=== PATIENT | female | born 1955 | race Caucasian/White ===

== ENCOUNTER 2017-05-19 13:11 | Emergency (ER) | payer MEDICARE, MEDICAID ==
[2017-05-19 13:18] VITALS: BP 112/59
--- NOTE | 2017-05-19 13:23 | ER Document Report ---
HPI - HPI Patient complains to provider of: chronic left hip pain Onset: Other - worse for 1.5 weeks Quality of pain: Achy, Throbbing Pain Level: 5 Context: 62-year-old female with chronic left hip pain due to osteoporosis and arthritis is complaining of exacerbation of her hip pain for 1-1/2 weeks. She has chronic daily pain but does not take any medication for it. Level is similar to when she has seen her primary care doctor in [place] and was given steroid into the hip joint. No fever or chills. No Recent change or increase in activity. Associated Symptoms: None Exacerbated by: Movement Relieved by: Denies Similar symptoms previously: Yes Recently seen / treated by doctor: No - ROS ROS below otherwise negative: Yes Systems Reviewed and Negative: Yes All other systems reviewed and negative - DERM Skin Color: Normal Past Medical History - General Information source: Patient - Social History Smoking Status: Unknown if Ever Smoked Frequency of alcohol use: None Drug Abuse: None Lives with: Parents - mom Family History: Reviewed & Not Pertinent Patient has suicidal ideation: No Patient has homicidal ideation: No - Past Medical History Cardiac Medical History: Reports: Hx Coronary Artery Disease Renal/ Medical History: Denies: Hx Peritoneal Dialysis Past Surgical History: Reports: Hx Cardiac Surgery - aortic valve replacement Vertical Provider Document - CONSTITUTIONAL Agree With Documented VS: Yes Exam Limitations: No Limitations - INFECTION CONTROL TRAVEL OUTSIDE OF THE [place] IN LAST 30 DAYS: No - HEENT HEENT: Normocephalic - NECK Neck: Supple - RESPIRATORY Respiratory: Breath Sounds Normal, No Respiratory Distress O2 Sat by Pulse Oximetry: 98 - CARDIOVASCULAR Cardiovascular: Regular Rate, Regular Rhythm - BACK Back: Normal Inspection Notes: [id number] over the SI joint - MUSCULOSKELETAL/EXTREMETIES Musculoskeletal/Extremeties: MAEW, Tender - anterior left hip and over the left SI joint area, scar at left inquinal from heart surgery. No erythema or swelling. Non tender great trochantur. Decreased external rotation of the left hip due to pain - NEURO Level of Consciousness: Awake, Alert, Appropriate Motor/Sensory: No Motor Deficit, No Sensory Deficit - DERM Integumentary: Warm, Dry, No Rash Course - Re-evaluation Re-evalutation: 05/19/17 14:34 Pain is decreased with the Toradol and she states that the Naprosyn usually helps. - Vital Signs Vital signs: Temp Pulse Resp BP Pulse Ox 97.9 F 69 16 112/59 L 98 05/19/17 13:16 05/19/17 13:16 05/19/17 13:16 05/19/17 13:16 05/19/17 13:16 Discharge - Discharge Clinical Impression: Arthritis of left hip, Left hip pain Condition: Good Disposition: HOME, SELF-CARE Instructions: Arthritis ([facility]), Anti-Inflammatory Medication ([facility]), Toradol Injection ([facility]), Family Physicians / Practices Additional Instructions: warm compress may help range of motion to loosen the joint and tendons see [facility] see family practice doctorl for routine care orthopedics if pain management clinic does not help with the hip pain Please complete the patient satisfaction survey if you get one, and return it.. If you do not receive a survey, then you can go to the [facility] website, [email or web address] and place your comments about your very good care. Thank you very much. It was a pleasure being your medical provider today. Prescriptions: Naproxen 500 mg PO BIDP PRN #30 tablet PRN Reason: Referrals: PATSY QUICK MD [ACTIVE STAFF] - Follow up as needed FERNANDO RAGLAND MD [ACTIVE STAFF] - Follow up as needed
[2017-05-19] MEDS ORDERED: KETOROLAC TROMETHAMINE 60 MG/2 ML SDV IM ONE (13:33)
--- NOTE | 2017-05-19 14:29 | RADIOLOGY REPORT (SQ) ---
EXAM DESCRIPTION: HIP LEFT AP/LATERAL/ left hip COMPLETED DATE/TIME: 05/19/2017 2:09 pm REASON FOR STUDY: left hip pain COMPARISON: None. NUMBER OF VIEWS: Two views./ including AP pelvis for the left hip. TECHNIQUE: AP and frog-leg view of the left hip. LIMITATIONS: None. FINDINGS: MINERALIZATION: Normal. PRIMARY HIP: No fracture dislocation. Some arthritic changes noted. OPPOSITE HIP: No fracture dislocation. Some arthritic change noted with slight joint narrowing. SOFT TISSUES: No findings. OTHER: If an occult fracture suspected clinically, consider additional imaging. IMPRESSION: No acute fractures. Mild arthritic change noted. TECHNICAL DOCUMENTATION: JOB ID: [id number] [employer]- All Rights Reserved
== END 2017-05-19 14:53 | disposition home or self-care (01) ==
LOC: ER 13:11
DX: M16.12 Unilateral primary osteoarthritis, left hip (principal); M25.552 Pain in left hip; G89.29 Other chronic pain; M81.0 Age-related osteoporosis without current pathological fracture; Z95.2 Presence of prosthetic heart valve
CPT/HCPCS: 99283; 96372; 73502; J1885

== ENCOUNTER → 2017-06-14 | Outpatient (CLI) | payer MEDICARE ==
--- NOTE | 2017-06-14 14:19 | WOMENS IMAGING REPORT ---
EXAM DESCRIPTION: U/S BREAST UNILAT LIMITED COMPLETE DATE/TIME: 06/14/2017 2:08 pm REASON FOR STUDY: RT BREAST R92.8 R92.8 OTH ABN AND INCONCLUSIVE FINDINGS ON DX IMAGING OF DANIELLE FINDINGS: Please see combined report for performance of procedure and radiologic supervision and int erpretation. IMPRESSION: Please see combined report for performance of procedure and radiologic supervision and i nterpretation.
--- NOTE | 2017-06-14 14:19 | WOMENS IMAGING REPORT ---
EXAM DESCRIPTION: RIGHT DIAGNOSTIC MAMMO W/CAD COMPLETED DATE/TIME: 06/14/2017 1:22 pm REASON FOR STUDY: INCONCLUSIVE FINDINGS; R92.8 R92.8 OTH ABN AND INCONCLUSIVE FINDINGS ON DX IMAGIN G OF DANIELLE COMPARISON: 05/01/2017 TECHNIQUE: Standard craniocaudal and mediolateral oblique images of the breast recorded with digital acquisition. Cone compression views of the right breast were obtained in 3 projections. Exaggerated CC and true l ateral view of the right breast were obtained. LIMITATIONS: None. FINDINGS: BREAST: Right MASSES: The previously described small well demarcated breast nodule is again identified. Ultrasound will be obtained for further evaluation. CALCIFICATIONS: No new or suspicious calcifications. ARCHITECTURAL DISTORTION: None. DEVELOPING DENSITY: None. ASYMMETRY: None noted. OTHER: No other significant findings. Read with the assistance of CAD. [facility] - R2 Cenova Version 1.3 .[facility] - R2 Cenova Version 1.3 .[facility] - R2 Cenova Version 2.4 .[facility] [place] - R2 Cenova Version 2.4 .[facility] - R2 [employer] Version 9.2 BREAST ULTRASOUND: TECHNIQUE: Static and dynamic grayscale images acquired of the right breast in the specific areas of clinical/mammographic concern. Selected color Doppler images recorded. ELASTOGRAPHY PERFORMED: No. LIMITATIONS: None. FINDINGS: MASS: At the approximate 9 at 10 o'clock position in the right breast a well demarcated intramammary lymph node is identified measuring 4 x 3 x 4 mm in diameters. No other discrete solid or cystic mass es are identified. ELASTOGRAPHY CHARACTERISTICS: Not applicable. OTHER: No other significant finding. IMPRESSION: Benign finding BREAST DENSITY: b. There are scattered areas of fibroglandular density. BIRAD: 2 Benign findings. RECOMMENDATION: RECOMMENDED FOLLOW UP: Recommend routine mammography SPECIFIC INTERVENTION/IMAGING/CONSULTATION RECOMMENDED:No additional intervention/ imaging/consultati on needed at this time. COMMUNICATION:The imaging findings were not discussed with the patient. Her referring provider has be en notified of the findings. COMMENT: The patient has been notified of the results by letter per SA requirements. Additional no tification policies are in place for contacting patient with suspicious or incomplete findings. Quality ID #[id number]: The [employer] recommends an annual screening mammogram for women aged 40 years or over. This facility utilizes a reminder system to ensure that all patients receive reminder letters, and/or direct phone calls for appointments. This includes reminders for routine scr eening mammograms, diagnostic mammograms, or other Breast Imaging Interventions when appropriate. Th is patient will be placed in the appropriate reminder system. The [employer] (ACR) has developed recommendations for screening MRI of the breast s in certain patient populations, to be used in conjunction with mammography. Breast MRI surveillanc e may be appropriate for women with more than 20% lifetime risk of developing breast cancer as deter mined by genetic testing, significant family history of the disease, or history of mantle radiation f or Hodgkins Disease. ACR Practice Guidelines 2008. TECHNICAL DOCUMENTATION: FINDING NUMBER: (1) ASSESSMENT: (1) JOB ID: [id number] [employer]- All Rights Reserved
== END ==
LOC: WI 12:56
PROVIDERS: ATTEND Internal Medicine
DX: R92.8 Other abnormal and inconclusive findings on diagnostic imaging of breast (principal)
CPT/HCPCS: 76642; G0206

== ENCOUNTER 2017-08-15 18:00 | Emergency (ER) | payer MEDICARE, MEDICAID ==
[2017-08-15 18:11] VITALS: BP 123/49
--- NOTE | 2017-08-15 18:46 | RADIOLOGY REPORT (SQ) ---
EXAM DESCRIPTION: SHOULDER LEFT 2 OR MORE VIEWS COMPLETED DATE/TIME: 08/15/2017 6:36 pm REASON FOR STUDY: fall injury COMPARISON: None. NUMBER OF VIEWS: Three views. TECHNIQUE: Internal rotation, external rotation, and Y view images acquired of the left shoulder. LIMITATIONS: None. FINDINGS: MINERALIZATION: Normal. BONES: No acute fracture or dislocation. There is an old fracture of the clavicle. JOINTS: No dislocation. VISUALIZED LUNGS AND RIBS: No pneumothorax. No rib fracture. SOFT TISSUES: No radiopaque foreign body. OTHER: No other significant finding. IMPRESSION: NEGATIVE STUDY OF THE LEFT SHOULDER. NO RADIOGRAPHIC EVIDENCE OF ACUTE INJURY. TECHNICAL DOCUMENTATION: JOB ID: [id number] [employer]- All Rights Reserved
--- NOTE | 2017-08-15 18:47 | RADIOLOGY REPORT (SQ) ---
EXAM DESCRIPTION: ELBOW LEFT OVER 2 VIEWS COMPLETED DATE/TIME: 08/15/2017 6:36 pm REASON FOR STUDY: fall injury COMPARISON: None. NUMBER OF VIEWS: Four views. TECHNIQUE: AP, lateral, and both oblique radiographic images acquired of the left elbow. LIMITATIONS: None. FINDINGS: MINERALIZATION: Normal. BONES: No acute fracture or dislocation. No worrisome bone lesions. JOINT: No effusion. SOFT TISSUES: No soft tissue swelling. No foreign body. OTHER: No other significant finding. IMPRESSION: NEGATIVE STUDY OF THE LEFT ELBOW. NO RADIOGRAPHIC EVIDENCE OF ACUTE INJURY. TECHNICAL DOCUMENTATION: JOB ID: [id number] [employer]- All Rights Reserved
--- NOTE | 2017-08-15 18:54 | ER Document Report ---
HPI - HPI Patient complains to provider of: Left shoulder and elbow pain Onset/Duration: Sudden Quality of pain: Throbbing Severity: Moderate Pain Level: 4 Context: Patient states she lost her balance while carrying groceries, hitting her left shoulder and elbow. Patient denies hitting head. Patient states she can move left arm/shoulder but is painful with certain movements. Associated Symptoms: None Exacerbated by: Movement Relieved by: Denies Similar symptoms previously: Yes Recently seen / treated by doctor: No - ROS ROS below otherwise negative: Yes Systems Reviewed and Negative: Yes All other systems reviewed and negative - CONSTITUTIONAL Constitutional: DENIES: Fever - EENT EENT: DENIES: Congestion - NEURO Neurology: DENIES: Headache, Dizzinesss / Vertigo - CARDIOVASCULAR Cardiovascular: DENIES: Chest pain - RESPIRATORY Respiratory: DENIES: Trouble Breathing - GASTROINTESTINAL Gastrointestinal: DENIES: Abdominal Pain - URINARY Urinary: DENIES: Dysuria - MUSCULOSKELETAL Musculoskeletal: REPORTS: Extremity pain - Left shoulder and elbow - DERM Skin Color: Normal Skin Problems: Abrasion - Left elbow Past Medical History - General Information source: Patient - Social History Smoking Status: Current Every Day Smoker Cigarette use (# per day): Yes Frequency of alcohol use: None Drug Abuse: None Lives with: Family Family History: Reviewed & Not Pertinent Patient has suicidal ideation: No Patient has homicidal ideation: No - Past Medical History Cardiac Medical History: Reports: Hx Congestive Heart Failure, Hx Coronary Artery Disease, Hx Hypercholesterolemia Pulmonary Medical History: Reports: Hx COPD Musculoskeltal Medical History: Reports Hx Arthritis - osteo Psychiatric Medical History: Reports: Hx Depression - anxiety Past Surgical History: Reports: Hx Cardiac Surgery - aortic valve replacement, Hx Hysterectomy, Hx Open Heart Surgery - valve replacement Vertical Provider Document - CONSTITUTIONAL Agree With Documented VS: Yes Exam Limitations: No Limitations General Appearance: WD/WN, No Apparent Distress - INFECTION CONTROL TRAVEL OUTSIDE OF THE [place] IN LAST 30 DAYS: No - HEENT HEENT: Atraumatic, Normocephalic, PERRLA - NECK Neck: Normal Inspection, Supple - RESPIRATORY Respiratory: Breath Sounds Normal, No Respiratory Distress, Chest Non-Tender O2 Sat by Pulse Oximetry: 98 - CARDIOVASCULAR Cardiovascular: Regular Rate, Regular Rhythm - GI/ABDOMEN Gastrointestinal: Abdomen Soft - MUSCULOSKELETAL/EXTREMETIES Musculoskeletal/Extremeties: Tender - Left shoulder and elbow, No Edema. negative: Eccymosis Notes: Patient is able to move arms behind her back and over her head. Patient complains of pain to left shoulder with side motion. Tender anterior AC joint, - NEURO Level of Consciousness: Awake, Alert, Appropriate - DERM Integumentary: Warm, Dry, Rash - Patient has superficial abrasion to left elbow , bleeding controlled. Course - Re-evaluation Re-evalutation: 08/15/17 18:58 X-rays negative for acute fracture and discussed with patient. Old clavicle fracture was noted on x-ray. - Vital Signs Vital signs: Temp Pulse Resp BP Pulse Ox 98.3 F 50 L 18 123/49 L 98 08/15/17 18:09 08/15/17 18:09 08/15/17 18:09 08/15/17 18:09 08/15/17 18:09 Discharge - Discharge Clinical Impression: Contusion of left shoulder Qualifiers: Encounter type: initial encounter Qualified Code(s): S40.012A - Contusion of left shoulder, initial encounter Abrasion of left elbow Qualifiers: Encounter type: initial encounter Qualified Code(s): S50.312A - Abrasion of left elbow, initial encounter Condition: Good Disposition: HOME, SELF-CARE Additional Instructions: Wear shoulder immobilizer as instructed. Ice packs to shoulder and left elbow keep abrasion to left elbow clean and dry Follow-up with your doctor Monday for recheck, earlier if worsens Return as needed
== END 2017-08-15 19:18 | disposition home or self-care (01) ==
LOC: ER 18:00
DX: S40.012A Contusion of left shoulder, initial encounter (principal); S50.312A Abrasion of left elbow, initial encounter; W18.30XA Fall on same level, unspecified, initial encounter; F17.210 Nicotine dependence, cigarettes, uncomplicated; I50.9 Heart failure, unspecified; I25.10 Atherosclerotic heart disease of native coronary artery without angina pectoris; E78.00 Pure hypercholesterolemia, unspecified; J44.9 Chronic obstructive pulmonary disease, unspecified; Z95.2 Presence of prosthetic heart valve; Z90.710 Acquired absence of both cervix and uterus
CPT/HCPCS: 99283; 73080; 73030; L3650

== ENCOUNTER → 2017-08-30 | Day surgery (SDC) | payer MEDICARE, MEDICAID ==
[~2017-08-30] MED LIST: BUPIVACAINE HCL 0.5 % INJ/PF 30 ML SDV ONE; LIDOCAINE 1% INJ-PF (10 MG/ML) 30 ML SDV ONE; METHYLPREDNISOLONE ACETATE INJ 40 MG/1 ML ML ONE
--- NOTE | 2017-08-30 14:35 | RADIOLOGY REPORT (SQ) ---
EXAM DESCRIPTION: HIP UNILATERAL-1 VIEW; INJECT/ASPIR HIP/SHLDR/KNEE; FLUORO/NEEDLE PLACEMENT COMPLETED DATE/TIME: 08/30/2017 2:06 pm; 08/30/2017 2:05 pm REASON FOR STUDY: PAIN IN LEFT HIP (M25.552) M25.552 PAIN IN LEFT HIP COMPARISON: None. FLUOROSCOPY TIME: 17 seconds 1 digital radiographic images saved to PACS. LIMITATIONS: None. PROCEDURE: SITE OF INJECTION: Left hip LOCALIZING CONTRAST TYPE AND DOSE: 1 mL of Isovue-300 MEDICATION TYPE AND DOSE: 80 mg of Depo-Medrol, 5 mL of 0.5% bupivacaine Using local anesthesia and sterile technique with fluoroscopic guidance, the needle was advanced into the joint. Iodinated contrast was injected to verify intraarticular placement. This was followed by therapeutic injection of the indicated medications. The needle was removed. There were no immediat e complications. Preprocedure pain level: 8/10. Postprocedure pain level: 0/10. IMPRESSION: THERAPEUTIC INJECTION OF THE left hip JOINT ABOVE. COMMENT: Patient medication list reviewed: Yes- Quality ID# [id number]:Eligible professional attests to doc umenting in the medical record they obtained, updated, or reviewed the patient's current medications. . Quality ID 145: Final reports for procedures using fluoroscopy that document radiation exposure nata stephanie, or exposure time and number of fluorographic images (if radiation exposure indices are not avail able) TECHNICAL DOCUMENTATION: JOB ID: [id number] [employer]- All Rights Reserved
== END ==
LOC: RAD 13:07
PROVIDERS: ATTEND Physician Assistant
PROC: 3E0U33Z Introduction of Anti-inflammatory into Joints, Percutaneous Approach (ICD-10-PCS; principal; 2017-08-30)
DX: M25.552 Pain in left hip (principal)
CPT/HCPCS: 73501; 20610; 77002; J3490; J1020

== ENCOUNTER 2017-12-19 15:56 | Emergency (ER) | payer MEDICARE, MEDICAID ==
--- NOTE | 2017-12-19 16:22 | ER Document Report ---
ED Medical Screen (RME) - General Chief Complaint: Hip Pain Stated Complaint: HIP PAIN Time Seen by Provider: 12/19/17 16:20 Mode of Arrival: Wheelchair Information source: Patient TRAVEL OUTSIDE OF THE [place]. IN LAST 30 DAYS: No - HPI Patient complains to provider of: R hip Onset: Other - pt fell on R hip 1 week ago -- hsa been having pain ever since - Related Data Allergies/Adverse Reactions: clopidogrel [From Plavix] Allergy (Verified 12/19/17 15:57) rivaroxaban [From Xarelto] Allergy (Verified 12/19/17 15:57) Past Medical History - Social History Chew tobacco use (# tins/day): No Frequency of alcohol use: Rare Drug Abuse: None - Past Medical History Cardiac Medical History: Reports: Hx Congestive Heart Failure, Hx Coronary Artery Disease, Hx Hypercholesterolemia Pulmonary Medical History: Reports: Hx COPD Renal/ Medical History: Denies: Hx Peritoneal Dialysis Musculoskeltal Medical History: Reports Hx Arthritis - osteo Psychiatric Medical History: Reports: Hx Depression - anxiety Past Surgical History: Reports: Hx Cardiac Surgery - aortic valve replacement, Hx Hysterectomy, Hx Open Heart Surgery - valve replacement Physical Exam - Vital signs Vitals: Temp Pulse BP Pulse Ox 98.5 F 46 L 115/46 L 94 12/19/17 16:07 12/19/17 16:07 12/19/17 16:07 12/19/17 16:07 Course - Vital Signs Vital signs: Temp Pulse Resp BP Pulse Ox 98.5 F 46 L 115/46 L 94 12/19/17 16:07 12/19/17 16:07 12/19/17 16:07 12/19/17 16:07
--- NOTE | 2017-12-19 16:51 | RADIOLOGY REPORT (SQ) ---
EXAM DESCRIPTION: HIP RIGHT AP/LATERAL COMPLETED DATE/TIME: 12/19/2017 4:39 pm REASON FOR STUDY: fall COMPARISON: Left hip films 05/19/2017 NUMBER OF VIEWS: Two views. TECHNIQUE: AP pelvis and additional frog-leg view of the right hip. LIMITATIONS: None. FINDINGS: MINERALIZATION: Osteopenic RIGHT HIP: No fracture or dislocation. No worrisome bone lesions. No significant right hip joint sp eliane narrowing or bony spurring LEFT HIP: No fracture or dislocation. No worrisome bone lesions. No significant left hip joint spac e narrowing or bony spurring PUBIS AND ISCHIUM: Question acute or subacute fracture right symphysis pubis with bony irregularity. Left symphysis pubis intact PELVIS: No gross acute fracture SACRUM: No gross acute fracture LOWER LUMBAR SPINE: Bilateral L5-S1 facet arthropathy SOFT TISSUES: No findings. OTHER: No other significant finding. IMPRESSION: Acute or subacute right symphysis pubis fracture TECHNICAL DOCUMENTATION: JOB ID: [id number] [employer]- All Rights Reserved
[2017-12-19] MEDS ORDERED: MORPHINE SULFATE 10 MG/ML INJ IV ONE (17:32)
--- NOTE | 2017-12-19 18:41 | RADIOLOGY REPORT (SQ) ---
EXAM DESCRIPTION: CT PELVIS WITHOUT COMPLETED DATE/TIME: 12/19/2017 6:07 pm REASON FOR STUDY: R symphysis pubis fx on xray COMPARISON: None. TECHNIQUE: CT scan of the pelvis performed without intravenous or oral contrast. Images reviewed wi th soft tissue and bone windows. Reconstructed coronal and sagittal MPR images reviewed. All images stored on PACS. All CT scanners at this facility use dose modulation, iterative reconstruction, and/or weight based d osing when appropriate to reduce radiation dose to as low as reasonably achievable (ALARA). [facility]: Dose Right [facility]: CareDose [facility]: Dose Right [facility]: Teradose 4D [facility]: [email or web address] RADIATION DOSE: CT Rad equipment meets quality standard of care and radiation dose reduction techniq ues were employed. CTDIvol: 19.0 mGy. DLP: 688 mGy-cm. mGy. LIMITATIONS: None. FINDINGS: PELVIC BONES: Vague partially sclerotic/ radiolucent line through the right symphysis pubi s that most likely represents an old or possibly subacute fracture. No displacement. No adjacent so ft tissue swelling or hematoma. VISUALIZED SPINE: No acute findings. HIP(S): No acute fracture or dislocation. No worrisome bone lesions. PELVIC SOFT TISSUES: No significant findings. EXTRAPELVIC SOFT TISSUES: No significant findings. OTHER: No other significant finding. IMPRESSION: Vague fracture line not through the right symphysis pubis representing either an old or subacute fracture with no displacement and no adjacent soft tissue swelling. TECHNICAL DOCUMENTATION: JOB ID: [id number] Quality ID # [id number]: Final reports with documentation of one or more dose reduction techniques (e.g., Au tomated exposure control, adjustment of the mA and/or kV according to patient size, use of iterative reconstruction technique) 2010 [employer]- All Rights Reserved
--- NOTE | 2017-12-19 19:37 | ER Document Report ---
ED General - General Chief Complaint: Hip Pain Stated Complaint: HIP PAIN Time Seen by Provider: 12/19/17 16:20 Mode of Arrival: Wheelchair Information source: Patient TRAVEL OUTSIDE OF THE [place] IN LAST 30 DAYS: No - HPI Notes: 62-year-old female presents today with complaints of left hip and groin pain after falling in her kitchen approximately 1 week ago. Denies any head pain or change in level of consciousness. Reports pain is 4 out of 10, throbbing achy. States she only has pain when she is walking long distances. Denies any numbness or tingling bilateral lower extremities equally. Denies any history of bowel or bladder dysfunction, saddle anesthesia since onset of symptoms. Has tried [id number] ibuprofen with some relief. Denies prior history of hip or groin pain. Has not been seen for this issue. She is on a blood thinner for having a mitral valve prolapse surgery approximately 1 year ago. Denies any chest pain, shortness of breath, nausea, vomiting, diarrhea, lightheadedness, blurred vision, double vision, loss of vision, dizziness, abdominal pain, dysuria hematuria. Denies any lower back pain. - Related Data Allergies/Adverse Reactions: clopidogrel [From Plavix] Allergy (Verified 12/19/17 15:57) rivaroxaban [From Xarelto] Allergy (Verified 12/19/17 15:57) Past Medical History - General Information source: Patient - Social History Smoking Status: Current Every Day Smoker Chew tobacco use (# tins/day): No Frequency of alcohol use: Rare Drug Abuse: None Family History: Reviewed & Not Pertinent Patient has suicidal ideation: No Patient has homicidal ideation: No - Past Medical History Cardiac Medical History: Reports: Hx Congestive Heart Failure, Hx Coronary Artery Disease, Hx Hypercholesterolemia Pulmonary Medical History: Reports: Hx COPD Renal/ Medical History: Denies: Hx Peritoneal Dialysis Musculoskeltal Medical History: Reports Hx Arthritis - osteo Psychiatric Medical History: Reports: Hx Depression - anxiety Past Surgical History: Reports: Hx Cardiac Surgery - aortic valve replacement, Hx Hysterectomy, Hx Open Heart Surgery - valve replacement Review of Systems - Review of Systems Constitutional: No symptoms reported EENT: No symptoms reported Cardiovascular: No symptoms reported Respiratory: No symptoms reported Gastrointestinal: No symptoms reported Genitourinary: No symptoms reported Female Genitourinary: No symptoms reported Musculoskeletal: See HPI Skin: No symptoms reported Hematologic/Lymphatic: No symptoms reported Neurological/Psychological: No symptoms reported Physical Exam - Vital signs Vitals: Temp Pulse BP Pulse Ox 98.5 F 46 L 115/46 L 94 12/19/17 16:07 12/19/17 16:07 12/19/17 16:07 12/19/17 16:07 - Notes Notes: PHYSICAL EXAMINATION: GENERAL: Well-appearing, well-nourished and in no acute distress. HEAD: Atraumatic, normocephalic. EYES: Pupils equal round and reactive to light, extraocular movements intact, conjunctiva are normal. ENT: Nares patent, oropharynx clear without exudates. Moist mucous membranes. NECK: Normal range of motion, supple without lymphadenopathy LUNGS: Breath sounds clear to auscultation bilaterally and equal. No wheezes rales or rhonchi. HEART: Regular rate and rhythm without murmurs ABDOMEN: Soft, nontender, nondistended abdomen. No guarding, no rebound. No masses appreciated. Female : deferred Musculoskeletal: Normal range of motion, no pitting or edema. No cyanosis. noted right hip pain with abduction and extension of lumbar back at 40 degrees. dtr + 2 bilaterally and equally in BLE. full motor and sensory function. normal gait. cap refill < 3 seconds. distal pulses + 2 in BLE. lower back examination wnl. No erythema, warmth to touch, deformity, crepitus or obvious asymmetry of the affected leg compared to other of hips equally. NEUROLOGICAL: Cranial nerves grossly intact. Normal speech, normal gait. Normal sensory, motor exams PSYCH: Normal mood, normal affect. SKIN: Warm, Dry, normal turgor, no rashes or lesions noted. Course - Re-evaluation Re-evalutation: consulted with Dr. Eyal Israel, contracting support specialist police officer crime prevention, regarding CT of pelvis without contrast that showed a vague fracture line not to the right symphysis pubis representing either an old or subacute fracture with no displacement no adjacent soft tissue swelling 2030. He consulted and stated that she can be nonweight bearing, use a walker and give adequate pain control, advised pt that she needs to be seen outpatient in the office within 1 week. Check patient with [place] controlled substance reporting website, patient does not have any active controlled substances that was prescribed to her. Because findings with patient, she agreed to plan of care and did not want to stay tonight. States she will follow-up in the office. Discussed pain control measures, do not drive, operate heavy machinery or drink while taking medication. Advised to use walker, said she has been at home but will take another one, is nonweightbearing. Patient agreed with plan of care and agrees to plan of care. Patient was discharged home. - Vital Signs Vital signs: Temp Pulse Resp BP Pulse Ox 98.0 F 49 L 18 130/65 H 98 12/19/17 20:08 12/19/17 20:08 12/19/17 20:08 12/19/17 20:08 12/19/17 20:08 Discharge - Discharge Clinical Impression: Fracture of right pubis Qualifiers: Encounter type: initial encounter Sublocation of pubis: unspecified portion of pubis Fracture type: closed Qualified Code(s): S32.501A - Unspecified fracture of right pubis, initial encounter for closed fracture Condition: Good Disposition: HOME, SELF-CARE Instructions: Pelvic Fracture ([facility]) Additional Instructions: Follow-up with contracting support specialist, Dr. Sam Israel within 3 days. Use pain medication as directed, do not drive, drink alcohol or operate heavy machinery while taking medications. Use walker to remain nonweight weightbearing. Do not mix pain medication with any other pain supplements. Return to the emergency room if symptoms become worse as soon as possible. Follow-up with PCP within 24 hours. Please follow up with the [facility] [address] [place] [id number] Return immediately for any new or worsening symptoms. Follow up with primary care provider, call tomorrow to make followup appointment. Prescriptions: Hydrocodone/Acetaminophen [[place] 5-325 mg Tablet] 1 tab PO Q4HP PRN #10 tablet MDD 4 PRN Reason: Walker [Folding Walker] 1 each MC ASDIR PRN #1 each PRN Reason: Referrals: EYAL GARAY MD [ACTIVE STAFF] - Follow up in 3-5 days DONOVAN RAPP MD [Primary Care Provider] - Follow up in 3-5 days
[2017-12-19] MEDS ORDERED: HYDROCODONE/ACETAMINOPHEN 5-325 MG (6 TAB/ER DISP) PO PRN (19:39)
[2017-12-19 20:12] VITALS: BP 130/65
== END 2017-12-19 20:15 | disposition home or self-care (01) ==
LOC: ER 15:56
DX: S32.501A Unspecified fracture of right pubis, initial encounter for closed fracture (principal); W19.XXXA Unspecified fall, initial encounter; J44.9 Chronic obstructive pulmonary disease, unspecified; I25.10 Atherosclerotic heart disease of native coronary artery without angina pectoris; F17.200 Nicotine dependence, unspecified, uncomplicated; Z95.2 Presence of prosthetic heart valve; Z79.01 Long term (current) use of anticoagulants; Z88.8 Allergy status to other drugs, medicaments and biological substances
CPT/HCPCS: 99284; 73502; 72192; A9270

== ENCOUNTER 2018-01-06 08:30 | Emergency (ER) | payer MEDICARE, MEDICAID ==
[2018-01-06] MEDS ORDERED: HYDROCODONE/ACETAMINOPHEN 5-325 MG TABLET PO ONE (09:12)
[2018-01-06] MEDS ORDERED: CYCLOBENZAPRINE HCL 10 MG TABLET PO ONE (09:12)
--- NOTE | 2018-01-06 10:09 | RADIOLOGY REPORT (SQ) ---
EXAM DESCRIPTION: L SPINE WHOLE COMPLETED DATE/TIME: 01/06/2018 9:51 am REASON FOR STUDY: pain COMPARISON: None. NUMBER OF VIEWS: Five views including obliques. TECHNIQUE: AP, lateral, oblique, and sacral radiographic images acquired of the lumbar spine. LIMITATIONS: None. FINDINGS: MINERALIZATION: Normal. SEGMENTATION: Normal. No transitional anatomy. ALIGNMENT: There is a mild levoconvex curvature to the lumbar spine VERTEBRAE: Maintained height. No fracture or worrisome bone lesion. Endplate osteophyte formation i s present throughout. DISCS: Decreased intervertebral disc space height at the L2-3, L3-4, L4-5, L5-S1 levels POSTERIOR ELEMENTS: Pedicles and facets are intact. No pars defect or posterior arch defects. Facet arthropathy present in the lower lumbar spine. HARDWARE: None in the spine. PARASPINAL SOFT TISSUES: Normal. PELVIS: Mild degenerative changes of the sacroiliac joints. OTHER: No other significant finding. IMPRESSION: Multilevel spondylosis as described. No evidence of acute abnormality. TECHNICAL DOCUMENTATION: JOB ID: [id number] [employer]- All Rights Reserved Reading location - IP/workstation name: [email or web address]
--- NOTE | 2018-01-06 11:25 | ER Document Report ---
ED General Pain - General Chief Complaint: Back Pain Stated Complaint: BACK PAIN Time Seen by Provider: 01/06/18 08:43 Mode of Arrival: Medic Information source: Patient Notes: Patient is a 62-year-old female who presents to the ER today via EMS for lower back pain radiating down both posterior thighs 3 days. Patient states that she was diagnosed with a pelvic fracture at the beginning of the month, has been walking with a walker as per orthopedic surgeon's instructions and is not used to that. She denies any new injury or fall. She denies any numbness or tingling anywhere. TRAVEL OUTSIDE OF THE [place] IN LAST 30 DAYS: No - Related Data Allergies/Adverse Reactions: clopidogrel [From Plavix] Allergy (Verified 12/19/17 15:57) rivaroxaban [From Xarelto] Allergy (Verified 12/19/17 15:57) Past Medical History - General Information source: Patient - Social History Smoking Status: Unknown if Ever Smoked Family History: Reviewed & Not Pertinent - Past Medical History Cardiac Medical History: Reports: Hx Congestive Heart Failure, Hx Coronary Artery Disease, Hx Hypercholesterolemia Pulmonary Medical History: Reports: Hx COPD Renal/ Medical History: Denies: Hx Peritoneal Dialysis Musculoskeltal Medical History: Reports Hx Arthritis - osteo Psychiatric Medical History: Reports: Hx Depression - anxiety Past Surgical History: Reports: Hx Cardiac Surgery - aortic valve replacement, Hx Hysterectomy, Hx Open Heart Surgery - valve replacement Review of Systems - Review of Systems Constitutional: No symptoms reported EENT: No symptoms reported Cardiovascular: No symptoms reported Respiratory: No symptoms reported Gastrointestinal: No symptoms reported Genitourinary: No symptoms reported Female Genitourinary: No symptoms reported Musculoskeletal: See HPI Skin: No symptoms reported Hematologic/Lymphatic: No symptoms reported Neurological/Psychological: No symptoms reported Physical Exam - Notes Notes: PHYSICAL EXAMINATION: GENERAL: Uncomfortable, but in no acute distress. HEAD: Atraumatic, normocephalic. EYES: Pupils equal round and reactive to light, extraocular movements intact, sclera anicteric, conjunctiva are normal. NECK: Normal range of motion, supple without lymphadenopathy LUNGS: CTAB and equal. No wheezes rales or rhonchi. HEART: Regular rate and rhythm without murmurs ABDOMEN: Soft, no tenderness. No guarding, no rebound BACK: no vertebral tenderness, decreased range of motion secondary to pain GI/: no CVA tenderness EXTREMITIES: Normal range of motion, no pitting edema. No cyanosis. NEUROLOGICAL: Cranial nerves grossly intact. Normal sensory/motor exams. PSYCH: Normal mood, normal affect. SKIN: Warm, Dry, normal turgor, no rashes or lesions noted Course - Re-evaluation Re-evalutation: 01/06/18 11:24 Lumbar x-ray negative for any acute pathology. Patient states that she received pain medication from orthopedic surgeon but is out. She states that that was working for her pain. Discharge - Discharge Clinical Impression: Low back pain Qualifiers: Chronicity: acute Back pain laterality: bilateral Sciatica presence: with sciatica Sciatica laterality: bilateral sciatica Qualified Code(s): M54.42 - Lumbago with sciatica, left side; M54.41 - Lumbago with sciatica, right side; M54.41 - Lumbago with sciatica, right side Condition: Stable Disposition: HOME, SELF-CARE Additional Instructions: Return immediately for any new or worsening symptoms. Follow up with primary care provider, call tomorrow to make followup appointment. Prescriptions: Cyclobenzaprine HCl [Flexeril 10 mg Tablet] 10 mg PO TIDP PRN #15 tab PRN Reason: Hydrocodone/Acetaminophen [[place] 5-325 mg Tablet] 1 tab PO Q4 PRN #15 tablet PRN Reason:
[2018-01-06 11:54] VITALS: BP 103/75
== END 2018-01-06 11:40 | disposition home or self-care (01) ==
LOC: ER 08:30
DX: M54.41 Lumbago with sciatica, right side (principal); M54.42 Lumbago with sciatica, left side; I25.10 Atherosclerotic heart disease of native coronary artery without angina pectoris; J44.9 Chronic obstructive pulmonary disease, unspecified; Z95.2 Presence of prosthetic heart valve; Z88.8 Allergy status to other drugs, medicaments and biological substances
CPT/HCPCS: 99283; 72110; A9270 ×2

== ENCOUNTER 2018-01-08 10:26 | Inpatient (IN) | payer MEDICARE, MEDICAID ==
--- NOTE | 2018-01-08 10:37 | ER Document Report ---
ED Hip Pain/Injury - General Stated Complaint: RIGHT HIP PAIN Time Seen by Provider: 01/08/18 10:36 Mode of Arrival: Medic Information source: Patient Notes: 62 yo female in [facility] states that the low back pain is the worst it has ever been. The hydrocodone and flexeril has decreased it until last night, now both heels are numb and when she bears weight with the walke it send shooting pain up both legs to her low back. No saddle anesthesia or fever. Screams with spasm of pain when tries to move. TRAVEL OUTSIDE OF THE [place] IN LAST 30 DAYS: No - Related Data Allergies/Adverse Reactions: clopidogrel [From Plavix] Allergy (Verified 12/19/17 15:57) rivaroxaban [From Xarelto] Allergy (Verified 12/19/17 15:57) Past Medical History - General Information source: Patient - Social History Smoking Status: Unknown if Ever Smoked Frequency of alcohol use: None Drug Abuse: None Lives with: Family Family History: Reviewed & Not Pertinent - Past Medical History Cardiac Medical History: Reports: Hx Congestive Heart Failure, Hx Coronary Artery Disease, Hx Hypercholesterolemia, Other - mitral valve replacement Pulmonary Medical History: Reports: Hx COPD Renal/ Medical History: Denies: Hx Peritoneal Dialysis Musculoskeltal Medical History: Reports Hx Arthritis - osteo Psychiatric Medical History: Reports: Hx Depression - anxiety, Other - brain injury Past Surgical History: Reports: Hx Hysterectomy, Hx Open Heart Surgery - mitral valve replacement Review of Systems - Review of Systems Constitutional: No symptoms reported EENT: No symptoms reported Cardiovascular: No symptoms reported Respiratory: No symptoms reported Gastrointestinal: No symptoms reported Genitourinary: No symptoms reported Female Genitourinary: No symptoms reported Musculoskeletal: See HPI Skin: No symptoms reported Hematologic/Lymphatic: No symptoms reported Neurological/Psychological: No symptoms reported Physical Exam - Vital signs Vitals: Temp Pulse Resp BP Pulse Ox 98.0 F 119 H 18 101/66 93 01/08/18 10:32 01/08/18 10:32 01/08/18 10:32 01/08/18 10:32 01/08/18 10:32 Interpretation: Normal - General General appearance: Appears well, Alert In distress: None - HEENT Head: Normocephalic, Atraumatic Eyes: Normal Conjunctiva: Normal Pupils: PERRL Pharynx: Normal Neck: Supple. No: Lymphadenopathy - Respiratory Respiratory status: No respiratory distress Chest status: Nontender Breath sounds: Normal Chest palpation: Normal - Cardiovascular Rhythm: Regular Heart sounds: Normal auscultation Murmur: No - Abdominal Inspection: Normal Distension: No distension Bowel sounds: Normal Tenderness: Nontender. No: Tender Organomegaly: No organomegaly - Back Back: Normal, Tender - sacrum bilateral. No: CVA tenderness, Vertebra tenderness - Extremities General upper extremity: Normal inspection, Nontender, Normal color, Normal ROM , Normal temperature General lower extremity: Normal inspection, Nontender, Normal color, Normal ROM , Normal temperature, Normal weight bearing. No: Bonnie's sign Notes: 2+ bilateral PT - Neurological Neuro grossly intact: Yes Cognition: Normal Orientation: AAOx4 Raul Coma Scale Eye Opening: Spontaneous Farwell Coma Scale Verbal: Oriented Farwell Coma Scale Motor: Obeys Commands Raul Coma Scale Total: 15 Speech: Normal Motor strength normal: LUE, RUE, LLE, RLE Sensory: Normal - Psychological Associated symptoms: Normal affect, Normal mood - Skin Skin Temperature: Warm Skin Moisture: Dry Skin Color: Normal Skin irregularity: negative: Rash Course - Re-evaluation Re-evalutation: 01/08/18 11:13 pt yelling when moves. I did have her sit on side of bed, she was able to do that but sweating due to pain. States that heels are numb since middle of night but no saddle anesthesia. When she puts weight on her legs it shouts pain all the way up both legs to low back (she points to sacrum for area of pain) 01/08/18 13:42 Mother was here and wants her admitted to rehab of some sort for this pain because she screams out in pain at home. This pain started in November. 01/08/18 15:32 Patient did ambulate to the bathroom with nurse and my assistance and using a chair as a walker. She did get to the bathroom and sat on the toilet and was able to transfer okay into the wheelchair to get back to the house so we will be sending her home with a wheelchair prescription and she seemed happy with that and she understands that the Percocet is double strength and should only take 1 every 4 hours. 01/08/18 16:49 dr jenkins will do the sacroplasty at 8am, pt medicaid so if the hospitalist agrees to admit he will take care of the patient. Dr. To will admit the patient to observation and I let dr. jenkins know about it, will put in the consult for him as requested. - Vital Signs Vital signs: Temp Pulse Resp BP Pulse Ox 98.0 F 54 L 16 98/65 L 96 01/08/18 15:54 01/08/18 15:54 01/08/18 15:54 01/08/18 15:54 01/08/18 15:54 Discharge - Discharge Clinical Impression: Bilateral sacral insufficiency fracture Qualifiers: Encounter type: initial encounter Qualified Code(s): M84.48XA - Pathological fracture, other site, initial encounter for fracture Condition: Good Disposition: ADMITTED INPATIENT Admitting Provider: Hospitalist Unit Admitted: Telemetry Instructions: Fracture ([facility]), Low Back Pain ([facility]) Additional Instructions: heat use the walker schedule appointment with [facility] for Sacroplasty to resolve this pain stronger pain medication prescribed as well has lidocaine 4% patches for your back the new prescription is double strength only take 1 every 4 hours as needed. Referrals: DONOVAN RAPP MD [Primary Care Provider] - Follow up as needed
[2018-01-08] MEDS ORDERED: KETOROLAC TROMETHAMINE 60 MG/2 ML SDV IM ONE (10:54)
[2018-01-08] MEDS ORDERED: ACETAMINOPHEN 325 MG TABLET PO ONE (10:55)
[2018-01-08] MEDS ORDERED: HYDROMORPHONE HCL INJ/PF 2 MG/ML AMPULE IM ONE ×2 (11:05→15:21)
--- NOTE | 2018-01-08 14:50 | RADIOLOGY REPORT (SQ) ---
EXAM DESCRIPTION: MRI LUMBAR SPINE WITHOUT COMPLETED DATE/TIME: 01/08/2018 2:15 pm REASON FOR STUDY: low back pain with radiculopathy COMPARISON: Lumbar spine plain films 01/06/2018, CT bony pelvis 12/19/2017 TECHNIQUE: Sagittal and Axial imaging includes T1, T2, STIR and gradient echo sequences. Coronal T2/ HASTE imaging. LIMITATIONS: None. FINDINGS: VISUALIZED UPPER ABDOMEN: Limited evaluation. No acute or suspicious findings suggested. SEGMENTATION: No transitional anatomy. The lowest well-developed disc space is labeled L5-S1. ALIGNMENT: Anatomic. VERTEBRAE: Intact. BONE MARROW: There is a sacral insufficiency fracture, with edema in the right and left sacral ala, a nd a transverse fracture line with edema in the sacrum at the upper aspect of the S2 level. These ch anges are best shown on sagittal T2 images 1-13, and axial images 25-29. DISC SIGNAL: Diffuse decreased T2 weighted intervertebral disc signal. POSTERIOR ELEMENTS: Generally intact. No pars defect evident. HARDWARE: None in the spine. CORD AND CONUS: Normal in size and signal intensity. Conus at the L1 level. SOFT TISSUES: No aortic aneurysm seen. No bulky retroperitoneal adenopathy or mass. No paraspinal mas s or fluid. T11-12: Unremarkable T12-L1: Unremarkable L1-L2: No significant spinal stenosis or exit foraminal stenosis. Mild bilateral facet arthropathy L2-L3: No significant spinal stenosis or exit foraminal stenosis. Mild bilateral facet arthropathy L3-L4: No significant spinal stenosis or exit foraminal stenosis. Mild bilateral facet arthropathy L4-L5: No significant spinal stenosis or exit foraminal stenosis. Mild posterior disc bulging. Mild facet and ligament hypertrophy. No significant central or right foraminal narrowing. Mild left for aminal narrowing. L5-S1: No significant spinal stenosis or exit foraminal stenosis. SACRUM: There is a sacral insufficiency fracture, with edema in the right and left sacral ala, and a transverse fracture line with edema in the sacrum at the upper aspect of the S2 level. These changes are best shown on sagittal T2 images 1-13, and axial images 25-29 OTHER: No other significant findings. IMPRESSION: Sacral insufficiency fracture TECHNICAL DOCUMENTATION: JOB ID: [id number] [employer]- All Rights Reserved Reading location - IP/workstation name: [email or web address] [email or web address]]
[2018-01-08] MEDS ORDERED: ONDANSETRON 4 MG TAB.RAPDIS PO ONE (15:27)
[2018-01-08] MEDS ORDERED: OXYCODONE-ACETAMINOPHEN 5-325 MG TABLET PO ONE (16:37)
[2018-01-08] MEDS ORDERED: ONDANSETRON HCL INJ/PF 4 MG/2 ML SDV IV PRN (17:54)
[2018-01-08] MEDS ORDERED: HEPARIN SODIUM,PORCINE/D5W 25,000 UNIT/250 ML RTUINJ IV PRN (18:00)
[2018-01-08] MEDS ORDERED: DOCUSATE SODIUM 100 MG/10 ML UDC PO SCH (18:00)
--- NOTE | 2018-01-08 18:26 | PDOC H&P ---
History of Present Illness Admission Date/PCP: DONOVAN RAPP MD Patient complains of: severe back pain History of Present Illness: JM PUGA is a 62 year old female with a known history of CHF, chronic afib , S/P valve replacement on pradaxa , presented to the ED with reccurent back / inguinal pain MRI pelvis was performed showing a sacral insufficiency fracture . Patient was admitted for pain management . Patient states she has not taken pradaxa for the past 2 days" run out " and filled prescription today . , Past Medical History Past Medical History: History is vague difficult to obtain will call Dr Murphy in am for more information office records will be obtained Cardiac Medical History: Reports: Atrial Fibrillation, Congestive Heart Failure , Coronary Artery Disease, Hyperlipidema, Other - mitral valve replacement Pulmonary Medical History: Reports: Chronic Obstructive Pulmonary Disease (COPD) Musculoskeltal Medical History: Reports: Arthritis - osteo Psychiatric Medical History: Reports: Depression - anxiety, Other - brain injury Past Surgical History Past Surgical History: Reports: Hysterectomy, Other - ? valve replacement Social History Information Source: Patient Lives with: Family Smoking Status: Unknown if Ever Smoked - Advance Directive Resuscitation Status: Full Code Surrogate healthcare decision maker:: mother Alexandra Family History Family History: Reviewed & Not Pertinent Parental Family History Reviewed: Yes Children Family History Reviewed: Yes Sibling(s) Family History Reviewed.: Yes Medication/Allergy Allergies/Adverse Reactions: clopidogrel [From Plavix] Allergy (Verified 12/19/17 15:57) rivaroxaban [From Xarelto] Allergy (Verified 12/19/17 15:57) Review of Systems Constitutional: ABSENT: as per HPI, anorexia, chills, fatigue, fever(s), headache(s), night sweats, weakness, weight gain, weight loss, other Nose, Mouth, and Throat: ABSENT: as per HPI, headache(s), mouth pain, sore throat, vertigo, other Respiratory: ABSENT: cough, hemoptysis Gastrointestinal: ABSENT: abdominal pain, constipation, diarrhea, nausea, vomiting Musculoskeletal: PRESENT: back pain, other - severe pain right inguinal area Neurological: PRESENT: as per HPI. ABSENT: abnormal gait, abnormal movements, abnormal speech, confusion, convulsions, dizziness, focal weakness, frequent falls, lack of coordination, memory loss, numbness, paresthesias, restless legs , syncope, tingling, tremor(s), vertigo, weakness, other Psychiatric: ABSENT: anxiety, depression Physical Exam Vital Signs: Temp Pulse Resp BP Pulse Ox 98.0 F 54 L 16 98/65 L 96 01/08/18 15:54 01/08/18 15:54 01/08/18 15:54 01/08/18 15:54 01/08/18 15:54 Intake & Output 01/07/18 01/08/18 01/09/18 00:59 00:59 00:59 Weight 160 kg General appearance: PRESENT: mild distress, other - because of pain Head exam: PRESENT: atraumatic, normocephalic Eye exam: PRESENT: conjunctiva pink, EOMI, PERRLA. ABSENT: scleral icterus Mouth exam: PRESENT: moist, tongue midline Respiratory exam: PRESENT: clear to auscultation [place]im[place]. ABSENT: rales, rhonchi, wheezes Cardiovascular exam: PRESENT: irregular rhythm. ABSENT: diastolic murmur, rubs , systolic murmur Pulses: PRESENT: normal dorsalis pedis pul. ABSENT: normal carotid pulses, normal radial pulses, normal femoral pulses, +1 pedal pulses bilateral, +2 pedal pulses bilateral, other GI/Abdominal exam: PRESENT: normal bowel sounds, soft. ABSENT: distended, guarding, mass, organolmegaly, rebound, tenderness Rectal exam: PRESENT: deferred Extremities exam: PRESENT: full ROM. ABSENT: calf tenderness, clubbing, pedal edema Musculoskeletal exam: PRESENT: tenderness - tenderness low back, right inguinal area Neurological exam: PRESENT: alert, awake, oriented to person, oriented to place , oriented to time, oriented to situation, CN II-XII grossly intact. ABSENT: motor sensory deficit Psychiatric exam: PRESENT: appropriate affect, normal mood. ABSENT: homicidal ideation, suicidal ideation Skin exam: PRESENT: dry, intact, warm. ABSENT: cyanosis, rash Results Impressions: Lumbar Spine MRI 01/08/18 14:15 IMPRESSION: Sacral insufficiency fracture Assessment & Plan - Diagnosis (1) Bilateral sacral insufficiency fracture Qualifiers: Encounter type: subsequent encounter Qualified Code(s): M84.48XA - Pathological fracture, other site, initial encounter for fracture Is this a current diagnosis for this admission?: Yes Plan: Dr Leiva notified Patient will be kept NPO after midnight will initiate heparin drip maintenance which can be d/c 6 hours prior to intervention (2) Atrial fibrillation Qualifiers: Atrial fibrillation type: chronic Qualified Code(s): I48.2 - Chronic atrial fibrillation Is this a current diagnosis for this admission?: Yes Plan: rate 115 resumed amiodarone and metoprolol (3) Chronic anticoagulation Is this a current diagnosis for this admission?: Yes Plan: hold pradaxa heparin drip Patient gives a history of valve replacement ? records to be obtained in am (4) CHF (congestive heart failure) Qualifiers: Heart failure chronicity: unspecified Is this a current diagnosis for this admission?: Yes - Time Time Spent with patient: admit to telemetry reevaluate patient in am Time Spent: 50 to 70 Minutes - Inpatient Certification Based on my medical assessment, after consideration of the patient's comorbidities, presenting symptoms, or acuity I expect that the services needed warrant INPATIENT care.: Yes I certify that my determination is in accordance with my understanding of Medicare's requirements for reasonable and necessary INPATIENT services [42 CFR 412.3e].: Yes Medical Necessity: Need For Continuous Telemetry Monitoring, Need for Pain Control, Other - Heparin drip
--- NOTE | 2018-01-08 18:32 | RADIOLOGY REPORT (SQ) ---
EXAM DESCRIPTION: CHEST SINGLE VIEW COMPLETED DATE/TIME: 01/08/2018 6:08 pm REASON FOR STUDY: tachycardia hx cHF COMPARISON: None. EXAM PARAMETERS: NUMBER OF VIEWS: One view. TECHNIQUE: Single frontal radiographic view of the chest acquired. RADIATION DOSE: NA LIMITATIONS: None. FINDINGS: LUNGS AND PLEURA: Mild diffuse increased interstitial densities suggesting pulmonary edema and congestive failure. No effusions. MEDIASTINUM AND HILAR STRUCTURES: No masses. Contour normal. HEART AND VASCULAR STRUCTURES: Mild cardiomegaly and mild vascular congestion. BONES: No acute findings. HARDWARE: Status post placement. OTHER: No other significant finding. IMPRESSION: Findings consistent with mild congestive failure. TECHNICAL DOCUMENTATION: JOB ID: [id number] [employer]- All Rights Reserved Reading location - IP/workstation name: [email or web address]
[2018-01-08 18:56] LABS: ABSOLUTE BASOPHILS # (AUTO) 0.1 10^3/uL (0.0-0.2); ABSOLUTE LYMPHOCYTES (AUTO) 0.7 10^3/uL (0.5-4.7); ABSOLUTE MONOCYTES (AUTO) 0.9 10^3/uL (0.1-1.4); ABSOLUTE NEUT (AUTO) 8.7 10^3/uL (1.7-8.2); BASOPHILS % (AUTO) 0.6 % (0-2); EOSINOPHILS % (AUTO) 0.1 % (0-6); HEMATOCRIT 35.5 % (36.0-47.0); HEMOGLOBIN 11.7 g/dL (12.0-15.5); LYMPHOCYTES % (AUTO) 6.6 % (13-45); MEAN CORPUSCULAR HGB CONC 32.8 g/dL (32.0-36.0); MEAN CORPUSCULAR VOLUME 85 fl (80-97); PLATELET COUNT 217 10^3/uL (150-450); RED BLOOD COUNT 4.16 10^6/uL (3.72-5.28); RED CELL DISTRIBUTION WIDTH 15.7 % (11.5-14.0); SEGMENTED NEUTROPHILS % (AUTO) 83.7 % (42-78); TOTAL CELLS COUNTED % (AUTO) 100 %; WHITE BLOOD COUNT 10.4 10^3/uL (4.0-10.5)
[2018-01-08] MEDS ORDERED: AMIODARONE HCL 200 MG TABLET PO ONE (19:00)
[2018-01-08] MEDS ORDERED: DOCUSATE SODIUM 100 MG CAPSULE PO ONE (19:00)
[2018-01-08] MEDS ORDERED: METOPROLOL TARTRATE 25 MG TABLET PO ONE (19:00)
[2018-01-08 19:02] LABS: INTERNATIONAL RATION (INR) 1.44; PROTHROMBIN TIME 18.5 SEC (11.4-15.4)
[2018-01-08 19:03] LABS: PARTIAL THROMBOPLASTIN TIME 39.6 SEC (23.5-35.8)
--- NOTE | 2018-01-08 19:11 | EKG REPORT ---
SEVERITY:- ABNORMAL ECG - ATRIAL FIBRILLATION RIGHT BUNDLE BRANCH BLOCK LAFB : Confirmed by: Marito Kolb MD 08-Jan-2018 19:11:06
[2018-01-08 19:17] LABS: ANION GAP 10 (5-19); BLOOD UREA NITROGEN 24 mg/dL (7-20); CALCIUM 9.2 mg/dL (8.4-10.2); CARBON DIOXIDE 25 mmol/L (22-30); CHLORIDE 100 mmol/L (98-107); GLUCOSE 110 mg/dL (75-110); POTASSIUM 4.8 mmol/L (3.6-5.0); SODIUM 134.6 mmol/L (137-145)
[2018-01-08] MEDS: OXYCODONE-ACETAMINOPHEN 5-325 MG TABLET PO PRN (21:48)
[2018-01-08 22:19] LABS: APPEARANCE,URINE CLEAR; BILIRUBIN,URINE NEGATIVE (NEGATIVE); COLOR,URINE YELLOW; GLUCOSE, URINE NEGATIVE (NEGATIVE); KETONES,URINE NEGATIVE (NEGATIVE); LEUKOCYTE ESTERASE,URINE NEGATIVE (NEGATIVE); NITRITE,URINE NEGATIVE (NEGATIVE); PROTEIN,URINE NEGATIVE (NEGATIVE); URINE SPECIFIC GRAVITY 1.029
[2018-01-09] MEDS ORDERED: NORMAL SALINE 1000 ML 500 ML IV ONE (01:22)
[2018-01-09] MEDS: NORMAL SALINE 1000 ML 1,000 ML IV PRN ×2 (01:27→14:49)
[2018-01-09] MEDS: OXYCODONE-ACETAMINOPHEN 5-325 MG TABLET PO PRN ×4 (02:40→21:16)
[2018-01-09] MEDS: DOCUSATE SODIUM 100 MG CAPSULE PO SCH ×2 (11:01→17:04)
[2018-01-09] MEDS ORDERED: LORAZEPAM 0.5 MG TABLET PO PRN (12:55)
[2018-01-09] MEDS ORDERED: GABAPENTIN 300 MG CAPSULE PO SCH (14:00)
[2018-01-09] MEDS ORDERED: METOPROLOL TARTRATE 25 MG TABLET PO ONE (14:30)
[2018-01-09] MEDS ORDERED: ESCITALOPRAM OXALATE 10 MG TABLET PO ONE (14:30)
[2018-01-09] MEDS ORDERED: AMIODARONE HCL 200 MG TABLET PO ONE (14:30)
[2018-01-09] MEDS ORDERED: LEVOTHYROXINE SODIUM 0.025 MG TABLET PO ONE (14:30)
[2018-01-09] MEDS: GABAPENTIN 300 MG CAPSULE PO SCH ×2 (14:45→21:08)
--- NOTE | 2018-01-09 17:35 | PDOC PROGRESS REPORT ---
Subjective Progress Note for:: 01/09/18 Subjective:: In severe pain especially when she moves a little bit We have increased the Dilaudid She remains in atrial fibrillation with controlled ventricular rate at the heart rate 110 Blood pressure has been running on the low side We are giving her IV fluids And we do believe that she had poor intake because of the continued pain She has been on the heparin drip which will be discontinued at 8 PM tonight Reason For Visit: SACRAL FRACTURE,CHRONIC ANTICOAGULATION Physical Exam Vital Signs: Temp Pulse Resp BP Pulse Ox 98.7 F 106 H 18 98/65 L 93 01/09/18 15:35 01/09/18 15:35 01/09/18 15:35 01/09/18 15:35 01/09/18 15:35 Intake & Output 01/08/18 01/09/18 01/10/18 00:59 00:59 00:59 Intake Total 1730 Output Total 300 Balance 1430 Weight 72.575 kg 72.5 kg General appearance: PRESENT: mild distress, other - because of pain Head exam: PRESENT: atraumatic, normocephalic Eye exam: PRESENT: conjunctiva pink, EOMI, PERRLA. ABSENT: scleral icterus Mouth exam: PRESENT: moist, tongue midline Respiratory exam: PRESENT: clear to auscultation kim[place]. ABSENT: rales, rhonchi, wheezes Cardiovascular exam: PRESENT: irregular rhythm. ABSENT: diastolic murmur, rubs , systolic murmur Pulses: PRESENT: normal dorsalis pedis pul. ABSENT: normal carotid pulses, normal radial pulses, normal femoral pulses, +1 pedal pulses bilateral, +2 pedal pulses bilateral, other GI/Abdominal exam: PRESENT: normal bowel sounds, soft. ABSENT: distended, guarding, mass, organolmegaly, rebound, tenderness Rectal exam: PRESENT: deferred Extremities exam: PRESENT: full ROM. ABSENT: calf tenderness, clubbing, pedal edema Musculoskeletal exam: PRESENT: tenderness - tenderness low back, right inguinal area Neurological exam: PRESENT: alert, awake, oriented to person, oriented to place , oriented to time, oriented to situation, CN II-XII grossly intact. ABSENT: motor sensory deficit Results Laboratory Results: 01/08/18 18:45 01/08/18 18:45 01/08/18 01/08/18 01/08/18 18:45 18:45 21:40 WBC 10.4 RBC 4.16 Hgb 11.7 L Hct 35.5 L MCV 85 MCH 28.0 MCHC 32.8 RDW 15.7 H Plt Count 217 Seg Neutrophils % 83.7 H Lymphocytes % 6.6 L Monocytes % 9.0 Eosinophils % 0.1 Basophils % 0.6 Absolute Neutrophils 8.7 H Absolute Lymphocytes 0.7 Absolute Monocytes 0.9 Absolute Eosinophils 0.0 Absolute Basophils 0.1 Sodium 134.6 L Potassium 4.8 Chloride 100 Carbon Dioxide 25 Anion Gap 10 BUN 24 H Creatinine 1.10 Est GFR ( Amer) > 60 Est GFR (Non-Af Amer) 50 L Glucose 110 Calcium 9.2 Urine Color YELLOW Urine Appearance CLEAR Urine pH 5.0 Ur Specific [place] 1.029 Urine Protein NEGATIVE Urine Glucose (UA) NEGATIVE Urine Ketones NEGATIVE Urine Blood NEGATIVE Urine Nitrite NEGATIVE Ur Leukocyte Esterase NEGATIVE Urine WBC (Auto) 0 Urine RBC (Auto) 2 Impressions: Lumbar Spine MRI 01/08/18 14:15 IMPRESSION: Sacral insufficiency fracture Chest X-Ray 01/08/18 17:43 IMPRESSION: Findings consistent with mild congestive failure. Assessment & Plan - Diagnosis (1) Bilateral sacral insufficiency fracture Qualifiers: Encounter type: subsequent encounter Is this a current diagnosis for this admission?: Yes Plan: Dr Hernandez notified Patient will be kept NPO after midnight will initiate heparin drip maintenance which can be d/c 10-12 hours prior to intervention last pradaxa taken 3 days ago (2) Atrial fibrillation Qualifiers: Atrial fibrillation type: chronic Qualified Code(s): I48.2 - Chronic atrial fibrillation Is this a current diagnosis for this admission?: Yes Plan: rate 115 resumed amiodarone and metoprolol (3) Chronic anticoagulation Is this a current diagnosis for this admission?: Yes Plan: hold pradaxa heparin drip Patient gives a history of valve replacement ? We did not get any records yet Continue heparin drip until 8 PM then discontinue Repeat PT PTT in a.m. (4) CHF (congestive heart failure) Qualifiers: Heart failure chronicity: unspecified Is this a current diagnosis for this admission?: Yes - Time Time Spent with patient: patient stable for intervention in am Time Spent with patient: 25-34 minutes
[2018-01-09] MEDS: ZOLPIDEM TARTRATE 5 MG TABLET PO SCH (21:07)
[2018-01-09] MEDS: DONEPEZIL HCL 5 MG TABLET PO SCH (21:08)
[2018-01-09] MEDS: SIMVASTATIN 10 MG TABLET PO SCH (21:09)
[2018-01-09] MEDS: METOPROLOL TARTRATE 25 MG TABLET PO SCH (21:09)
[2018-01-09] MEDS: SACUBITRIL/VALSARTAN 24 MG/26 MG TABLET PO SCH (21:17)
[2018-01-09] MEDS ORDERED: (PENDING PHARMACY ID) (Donepezil Hcl [Aricept] 10 MG) PO SCH (22:00)
[2018-01-09] MEDS ORDERED: (PENDING PHARMACY ID) (Zolpidem Tartrate [Ambien] 10 MG) PO SCH (22:00)
[2018-01-10] MEDS: NORMAL SALINE 1000 ML 1,000 ML IV PRN (01:22)
[2018-01-10 05:30] LABS: HEMATOCRIT 31.9 % (36.0-47.0); HEMOGLOBIN 10.6 g/dL (12.0-15.5); MEAN CORPUSCULAR HEMOGLOBIN 28.2 pg (27.0-33.4); MEAN CORPUSCULAR HGB CONC 33.1 g/dL (32.0-36.0); MEAN CORPUSCULAR VOLUME 85 fl (80-97); PLATELET COUNT 176 10^3/uL (150-450); RED BLOOD COUNT 3.74 10^6/uL (3.72-5.28); RED CELL DISTRIBUTION WIDTH 15.3 % (11.5-14.0); WHITE BLOOD COUNT 6.1 10^3/uL (4.0-10.5)
[2018-01-10 05:34] LABS: INTERNATIONAL RATION (INR) 1.17; PROTHROMBIN TIME 15.7 SEC (11.4-15.4)
[2018-01-10] MEDS: LEVOTHYROXINE SODIUM 0.025 MG TABLET PO SCH (05:59)
[2018-01-10] MEDS: GABAPENTIN 300 MG CAPSULE PO SCH ×3 (05:59→22:32)
[2018-01-10] MEDS: HYDROMORPHONE HCL INJ/PF 2 MG/ML AMPULE IV PRN (05:59)
[2018-01-10] MEDS ORDERED: LIDOCAINE 1% INJ-PF (10 MG/ML) 30 ML SDV ONE ×2 (08:14→09:58)
[2018-01-10] MEDS ORDERED: METOPROLOL TARTRATE 25 MG TABLET PO SCH (10:00)
[2018-01-10] MEDS: SACUBITRIL/VALSARTAN 24 MG/26 MG TABLET PO SCH ×2 (10:47→22:32)
[2018-01-10] MEDS: DOCUSATE SODIUM 100 MG CAPSULE PO SCH ×2 (10:47→18:14)
[2018-01-10] MEDS: METOPROLOL TARTRATE 25 MG TABLET PO SCH ×2 (10:47→22:26)
[2018-01-10] MEDS ORDERED: FENTANYL CITRATE INJ/PF 100 MCG/2 ML AMPUL ONE (11:16)
[2018-01-10] MEDS ORDERED: MIDAZOLAM 2 MG/2 ML INJ ONE (11:16)
[2018-01-10] MEDS ORDERED: ACETAMINOPHEN 100 ML IV ONE (11:17)
[2018-01-10] MEDS ORDERED: KETAMINE HCL INJ 500 MG/10 ML VIAL ONE (11:17)
[2018-01-10] MEDS ORDERED: DEXMEDETOMIDINE INJ 80 MCG/20 ML VIAL IV ONE (11:17)
[2018-01-10] MEDS ORDERED: PROPOFOL INJ 200 MG/20 ML VIAL IV ONE (11:17)
[2018-01-10] MEDS ORDERED: CEFAZOLIN INJ 1 GM VIAL ONE ×2 (12:06→14:08)
[2018-01-10] MEDS ORDERED: PROMETHAZINE HCL INJ 25 MG/1 ML VIAL IV PRN (13:03)
[2018-01-10] MEDS ORDERED: FENTANYL CITRATE INJ/PF 100 MCG/2 ML AMPUL IV PRN ×2 (13:03)
[2018-01-10] MEDS ORDERED: ONDANSETRON HCL INJ/PF 4 MG/2 ML SDV IV PRN (13:03)
[2018-01-10] MEDS ORDERED: DIPHENHYDRAMINE HCL 50 MG/ML VIAL IV PRN (13:03)
--- NOTE | 2018-01-10 14:18 | OPERATIVE REPORT E ---
Operative Report NAME: JM PUGA : 1955 AGE: 62Y DATE OF SURGERY: 01/10/2018 ROOM: 404 PREOPERATIVE DIAGNOSES: 1. Bilateral sacral insufficiency fractures at S1 and S2. 2. Chronic intractable pain secondary to insufficiency fractures. OPERATIVE PROCEDURE: Bilateral kyphosacroplasty at S1 and S2 under fluoroscopic guidance. INDICATION: Intractable pain. ANESTHESIA: MAC. PRIMARY SURGEON: TATY VILLALOBOS M.D. ENGINE REPAIRER: PATSY QUICK M.D. COMPLICATIONS: None. PROCEDURE NOTE: After obtaining informed consent and advising the patient of the risks and benefits, including serious neurological injury, aggravation of pain problems, bowel and bladder dysfunction, paralysis, severe aggravation of pain, she was taken to the operating room. She was placed comfortably in the prone position. MAC anesthesia was administered. She was evaluated under fluoroscopy. Suitable entrance sites for bilateral sacroplasty using a long axis approach were identified. She was then prepped with chlorhexidine and allowed appropriate drying time. She was then draped in the usual fashion with a clear plastic drape. Beginning on the right side, a suitable skin entrance site was confirmed, again with fluoroscopy. The skin was anesthetized with 1% lidocaine with bicarb as was the soft tissue on its skin and the periosteum right at the junction of the inferior posterior margin of the sacroiliac joint and the S3-S4 junction. After local anesthesia was applied, a small incision was made in the skin and the expressed trocar was advanced parallel to the SI joint and lateral to the foramina of S1, S2, and S3. Multiple views in AP and lateral were taken to assure satisfactory location. In the lateral view, the trocar was advanced just caudad to the sacral ala. Trocar was then removed and the balloon was placed and expanded. This was repeated as described previously for the left side. Once both balloons were satisfactorily inflated and cavities were created, the balloons were deflated and the filling tubes were placed. At the S1 level on the right side, 3 mL of cement were instilled and 2.6 were instilled on the left for a total of 5.6 mL at the S1 level. The trocars were then withdrawn slightly. Balloons were then reinflated into the S1 ala, creating satisfactory cavities. These were then deflated and the filling tubes placed, again on the right and then the left, with a total of 1.6 mL in each cavity for a total of 3.2 mL in the S2 region. Both trocars were then occluded with *------* stylettes and allowed the cement to dry. The stylettes and all material were then removed. The region was cleansed and sterile dressings were applied. It should be noted that on appearance in the AP and lateral views the cement appeared to be satisfactorily placed. She was then taken to the PACU for further postoperative care and monitoring. DICTATING PHYSICIAN: PATSY QUICK M.D. [id number] PHY#: [id number] ID: [id number] JOB#: [id number] ACCT: [id number] cc:PATSY QUICK M.D. >
--- NOTE | 2018-01-10 14:51 | RADIOLOGY REPORT (SQ) ---
EXAM DESCRIPTION: SACRUM AND COCCYX; NO CHG FLUORO COMPLETED DATE/TIME: 01/10/2018 2:38 pm REASON FOR STUDY: SACROPLASTY ASST WITH FLUORO IN OR COMPARISON: None. FLUOROSCOPY TIME: 5.1 minutes 41 images saved to PACS. TECHNIQUE: Intra-operative images acquired during surgical procedure to evaluate progress. NUMBER OF IMAGES: 41 digital images LIMITATIONS: None. FINDINGS: Intra procedural imaging and fluoro during pain management sacral procedure. IMPRESSION: Intra procedural imaging and fluoro COMMENT: Quality ID 145: Final reports for procedures using fluoroscopy that document radiation exp osure indices, or exposure time and number of fluorographic images (if radiation exposure indices are not available) Please consult full operative report of the attending physician for description of the procedure. TECHNICAL DOCUMENTATION: JOB ID: [id number] [employer]- All Rights Reserved Reading location - IP/workstation name: [email or web address]
--- NOTE | 2018-01-10 14:51 | RADIOLOGY REPORT (SQ) ---
EXAM DESCRIPTION: SACRUM AND COCCYX; NO CHG FLUORO COMPLETED DATE/TIME: 01/10/2018 2:38 pm REASON FOR STUDY: SACROPLASTY ASST WITH FLUORO IN OR COMPARISON: None. FLUOROSCOPY TIME: 5.1 minutes 41 images saved to PACS. TECHNIQUE: Intra-operative images acquired during surgical procedure to evaluate progress. NUMBER OF IMAGES: 41 digital images LIMITATIONS: None. FINDINGS: Intra procedural imaging and fluoro during pain management sacral procedure. IMPRESSION: Intra procedural imaging and fluoro COMMENT: Quality ID 145: Final reports for procedures using fluoroscopy that document radiation exp osure indices, or exposure time and number of fluorographic images (if radiation exposure indices are not available) Please consult full operative report of the attending physician for description of the procedure. TECHNICAL DOCUMENTATION: JOB ID: [id number] [employer]- All Rights Reserved Reading location - IP/workstation name: [email or web address]
[2018-01-10] MEDS ORDERED: NORMAL SALINE 300 ML IV ONE (15:45)
[2018-01-10] MEDS: AMIODARONE HCL 200 MG TABLET PO SCH (18:14)
[2018-01-10] MEDS: ESCITALOPRAM OXALATE 10 MG TABLET PO SCH (18:14)
[2018-01-10] MEDS ORDERED: NORMAL SALINE 1000 ML 1,000 ML IV PRN (20:04)
--- NOTE | 2018-01-10 20:05 | PDOC PROGRESS REPORT ---
Subjective Progress Note for:: 01/10/18 Subjective:: Patient is resting comfortably after procedure No shortness of breath no chest pain Reason For Visit: SACRAL FRACTURE,CHRONIC ANTICOAGULATION Physical Exam Vital Signs: Temp Pulse Resp BP Pulse Ox 98.1 F 71 18 95/66 L 96 01/10/18 16:40 01/10/18 16:40 01/10/18 16:40 01/10/18 16:40 01/10/18 16:40 Intake & Output 01/09/18 01/10/18 01/11/18 00:59 00:59 00:59 Intake Total 2670 3922 Output Total 2750 655 Balance -80 3267 Weight 72.575 kg 72.5 kg 71.5 kg General appearance: PRESENT: mild distress, other - because of pain Head exam: PRESENT: atraumatic, normocephalic Eye exam: PRESENT: conjunctiva pink, EOMI, PERRLA. ABSENT: scleral icterus Mouth exam: PRESENT: moist, tongue midline Respiratory exam: PRESENT: clear to auscultation [place]. ABSENT: rales, rhonchi, wheezes Cardiovascular exam: PRESENT: irregular rhythm. ABSENT: diastolic murmur, rubs , systolic murmur Pulses: PRESENT: normal dorsalis pedis pul. ABSENT: normal carotid pulses, normal radial pulses, normal femoral pulses, +1 pedal pulses bilateral, +2 pedal pulses bilateral, other GI/Abdominal exam: PRESENT: normal bowel sounds, soft. ABSENT: distended, guarding, mass, organolmegaly, rebound, tenderness Rectal exam: PRESENT: deferred Extremities exam: PRESENT: full ROM. ABSENT: calf tenderness, clubbing, pedal edema Musculoskeletal exam: PRESENT: tenderness - tenderness low back, right inguinal area Neurological exam: PRESENT: alert, awake, oriented to person, oriented to place , oriented to time, oriented to situation, CN II-XII grossly intact. ABSENT: motor sensory deficit Results Laboratory Results: 01/10/18 04:18 01/08/18 18:45 01/10/18 04:18 WBC 6.1 RBC 3.74 Hgb 10.6 L Hct 31.9 L MCV 85 MCH 28.2 MCHC 33.1 RDW 15.3 H Plt Count 176 Impressions: Lumbar Spine MRI 01/08/18 14:15 IMPRESSION: Sacral insufficiency fracture Chest X-Ray 01/08/18 17:43 IMPRESSION: Findings consistent with mild congestive failure. Fluoroscopy 01/10/18 00:00 IMPRESSION: Intra procedural imaging and fluoro Sacrum and Coccyx X-Ray 01/10/18 00:00 IMPRESSION: Intra procedural imaging and fluoro Assessment & Plan - Diagnosis (1) Bilateral sacral insufficiency fracture Qualifiers: Encounter type: subsequent encounter Is this a current diagnosis for this admission?: Yes Plan: Status post kyphoplasty We will resume anticoagulation with heparin drip tonight PT evaluation to be initiated as per Dr. Barrientos (2) Atrial fibrillation Qualifiers: Atrial fibrillation type: chronic Qualified Code(s): I48.2 - Chronic atrial fibrillation Is this a current diagnosis for this admission?: Yes (3) Chronic anticoagulation Is this a current diagnosis for this admission?: Yes (4) CHF (congestive heart failure) Qualifiers: Heart failure chronicity: unspecified Is this a current diagnosis for this admission?: Yes - Time Time Spent with patient: Patient's blood pressure is running low we will hydrate her with normal saline overnight Time Spent with patient: 25-34 minutes
[2018-01-10] MEDS ORDERED: HEPARIN SOD (PORCINE) 1,000 UNIT/ML 10 ML VIAL IV PRN (20:06)
[2018-01-10 20:31] LABS: HEMATOCRIT 33.2 % (36.0-47.0); HEMOGLOBIN 10.8 g/dL (12.0-15.5); MEAN CORPUSCULAR HEMOGLOBIN 28.1 pg (27.0-33.4); MEAN CORPUSCULAR HGB CONC 32.5 g/dL (32.0-36.0); MEAN CORPUSCULAR VOLUME 87 fl (80-97); PLATELET COUNT 177 10^3/uL (150-450); RED BLOOD COUNT 3.84 10^6/uL (3.72-5.28); RED CELL DISTRIBUTION WIDTH 15.8 % (11.5-14.0); WHITE BLOOD COUNT 5.6 10^3/uL (4.0-10.5)
[2018-01-10 20:32] LABS: INTERNATIONAL RATION (INR) 1.08; PARTIAL THROMBOPLASTIN TIME 23.1 SEC (23.5-35.8); PROTHROMBIN TIME 14.8 SEC (11.4-15.4)
[2018-01-10] MEDS: HEPARIN SODIUM,PORCINE/D5W 25,000 UNIT/250 ML RTUINJ IV PRN (20:39)
[2018-01-10 20:54] LABS: ABSOLUTE LYMPHOCYTES# (MANUAL) 0.2 10^3/uL (0.5-4.7); ABSOLUTE MONOCYTES # (MANUAL) 0.1 10^3/uL (0.1-1.4); ABSOLUTE NEUTROPHILS# (MANUAL) 5.3 10^3/uL (1.7-8.2); BAND NEUTROPHILS % (MANUAL) 4 % (3-5); BASOPHILS % (MANUAL) 0 % (0-2); EOSINOPHILS % (MANUAL) 0 % (0-6); LYMPHOCYTES % (MANUAL) 4 % (13-45); MONOCYTES % (MANUAL) 1 % (3-13); SEGMENTED NEUTROPHILS % (MAN) 91 % (42-78); TOTAL CELLS COUNTED 100
[2018-01-10 20:55] LABS: ANISOCYTOSIS SLIGHT; PLATELET COMMENT ADEQUATE
[2018-01-10 20:58] LABS: OVALOCYTES 1+; POIKILOCYTOSIS 1+
[2018-01-10 20:59] LABS: PLATELET LARGE PRESENT; TEAR DROP CELLS SLIGHT
[2018-01-10] MEDS: DONEPEZIL HCL 5 MG TABLET PO SCH (22:32)
[2018-01-10] MEDS: ZOLPIDEM TARTRATE 5 MG TABLET PO SCH (22:32)
[2018-01-10] MEDS: SIMVASTATIN 10 MG TABLET PO SCH (22:32)
[2018-01-10] MEDS: OXYCODONE-ACETAMINOPHEN 5-325 MG TABLET PO PRN (23:47)
[2018-01-11 02:10] LABS: ABSOLUTE LYMPHOCYTES (AUTO) 0.3 10^3/uL (0.5-4.7); ABSOLUTE MONOCYTES (AUTO) 0.3 10^3/uL (0.1-1.4); ABSOLUTE NEUT (AUTO) 4.7 10^3/uL (1.7-8.2); BASOPHILS % (AUTO) 0.1 % (0-2); HEMATOCRIT 32.7 % (36.0-47.0); HEMOGLOBIN 10.6 g/dL (12.0-15.5); LYMPHOCYTES % (AUTO) 6.2 % (13-45); MEAN CORPUSCULAR HEMOGLOBIN 27.9 pg (27.0-33.4); MEAN CORPUSCULAR HGB CONC 32.4 g/dL (32.0-36.0); MEAN CORPUSCULAR VOLUME 86 fl (80-97); MONOCYTES % (AUTO) 5.3 % (3-13); PLATELET COUNT 179 10^3/uL (150-450); RED BLOOD COUNT 3.79 10^6/uL (3.72-5.28); RED CELL DISTRIBUTION WIDTH 15.4 % (11.5-14.0); SEGMENTED NEUTROPHILS % (AUTO) 88.4 % (42-78); TOTAL CELLS COUNTED % (AUTO) 100 %; WHITE BLOOD COUNT 5.3 10^3/uL (4.0-10.5)
[2018-01-11 02:28] LABS: ANION GAP 7 (5-19); BLOOD UREA NITROGEN 17 mg/dL (7-20); CALCIUM 7.9 mg/dL (8.4-10.2); CARBON DIOXIDE 21 mmol/L (22-30); CHLORIDE 112 mmol/L (98-107); GLUCOSE 132 mg/dL (75-110); POTASSIUM 4.6 mmol/L (3.6-5.0); SODIUM 139.5 mmol/L (137-145)
[2018-01-11] MEDS: HYDROMORPHONE HCL INJ/PF 2 MG/ML AMPULE IV PRN ×2 (03:56→21:12)
[2018-01-11] MEDS: LEVOTHYROXINE SODIUM 0.025 MG TABLET PO SCH (05:50)
[2018-01-11] MEDS: GABAPENTIN 300 MG CAPSULE PO SCH ×3 (05:50→23:46)
[2018-01-11 06:15] LABS: APPEARANCE,URINE CLEAR; BILIRUBIN,URINE NEGATIVE (NEGATIVE); COLOR,URINE YELLOW; GLUCOSE, URINE NEGATIVE (NEGATIVE); KETONES,URINE NEGATIVE (NEGATIVE); LEUKOCYTE ESTERASE,URINE NEGATIVE (NEGATIVE); NITRITE,URINE NEGATIVE (NEGATIVE); PROTEIN,URINE NEGATIVE (NEGATIVE); URINE SPECIFIC GRAVITY 1.025
[2018-01-11] MEDS: OXYCODONE-ACETAMINOPHEN 5-325 MG TABLET PO PRN ×2 (08:07→14:24)
[2018-01-11] MEDS: ESCITALOPRAM OXALATE 10 MG TABLET PO SCH (09:20)
[2018-01-11] MEDS: SACUBITRIL/VALSARTAN 24 MG/26 MG TABLET PO SCH ×2 (09:20→22:00)
[2018-01-11] MEDS: DOCUSATE SODIUM 100 MG CAPSULE PO SCH ×2 (09:21→18:00)
[2018-01-11] MEDS: METOPROLOL TARTRATE 25 MG TABLET PO SCH ×2 (09:37→21:24)
[2018-01-11] MEDS: AMIODARONE HCL 200 MG TABLET PO SCH (09:37)
--- NOTE | 2018-01-11 11:23 | PDOC PROGRESS REPORT ---
Subjective Progress Note for:: 01/11/18 Subjective:: Still with pain in lower back, but tolerable. No fever or chills, no chest pain or shortness of breath or palpitations. No bowel or urine incontinence. Reason For Visit: SACRAL FRACTURE,CHRONIC ANTICOAGULATION Physical Exam Vital Signs: Temp Pulse Resp BP Pulse Ox 98.2 F 102 H 17 96/77 L 97 01/11/18 07:23 01/11/18 07:23 01/11/18 07:23 01/11/18 07:23 01/11/18 08:50 Intake & Output 01/10/18 01/11/18 01/12/18 06:59 06:59 06:59 Intake Total 3290 3712 Output Total 2850 455 Balance 440 3257 Weight 71.5 kg 71.5 kg GEN: NAD, well-developed, well-nourished CV: Irregularly irregular, NL S1S2 LUNGS: CTA bilaterally ABDOMEN Soft, NT, +BS EXTERMITIES: No e/c/c NEURO: Alert, oriented, no focal weakness Results Laboratory Results: 01/11/18 01:59 01/11/18 01:59 01/10/18 01/11/18 01/11/18 20:17 01:59 01:59 WBC 5.6 5.3 RBC 3.84 3.79 Hgb 10.8 L 10.6 L Hct 33.2 L 32.7 L MCV 87 86 MCH 28.1 27.9 MCHC 32.5 32.4 RDW 15.8 H 15.4 H Plt Count 177 179 Seg Neutrophils % Not Reportable 88.4 H Lymphocytes % Not Reportable 6.2 L Monocytes % Not Reportable 5.3 Eosinophils % Not Reportable 0.0 Basophils % Not Reportable 0.1 Absolute Neutrophils Not Reportable 4.7 Absolute Lymphocytes Not Reportable 0.3 L Absolute Monocytes Not Reportable 0.3 Absolute Eosinophils Not Reportable 0.0 Absolute Basophils Not Reportable 0.0 Sodium 139.5 Potassium 4.6 Chloride 112 H Carbon Dioxide 21 L Anion Gap 7 BUN 17 Creatinine 0.75 Est GFR ( Amer) > 60 Est GFR (Non-Af Amer) > 60 Glucose 132 H Calcium 7.9 L Urine Color Urine Appearance Urine pH Ur Specific [place] Urine Protein Urine Glucose (UA) Urine Ketones Urine Blood Urine Nitrite Ur Leukocyte Esterase Urine WBC (Auto) Urine RBC (Auto) 01/11/18 04:00 WBC RBC Hgb Hct MCV MCH MCHC RDW Plt Count Seg Neutrophils % Lymphocytes % Monocytes % Eosinophils % Basophils % Absolute Neutrophils Absolute Lymphocytes Absolute Monocytes Absolute Eosinophils Absolute Basophils Sodium Potassium Chloride Carbon Dioxide Anion Gap BUN Creatinine Est GFR ( Amer) Est GFR (Non-Af Amer) Glucose Calcium Urine Color YELLOW Urine Appearance CLEAR Urine pH 6.0 Ur Specific [place] 1.025 Urine Protein NEGATIVE Urine Glucose (UA) NEGATIVE Urine Ketones NEGATIVE Urine Blood MODERATE H Urine Nitrite NEGATIVE Ur Leukocyte Esterase NEGATIVE Urine WBC (Auto) 2 Urine RBC (Auto) 59 Impressions: Lumbar Spine MRI 01/08/18 14:15 IMPRESSION: Sacral insufficiency fracture Chest X-Ray 01/08/18 17:43 IMPRESSION: Findings consistent with mild congestive failure. Fluoroscopy 01/10/18 00:00 IMPRESSION: Intra procedural imaging and fluoro Sacrum and Coccyx X-Ray 01/10/18 00:00 IMPRESSION: Intra procedural imaging and fluoro Assessment & Plan - Diagnosis (1) Bilateral sacral insufficiency fracture Qualifiers: Encounter type: subsequent encounter Is this a current diagnosis for this admission?: Yes Plan: Status post bilateral kyphoplasty S1-S2 on 01/10/18 Continue pain management PT/OT Patient will likely need rehab (2) Atrial fibrillation Qualifiers: Atrial fibrillation type: chronic Qualified Code(s): I48.2 - Chronic atrial fibrillation Is this a current diagnosis for this admission?: Yes Plan: On heparin anticoagulation for now. We will start Pradaxa upon discharge, patient normally on 150 mg twice daily (3) CHF (congestive heart failure) Qualifiers: Heart failure chronicity: unspecified Is this a current diagnosis for this admission?: Yes (4) Chronic anticoagulation Is this a current diagnosis for this admission?: Yes Plan: As in A. fib. (5) Low back pain Qualifiers: Chronicity: acute Back pain laterality: bilateral Sciatica presence: with sciatica Sciatica laterality: bilateral sciatica Qualified Code(s): M54.42 - Lumbago with sciatica, left side; M54.41 - Lumbago with sciatica, right side; M54.41 - Lumbago with sciatica, right side Is this a current diagnosis for this admission?: Yes Plan: See #1
[2018-01-11] MEDS ORDERED: LIDOCAINE 2% INJ-PF (20 MG/ML) 2 ML AMPUL ONE ×2 (15:52→15:53)
[2018-01-11] MEDS ORDERED: ONDANSETRON HCL INJ/PF 4 MG/2 ML SDV ONE ×2 (15:52→15:53)
[2018-01-11] MEDS ORDERED: DEXAMETHASONE SOD PHOSPHATE INJ 4 MG/1 ML VIAL ONE ×2 (15:52→15:53)
[2018-01-11] MEDS ORDERED: METOCLOPRAMIDE HCL INJ/PF 10 MG/2 ML SDV ONE ×2 (15:52→15:54)
[2018-01-11] MEDS ORDERED: PHENYLEPHRINE HCL INJ/PF 10 MG/1 ML SDV ONE (15:52)
[2018-01-11] MEDS ORDERED: NEOSTIGMINE METHYLSULFATE 10 MG/10 ML VIAL ONE ×2 (15:53→15:54)
[2018-01-11] MEDS ORDERED: SUCCINYLCHOLINE CHLORIDE INJ 200 MG/10 ML VIAL ONE ×2 (15:53→15:54)
[2018-01-11] MEDS ORDERED: ROCURONIUM BROMIDE INJ 50 MG/5 ML VIAL IV ONE (15:53)
[2018-01-11] MEDS ORDERED: GLYCOPYRROLATE INJ 0.4 MG/2 ML VIAL ONE (15:53)
[2018-01-11 18:42] LABS: INTERNATIONAL RATION (INR) 1.13; PROTHROMBIN TIME 15.3 SEC (11.4-15.4)
[2018-01-11] MEDS: ZOLPIDEM TARTRATE 5 MG TABLET PO SCH (21:12)
[2018-01-11] MEDS: DONEPEZIL HCL 5 MG TABLET PO SCH (21:12)
[2018-01-11] MEDS: SIMVASTATIN 10 MG TABLET PO SCH (21:24)
[2018-01-11] MEDS: HEPARIN SODIUM,PORCINE/D5W 25,000 UNIT/250 ML RTUINJ IV PRN (22:47)
[2018-01-11] MEDS: LIDOCAINE 5% (700 MG) TRANSDERMAL ADH..PATCH TP SCH (22:47)
[2018-01-12] MEDS: HYDROMORPHONE HCL INJ/PF 2 MG/ML AMPULE IV PRN ×3 (04:34→16:17)
[2018-01-12] MEDS: LEVOTHYROXINE SODIUM 0.025 MG TABLET PO SCH (05:14)
[2018-01-12] MEDS: GABAPENTIN 300 MG CAPSULE PO SCH ×3 (05:14→18:10)
[2018-01-12 06:28] LABS: APPEARANCE,URINE CLEAR; BILIRUBIN,URINE NEGATIVE (NEGATIVE); COLOR,URINE YELLOW; GLUCOSE, URINE NEGATIVE (NEGATIVE); KETONES,URINE NEGATIVE (NEGATIVE); LEUKOCYTE ESTERASE,URINE NEGATIVE (NEGATIVE); NITRITE,URINE NEGATIVE (NEGATIVE); PROTEIN,URINE 30 mg/dL (NEGATIVE); URINE SPECIFIC GRAVITY 1.008
[2018-01-12 06:39] LABS: ANION GAP 7 (5-19); BLOOD UREA NITROGEN 15 mg/dL (7-20); CALCIUM 7.9 mg/dL (8.4-10.2); CARBON DIOXIDE 21 mmol/L (22-30); CHLORIDE 109 mmol/L (98-107); GLUCOSE 103 mg/dL (75-110); POTASSIUM 4.2 mmol/L (3.6-5.0); SODIUM 137.3 mmol/L (137-145)
[2018-01-12 06:42] LABS: HEMATOCRIT 33.1 % (36.0-47.0); HEMOGLOBIN 10.7 g/dL (12.0-15.5); MEAN CORPUSCULAR HEMOGLOBIN 27.7 pg (27.0-33.4); MEAN CORPUSCULAR HGB CONC 32.2 g/dL (32.0-36.0); MEAN CORPUSCULAR VOLUME 86 fl (80-97); PLATELET COUNT 235 10^3/uL (150-450); RED BLOOD COUNT 3.85 10^6/uL (3.72-5.28); RED CELL DISTRIBUTION WIDTH 15.8 % (11.5-14.0); WHITE BLOOD COUNT 8.4 10^3/uL (4.0-10.5)
[2018-01-12] MEDS: NORMAL SALINE 1000 ML 1,000 ML IV PRN (08:54)
[2018-01-12] MEDS: ESCITALOPRAM OXALATE 10 MG TABLET PO SCH (09:27)
[2018-01-12] MEDS: AMIODARONE HCL 200 MG TABLET PO SCH (09:27)
[2018-01-12] MEDS: DOCUSATE SODIUM 100 MG CAPSULE PO SCH ×2 (09:33→18:12)
[2018-01-12] MEDS: METOPROLOL TARTRATE 25 MG TABLET PO SCH ×2 (09:33→21:24)
[2018-01-12] MEDS: SACUBITRIL/VALSARTAN 24 MG/26 MG TABLET PO SCH ×2 (11:16→21:24)
[2018-01-12] MEDS: HEPARIN SODIUM,PORCINE/D5W 25,000 UNIT/250 ML RTUINJ IV PRN (16:53)
--- NOTE | 2018-01-12 17:31 | PDOC PROGRESS REPORT ---
Subjective Progress Note for:: 01/12/18 Subjective:: Still with pain in lower back, but slowly improving. Physical therapy today. Mother at bedside. No fever or chills, no chest pain or shortness of breath or palpitations. No bowel or urine incontinence. Reason For Visit: SACRAL FRACTURE,CHRONIC ANTICOAGULATION Physical Exam Vital Signs: Temp Pulse Resp BP Pulse Ox 97.5 F 118 H 18 121/72 96 01/12/18 15:20 01/12/18 15:20 01/12/18 15:20 01/12/18 15:20 01/12/18 15:20 Intake & Output 01/11/18 01/12/18 01/13/18 06:59 06:59 06:59 Intake Total 3712 2754 Output Total 455 1800 Balance 3257 954 Weight 71.5 kg 75.3 kg GEN: NAD, well-developed, well-nourished CV: Irregularly irregular, NL S1S2 LUNGS: CTA bilaterally ABDOMEN Soft, NT, +BS EXTERMITIES: No e/c/c NEURO: Alert, oriented, no focal weakness Results Laboratory Results: 01/12/18 05:42 01/12/18 05:42 01/12/18 01/12/18 01/12/18 05:00 05:42 05:42 WBC 8.4 RBC 3.85 Hgb 10.7 L Hct 33.1 L MCV 86 MCH 27.7 MCHC 32.2 RDW 15.8 H Plt Count 235 Sodium 137.3 Potassium 4.2 Chloride 109 H Carbon Dioxide 21 L Anion Gap 7 BUN 15 Creatinine 0.77 Est GFR ( Amer) > 60 Est GFR (Non-Af Amer) > 60 Glucose 103 Calcium 7.9 L Urine Color YELLOW Urine Appearance CLEAR Urine pH 6.0 Ur Specific [place] 1.008 Urine Protein 30 H Urine Glucose (UA) NEGATIVE Urine Ketones NEGATIVE Urine Blood LARGE H Urine Nitrite NEGATIVE Ur Leukocyte Esterase NEGATIVE Urine WBC (Auto) 9 Urine RBC (Auto) 34 Impressions: Lumbar Spine MRI 01/08/18 14:15 IMPRESSION: Sacral insufficiency fracture Chest X-Ray 01/08/18 17:43 IMPRESSION: Findings consistent with mild congestive failure. Fluoroscopy 01/10/18 00:00 IMPRESSION: Intra procedural imaging and fluoro Sacrum and Coccyx X-Ray 01/10/18 00:00 IMPRESSION: Intra procedural imaging and fluoro Assessment & Plan - Diagnosis (1) Bilateral sacral insufficiency fracture Qualifiers: Encounter type: subsequent encounter Is this a current diagnosis for this admission?: Yes Plan: Status post bilateral kyphoplasty S1-S2 on 01/10/18 Continue pain management PT/OT Patient will likely need rehab (2) Atrial fibrillation Qualifiers: Atrial fibrillation type: chronic Qualified Code(s): I48.2 - Chronic atrial fibrillation Is this a current diagnosis for this admission?: Yes Plan: On heparin anticoagulation for now. We will start Pradaxa upon discharge, patient normally on 150 mg twice daily (3) CHF (congestive heart failure) Qualifiers: Heart failure chronicity: unspecified Is this a current diagnosis for this admission?: Yes (4) Chronic anticoagulation Is this a current diagnosis for this admission?: Yes Plan: As in Antoni wan (5) Low back pain Qualifiers: Chronicity: acute Back pain laterality: bilateral Sciatica presence: with sciatica Sciatica laterality: bilateral sciatica Qualified Code(s): M54.42 - Lumbago with sciatica, left side; M54.41 - Lumbago with sciatica, right side; M54.41 - Lumbago with sciatica, right side Is this a current diagnosis for this admission?: Yes Plan: See #1. Continue PT Plan for rehab SNF
--- NOTE | 2018-01-12 19:34 | PROGRESS NOTE E ---
Progress Note NAME: JM PUGA : 1955 AGE: 62Y DATE: 01/12/2018 ROOM: 404 SUBJECTIVE: The patient is now postop day 2 status post sacroplasty of S1 and S2 bilaterally. Notably the patient was determined to be a candidate for procedure given substantial pain in the sacrum and coccyx status post fall. The patient is still having quite a great deal of pain. She has not had any fevers, chills. She did have difficulty getting out of bed with physical therapy today and notes that she is having severe muscle spasms in her back and legs with movement. OBJECTIVE: VITAL SIGNS: Temperature 97.5, pulse 118, blood pressure 121/72, respiratory rate 18, saturation 96% on room air. Pain is 5/5 on numeric rating scale. GENERAL: The patient is lying in bed in no acute distress. She does have quite a bit of pain with rolling from [id number]. The incision sites are covered with Band-Aids after dressing has been taken down. There is very minor bruising near incision site and mild tenderness to palpation. No worrisome signs of infection or hematoma. MUSCULOSKELETAL: The patient is able to move lower extremities. No overt diminished strength appreciated. No overt loss of sensory function appreciated. ASSESSMENT AND PLAN: The patient is a 62-year-old female with multiple medical comorbidities now postop day 2 status post bilateral sacroplasty at S1 and S2. The patient has had a bit of a slow recovery from all this but does not appear to have any complications from her recovery of note. She continues on both IV and oral pain medications which help somewhat. The patient notably has been recommended for halfway facility by physical therapy evaluation and certainly I agree with this plan. Recommend continuation of lidocaine patches, gabapentin, and Percocet at this time. Given muscle spasms we will also add Flexeril to the patient's current regimen as this has been helpful for her in the past, to be taken as needed. DICTATING PHYSICIAN: TATY VILLALOBOS M.D. [id number] PHY#: [id number] ID: [id number] JOB#: [id number] ACCT: [id number] cc: >
[2018-01-12] MEDS: OXYCODONE-ACETAMINOPHEN 5-325 MG TABLET PO PRN (21:24)
[2018-01-12] MEDS: ZOLPIDEM TARTRATE 5 MG TABLET PO SCH (21:24)
[2018-01-12] MEDS: DONEPEZIL HCL 5 MG TABLET PO SCH (21:24)
[2018-01-12] MEDS: LIDOCAINE 5% (700 MG) TRANSDERMAL ADH..PATCH TP SCH (21:24)
[2018-01-12] MEDS: SIMVASTATIN 10 MG TABLET PO SCH (21:42)
[2018-01-13] MEDS: GABAPENTIN 300 MG CAPSULE PO SCH ×5 (01:29→23:29)
[2018-01-13] MEDS: OXYCODONE-ACETAMINOPHEN 5-325 MG TABLET PO PRN ×4 (04:26→22:07)
[2018-01-13] MEDS: CYCLOBENZAPRINE HCL 10 MG TABLET PO PRN ×2 (04:26→23:29)
[2018-01-13] MEDS: LEVOTHYROXINE SODIUM 0.025 MG TABLET PO SCH (05:34)
[2018-01-13] MEDS: METOPROLOL TARTRATE 25 MG TABLET PO SCH ×2 (10:05→22:07)
[2018-01-13] MEDS: AMIODARONE HCL 200 MG TABLET PO SCH (10:06)
[2018-01-13] MEDS: ESCITALOPRAM OXALATE 10 MG TABLET PO SCH (10:06)
[2018-01-13] MEDS: SACUBITRIL/VALSARTAN 24 MG/26 MG TABLET PO SCH ×2 (10:07→22:07)
[2018-01-13] MEDS: DOCUSATE SODIUM 100 MG CAPSULE PO SCH ×2 (10:07→17:35)
--- NOTE | 2018-01-13 10:24 | PDOC PROGRESS REPORT ---
Subjective Progress Note for:: 01/13/18 Subjective:: Still with pain in lower back, status post kyphoplasty 01/10/20. Receiving physical therapy. No fever or chills, no chest pain or shortness of breath or palpitations. No bowel or urine incontinence. Reason For Visit: SACRAL FRACTURE,CHRONIC ANTICOAGULATION Physical Exam Vital Signs: Temp Pulse Resp BP Pulse Ox 98.6 F 38 L 16 91/74 L 91 L 01/13/18 08:01 01/13/18 08:01 01/13/18 08:01 01/13/18 08:01 01/13/18 08:01 Intake & Output 01/12/18 01/13/18 01/14/18 06:59 06:59 06:59 Intake Total 2754 2541 Output Total 1800 1600 Balance 954 941 Weight 75.3 kg 79.3 kg GEN: NAD, well-developed, well-nourished CV: Irregularly irregular, NL S1S2 LUNGS: CTA bilaterally ABDOMEN Soft, NT, +BS EXTERMITIES: No e/c/c NEURO: Alert, oriented, no focal weakness Results Laboratory Results: 01/12/18 05:42 01/12/18 05:42 Impressions: Lumbar Spine MRI 01/08/18 14:15 IMPRESSION: Sacral insufficiency fracture Chest X-Ray 01/08/18 17:43 IMPRESSION: Findings consistent with mild congestive failure. Fluoroscopy 01/10/18 00:00 IMPRESSION: Intra procedural imaging and fluoro Sacrum and Coccyx X-Ray 01/10/18 00:00 IMPRESSION: Intra procedural imaging and fluoro Assessment & Plan - Diagnosis (1) Bilateral sacral insufficiency fracture Qualifiers: Encounter type: subsequent encounter Is this a current diagnosis for this admission?: Yes Plan: Status post bilateral kyphoplasty S1-S2 on 01/10/18 Continue pain management Continue PT/OT Patient will need rehab intermediate facility Care management consult (2) Atrial fibrillation Qualifiers: Atrial fibrillation type: chronic Qualified Code(s): I48.2 - Chronic atrial fibrillation Is this a current diagnosis for this admission?: Yes Plan: On heparin anticoagulation for now. We will start Pradaxa upon discharge, patient normally on 150 mg twice daily Follow-up CBC and Chem-7 in a.m. (3) CHF (congestive heart failure) Qualifiers: Heart failure chronicity: unspecified Is this a current diagnosis for this admission?: Yes Plan: Stable. Continue management. (4) Chronic anticoagulation Is this a current diagnosis for this admission?: Yes Plan: As in Rosa Maria. nayana. (5) Low back pain Qualifiers: Chronicity: acute Back pain laterality: bilateral Sciatica presence: with sciatica Sciatica laterality: bilateral sciatica Qualified Code(s): M54.42 - Lumbago with sciatica, left side; M54.41 - Lumbago with sciatica, right side; M54.41 - Lumbago with sciatica, right side Is this a current diagnosis for this admission?: Yes Plan: See #1. Continue PT Plan for rehab SNF
[2018-01-13] MEDS: HEPARIN SODIUM,PORCINE/D5W 25,000 UNIT/250 ML RTUINJ IV PRN (17:35)
[2018-01-13] MEDS: ZOLPIDEM TARTRATE 5 MG TABLET PO SCH (22:07)
[2018-01-13] MEDS: SIMVASTATIN 10 MG TABLET PO SCH (22:07)
[2018-01-13] MEDS: LIDOCAINE 5% (700 MG) TRANSDERMAL ADH..PATCH TP SCH (22:07)
[2018-01-13] MEDS: DONEPEZIL HCL 5 MG TABLET PO SCH (22:07)
[2018-01-14] MEDS: LEVOTHYROXINE SODIUM 0.025 MG TABLET PO SCH (05:57)
[2018-01-14] MEDS: GABAPENTIN 300 MG CAPSULE PO SCH ×3 (05:57→17:41)
[2018-01-14 07:49] LABS: ABSOLUTE EOSINOPHILS # (AUTO) 0.2 10^3/uL (0.0-0.6); ABSOLUTE LYMPHOCYTES (AUTO) 1.5 10^3/uL (0.5-4.7); ABSOLUTE MONOCYTES (AUTO) 0.8 10^3/uL (0.1-1.4); ABSOLUTE NEUT (AUTO) 5.4 10^3/uL (1.7-8.2); BASOPHILS % (AUTO) 0.3 % (0-2); HEMOGLOBIN 10.3 g/dL (12.0-15.5); LYMPHOCYTES % (AUTO) 18.8 % (13-45); MEAN CORPUSCULAR HEMOGLOBIN 27.6 pg (27.0-33.4); MEAN CORPUSCULAR HGB CONC 32.3 g/dL (32.0-36.0); MEAN CORPUSCULAR VOLUME 86 fl (80-97); MONOCYTES % (AUTO) 9.8 % (3-13); PLATELET COUNT 215 10^3/uL (150-450); RED BLOOD COUNT 3.74 10^6/uL (3.72-5.28); RED CELL DISTRIBUTION WIDTH 15.8 % (11.5-14.0); SEGMENTED NEUTROPHILS % (AUTO) 68.1 % (42-78); TOTAL CELLS COUNTED % (AUTO) 100 %; WHITE BLOOD COUNT 7.9 10^3/uL (4.0-10.5)
[2018-01-14 08:17] LABS: ANION GAP 9 (5-19); BLOOD UREA NITROGEN 10 mg/dL (7-20); CALCIUM 8.8 mg/dL (8.4-10.2); CARBON DIOXIDE 24 mmol/L (22-30); CHLORIDE 105 mmol/L (98-107); GLUCOSE 79 mg/dL (75-110); POTASSIUM 3.8 mmol/L (3.6-5.0); SODIUM 138.1 mmol/L (137-145)
[2018-01-14] MEDS: DOCUSATE SODIUM 100 MG CAPSULE PO SCH ×2 (09:27→17:41)
[2018-01-14] MEDS: ESCITALOPRAM OXALATE 10 MG TABLET PO SCH (09:27)
[2018-01-14] MEDS: AMIODARONE HCL 200 MG TABLET PO SCH (09:27)
[2018-01-14] MEDS: OXYCODONE-ACETAMINOPHEN 5-325 MG TABLET PO PRN ×3 (09:27→20:28)
[2018-01-14] MEDS: METOPROLOL TARTRATE 25 MG TABLET PO SCH ×2 (09:28→21:39)
[2018-01-14] MEDS: SACUBITRIL/VALSARTAN 24 MG/26 MG TABLET PO SCH ×2 (09:29→21:39)
--- NOTE | 2018-01-14 10:26 | PDOC PROGRESS REPORT ---
Subjective Progress Note for:: 01/14/18 Subjective:: Still with pain in lower back, status post kyphoplasty 01/10/20. Percocet to helps with the pain. Receiving physical therapy. No fever or chills, no chest pain or shortness of breath or palpitations. No bowel or urine incontinence. Reason For Visit: SACRAL FRACTURE,CHRONIC ANTICOAGULATION Physical Exam Vital Signs: Temp Pulse Resp BP Pulse Ox 98.4 F 98 20 97/74 L 95 01/14/18 04:26 01/14/18 07:00 01/14/18 04:26 01/14/18 04:26 01/14/18 04:26 Intake & Output 01/13/18 01/14/18 01/15/18 06:59 06:59 06:59 Intake Total 2541 2459 Output Total 1600 1600 Balance 941 859 Weight 79.3 kg 79 kg GEN: NAD, well-developed, well-nourished CV: Irregularly irregular, NL S1S2 LUNGS: CTA bilaterally ABDOMEN Soft, NT, +BS EXTERMITIES: No e/c/c NEURO: Alert, oriented, no focal weakness Results Laboratory Results: 01/14/18 06:45 01/14/18 06:45 01/13/18 01/14/18 01/14/18 13:50 06:45 06:45 WBC 7.9 RBC 3.74 Hgb 10.3 L Hct 32.0 L MCV 86 MCH 27.6 MCHC 32.3 RDW 15.8 H Plt Count 215 Seg Neutrophils % 68.1 Lymphocytes % 18.8 Monocytes % 9.8 Eosinophils % 3.0 Basophils % 0.3 Absolute Neutrophils 5.4 Absolute Lymphocytes 1.5 Absolute Monocytes 0.8 Absolute Eosinophils 0.2 Absolute Basophils 0.0 Sodium 138.1 Potassium 3.8 Chloride 105 Carbon Dioxide 24 Anion Gap 9 BUN 10 Creatinine 0.76 Est GFR ( Amer) > 60 Est GFR (Non-Af Amer) > 60 Glucose 79 Calcium 8.8 Stool Occult Blood NEGATIVE Impressions: Lumbar Spine MRI 01/08/18 14:15 IMPRESSION: Sacral insufficiency fracture Chest X-Ray 01/08/18 17:43 IMPRESSION: Findings consistent with mild congestive failure. 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 We will start Pradaxa upon discharge, patient normally on 150 mg twice daily (3) CHF (congestive heart failure) Qualifiers: Heart failure chronicity: unspecified Is this a current diagnosis for this admission?: Yes Plan: Stable. Continue management. (4) Chronic anticoagulation Is this a current diagnosis for this admission?: Yes Plan: As in Antoni wan (5) Low back pain Qualifiers: Chronicity: acute Back pain laterality: bilateral Sciatica presence: with sciatica Sciatica laterality: bilateral sciatica Qualified Code(s): M54.42 - Lumbago with sciatica, left side; M54.41 - Lumbago with sciatica, right side; M54.41 - Lumbago with sciatica, right side Is this a current diagnosis for this admission?: Yes Plan: See #1. Continue PT Plan for rehab SNF
[2018-01-14] MEDS: HEPARIN SODIUM,PORCINE/D5W 25,000 UNIT/250 ML RTUINJ IV PRN (15:49)
[2018-01-14] MEDS: DONEPEZIL HCL 5 MG TABLET PO SCH (21:39)
[2018-01-14] MEDS: LIDOCAINE 5% (700 MG) TRANSDERMAL ADH..PATCH TP SCH (21:39)
[2018-01-14] MEDS: SIMVASTATIN 10 MG TABLET PO SCH (21:39)
[2018-01-14] MEDS: ZOLPIDEM TARTRATE 5 MG TABLET PO SCH (21:39)
[2018-01-15] MEDS: GABAPENTIN 300 MG CAPSULE PO SCH ×5 (00:11→23:21)
[2018-01-15] MEDS: OXYCODONE-ACETAMINOPHEN 5-325 MG TABLET PO PRN ×5 (00:11→21:29)
[2018-01-15 05:39] LABS: HEMATOCRIT 31.3 % (36.0-47.0); HEMOGLOBIN 9.9 g/dL (12.0-15.5); MEAN CORPUSCULAR HEMOGLOBIN 27.5 pg (27.0-33.4); MEAN CORPUSCULAR HGB CONC 31.8 g/dL (32.0-36.0); MEAN CORPUSCULAR VOLUME 87 fl (80-97); PLATELET COUNT 194 10^3/uL (150-450); RED BLOOD COUNT 3.61 10^6/uL (3.72-5.28); RED CELL DISTRIBUTION WIDTH 16.1 % (11.5-14.0); WHITE BLOOD COUNT 7.1 10^3/uL (4.0-10.5)
[2018-01-15] MEDS: LEVOTHYROXINE SODIUM 0.025 MG TABLET PO SCH (05:55)
[2018-01-15] MEDS: ESCITALOPRAM OXALATE 10 MG TABLET PO SCH (08:57)
[2018-01-15] MEDS: METOPROLOL TARTRATE 25 MG TABLET PO SCH ×2 (08:57→21:12)
[2018-01-15] MEDS: AMIODARONE HCL 200 MG TABLET PO SCH (08:57)
[2018-01-15] MEDS: DOCUSATE SODIUM 100 MG CAPSULE PO SCH ×2 (08:57→17:49)
[2018-01-15] MEDS: SACUBITRIL/VALSARTAN 24 MG/26 MG TABLET PO SCH ×2 (08:58→21:12)
[2018-01-15] MEDS: IPRATROPIUM/ALBUTEROL 0.5-2.5 MG/3 ML AMPUL NEB PRN ×2 (10:13→17:33)
[2018-01-15 10:39] LABS: APPEARANCE,URINE CLEAR; BILIRUBIN,URINE NEGATIVE (NEGATIVE); COLOR,URINE YELLOW; GLUCOSE, URINE NEGATIVE (NEGATIVE); KETONES,URINE NEGATIVE (NEGATIVE); LEUKOCYTE ESTERASE,URINE NEGATIVE (NEGATIVE); NITRITE,URINE NEGATIVE (NEGATIVE); PROTEIN,URINE 30 mg/dL (NEGATIVE); URINE SPECIFIC GRAVITY 1.008
[2018-01-15] MEDS: NORMAL SALINE 1000 ML 1,000 ML IV PRN (11:20)
[2018-01-15] MEDS: HEPARIN SODIUM,PORCINE/D5W 25,000 UNIT/250 ML RTUINJ IV PRN (13:34)
[2018-01-15] MEDS ORDERED: OXYCODONE-ACETAMINOPHEN 5-325 MG TABLET PO PRN (20:20)
--- NOTE | 2018-01-15 20:54 | PDOC PROGRESS REPORT ---
Subjective Progress Note for:: 01/15/18 Subjective:: Still with pain in lower back, status post kyphoplasty 01/10/20. Percocet continues to helps with the pain. Receiving physical therapy. No fever or chills, no chest pain or shortness of breath or palpitations. No bowel or urine incontinence. Reason For Visit: SACRAL FRACTURE,CHRONIC ANTICOAGULATION Physical Exam Vital Signs: Temp Pulse Resp BP Pulse Ox 98.1 F 118 H 20 121/58 L 93 01/15/18 11:37 01/15/18 17:33 01/15/18 17:33 01/15/18 11:37 01/15/18 17:33 Intake & Output 01/14/18 01/15/18 01/16/18 06:59 06:59 06:59 Intake Total 2459 2902 1784 Output Total 1600 1900 950 Balance 859 1002 834 Weight 79 kg 79.2 kg GEN: NAD, well-developed, well-nourished CV: Irregularly irregular, NL S1S2 LUNGS: CTA bilaterally ABDOMEN Soft, NT, +BS EXTERMITIES: No e/c/c NEURO: Alert, oriented, no focal weakness Results Laboratory Results: 01/15/18 04:12 01/14/18 06:45 01/15/18 01/15/18 04:12 10:20 WBC 7.1 RBC 3.61 L Hgb 9.9 L Hct 31.3 L MCV 87 MCH 27.5 MCHC 31.8 L RDW 16.1 H Plt Count 194 Urine Color YELLOW Urine Appearance CLEAR Urine pH 6.0 Ur Specific [place] 1.008 Urine Protein 30 H Urine Glucose (UA) NEGATIVE Urine Ketones NEGATIVE Urine Blood MODERATE H Urine Nitrite NEGATIVE Ur Leukocyte Esterase NEGATIVE Urine WBC (Auto) 4 Urine RBC (Auto) 24 Impressions: Lumbar Spine MRI 01/08/18 14:15 IMPRESSION: Sacral insufficiency fracture Chest X-Ray 01/08/18 17:43 IMPRESSION: Findings consistent with mild congestive failure. Fluoroscopy 01/10/18 00:00 IMPRESSION: Intra procedural imaging and fluoro Sacrum and Coccyx X-Ray 01/10/18 00:00 IMPRESSION: Intra procedural imaging and fluoro Assessment & Plan - Diagnosis (1) Bilateral sacral insufficiency fracture Qualifiers: Encounter type: subsequent encounter Is this a current diagnosis for this admission?: Yes Plan: Status post bilateral kyphoplasty S1-S2 on 01/10/18 Continue pain management Continue PT/OT Patient awaiting placement [facility] Care management following (2) Atrial fibrillation Qualifiers: Atrial fibrillation type: chronic Qualified Code(s): I48.2 - Chronic atrial fibrillation Is this a current diagnosis for this admission?: Yes Plan: On heparin anticoagulation for now. We will start Pradaxa upon discharge, patient normally on 150 mg twice daily (3) CHF (congestive heart failure) Qualifiers: Heart failure chronicity: unspecified Is this a current diagnosis for this admission?: Yes Plan: Stable. Continue management. (4) Chronic anticoagulation Is this a current diagnosis for this admission?: Yes Plan: As in A. fib. (5) Low back pain Qualifiers: Chronicity: acute Back pain laterality: bilateral Sciatica presence: with sciatica Sciatica laterality: bilateral sciatica Qualified Code(s): M54.42 - Lumbago with sciatica, left side; M54.41 - Lumbago with sciatica, right side; M54.41 - Lumbago with sciatica, right side Is this a current diagnosis for this admission?: Yes Plan: See #1. Continue PT Plan for rehab SNF when bed available
[2018-01-15] MEDS ORDERED: IPRATROPIUM/ALBUTEROL 0.5-2.5 MG/3 ML AMPUL NEB PRN (20:59)
[2018-01-15] MEDS: SIMVASTATIN 10 MG TABLET PO SCH (21:12)
[2018-01-15] MEDS: DONEPEZIL HCL 5 MG TABLET PO SCH (21:12)
[2018-01-15] MEDS: ZOLPIDEM TARTRATE 5 MG TABLET PO SCH (21:13)
[2018-01-15] MEDS: LIDOCAINE 5% (700 MG) TRANSDERMAL ADH..PATCH TP SCH (21:13)
[2018-01-15] MEDS: CYCLOBENZAPRINE HCL 10 MG TABLET PO PRN (23:21)
[2018-01-16] MEDS: NORMAL SALINE 1000 ML 1,000 ML IV PRN ×2 (01:22→18:46)
[2018-01-16] MEDS: OXYCODONE-ACETAMINOPHEN 5-325 MG TABLET PO PRN ×4 (01:22→22:43)
[2018-01-16] MEDS: IPRATROPIUM/ALBUTEROL 0.5-2.5 MG/3 ML AMPUL NEB PRN ×3 (03:53→20:13)
[2018-01-16] MEDS: GABAPENTIN 300 MG CAPSULE PO SCH ×3 (05:16→18:46)
[2018-01-16] MEDS: LEVOTHYROXINE SODIUM 0.025 MG TABLET PO SCH (05:16)
[2018-01-16] MEDS: SACUBITRIL/VALSARTAN 24 MG/26 MG TABLET PO SCH ×2 (09:18→22:43)
[2018-01-16] MEDS: AMIODARONE HCL 200 MG TABLET PO SCH (09:18)
[2018-01-16] MEDS: DOCUSATE SODIUM 100 MG CAPSULE PO SCH ×2 (09:18→18:46)
[2018-01-16] MEDS: METOPROLOL TARTRATE 25 MG TABLET PO SCH ×2 (09:18→22:43)
[2018-01-16] MEDS: ESCITALOPRAM OXALATE 10 MG TABLET PO SCH (09:18)
[2018-01-16] MEDS: HEPARIN SODIUM,PORCINE/D5W 25,000 UNIT/250 ML RTUINJ IV PRN (10:22)
[2018-01-16] MEDS: CYCLOBENZAPRINE HCL 10 MG TABLET PO PRN ×2 (12:51→22:43)
[2018-01-16] MEDS: SIMVASTATIN 10 MG TABLET PO SCH (22:43)
[2018-01-16] MEDS: DONEPEZIL HCL 5 MG TABLET PO SCH (22:43)
[2018-01-16] MEDS: LIDOCAINE 5% (700 MG) TRANSDERMAL ADH..PATCH TP SCH (22:43)
[2018-01-17] MEDS: GABAPENTIN 300 MG CAPSULE PO SCH ×5 (00:02→23:24)
[2018-01-17] MEDS: ZOLPIDEM TARTRATE 5 MG TABLET PO PRN ×2 (00:02→21:03)
[2018-01-17] MEDS: OXYCODONE-ACETAMINOPHEN 5-325 MG TABLET PO PRN ×4 (04:18→21:04)
[2018-01-17] MEDS: NORMAL SALINE 1000 ML 1,000 ML IV PRN (05:08)
[2018-01-17] MEDS: LEVOTHYROXINE SODIUM 0.025 MG TABLET PO SCH (05:08)
[2018-01-17 06:19] LABS: HEMATOCRIT 29.7 % (36.0-47.0); HEMOGLOBIN 9.8 g/dL (12.0-15.5); MEAN CORPUSCULAR HEMOGLOBIN 27.9 pg (27.0-33.4); MEAN CORPUSCULAR VOLUME 85 fl (80-97); PLATELET COUNT 219 10^3/uL (150-450); RED CELL DISTRIBUTION WIDTH 15.6 % (11.5-14.0); WHITE BLOOD COUNT 8.1 10^3/uL (4.0-10.5)
[2018-01-17 06:50] LABS: APPEARANCE,URINE CLEAR; BILIRUBIN,URINE NEGATIVE (NEGATIVE); COLOR,URINE YELLOW; GLUCOSE, URINE NEGATIVE (NEGATIVE); KETONES,URINE NEGATIVE (NEGATIVE); LEUKOCYTE ESTERASE,URINE NEGATIVE (NEGATIVE); NITRITE,URINE NEGATIVE (NEGATIVE); PROTEIN,URINE 30 mg/dL (NEGATIVE); URINE SPECIFIC GRAVITY 1.006
[2018-01-17] MEDS: ESCITALOPRAM OXALATE 10 MG TABLET PO SCH (09:16)
[2018-01-17] MEDS: SACUBITRIL/VALSARTAN 24 MG/26 MG TABLET PO SCH ×2 (09:16→21:02)
[2018-01-17] MEDS: METOPROLOL TARTRATE 25 MG TABLET PO SCH ×2 (09:17→21:05)
[2018-01-17] MEDS: AMIODARONE HCL 200 MG TABLET PO SCH (09:17)
[2018-01-17] MEDS: DOCUSATE SODIUM 100 MG CAPSULE PO SCH ×2 (09:18→17:03)
[2018-01-17] MEDS: CYCLOBENZAPRINE HCL 10 MG TABLET PO PRN ×2 (10:10→21:04)
[2018-01-17] MEDS: IPRATROPIUM/ALBUTEROL 0.5-2.5 MG/3 ML AMPUL NEB PRN (19:18)
[2018-01-17] MEDS: LIDOCAINE 5% (700 MG) TRANSDERMAL ADH..PATCH TP SCH (21:02)
[2018-01-17] MEDS: DONEPEZIL HCL 5 MG TABLET PO SCH (21:05)
[2018-01-17] MEDS: SIMVASTATIN 10 MG TABLET PO SCH (21:05)
[2018-01-18] MEDS: GABAPENTIN 300 MG CAPSULE PO SCH ×3 (05:09→18:52)
[2018-01-18] MEDS: LEVOTHYROXINE SODIUM 0.025 MG TABLET PO SCH (05:09)
[2018-01-18] MEDS: IPRATROPIUM/ALBUTEROL 0.5-2.5 MG/3 ML AMPUL NEB PRN (08:57)
[2018-01-18] MEDS: METOPROLOL TARTRATE 25 MG TABLET PO SCH ×2 (09:01→22:17)
[2018-01-18] MEDS: AMIODARONE HCL 200 MG TABLET PO SCH (09:01)
[2018-01-18] MEDS: OXYCODONE-ACETAMINOPHEN 5-325 MG TABLET PO PRN ×3 (09:01→18:51)
[2018-01-18] MEDS: SACUBITRIL/VALSARTAN 24 MG/26 MG TABLET PO SCH ×2 (09:02→22:17)
[2018-01-18] MEDS: DABIGATRAN ETEXILATE 150 MG CAPSULE PO SCH ×2 (09:03→22:14)
[2018-01-18] MEDS: DOCUSATE SODIUM 100 MG CAPSULE PO SCH ×2 (09:03→18:52)
[2018-01-18] MEDS: ESCITALOPRAM OXALATE 10 MG TABLET PO SCH (09:03)
[2018-01-18] MEDS ORDERED: METOPROLOL TARTRATE 25 MG TABLET PO ONE (10:30)
[2018-01-18] MEDS ORDERED: ONDANSETRON HCL INJ/PF 4 MG/2 ML SDV IV PRN (10:30)
[2018-01-18] MEDS ORDERED: NORMAL SALINE 1000 ML 1,000 ML IV ONE (15:37)
[2018-01-18] MEDS ORDERED: DILTIAZEM HCL INJ 25 MG/5 ML VIAL IV ONE (16:00)
--- NOTE | 2018-01-18 18:14 | PDOC PROGRESS REPORT ---
Subjective Progress Note for:: 01/16/18 Subjective:: Patient is status post kyphoplasty on 2017. Patient on participating in PT. Patient is currently doing well. Patient is having some pain which is expected. Reason For Visit: SACRAL FRACTURE,CHRONIC ANTICOAGULATION Physical Exam Vital Signs: Temp Pulse Resp BP Pulse Ox 98.7 F 116 H 18 130/91 H 98 01/16/18 15:43 01/16/18 19:00 01/16/18 15:43 01/16/18 15:43 01/16/18 15:43 Intake & Output 01/15/18 01/16/18 01/17/18 06:59 06:59 06:59 Intake Total 2902 3231 1428 Output Total 1900 1550 525 Balance 1002 1681 903 Weight 79.2 kg 78.5 kg General appearance: PRESENT: mild distress, obese Head exam: PRESENT: normocephalic Eye exam: PRESENT: EOMI. ABSENT: scleral icterus Ear exam: PRESENT: normal external ear exam Mouth exam: PRESENT: moist Neck exam: ABSENT: carotid bruit, JVD, lymphadenopathy, thyromegaly Respiratory exam: PRESENT: clear to auscultation kimber[place]. ABSENT: rales, rhonchi, wheezes Cardiovascular exam: PRESENT: irregular rhythm. ABSENT: diastolic murmur, rubs , systolic murmur GI/Abdominal exam: PRESENT: normal bowel sounds, soft. ABSENT: distended, guarding, mass, organolmegaly, rebound, tenderness Rectal exam: PRESENT: deferred Gentrourinary exam: PRESENT: indwelling catheter Extremities exam: PRESENT: full ROM. ABSENT: calf tenderness, clubbing, pedal edema Neurological exam: PRESENT: alert, awake, oriented to person, oriented to place , oriented to time, oriented to situation, CN II-XII grossly intact. ABSENT: motor sensory deficit Psychiatric exam: PRESENT: appropriate affect, normal mood. ABSENT: homicidal ideation, suicidal ideation Skin exam: PRESENT: dry, intact, warm. ABSENT: cyanosis, rash Results Laboratory Results: 01/15/18 04:12 01/14/18 06:45 01/15/18 21:08 Stool Occult Blood NEGATIVE Impressions: Lumbar Spine MRI 01/08/18 14:15 IMPRESSION: Sacral insufficiency fracture Chest X-Ray 01/08/18 17:43 IMPRESSION: Findings consistent with mild congestive failure. Fluoroscopy 01/10/18 00:00 IMPRESSION: Intra procedural imaging and fluoro Sacrum and Coccyx X-Ray 01/10/18 00:00 IMPRESSION: Intra procedural imaging and fluoro Assessment & Plan - Diagnosis (1) Atrial fibrillation Qualifiers: Atrial fibrillation type: chronic Qualified Code(s): I48.2 - Chronic atrial fibrillation Is this a current diagnosis for this admission?: Yes Plan: Patient with atrial fibrillation. Patient currently on on metoprolol and amiodarone. Patient on heparin gtt. (2) Bilateral sacral insufficiency fracture Qualifiers: Encounter type: subsequent encounter Is this a current diagnosis for this admission?: Yes Plan: Patient is status post bilateral kyphoplasty S1 through S2 on 01/10/2018. Patient still having pain.. Patient working with PT OT. Patient plan is to go to rehab. (3) CHF (congestive heart failure) Qualifiers: Heart failure chronicity: unspecified Is this a current diagnosis for this admission?: Yes Plan: Patient appears euvolemic. Continue beta-nehemiah and entresto. (4) Chronic anticoagulation Is this a current diagnosis for this admission?: Yes Plan: Patient on chronic anticoagulation for atrial fibrillation. (5) Lower back pain Is this a current diagnosis for this admission?: Yes Plan: Secondary to sacral fracture. Patient status post kyphoplasty. Continue pain management. - Time Time Spent with patient: Less than 15 minutes Anticipated discharge: SNF Within: when bed available - Inpatient Certification Medical Necessity: Need for Pain Control
--- NOTE | 2018-01-18 18:22 | PDOC PROGRESS REPORT ---
Subjective Progress Note for:: 01/17/18 Subjective:: Patient is status post kyphoplasty on 2017. She currently resting comfortably. Patient does not appear in distress. Patient is wheezing while she is resting. Reason For Visit: SACRAL FRACTURE,CHRONIC ANTICOAGULATION Physical Exam Vital Signs: Selected Entries 01/17/18 08:00 Temperature 97.6 F Temperature Oral Source Pulse Rate 95 Respiratory 18 Rate Blood Pressure 113/69 Blood Pressure 83 Mean O2 Sat by Pulse 96 Oximetry Oxygen Delivery Nasal Cannula Method General appearance: PRESENT: no acute distress, obese Head exam: PRESENT: normocephalic Eye exam: PRESENT: EOMI. ABSENT: scleral icterus Mouth exam: PRESENT: moist Neck exam: ABSENT: carotid bruit, JVD, lymphadenopathy, thyromegaly Respiratory exam: PRESENT: clear to auscultation kimber[place]. ABSENT: rales, rhonchi, wheezes Cardiovascular exam: PRESENT: irregular rhythm. ABSENT: diastolic murmur, rubs , systolic murmur Pulses: PRESENT: normal [place] pedis pul GI/Abdominal exam: PRESENT: normal bowel sounds, soft. ABSENT: distended, guarding, mass, organolmegaly, rebound, tenderness Rectal exam: PRESENT: deferred Extremities exam: PRESENT: full ROM. ABSENT: calf tenderness, clubbing, pedal edema Neurological exam: PRESENT: alert, awake, oriented to person, oriented to place , oriented to time, oriented to situation, CN II-XII grossly intact. ABSENT: motor sensory deficit Psychiatric exam: PRESENT: appropriate affect, normal mood. ABSENT: homicidal ideation, suicidal ideation Skin exam: PRESENT: dry, intact, warm. ABSENT: cyanosis, rash Results Laboratory Results: 01/17/18 05:50 01/14/18 06:45 Impressions: Lumbar Spine MRI 01/08/18 14:15 IMPRESSION: Sacral insufficiency fracture Chest X-Ray 01/08/18 17:43 IMPRESSION: Findings consistent with mild congestive failure. Fluoroscopy 01/10/18 00:00 IMPRESSION: Intra procedural imaging and fluoro Sacrum and Coccyx X-Ray 01/10/18 00:00 IMPRESSION: Intra procedural imaging and fluoro Assessment & Plan - Diagnosis (1) Bilateral sacral insufficiency fracture Qualifiers: Encounter type: subsequent encounter Is this a current diagnosis for this admission?: Yes Plan: Patient is status post bilateral kyphoplasty S1 through S2 on 01/10/2018. Patient still having pain.. Patient working with PT OT. Patient plan is to go to rehab. (2) Atrial fibrillation Qualifiers: Atrial fibrillation type: chronic Qualified Code(s): I48.2 - Chronic atrial fibrillation Is this a current diagnosis for this admission?: Yes Plan: Chronic atrial fibrillation. Patient currently on on metoprolol and amiodarone. Will discontinue heparin drip. Will resume Pradaxa in the morning. (3) CHF (congestive heart failure) Qualifiers: Heart failure chronicity: unspecified Is this a current diagnosis for this admission?: Yes Plan: Patient appears euvolemic. Continue beta-nehemiah and entresto. (4) Chronic anticoagulation Is this a current diagnosis for this admission?: Yes Plan: Patient on chronic anticoagulation for atrial fibrillation. (5) Lower back pain Is this a current diagnosis for this admission?: Yes Plan: Secondary to sacral fracture. Patient status post kyphoplasty. Continue pain management. - Time Time Spent with patient: Less than 15 minutes Anticipated discharge: SNF Within: when bed available
[2018-01-18] MEDS: ACETYLCYSTEINE 20% SOLN 800 MG/4 ML VIAL.NEB NEB SCH (20:03)
[2018-01-18] MEDS: LEVALBUTEROL HCL NEB 1.25 MG/3 ML AMPUL NEB SCH (20:04)
[2018-01-18] MEDS: DONEPEZIL HCL 5 MG TABLET PO SCH (22:17)
[2018-01-18] MEDS: LIDOCAINE 5% (700 MG) TRANSDERMAL ADH..PATCH TP SCH (22:17)
[2018-01-18] MEDS: CYCLOBENZAPRINE HCL 10 MG TABLET PO PRN (22:17)
[2018-01-18] MEDS: SIMVASTATIN 10 MG TABLET PO SCH (22:17)
[2018-01-18] MEDS: ZOLPIDEM TARTRATE 5 MG TABLET PO PRN (22:17)
[2018-01-19] MEDS: GABAPENTIN 300 MG CAPSULE PO SCH ×2 (00:30→06:25)
[2018-01-19] MEDS: OXYCODONE-ACETAMINOPHEN 5-325 MG TABLET PO PRN ×2 (00:30→09:50)
[2018-01-19] MEDS: LEVALBUTEROL HCL NEB 1.25 MG/3 ML AMPUL NEB SCH ×2 (01:21→08:01)
[2018-01-19 05:38] LABS: HEMATOCRIT 31.5 % (36.0-47.0); HEMOGLOBIN 10.3 g/dL (12.0-15.5); MEAN CORPUSCULAR HEMOGLOBIN 27.7 pg (27.0-33.4); MEAN CORPUSCULAR HGB CONC 32.7 g/dL (32.0-36.0); MEAN CORPUSCULAR VOLUME 85 fl (80-97); PLATELET COUNT 227 10^3/uL (150-450); RED BLOOD COUNT 3.71 10^6/uL (3.72-5.28); RED CELL DISTRIBUTION WIDTH 15.9 % (11.5-14.0); WHITE BLOOD COUNT 8.9 10^3/uL (4.0-10.5)
[2018-01-19 06:09] LABS: ANION GAP 9 (5-19); BLOOD UREA NITROGEN 5 mg/dL (7-20); CALCIUM 8.7 mg/dL (8.4-10.2); CARBON DIOXIDE 24 mmol/L (22-30); CHLORIDE 100 mmol/L (98-107); GLUCOSE 94 mg/dL (75-110); POTASSIUM 3.8 mmol/L (3.6-5.0); SODIUM 133.1 mmol/L (137-145)
[2018-01-19] MEDS: LEVOTHYROXINE SODIUM 0.025 MG TABLET PO SCH (06:25)
[2018-01-19] MEDS: ACETYLCYSTEINE 20% SOLN 800 MG/4 ML VIAL.NEB NEB SCH (08:01)
--- NOTE | 2018-01-19 08:23 | PDOC PROGRESS REPORT ---
Subjective Progress Note for:: 01/18/18 Subjective:: Patient is status post kyphoplasty on 2017. She is ready to go to rehab. Patient is complaining of some spasms. Reason For Visit: SACRAL FRACTURE,CHRONIC ANTICOAGULATION Physical Exam Vital Signs: Temp Pulse Resp BP Pulse Ox 99.0 F 111 H 16 102/63 98 01/18/18 15:10 01/18/18 15:10 01/18/18 15:10 01/18/18 15:10 01/18/18 15:10 Intake & Output 01/17/18 01/18/18 01/19/18 06:59 06:59 06:59 Intake Total 2960 1804 250 Output Total 1525 3025 Balance 1435 -1221 250 Weight 86.6 kg 83.3 kg General appearance: PRESENT: no acute distress, well-developed, well-nourished Head exam: PRESENT: atraumatic, normocephalic Eye exam: PRESENT: conjunctiva pink, EOMI, PERRLA. ABSENT: scleral icterus Ear exam: PRESENT: normal external ear exam Mouth exam: PRESENT: moist, tongue midline Neck exam: ABSENT: carotid bruit, JVD, lymphadenopathy, thyromegaly Respiratory exam: PRESENT: clear to auscultation [place]. ABSENT: rales, rhonchi, wheezes - Right upper chest wall port Cardiovascular exam: PRESENT: RRR. ABSENT: diastolic murmur, rubs, systolic murmur Pulses: PRESENT: normal dorsalis pedis pul Vascular exam: PRESENT: normal capillary refill GI/Abdominal exam: PRESENT: normal bowel sounds, soft. ABSENT: distended, guarding, mass, organolmegaly, rebound, tenderness Rectal exam: PRESENT: deferred Gentrourinary exam: PRESENT: indwelling catheter Extremities exam: PRESENT: full ROM. ABSENT: calf tenderness, clubbing, pedal edema Neurological exam: PRESENT: alert, awake, oriented to person, oriented to place , oriented to time, oriented to situation, CN II-XII grossly intact. ABSENT: motor sensory deficit Psychiatric exam: PRESENT: appropriate affect, normal mood. ABSENT: homicidal ideation, suicidal ideation Skin exam: PRESENT: dry, intact, warm. ABSENT: cyanosis, rash Results Laboratory Results: 01/17/18 05:50 01/14/18 06:45 Impressions: Lumbar Spine MRI 01/08/18 14:15 IMPRESSION: Sacral insufficiency fracture Chest X-Ray 01/08/18 17:43 IMPRESSION: Findings consistent with mild congestive failure. Fluoroscopy 01/10/18 00:00 IMPRESSION: Intra procedural imaging and fluoro Sacrum and Coccyx X-Ray 01/10/18 00:00 IMPRESSION: Intra procedural imaging and fluoro Assessment & Plan - Diagnosis (1) Atrial fibrillation Qualifiers: Atrial fibrillation type: chronic Qualified Code(s): I48.2 - Chronic atrial fibrillation Is this a current diagnosis for this admission?: Yes Plan: Chronic atrial fibrillation. Patient currently on on metoprolol and amiodarone. Patient back on Pradaxa. (2) Bilateral sacral insufficiency fracture Qualifiers: Encounter type: subsequent encounter Is this a current diagnosis for this admission?: Yes Plan: Patient is status post bilateral kyphoplasty S1 through S2 on 01/10/2018. Patient still having pain.. Patient working with PT OT. Patient plan is to go to rehab tomorrow. (3) CHF (congestive heart failure) Qualifiers: Heart failure chronicity: unspecified Is this a current diagnosis for this admission?: Yes Plan: Patient appears euvolemic. Continue beta-nehemiah and entresto. (4) Chronic anticoagulation Is this a current diagnosis for this admission?: Yes Plan: Patient on chronic anticoagulation for atrial fibrillation. (5) Lower back pain Is this a current diagnosis for this admission?: Yes Plan: Secondary to sacral fracture. Patient status post kyphoplasty. Continue pain management. - Time Time Spent with patient: Less than 15 minutes Anticipated discharge: SNF Within: within 24 hours
--- NOTE | 2018-01-19 08:32 | PDOC TRANSFER SUMMARY ---
General - Admit/Disc Date/PCP Admission Date/Primary Care Provider: 01/08/18 18:16 DONOVAN RAPP MD Discharge Date: 01/19/18 - Discharge Diagnosis (1) Atrial fibrillation Is this a current diagnosis for this admission?: Yes (2) Bilateral sacral insufficiency fracture Is this a current diagnosis for this admission?: Yes (3) CHF (congestive heart failure) Is this a current diagnosis for this admission?: Yes (4) Chronic anticoagulation Is this a current diagnosis for this admission?: Yes (5) Lower back pain Is this a current diagnosis for this admission?: Yes - Additional Information Resuscitation Status: Full Code Discharge Activity: Activity As Tolerated Prescriptions: Lidocaine [Lidoderm 5% (700 mg) Transdermal Patch] 1 patch TP QHS 2 Days #2 adh..patch Oxycodone HCl/Acetaminophen [Percocet 5-325 mg Tablet] 1 tab PO Q4HP PRN 2 Days #8 tablet PRN Reason: Home Medications: Amiodarone HCl [Cordarone 200 mg Tablet] 20 mg PO DAILY 01/08/18 Dabigatran Etexilate Mesylate [Pradaxa] 150 mg PO Q12 01/08/18 Donepezil HCl [Aricept] 10 mg PO QHS 01/08/18 Escitalopram Oxalate [Lexapro] 20 mg PO DAILY 01/08/18 Gabapentin [Neurontin 300 mg Capsule] 300 mg PO Q8 01/08/18 Levothyroxine Sodium [Synthroid 0.025 mg Tablet] 0.025 mg PO Q6AM 01/08/18 Lorazepam [Ativan 0.5 mg Tablet] 0.5 mg PO DAILYP PRN 01/08/18 Metoprolol Tartrate [Lopressor 25 mg Tablet] 12.5 mg PO DAILY 01/08/18 Sacubitril/Valsartan [Entresto 24 mg/26 mg Tablet] 1 tab PO Q12 01/08/18 Simvastatin [Zocor 20 mg Tablet] 20 mg PO QHS 01/08/18 Zolpidem Tartrate [Ambien] 10 mg PO QHS 01/08/18 Cyclobenzaprine HCl [Flexeril 10 mg Tablet] 10 mg PO Q12HP PRN tablet 01/18/18 Levalbuterol HCl [Xopenex Neb 1.25 mg/3 ml Ampul] 1.25 mg NEB RTQ6 vial.neb 06/30 Lidocaine [Lidoderm 5% (700 mg) Transdermal Patch] 1 patch TP QHS 2 Days #2 adh..patch 01/18/18 Oxycodone HCl/Acetaminophen [Percocet 5-325 mg Tablet] 1 tab PO Q4HP PRN 2 Days #8 tablet 01/18/18 History of Present Illness Admission Date/PCP: 01/08/18 18:16 DONOVAN RAPP MD History of Present Illness: JM PUGA is a 63 year old female with history of CHF, chronic A. fib, status post valve replacement on Pradaxa who presented with recurrent back pain and inguinal pain. MRI of the pelvis was performed showing sacral insufficiency fracture. Patient was admitted for pain management and and kyphoplasty. Hospital Course Hospital Course: Patient presented with chronic back pain. Patient had an MRI which showed bilateral sacral insufficiency fracture. Patient is status post bilateral kyphoplasty for S1 through S2 on 01/10/[address] Barrientos. Patient is still having pain although improved. Patient pain is being managed on current pain regimen which consists of oxycodone, lidocaine patch and muscle relaxants. Patient has been working with PT and OT. Plan is for transfer to [place] to complete rehabilitation. Patient has history of congestive heart failure but is currently euvolemic. Continue beta-yimi and entresto. Patient with chronic atrial fibrillation. Patient heart rate does fluctuate from the low 60s to the 100s. Patient is on metoprolol and amiodarone. Patient is being anticoagulated with Pradaxa. Patient is doing well today. Patient of course is complaining of pain but overall ready to get to rehab so that she can get closer to being sent home. Physical Exam Vital Signs: Temp Pulse Resp BP Pulse Ox 98.0 F 135 H 18 116/72 94 01/19/18 07:56 01/19/18 07:56 01/19/18 07:56 01/19/18 07:56 01/19/18 07:56 Intake & Output 01/18/18 01/19/18 01/20/18 06:59 06:59 06:59 Intake Total 1804 490 Output Total 3025 3 Balance -1221 487 Weight 83.3 kg 84 kg Results Laboratory Results: 01/19/18 04:20 01/19/18 04:20 01/19/18 01/19/18 04:20 04:20 WBC 8.9 RBC 3.71 L Hgb 10.3 L Hct 31.5 L MCV 85 MCH 27.7 MCHC 32.7 RDW 15.9 H Plt Count 227 Sodium 133.1 L Potassium 3.8 Chloride 100 Carbon Dioxide 24 Anion Gap 9 BUN 5 L Creatinine 0.70 Est GFR ( Amer) > 60 Est GFR (Non-Af Amer) > 60 Glucose 94 Calcium 8.7 Magnesium 1.9 Impressions: Lumbar Spine MRI 01/08/18 14:15 IMPRESSION: Sacral insufficiency fracture Chest X-Ray 01/08/18 17:43 IMPRESSION: Findings consistent with mild congestive failure. Fluoroscopy 01/10/18 00:00 IMPRESSION: Intra procedural imaging and fluoro Sacrum and Coccyx X-Ray 01/10/18 00:00 IMPRESSION: Intra procedural imaging and fluoro Transfer Plan - Time Spent with Patient Time spent with patient: Less than 30 Minutes Qualifiers - * PATEINT BEING DISCHARGED WITH ANY OF THE FOLLOWING DIAGNOSIS?: No HF Pt being discharged on ACEI for LVEF less than 40%?: Yes HF Pt being discharged on ARBS for LVEF less than 40%?: Yes HF Pt with Afib discharged with Warfarin?: Yes HF Pt discharged on evidence-based Beta Yimi:: Yes
[2018-01-19] MEDS: DOCUSATE SODIUM 100 MG CAPSULE PO SCH (09:49)
[2018-01-19] MEDS: METOPROLOL TARTRATE 25 MG TABLET PO SCH (09:49)
[2018-01-19] MEDS: SACUBITRIL/VALSARTAN 24 MG/26 MG TABLET PO SCH (09:49)
[2018-01-19] MEDS: ESCITALOPRAM OXALATE 10 MG TABLET PO SCH (09:49)
[2018-01-19] MEDS: DABIGATRAN ETEXILATE 150 MG CAPSULE PO SCH (09:50)
[2018-01-19] MEDS: AMIODARONE HCL 200 MG TABLET PO SCH (09:50)
[2018-01-19] MEDS ORDERED: PHARMACY COMMUNICATION ORDER MC SCH (10:00)
[2018-01-19 12:09] VITALS: BP 117/87
== END 2018-01-19 14:43 | DRG 517 ==
LOC: ER 10:26 → EH 18:16 → 4N 01-09 03:30
PROVIDERS: ADMIT Emergency Medicine; ATTEND Emergency Medicine
PROC: 0QU13JZ Supplement Sacrum with Synthetic Substitute, Percutaneous Approach (ICD-10-PCS; 2018-01-10)
PROC: 0QS13ZZ Reposition Sacrum, Percutaneous Approach (ICD-10-PCS; principal; 2018-01-10 12:00)
DX: S32.19XA Other fracture of sacrum, initial encounter for closed fracture (principal); I48.2 Chronic atrial fibrillation; I50.9 Heart failure, unspecified; G89.11 Acute pain due to trauma; I25.10 Atherosclerotic heart disease of native coronary artery without angina pectoris; E78.5 Hyperlipidemia, unspecified; M19.90 Unspecified osteoarthritis, unspecified site; F32.9 Major depressive disorder, single episode, unspecified; F41.9 Anxiety disorder, unspecified; M54.42 Lumbago with sciatica, left side; M54.41 Lumbago with sciatica, right side; W19.XXXA Unspecified fall, initial encounter; Z95.2 Presence of prosthetic heart valve; Z90.710 Acquired absence of both cervix and uterus; Z88.8 Allergy status to other drugs, medicaments and biological substances; Z79.01 Long term (current) use of anticoagulants
CPT/HCPCS: 00630; 36415; 71045; 72110; 72148; 72220; 80048; 81001; 82272; 83735; 85025; 85027; 85610; 85730; 93005; 93010; 94640; 96372; 99285; G8978-GP; G8979-GP; J0131; J0330; J0690; J1100; J1170; J1644; J1885; J2250; J2370; J2405; J2704; J2765; J3010; J3490; J7030; J7620; Q9966; S0119

== ENCOUNTER 2018-02-01 05:43 | Inpatient (IN) | payer MEDICARE, MEDICAID ==
--- NOTE | 2018-02-01 06:00 | ER Document Report ---
Doctor's Note Notes: 02/01/18 05:58 I performed a quick triage evaluation of the patient. Patient is a 63-year-old female who presents with difficulty breathing is been ongoing for 3 days. She also had some intermittent chest pain. She is also notes large amount of increased edema in her lower extremities. She says she has had difficulty breathing like this in the past but is unsure what is causing. She does have a sternal scar which she says is from previous valve replacement surgeries. No recent fevers or infections. On exam patient does have some increased work of breathing. She speaking approximately forward sentences. She is able sit up for me to listen to her back. Anterior lung auscultation is clear with some occasional rales. 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 Avoid cardiac enzymes and BNP. I did not order nitro as her blood pressure currently is 101/57. EKG shows a wide complex tachycardia with rate 122 bpm. Appears consistent with A. fib with a intraventricular conduction delay.
[2018-02-01 06:33] LABS: ABSOLUTE EOSINOPHILS # (AUTO) 0.1 10^3/uL (0.0-0.6); ABSOLUTE LYMPHOCYTES (AUTO) 0.7 10^3/uL (0.5-4.7); ABSOLUTE MONOCYTES (AUTO) 0.7 10^3/uL (0.1-1.4); ABSOLUTE NEUT (AUTO) 7.2 10^3/uL (1.7-8.2); BASOPHILS % (AUTO) 0.3 % (0-2); EOSINOPHILS % (AUTO) 0.7 % (0-6); HEMATOCRIT 34.6 % (36.0-47.0); HEMOGLOBIN 10.9 g/dL (12.0-15.5); LYMPHOCYTES % (AUTO) 7.9 % (13-45); MEAN CORPUSCULAR HEMOGLOBIN 25.7 pg (27.0-33.4); MEAN CORPUSCULAR HGB CONC 31.4 g/dL (32.0-36.0); MEAN CORPUSCULAR VOLUME 82 fl (80-97); MONOCYTES % (AUTO) 8.5 % (3-13); PLATELET COUNT 341 10^3/uL (150-450); RED BLOOD COUNT 4.23 10^6/uL (3.72-5.28); RED CELL DISTRIBUTION WIDTH 16.8 % (11.5-14.0); SEGMENTED NEUTROPHILS % (AUTO) 82.6 % (42-78); TOTAL CELLS COUNTED % (AUTO) 100 %; WHITE BLOOD COUNT 8.7 10^3/uL (4.0-10.5)
[2018-02-01] MEDS ORDERED: NORMAL SALINE 500 ML IV ONE (06:33)
--- NOTE | 2018-02-01 06:35 | ER Document Report ---
ED Respiratory Problem - General Chief Complaint: Breathing Difficulty Stated Complaint: TROUBLE BREATHING Time Seen by Provider: 02/01/18 05:56 Notes: The patient is a 63-year-old female, past medical history A. fib, mechanical mitral valve replacement, CHF, presents with 3 days of worsening shortness of breath, peripheral edema, productive cough and dull diffuse chest achiness. Patient was admitted 3 weeks ago and discharged on 01/19/18 to [place] halfway after she had a sacral fracture and was found to be in A. fib with RVR. Patient has labored breathing and history is difficult to obtain due to her distress. She said she noticed diffuse peripheral edema that has worsened over the past few days. She denies fevers, headache, abdominal pain, back pain or syncope. TRAVEL OUTSIDE OF THE [place] IN LAST 30 DAYS: No - Related Data Allergies/Adverse Reactions: clopidogrel [From Plavix] Allergy (Verified 12/19/17 15:57) rivaroxaban [From Xarelto] Allergy (Verified 12/19/17 15:57) Past Medical History - General Information source: Patient, Emergency Med Personnel - Social History Smoking Status: Unknown if Ever Smoked Family History: Reviewed & Not Pertinent Patient has suicidal ideation: No Patient has homicidal ideation: No - Past Medical History Cardiac Medical History: Reports: Hx Atrial Fibrillation, Hx Congestive Heart Failure, Hx Coronary Artery Disease, Hx Hypercholesterolemia Pulmonary Medical History: Reports: Hx COPD Renal/ Medical History: Denies: Hx Peritoneal Dialysis Musculoskeltal Medical History: Reports Hx Arthritis - osteo Psychiatric Medical History: Denies: Hx Depression Past Surgical History: Reports: Hx Cardiac Surgery - aortic valve replacement, Hx Hysterectomy, Hx Open Heart Surgery - mitral valve replacement, Other - ? valve replacement Review of Systems - Review of Systems Notes: REVIEW OF SYSTEMS: CONSTITUTIONAL: -fevers, -chills EENT: -eye pain, -difficulty swallowing, -nasal congestion CARDIOVASCULAR: +chest pain, -syncope. RESPIRATORY: +cough, +SOB GASTROINTESTINAL: -abdominal pain, -nausea, -vomiting, -diarrhea GENITOURINARY: -dysuria, -hematuria MUSCULOSKELETAL: -back pain, -neck pain SKIN: -rash or skin lesions. HEMATOLOGIC: -easy bruising or bleeding. LYMPHATIC: -swollen, enlarged glands. NEUROLOGICAL: -altered mental status or loss of consciousness, -headache, - neurologic symptoms PSYCHIATRIC: -anxiety, -depression. ALL OTHER SYSTEMS REVIEWED AND NEGATIVE. Physical Exam - Vital signs Vitals: Resp 19 02/01/18 05:47 - Notes Notes: PHYSICAL EXAMINATION: GENERAL: Ill-appearing. Moderate respiratory distress. HEAD: Atraumatic, normocephalic. EYES: Pupils equal round and reactive to light, extraocular movements intact, sclera anicteric, conjunctiva are normal. ENT: nares patent, oropharynx clear without exudates. Moist mucous membranes. NECK: Normal range of motion, supple without lymphadenopathy LUNGS: Diffuse rhonchi and crackles. Tachypnea. HEART: Tachycardia, irregularly irregular rhythm. ABDOMEN: Soft, nontender, normoactive bowel sounds. No guarding, no rebound. No masses appreciated. EXTREMITIES: 3+ pitting edema in all 4 extremities. NEUROLOGICAL: Moving all 4 extremities. Sensation intact. SKIN: Dry, pale skin. Course - Re-evaluation Re-evalutation: Patient arrives in moderate respiratory distress and was immediately placed on BiPAP. She appears very fluid overloaded with peripheral edema. Patient is also found to be in A. fib with RVR, which she has a known history and used to be on amiodarone, but her meds were changed to metoprolol during her last hospitalization. Chest x-ray shows evidence of a left upper pneumonia, but she does not have a fever or leukocytosis. Her blood pressure continued to drop and suspect that her rapid A. fib is most likely from sepsis. HCAP Abx started quickly, but CTA will further delineate her left upper lobe infiltrate. Peripheral IV placed under ultrasound guidance by myself due to the large amount of peripheral edema, but this was lost after about an hour. Due to her hypotension and poor venous access, patient was verbally consented for a central line. Patient also was having increased work of breathing and tachypnea despite BiPAP. The decision was made to intubate her for protection of her tenuous respiratory status. With the hypotension and peripheral edema, patient was third spacing and appears intravascularly depleted on bedside ultrasound of her IVC. Repeat CXR after intubation and central line placement has worsened and is most likely related to diffuse pulmonary edema. Patient provided 30 cc/kg of IV fluids once she was intubated due to her septic shock and broad-spectrum antibiotics and Levophed were started. Patient's tachycardia resolved after her IV fluids. Blood work is remarkable for a new hyponatremia and Levaquin was added to HCAP antibiotics in case she has Legionella. PMD is Dr. Rincon. 02/01/18 10:[address] Rivas and will place patient in for a ICU bed. CTA Chest pending. 02/01/18 11:40 No evidence of PE on CTA. Moderate bilateral pleural effusions and multifocal airspace disease which may be related to edema versus pneumonia. Patient's blood pressure is normal on 10 mg levo fed her tachycardia has resolved after fluids. 02/01/18 12:07 Dr. Flor has accepted patient to ICU. - Vital Signs Vital signs: Temp Pulse Resp BP Pulse Ox 97.0 F 101 H 14 97/52 L 100 02/01/18 11:35 02/01/18 11:44 02/01/18 11:35 02/01/18 11:44 02/01/18 11:44 - Laboratory Result Diagrams: 02/01/18 06:20 02/01/18 06:20 Laboratory results interpreted by me: 02/01/18 02/01/18 02/01/18 06:20 06:20 06:20 Hgb 10.9 L Hct 34.6 L MCH 25.7 L MCHC 31.4 L RDW 16.8 H Seg Neutrophils % 82.6 H Lymphocytes % 7.9 L PT APTT Sodium 124.7 L Chloride 89 L Direct Bilirubin 0.7 H AST 37 H Alkaline Phosphatase 217 H NT-Pro-B Natriuret Pep 7010 H Total Protein 5.9 L Albumin 3.3 L 02/01/18 06:20 Hgb Hct MCH MCHC RDW Seg Neutrophils % Lymphocytes % PT 21.1 H APTT 45.8 H Sodium Chloride Direct Bilirubin AST Alkaline Phosphatase NT-Pro-B Natriuret Pep Total Protein Albumin - Diagnostic Test Radiology reviewed: Image reviewed, Reports reviewed Radiology results interpreted by me: CXR #1: Interval development of left upper lung airspace opacity. This could represent developing pneumonia. Continued radiographic follow-up to resolution recommended. CXR #2: Edema versus pneumonia versus ARDS with increasing diffuse bilateral airspace disease. Small right pleural effusion. Tubes and lines in good positioning. CTA Chest: No CT angio evidence of acute pulmonary emboli. Moderate bilateral pleural effusions are present. Multifocal airspace disease edema versus pneumonia. Old sternotomy for CABG and mitral valve replacement. - EKG Interpretation by Me EKG shows normal: ST-T Waves Rate: Tachycardia Rhythm: A.Fib When compared to previous EKG there are: No significant change Procedures - Central Line Left Internal jugular Time completed: 09:00 Consent obtained: Yes - Verbal Central line pre-insertion: Sterile PPE donned, Betadine prep applied, Chloraprep applied, Sterile drapes applied Central line lumen type: Triple Anesthetic type: 1% Lidocaine mL's of anesthesia: 5 Ultrasound guided: Yes CM at insertion site: 16 Line secured with sutures: Yes Central line post-insertion: Blood return from lumens, Biopatch applied, Sutured , Sterile dressing applied, Position confirmed w/ CXR Number of attempts: 2 - Unsuccessful RIJ attempt Complications: No - Intubation Orotracheal Time of Intubation: 09:15 Airway evaluation: Large tongue Mallampati Classification: Class 3 Medications: Etomidate, Succinylcholine Intubation method: Orotracheal Blade type: Dena Blade size: 4 Equipment used: Glidescope ETT size: 7.5 ETT secured at: Teeth ETT secured at (cm): 24 Breath Sounds after Intubation: Equal End tidal CO2 confirmed: Yes Ventilator settings: AC Post Intubation Xray: Yes Intubation Complications: No complications - Additional Procedures IV insertion Time performed: 06:00 Additional Procedures: IV insertion - 20 guage angiocath in right brachial vein using ultrasound guidance. Critical Care Note - Critical Care Note Total time excluding time spent on procedures (mins): 55 Discharge - Discharge Clinical Impression: Septic shock, Pleural effusion Pneumonia Qualifiers: Pneumonia type: due to unspecified organism Laterality: left Lung location: upper lobe of lung Qualified Code(s): J18.1 - Lobar pneumonia, unspecified organism Pulmonary edema Qualifiers: Chronicity: acute Qualified Code(s): J81.0 - Acute pulmonary edema CHF exacerbation Qualifiers: Heart failure type: unspecified Qualified Code(s): I50.9 - Heart failure, unspecified Condition: Critical Disposition: ADMITTED INPATIENT Admitting Provider: Hospitalist - [facility] Admitted: ICU
[2018-02-01 06:47] LABS: ALANINE AMINOTRANSFERASE 52 U/L (9-52); ALBUMIN 3.3 g/dL (3.5-5.0); ALKALINE PHOSPHATASE 217 U/L (38-126); ANION GAP 8 (5-19); ASPARTATE AMINO TRANSFERASE 37 U/L (14-36); BILIRUBIN,DIRECT 0.7 mg/dL (0.0-0.4); BILIRUBIN,TOTAL 1.1 mg/dL (0.2-1.3); BLOOD UREA NITROGEN 13 mg/dL (7-20); CALCIUM 8.6 mg/dL (8.4-10.2); CARBON DIOXIDE 28 mmol/L (22-30); CHLORIDE 89 mmol/L (98-107); CREATINE KINASE 66 U/L (30-135); GLUCOSE 100 mg/dL (75-110); POTASSIUM 4.7 mmol/L (3.6-5.0); SODIUM 124.7 mmol/L (137-145); TOTAL PROTEIN 5.9 g/dL (6.3-8.2)
--- NOTE | 2018-02-01 06:53 | RADIOLOGY REPORT (SQ) ---
EXAM DESCRIPTION: CHEST SINGLE VIEW CLINICAL HISTORY: dyspnea COMPARISON: 01/08/2018 FINDINGS: Single frontal view of the chest. Prior median sternotomy. Valve repair. Heart is not enlarged. No pneumothorax or definite pleural effusion. Interval development of left upper lung airspace opacity. Remote left rib fracture. No acute osseous abnormality. Upper abdominal soft tissues are unremarkable. IMPRESSION: 1. Interval development of left upper lung airspace opacity. This could represent developing pneumonia. Continued radiographic follow-up to resolution recommended.
[2018-02-01 06:59] LABS: TROPONIN I 0.015 ng/mL
[2018-02-01 07:10] LABS: INTERNATIONAL RATION (INR) 1.71; PROTHROMBIN TIME 21.1 SEC (11.4-15.4)
[2018-02-01 07:11] LABS: PARTIAL THROMBOPLASTIN TIME 45.8 SEC (23.5-35.8)
[2018-02-01 07:12] LABS: VENOUS BLOOD BASE EXCESS 0.6 mmol/L; VENOUS BLOOD HCO3 25.5 mmol/L (20-32); VENOUS BLOOD PH 7.4 (7.30-7.42)
[2018-02-01] MEDS ORDERED: VANCOMYCIN HCL INJ 1000 MG VIAL IV ONE (07:23)
[2018-02-01] MEDS ORDERED: PIPERACILLIN/TAZOBACTAM 3.375 GM VIAL IV ONE (07:23)
[2018-02-01] MEDS ORDERED: LEVOFLOXACIN 750 MG/D5W RTU 750 MG/150 ML RTUPB IV ONE (07:28)
[2018-02-01] MEDS ORDERED: ETOMIDATE INJ/PF 20 MG/10 ML SDV IV ONE ×2 (08:25→09:09)
[2018-02-01] MEDS ORDERED: PROPOFOL 100 ML IV ONE (08:30)
[2018-02-01] MEDS ORDERED: NOREPINEPHRINE BITARTRATE INJ/PF 4 MG/4 ML SDV IV ONE ×2 (08:30→15:04)
[2018-02-01] MEDS ORDERED: SUCCINYLCHOLINE CHLORIDE INJ 200 MG/10 ML VIAL IV ONE (09:10)
--- NOTE | 2018-02-01 09:10 | EKG REPORT ---
SEVERITY:- ABNORMAL ECG - A FIB RVR RIGHT BUNDLE BRANCH BLOCK : Confirmed by: Dane Arriola 01-Feb-2018 09:09:47
[2018-02-01] MEDS ORDERED: FENTANYL CITRATE INJ/PF 100 MCG/2 ML AMPUL IV ONE (09:22)
[2018-02-01] MEDS ORDERED: FENTANYL CITRATE INJ/PF 100 MCG/2 ML AMPUL ONE (09:24)
[2018-02-01] MEDS: DEXTROSE 5%-WATER 250 ML with NOREPINEPHRINE BITARTRATE 4 MG IV PRN ×6 (09:33→22:09)
--- NOTE | 2018-02-01 09:34 | RADIOLOGY REPORT (SQ) ---
EXAM DESCRIPTION: CHEST SINGLE VIEW COMPLETED DATE/TIME: 02/01/2018 9:22 am REASON FOR STUDY: central line and intubation COMPARISON: 02/01/2018, 01/08/2018 EXAM PARAMETERS: NUMBER OF VIEWS: One view. TECHNIQUE: Single frontal radiographic view of the chest acquired. RADIATION DOSE: NA LIMITATIONS: None. FINDINGS: LUNGS AND PLEURA: Diffuse bilateral airspace disease edema versus pneumonia versus ARDS. There are Aura lines with small right pleural effusion, indicating fluid overload or congestive mar lure. No pneumothorax MEDIASTINUM AND HILAR STRUCTURES: No masses. Contour normal. HEART AND VASCULAR STRUCTURES: Heart normal in size. Normal vasculature. BONES: No acute findings. Old left lateral rib fracture, old left clavicle fracture HARDWARE: Endotracheal tube tip midtrachea. Left jugular triple lumen catheter tip superior vena cav a. Nasogastric tube tip and side port in the stomach. Old sternotomy with valve prosthesis OTHER: No other significant finding. IMPRESSION: Edema versus pneumonia versus ARDS with increasing diffuse bilateral airspace disease. Small right pleural effusion. Tubes and lines in good positioning TECHNICAL DOCUMENTATION: JOB ID: [id number] [employer]- All Rights Reserved Reading location - IP/workstation name: [email or web address]
[2018-02-01] MEDS: PROPOFOL 100 ML IV PRN ×4 (09:38→22:08)
[2018-02-01] MEDS: NORMAL SALINE 1000 ML 1,000 ML IV PRN ×2 (09:39→09:57)
--- NOTE | 2018-02-01 11:28 | RADIOLOGY REPORT (SQ) ---
EXAM DESCRIPTION: CTA CHEST COMPLETED DATE/TIME: 02/01/2018 10:59 am REASON FOR STUDY: hypotension, hypoxia, tachycardia COMPARISON: Chest films 02/01/2018, 01/08/2018 TECHNIQUE: CT scan of the chest performed using helical scanning technique with dynamic intravenous contrast injection. Images reviewed with lung, soft tissue and bone windows. Reconstructed coronal and sagittal MPR images reviewed. Additional 3 dimensional post-processing performed to develop Maximal Intensity Projection images (MO P). All images stored on PACS. All CT scanners at this facility use dose modulation, iterative reconstruction, and/or weight based d osing when appropriate to reduce radiation dose to as low as reasonably achievable (ALARA). [facility]: Dose Right [facility]: CareDose [facility]: Dose Right [facility]: Teradose 4D [facility]: [employer] CONTRAST TYPE AND DOSE: contrast/concentration: Isovue 370.00 mg/ml; Total Contrast Delivered: 77.0 ml; Total Saline Delivered: 80.1 ml Contrast bolus optimized for the pulmonary arteries. Not diagnostic for the aorta. RENAL FUNCTION: Creatinine 0.64 RADIATION DOSE: CT Rad equipment meets quality standard of care and radiation dose reduction techniq ues were employed. CTDIvol: 17.5 - 24.8 mGy. DLP: 655 mGy-cm. . LIMITATIONS: None. FINDINGS: LUNGS AND PLEURA: Moderate bilateral pleural effusions layer dependently in the chest. There is partial collapse the right and left lower lobes adjacent to pleural fluid. Patchy airspace disease is seen in the right upper lobe, diffuse airspace disease left upper lobe wor risome for edema versus pneumonia. No pneumothorax. Airways are patent. AORTA AND GREAT VESSELS: No aneurysm. Contrast bolus not optimized for the aorta. HEART: No pericardial effusion. Post sternotomy for CABG. Mitral valve repair with radiopaque prosth esis. PULMONARY ARTERIES: No emboli visualized in the main pulmonary arteries or the segmental branches. HILAR AND MEDIASTINAL STRUCTURES: No identified masses or abnormal nodes. HARDWARE: None in the chest. UPPER ABDOMEN: No significant findings. Limited exam. THYROID AND OTHER SOFT TISSUES: No masses. No adenopathy. BONES: No acute or significant finding. 3D MIPS: Confirm above findings. OTHER: No other significant finding. IMPRESSION: No CT angio evidence of acute pulmonary emboli. Moderate bilateral pleural effusions are present. Multifocal airspace disease edema versus pneumonia. Old sternotomy for CABG and mitral valve replacement. COMMENT: Quality ID # [id number]: Final reports with documentation of one or more dose reduction techniques (e.g., Automated exposure control, adjustment of the mA and/or kV according to patient size, use of iterative reconstruction technique) TECHNICAL DOCUMENTATION: JOB ID: [id number] [employer]- All Rights Reserved Reading location - IP/workstation name: [email or web address]
[2018-02-01] MEDS ORDERED: GLUCAGON,HUMAN RECOMB 1 MG INJ SUBCUT PRN (12:57)
[2018-02-01] MEDS ORDERED: DEXTROSE 40% GEL 15 GM TUBE PO PRN ×2 (12:57)
[2018-02-01] MEDS ORDERED: DEXTROSE 50%-WATER 25 GM/50 ML DISP.SYRIN IV PRN ×2 (12:57)
[2018-02-01] MEDS ORDERED: SUCCINYLCHOLINE CHLORIDE INJ 200 MG/10 ML VIAL ONE (13:01)
[2018-02-01] MEDS ORDERED: FAMOTIDINE INJ/PF 20 MG/2 ML SDV IV ONE (13:30)
--- NOTE | 2018-02-01 13:45 | PDOC H&P ---
History of Present Illness Admission Date/PCP: 02/01/18 10:29 DONOVAN RAPP MD Patient complains of: Shortness of breath History of Present Illness: JM PUGA is a 63 year old female with history of Afib, CHF, and hypothyroidism who presented to [facility] ED with 3 day history of shortness of breath. I am unable to obtain history personally from patient as she is currently intubated and sedated. However per discuss with ER physician, was awake and communicative at time of presentation to the ER. Patient had worsening peripheral edema, productive cough, and chest achiness. Of note she was admitted to [facility] around 3 weeks ago for a sacral fracture. She was found at that time to have Afib with RVR. She was discharged to [facility] on . No other history at this time. In ED, was placed on BiPAP. Appeared fluid overloaded with peripheral edema. Also in A. fib with RVR. Received Vanc/Zosyn for HCAP. Due to her hypotension and poor venous access, central line was placed. Further, due to increased work of breathing and tachypnea despite BiPAP, she was intubated. Patient started on 30 cc/kg of IV fluids. She was placed on Levophed and intubated for airway protection. Norepi was started. Admitted to ICU for further management. Past Medical History Cardiac Medical History: Reports: Atrial Fibrillation, Congestive Heart Failure , Coronary Artery Disease, Hyperlipidema Pulmonary Medical History: Reports: Chronic Obstructive Pulmonary Disease (COPD) Musculoskeltal Medical History: Reports: Arthritis - osteo Psychiatric Medical History: Denies: Depression Past Surgical History Past Surgical History: Reports: Hysterectomy, Orthopedic Surgery - back, Other - ? valve replacement Social History Information Source: Emergency Med Personnel, [facility] Records Smoking Status: Unknown if Ever Smoked Frequency of Alcohol Use: None Hx Recreational Drug Use: No Drugs: None Hx Prescription Drug Abuse: No Past Social History Note: Unable to obtain further history due to patient's status. Family History Family History: Reviewed & Not Pertinent Parental Family History Reviewed: No Children Family History Reviewed: Unknown Sibling(s) Family History Reviewed.: Unknown Medication/Allergy Home Medications: Amiodarone HCl [Cordarone 200 mg Tablet] 200 mg PO DAILY 01/08/18 Dabigatran Etexilate Mesylate [Pradaxa] 150 mg PO Q12 01/08/18 Donepezil HCl [Aricept] 10 mg PO QHS 01/08/18 Escitalopram Oxalate [Lexapro] 20 mg PO DAILY 01/08/18 Gabapentin [Neurontin 300 mg Capsule] 300 mg PO Q8 01/08/18 Levothyroxine Sodium [Synthroid 0.025 mg Tablet] 0.025 mg PO Q6AM 01/08/18 Lorazepam [Ativan 0.5 mg Tablet] 0.5 mg PO DAILYP PRN 01/08/18 Metoprolol Tartrate [Lopressor 25 mg Tablet] 12.5 mg PO DAILY 01/08/18 Sacubitril/Valsartan [Entresto 24 mg/26 mg Tablet] 1 tab PO Q12 01/08/18 Simvastatin [Zocor 20 mg Tablet] 20 mg PO QHS 01/08/18 Zolpidem Tartrate [Ambien] 10 mg PO QHS 01/08/18 Levalbuterol HCl [Xopenex Neb 1.25 mg/3 ml Ampul] 1.25 mg NEB RTQ6 vial.neb 06/30 Lidocaine [Lidoderm 5% (700 mg) Transdermal Patch] 1 patch TP QHS 2 Days #2 adh..patch 01/18/18 Cyclobenzaprine HCl [Flexeril 10 mg Tablet] 10 mg PO Q12HP PRN 02/01/18 Oxycodone HCl/Acetaminophen [Percocet 5-325 mg Tablet] 1 tab PO Q4HP PRN Allergies/Adverse Reactions: clopidogrel [From Plavix] Allergy (Verified 12/19/17 15:57) rivaroxaban [From Xarelto] Allergy (Verified 12/19/17 15:57) Review of Systems ROS unobtainable: Due to endotracheal tube Physical Exam Vital Signs: Temp Pulse Resp BP Pulse Ox 96.7 F L 101 H 14 113/79 99 02/01/18 13:11 02/01/18 11:44 02/01/18 13:11 02/01/18 13:11 02/01/18 13:11 Intake & Output 01/31/18 02/01/18 02/02/18 06:59 06:59 06:59 Output Total 1180 Balance -1180 General appearance: PRESENT: other - Intubated and sedated on propofol Mouth exam: PRESENT: other - ETT in place Respiratory exam: PRESENT: crackles, wheezes, other - Intubated Cardiovascular exam: PRESENT: irregular rhythm, tachycardia GI/Abdominal exam: PRESENT: soft. ABSENT: distended Extremities exam: PRESENT: other - +3 pitting edema in all 4 extremities Neurological exam: PRESENT: other - Unable to assess Results Laboratory Results: 02/01/18 02/01/18 02/01/18 06:20 06:20 06:20 Hgb 10.9 L Hct 34.6 L MCH 25.7 L MCHC 31.4 L RDW 16.8 H Seg Neutrophils % 82.6 H Lymphocytes % 7.9 L PT APTT Sodium 124.7 L Chloride 89 L Direct Bilirubin 0.7 H AST 37 H Alkaline Phosphatase 217 H NT-Pro-B Natriuret Pep 7010 H Total Protein 5.9 L Albumin 3.3 L 02/01/18 06:20 Hgb Hct MCH MCHC RDW Seg Neutrophils % Lymphocytes % PT 21.1 H APTT 45.8 H Sodium Chloride Direct Bilirubin AST Alkaline Phosphatase NT-Pro-B Natriuret Pep Total Protein Albumin Impressions: Chest X-Ray 02/01/18 09:03 IMPRESSION: Edema versus pneumonia versus ARDS with increasing diffuse bilateral airspace disease. Small right pleural effusion. Tubes and lines in good positioning Chest/Abdomen CTA 02/01/18 10:06 IMPRESSION: No CT angio evidence of acute pulmonary emboli. Moderate bilateral pleural effusions are present. Multifocal airspace disease edema versus pneumonia. Old sternotomy for CABG and mitral valve replacement. Assessment & Plan - Diagnosis (1) CHF exacerbation Qualifiers: Heart failure type: unspecified Qualified Code(s): I50.9 - Heart failure, unspecified Is this a current diagnosis for this admission?: Yes Plan: Patient has known history of CHF however there is no TTE on record. Patient is on good outpatient regimen on Coreg and entresto. Unclear if she was on Lasix or equivalent diuretic at home. - Given hypotension and pressor requirement, holding home Coreg and Entresto - CTA shows bilateral pleural effusion and multifocal edema - Ideally patient would undergo aggressive diuresis. Will hold for now given hypotension. If respiratory status worsens, would commence diuresis and titrate up pressor - Will need to obtain TTE records since patient has known HF diagnosis - Would NOT repeat TTE while patient is in decompensated state - Will need good outpatient diruresis regimen when stabilized and prior to discharge (2) Pneumonia Qualifiers: Pneumonia type: due to unspecified organism Laterality: left Lung location: upper lobe of lung Qualified Code(s): J18.1 - Lobar pneumonia, unspecified organism Is this a current diagnosis for this admission?: Yes Plan: Noted on CTA. Presenting with hypotension. Given recent hospitalization and stay in nursing facility, will treat with HCAP - Continue Vanc and Zosyn - Blood cultures obtained and pending - Intubated and sedated on propofol - Blood pressure support with levophed, titrate to MAP 65-70 - Pulmonology consult, appreciate management recs and assistance with vent support (3) Atrial fibrillation Qualifiers: Atrial fibrillation type: chronic Qualified Code(s): I48.2 - Chronic atrial fibrillation Is this a current diagnosis for this admission?: Yes Plan: Chronic, was in Afib with RVR at admission, now with better rate control - On Coreg and Amiodorone at home, holding now due to hypotension - On Pradaxa for stroke prevention - If remains intubated for prolong period, can consider starting heparin GTT however daily stroke risk from Afib is small (4) Chronic anticoagulation Is this a current diagnosis for this admission?: Yes Plan: Holding Pradaxa, see above - Time Time Spent: Greater than 70 Minutes Critical Time spent with patient: Less than 15 minutes Anticipated discharge: SNF - Inpatient Certification Based on my medical assessment, after consideration of the patient's comorbidities, presenting symptoms, or acuity I expect that the services needed warrant INPATIENT care.: Yes I certify that my determination is in accordance with my understanding of Medicare's requirements for reasonable and necessary INPATIENT services [42 CFR 412.3e].: Yes Medical Necessity: Need Close Monitoring Due to Risk of Patient Decompensation, Need For IV Fluids, Need For Continuous Telemetry Monitoring, Need for IV Antibiotics
[2018-02-01] MEDS ORDERED: ENOXAPARIN SODIUM INJ 40 MG/0.4 ML DISP.SYRIN SUBCUT ONE (14:00)
[2018-02-01] MEDS ORDERED: PIPERACILLIN SODIUM/TAZOBACTAM 3.375 GM in NORMAL SALINE 100 ML IV ONE (14:00)
[2018-02-01] MEDS ORDERED: NORMAL SALINE INJ/PF 0.9% 10 ML SDV IV PRN (14:16)
[2018-02-01] MEDS ORDERED: PIPERACILLIN/TAZOBACTAM 3.375 GM VIAL IV SCH (18:00)
[2018-02-01 19:30] LABS: VENOUS BLOOD BASE EXCESS 1.2 mmol/L; VENOUS BLOOD HCO3 26.2 mmol/L (20-32); VENOUS BLOOD PCO2 43.1 mmHg (35-63); VENOUS BLOOD PH 7.4 (7.30-7.42)
[2018-02-01 21:53] LABS: ARTERIAL BLOOD BASE EXCESS -1.5 mmol/L; ARTERIAL BLOOD H2CO3 1.01 mmol/L (1.05-1.35); ARTERIAL BLOOD HCO3 22.1 mmol/L (20-26); ARTERIAL BLOOD O2 SATURATION 99.9 % (94-98); ARTERIAL BLOOD PCO2 33.5 mmHg (35-45); ARTERIAL BLOOD PH 7.44 (7.35-7.45); ARTERIAL BLOOD PO2 430.2 mmHg (80-100); ARTERIAL BLOOD TOTAL CO2 23.1 mmol/L (21-25)
--- NOTE | 2018-02-01 21:53 | EKG REPORT ---
SEVERITY:- ABNORMAL ECG - ATRIAL FIBRILLATION RIGHT BUNDLE BRANCH BLOCK : Confirmed by: Dane Arriola 01-Feb-2018 21:52:43
[2018-02-01] MEDS ORDERED: VANCOMYCIN HCL INJ 1000 MG VIAL IV SCH (22:00)
[2018-02-01] MEDS: PIPERACILLIN SODIUM/TAZOBACTAM 3.375 GM in NORMAL SALINE 100 ML IV SCH (22:08)
[2018-02-01] MEDS: FAMOTIDINE INJ/PF 20 MG/2 ML SDV IV SCH (22:12)
[2018-02-01 22:17] LABS: ARTERIAL BLOOD FIO2 100
[2018-02-01] MEDS: VANCOMYCIN HCL 1,250 MG in DEXTROSE 5%-WATER 250 ML IV SCH (22:59)
[2018-02-02 00:12] LABS: CREATINE KINASE MB 1.42 ng/mL (<4.55); TROPONIN I 0.02 ng/mL
[2018-02-02] MEDS: PIPERACILLIN SODIUM/TAZOBACTAM 3.375 GM in NORMAL SALINE 100 ML IV SCH ×2 (02:47→09:53)
[2018-02-02] MEDS ORDERED: NORMAL SALINE 10 ML SDV (AFTER EACH USE) IV PRN (04:52)
[2018-02-02] MEDS ORDERED: DEXTROSE 5%-WATER 250 ML with NOREPINEPHRINE BITARTRATE 4 MG IV PRN ×2 (04:54)
[2018-02-02 05:44] LABS: ARTERIAL BLOOD BASE EXCESS 0.7 mmol/L; ARTERIAL BLOOD H2CO3 0.91 mmol/L (1.05-1.35); ARTERIAL BLOOD HCO3 23.2 mmol/L (20-26); ARTERIAL BLOOD O2 SATURATION 98.1 % (94-98); ARTERIAL BLOOD PCO2 30.3 mmHg (35-45); ARTERIAL BLOOD PO2 100.4 mmHg (80-100); ARTERIAL BLOOD TOTAL CO2 24.1 mmol/L (21-25)
[2018-02-02 05:45] LABS: ARTERIAL BLOOD FIO2 30%
[2018-02-02 05:52] LABS: ABSOLUTE EOSINOPHILS # (AUTO) 0.2 10^3/uL (0.0-0.6); ABSOLUTE LYMPHOCYTES (AUTO) 0.8 10^3/uL (0.5-4.7); ABSOLUTE MONOCYTES (AUTO) 1.2 10^3/uL (0.1-1.4); ABSOLUTE NEUT (AUTO) 8.3 10^3/uL (1.7-8.2); ALANINE AMINOTRANSFERASE 43 U/L (9-52); ALBUMIN 2.4 g/dL (3.5-5.0); ALKALINE PHOSPHATASE 163 U/L (38-126); ANION GAP 5 (5-19); ASPARTATE AMINO TRANSFERASE 24 U/L (14-36); BASOPHILS % (AUTO) 0.4 % (0-2); BILIRUBIN,DIRECT 0.7 mg/dL (0.0-0.4); BILIRUBIN,TOTAL 0.9 mg/dL (0.2-1.3); BLOOD UREA NITROGEN 8 mg/dL (7-20); CALCIUM 7.8 mg/dL (8.4-10.2); CARBON DIOXIDE 25 mmol/L (22-30); CHLORIDE 102 mmol/L (98-107); CREATINE KINASE 73 U/L (30-135); EOSINOPHILS % (AUTO) 1.6 % (0-6); GLUCOSE 116 mg/dL (75-110); HEMOGLOBIN 10.7 g/dL (12.0-15.5); LYMPHOCYTES % (AUTO) 7.6 % (13-45); MEAN CORPUSCULAR HEMOGLOBIN 25.6 pg (27.0-33.4); MEAN CORPUSCULAR HGB CONC 31.4 g/dL (32.0-36.0); MEAN CORPUSCULAR VOLUME 82 fl (80-97); MONOCYTES % (AUTO) 11.5 % (3-13); PLATELET COUNT 306 10^3/uL (150-450); RED BLOOD COUNT 4.17 10^6/uL (3.72-5.28); RED CELL DISTRIBUTION WIDTH 16.9 % (11.5-14.0); SEGMENTED NEUTROPHILS % (AUTO) 78.9 % (42-78); SODIUM 132.1 mmol/L (137-145); TOTAL CELLS COUNTED % (AUTO) 100 %; TOTAL PROTEIN 4.7 g/dL (6.3-8.2); TRIGLYCERIDES 78 mg/dL (<150); WHITE BLOOD COUNT 10.6 10^3/uL (4.0-10.5)
[2018-02-02] MEDS: PROPOFOL 100 ML IV PRN ×2 (05:56→11:30)
[2018-02-02 06:04] LABS: CREATINE KINASE MB 1.11 ng/mL (<4.55); POTASSIUM 3.6 mmol/L (3.6-5.0); TROPONIN I 0.015 ng/mL
--- NOTE | 2018-02-02 07:19 | RADIOLOGY REPORT (SQ) ---
EXAM DESCRIPTION: CHEST SINGLE VIEW CLINICAL HISTORY: Pt intubated COMPARISON: 02/01/2018 FINDINGS: Single frontal view of the chest. Prior median sternotomy. Valve repair. Heart is not enlarged. No pneumothorax. Interval increase in bibasilar opacities likely related to pleural effusions. Possible underlying atelectasis or consolidation. Interval development of left upper lung airspace opacity. Remote left rib fracture. No acute osseous abnormality. Upper abdominal soft tissues are unremarkable. IMPRESSION: 1. Interval increase in bibasilar opacities likely related to pleural effusions with likely underlying atelectasis or consolidation. 2. Persistent left upper lung airspace opacity concerning for pneumonia. Electronically signed by: Amish Calderon 02/02/2018 6:18 AM
[2018-02-02] MEDS ORDERED: POTASSI CL 20 MEQ/50 ML RIDER 20 MEQ/50 ML RTUPB IV SCH (09:30)
[2018-02-02] MEDS ORDERED: DIGOXIN INJ 0.5 MG/2 ML AMPULE ONE (09:39)
[2018-02-02] MEDS: FAMOTIDINE INJ/PF 20 MG/2 ML SDV IV SCH (09:51)
[2018-02-02] MEDS ORDERED: ENOXAPARIN SODIUM INJ 40 MG/0.4 ML DISP.SYRIN SUBCUT SCH (10:00)
[2018-02-02] MEDS ORDERED: FUROSEMIDE INJ/PF 20 MG/2 ML SDV IV SCH (10:00)
[2018-02-02] MEDS ORDERED: DIGOXIN INJ 0.5 MG/2 ML AMPULE IV ONE (10:00)
--- NOTE | 2018-02-02 10:16 | PDOC PROGRESS REPORT ---
Subjective Progress Note for:: 02/02/18 Reason For Visit: PNEUMONIA 63-year-old heart failure, A. fib, hypothyroidism February 01 of shortness of breath. In the ED, she was edematous as well. Initially, she was placed on BiPAP. Ultimately, she required intubation and mechanical ventilation due to increased work of breathing. Her initial chest x-ray suggested a left upper lobe. 3 hours later, a repeat chest x-ray suggested pneumonia vs edema vs ARDS and developing bilateral airspace disease. CT chest/abdomen angiogram demonstrated moderate bilateral pleural effusions, bilateral multifocal airspace disease, and no PE. Diuretics were held due to hypotension. Furthermore, her heart rhythm was atrial fibrillation Physical Exam Vital Signs: Temp Pulse Resp BP Pulse Ox 98.8 F 105 H 18 94/54 L 100 02/02/18 06:00 02/02/18 04:00 02/02/18 06:00 02/02/18 05:35 02/02/18 05:34 Intake & Output 02/01/18 02/02/18 02/03/18 06:59 06:59 06:59 Intake Total 1481 Output Total 4310 Balance -2829 Weight 89.7 kg General appearance: PRESENT: obese Head exam: PRESENT: atraumatic, normocephalic Eye exam: PRESENT: EOMI Neck exam: PRESENT: other - RIJ central line Respiratory exam: PRESENT: decreased breath sounds, symmetrical Cardiovascular exam: PRESENT: irregular rhythm, tachycardia GI/Abdominal exam: PRESENT: normal bowel sounds, soft Extremities exam: PRESENT: other - 3+ to 4+ edema BLE and BUE Neurological exam: PRESENT: other - sedated Results Laboratory Results: 02/02/18 05:25 02/02/18 05:25 02/01/18 02/01/18 02/01/18 17:37 18:50 19:28 WBC RBC Hgb Hct MCV MCH MCHC RDW Plt Count Seg Neutrophils % Lymphocytes % Monocytes % Eosinophils % Basophils % Absolute Neutrophils Absolute Lymphocytes Absolute Monocytes Absolute Eosinophils Absolute Basophils Carbonic Acid Cancelled Cancelled HCO3/H2CO3 Ratio Cancelled Cancelled ABG pH Cancelled Cancelled ABG pCO2 Cancelled Cancelled ABG pO2 Cancelled Cancelled ABG HCO3 Cancelled Cancelled ABG O2 Saturation Cancelled Cancelled ABG Base Excess Cancelled Cancelled VBG pH 7.40 VBG pCO2 43.1 VBG HCO3 26.2 VBG Base Excess 1.2 FiO2 Cancelled Cancelled Sodium Potassium Chloride Carbon Dioxide Anion Gap BUN Creatinine Est GFR ( Amer) Est GFR (Non-Af Amer) Glucose Lactic Acid Calcium Magnesium Total Bilirubin AST ALT Alkaline Phosphatase Total Protein Albumin Triglycerides 02/01/18 02/01/18 02/02/18 21:35 23:25 05:25 WBC RBC Hgb Hct MCV MCH MCHC RDW Plt Count Seg Neutrophils % Lymphocytes % Monocytes % Eosinophils % Basophils % Absolute Neutrophils Absolute Lymphocytes Absolute Monocytes Absolute Eosinophils Absolute Basophils Carbonic Acid 1.01 L 0.91 L HCO3/H2CO3 Ratio 21:1 25:1 ABG pH 7.44 7.50 H ABG pCO2 33.5 L 30.3 L ABG pO2 430.2 H 100.4 H ABG HCO3 22.1 23.2 ABG O2 Saturation 99.9 H 98.1 H ABG Base Excess -1.5 0.7 VBG pH VBG pCO2 VBG HCO3 VBG Base Excess FiO2 100 30% Sodium Potassium Chloride Carbon Dioxide Anion Gap BUN Creatinine Est GFR ( Amer) Est GFR (Non-Af Amer) Glucose Lactic Acid 1.1 Calcium Magnesium Total Bilirubin AST ALT Alkaline Phosphatase Total Protein Albumin Triglycerides 02/02/18 02/02/18 05:25 05:25 WBC 10.6 H RBC 4.17 Hgb 10.7 L Hct 34.0 L MCV 82 MCH 25.6 L MCHC 31.4 L RDW 16.9 H Plt Count 306 Seg Neutrophils % 78.9 H Lymphocytes % 7.6 L Monocytes % 11.5 Eosinophils % 1.6 Basophils % 0.4 Absolute Neutrophils 8.3 H Absolute Lymphocytes 0.8 Absolute Monocytes 1.2 Absolute Eosinophils 0.2 Absolute Basophils 0.0 Carbonic Acid HCO3/H2CO3 Ratio ABG pH ABG pCO2 ABG pO2 ABG HCO3 ABG O2 Saturation ABG Base Excess VBG pH VBG pCO2 VBG HCO3 VBG Base Excess FiO2 Sodium 132.1 L Potassium 3.6 D Chloride 102 Carbon Dioxide 25 Anion Gap 5 BUN 8 Creatinine 0.55 Est GFR ( Amer) > 60 Est GFR (Non-Af Amer) > 60 Glucose 116 H Lactic Acid Calcium 7.8 L Magnesium 1.9 Total Bilirubin 0.9 AST 24 ALT 43 Alkaline Phosphatase 163 H Total Protein 4.7 L Albumin 2.4 L Triglycerides 78 0302/01/18 02/02/18 23:25 23:25 05:25 Creatine Kinase 77 CK-MB (CK-2) 1.42 1.11 Troponin I 0.020 0.015 02/02/18 05:25 Creatine Kinase 73 CK-MB (CK-2) Troponin I Impressions: Chest/Abdomen CTA 02/01/18 10:06 IMPRESSION: No CT angio evidence of acute pulmonary emboli. Moderate bilateral pleural effusions are present. Multifocal airspace disease edema versus pneumonia. Old sternotomy for CABG and mitral valve replacement. Chest X-Ray 02/02/18 06:00 IMPRESSION: 1. Interval increase in bibasilar opacities likely related to pleural effusions with likely underlying atelectasis or consolidation. 2. Persistent left upper lung airspace opacity concerning for pneumonia. Assessment & Plan - Diagnosis (1) Acute respiratory failure, unspecified whether with hypoxia or hypercapnia Qualifiers: Respiratory failure complication: hypoxia Qualified Code(s): J96.01 - Acute respiratory failure with hypoxia Is this a current diagnosis for this admission?: Yes Plan: Vent management per Pulm. She has pulmonary edema and pleural effusions, that would benefit from diuresis, but she has also been hypotensive despite Levophed. (2) CHF exacerbation Qualifiers: Heart failure type: unspecified Qualified Code(s): I50.9 - Heart failure, unspecified Is this a current diagnosis for this admission?: Yes Plan: Echocardiogram pending. I will consult cardiology. (3) Pleural effusion Is this a current diagnosis for this admission?: Yes Plan: see above (4) Pneumonia Qualifiers: Pneumonia type: due to unspecified organism Laterality: left Lung location: upper lobe of lung Qualified Code(s): J18.1 - Lobar pneumonia, unspecified organism Is this a current diagnosis for this admission?: Yes Plan: Day 2 broad spectrum antibiotics. (5) Pulmonary edema Qualifiers: Chronicity: acute Qualified Code(s): J81.0 - Acute pulmonary edema (6) Atrial fibrillation Qualifiers: Atrial fibrillation type: chronic Qualified Code(s): I48.2 - Chronic atrial fibrillation Is this a current diagnosis for this admission?: Yes Plan: She has RVR. Likely due to infection, and/or intravascular volume depletion. Cardiology consult pending. (7) Hypothyroid Qualifiers: Hypothyroidism type: acquired Qualified Code(s): E03.9 - Hypothyroidism, unspecified Is this a current diagnosis for this admission?: Yes Plan: Check TSH. - Inpatient Certification Based on my medical assessment, after consideration of the patient's comorbidities, presenting symptoms, or acuity I expect that the services needed warrant INPATIENT care.: Yes I certify that my determination is in accordance with my understanding of Medicare's requirements for reasonable and necessary INPATIENT services [42 CFR 412.3e].: Yes Medical Necessity: Need Close Monitoring Due to Risk of Patient Decompensation, Need For Continuous Telemetry Monitoring
--- NOTE | 2018-02-02 10:33 | PDOC DISCHARGE SUMMARY ---
General - Admit/Disc Date/PCP Admission Date/Primary Care Provider: 02/01/18 10:29 DONOVAN RAPP MD Discharge Date: 02/02/18 - Discharge Diagnosis (1) Acute respiratory failure, unspecified whether with hypoxia or hypercapnia Is this a current diagnosis for this admission?: Yes (2) CHF exacerbation Is this a current diagnosis for this admission?: Yes (3) Pleural effusion Is this a current diagnosis for this admission?: Yes (4) Pneumonia Is this a current diagnosis for this admission?: Yes (6) Atrial fibrillation Is this a current diagnosis for this admission?: Yes (7) Hypothyroid Is this a current diagnosis for this admission?: Yes - Additional Information Discharge Activity: Activity As Tolerated Home Medications: Dextrose [Glutose 40% Gel 15 gm Tube] 15 gm PO PRN PRN tube 02/02/18 Dextrose [Glutose 40% Gel 15 gm Tube] 30 gm PO PRN PRN tube 02/02/18 Enoxaparin Sodium [Lovenox Inj 40 mg/0.4 ml Disp.syrin] 40 mg SUBCUT DAILY disp.syrin 02/02/18 Glucagon,Human Recombinant [Glucagen Inj 1 mg Vial] 1 mg SUBCUT PRN PRN vial Heparin Sodium,Porcine [Heparin Flush 10 Unit/ml 5 ml Disp.syrg] 30 unit IV .AFTER EACH USE PRN disp.syrin 02/02/18 Heparin Sodium,Porcine [Heparin Flush 10 Unit/ml 5 ml Disp.syrg] 30 unit IV Q8 disp.syrin 02/02/18 Norepinephrine Bitartrate [Levophed Inj/Pf 4 mg/4 ml Sdv] 4 mg IV CONTINUOUS PRN vial 02/02/18 Normal Saline [Saline Flush 2.5 ml Monoject Prefil Syrin] 2.5 ml IV Q8 disp.syrin 02/02/18 Piperacillin Sodium/Tazobactam [Zosyn Inj 3.375 gm Vial] 3.375 gm IV Q6A vial 02/02/18 History of Present Illness History of Present Illness: JM PUGA is a 63 year old female chronic atrial fibrillation, heart failure , hypothyroidism to the ED with shortness of breath for the past prior to admission.. Hospital Course Hospital Course: 63-year-old heart failure, A. fib, hypothyroidism February 01 of shortness of breath. In the ED, she was edematous as well. Initially, she was placed on BiPAP. Ultimately, she required intubation and mechanical ventilation due to increased work of breathing. Her initial chest x-ray suggested a left upper lobe. 3 hours later, a repeat chest x-ray suggested pneumonia vs edema vs ARDS and developing bilateral airspace disease. CT chest/abdomen angiogram demonstrated moderate bilateral pleural effusions, bilateral multifocal airspace disease, and no PE. Diuretics were held due to hypotension. Furthermore, her heart rhythm was atrial fibrillation. She has poor venous access. However, a right IJ central line was ultimately placed. A femoral arterial was also placed. She was started on Levophed at 4 mcg. She remains hypotensive with systolic pressure. She remains tachycardic with HR 110s'. Pulmonary and cardiology were consulted. Both agree that she requires a higher level care. She needs CCU monitoring as well. I have contacted [facility]. Dr Chavez graciously accepted the patient in transfer. Physical Exam Vital Signs: Temp Pulse Resp BP Pulse Ox 98.8 F 106 H 18 94/54 L 100 02/02/18 06:00 02/02/18 08:00 02/02/18 06:00 02/02/18 05:35 02/02/18 05:34 Intake & Output 02/01/18 02/02/18 02/03/18 06:59 06:59 06:59 Intake Total 1481 Output Total 4310 Balance -2829 Weight 89.7 kg General appearance: PRESENT: obese Head exam: PRESENT: atraumatic, normocephalic Eye exam: PRESENT: EOMI, periorbital swelling Respiratory exam: PRESENT: decreased breath sounds, unlabored Cardiovascular exam: PRESENT: irregular rhythm, tachycardia Vascular exam: PRESENT: pallor GI/Abdominal exam: PRESENT: diminished bowel sounds, soft. ABSENT: distended, firm Neurological exam: PRESENT: other - Sedated Results Laboratory Results: 02/02/18 05:25 02/02/18 05:25 02/01/18 02/01/18 02/01/18 17:37 18:50 19:28 WBC RBC Hgb Hct MCV MCH MCHC RDW Plt Count Seg Neutrophils % Lymphocytes % Monocytes % Eosinophils % Basophils % Absolute Neutrophils Absolute Lymphocytes Absolute Monocytes Absolute Eosinophils Absolute Basophils Carbonic Acid Cancelled Cancelled HCO3/H2CO3 Ratio Cancelled Cancelled ABG pH Cancelled Cancelled ABG pCO2 Cancelled Cancelled ABG pO2 Cancelled Cancelled ABG HCO3 Cancelled Cancelled ABG O2 Saturation Cancelled Cancelled ABG Base Excess Cancelled Cancelled VBG pH 7.40 VBG pCO2 43.1 VBG HCO3 26.2 VBG Base Excess 1.2 FiO2 Cancelled Cancelled Sodium Potassium Chloride Carbon Dioxide Anion Gap BUN Creatinine Est GFR ( Amer) Est GFR (Non-Af Amer) Glucose Lactic Acid Calcium Magnesium Total Bilirubin AST ALT Alkaline Phosphatase Total Protein Albumin Triglycerides 02/01/18 02/01/18 02/02/18 21:35 23:25 05:25 WBC RBC Hgb Hct MCV MCH MCHC RDW Plt Count Seg Neutrophils % Lymphocytes % Monocytes % Eosinophils % Basophils % Absolute Neutrophils Absolute Lymphocytes Absolute Monocytes Absolute Eosinophils Absolute Basophils Carbonic Acid 1.01 L 0.91 L HCO3/H2CO3 Ratio 21:1 25:1 ABG pH 7.44 7.50 H ABG pCO2 33.5 L 30.3 L ABG pO2 430.2 H 100.4 H ABG HCO3 22.1 23.2 ABG O2 Saturation 99.9 H 98.1 H ABG Base Excess -1.5 0.7 VBG pH VBG pCO2 VBG HCO3 VBG Base Excess FiO2 100 30% Sodium Potassium Chloride Carbon Dioxide Anion Gap BUN Creatinine Est GFR ( Amer) Est GFR (Non-Af Amer) Glucose Lactic Acid 1.1 Calcium Magnesium Total Bilirubin AST ALT Alkaline Phosphatase Total Protein Albumin Triglycerides 02/02/18 02/02/18 05:25 05:25 WBC 10.6 H RBC 4.17 Hgb 10.7 L Hct 34.0 L MCV 82 MCH 25.6 L MCHC 31.4 L RDW 16.9 H Plt Count 306 Seg Neutrophils % 78.9 H Lymphocytes % 7.6 L Monocytes % 11.5 Eosinophils % 1.6 Basophils % 0.4 Absolute Neutrophils 8.3 H Absolute Lymphocytes 0.8 Absolute Monocytes 1.2 Absolute Eosinophils 0.2 Absolute Basophils 0.0 Carbonic Acid HCO3/H2CO3 Ratio ABG pH ABG pCO2 ABG pO2 ABG HCO3 ABG O2 Saturation ABG Base Excess VBG pH VBG pCO2 VBG HCO3 VBG Base Excess FiO2 Sodium 132.1 L Potassium 3.6 D Chloride 102 Carbon Dioxide 25 Anion Gap 5 BUN 8 Creatinine 0.55 Est GFR ( Amer) > 60 Est GFR (Non-Af Amer) > 60 Glucose 116 H Lactic Acid Calcium 7.8 L Magnesium 1.9 Total Bilirubin 0.9 AST 24 ALT 43 Alkaline Phosphatase 163 H Total Protein 4.7 L Albumin 2.4 L Triglycerides 78 02/01/18 02/01/18 02/02/18 23:25 23:25 05:25 Creatine Kinase 77 CK-MB (CK-2) 1.42 1.11 Troponin I 0.020 0.015 02/02/18 05:25 Creatine Kinase 73 CK-MB (CK-2) Troponin I Impressions: Chest/Abdomen CTA 02/01/18 10:06 IMPRESSION: No CT angio evidence of acute pulmonary emboli. Moderate bilateral pleural effusions are present. Multifocal airspace disease edema versus pneumonia. Old sternotomy for CABG and mitral valve replacement. Chest X-Ray 02/02/18 06:00 IMPRESSION: 1. Interval increase in bibasilar opacities likely related to pleural effusions with likely underlying atelectasis or consolidation. 2. Persistent left upper lung airspace opacity concerning for pneumonia. Qualifiers - * PATEINT BEING DISCHARGED WITH ANY OF THE FOLLOWING DIAGNOSIS?: No Plan Time Spent: Greater than 30 Minutes - 40 minutes
[2018-02-02] MEDS: VANCOMYCIN HCL 1,250 MG in DEXTROSE 5%-WATER 250 ML IV SCH (11:09)
[2018-02-02 11:43] VITALS: BP 84/63
[2018-02-02 11:50] LABS: CREATINE KINASE MB 0.98 ng/mL (<4.55)
[2018-02-02 11:54] LABS: TROPONIN I < 0.012 ng/mL
--- NOTE | 2018-02-02 14:33 | PDOC CONSULTATION ---
Consultation Consult Date: 02/01/18 Attending physician:: YEHUDA YANG Consult reason:: Pneumonia/sepsis/respiratory failure History of Present Illness Admission Date/PCP: 02/01/18 10:29 DONOVAN RAPP MD History of Present Illness: JM PUGA is a 63 year old female chronic atrial fibrillation, heart failure , hypothyroidism to the ED with shortness of breath All information is obtained from the chart as patient is currently intubated and sedated it appears she presented to the emergency room initially was felt to have pneumonia subsequently it was felt that she had pneumonia or and/or ARDS and was switched from BiPAP and intubated and ventilated invasively. Past Medical History Cardiac Medical History: Reports: Atrial Fibrillation, Congestive Heart Failure , Coronary Artery Disease, Hyperlipidema Pulmonary Medical History: Reports: Chronic Obstructive Pulmonary Disease (COPD) Musculoskeltal Medical History: Reports: Arthritis - osteo Psychiatric Medical History: Denies: Depression Past Surgical History Past Surgical History: Reports: Hysterectomy, Orthopedic Surgery - back, Other - ? valve replacement Social History Smoking Status: Unknown if Ever Smoked Frequency of Alcohol Use: None Hx Recreational Drug Use: No Drugs: None Hx Prescription Drug Abuse: No Family History Parental Family History Reviewed: No Children Family History Reviewed: No Sibling(s) Family History Reviewed.: No Medication/Allergy Home Medications: Dextrose [Glutose 40% Gel 15 gm Tube] 15 gm PO PRN PRN tube 02/02/18 Dextrose [Glutose 40% Gel 15 gm Tube] 30 gm PO PRN PRN tube 02/02/18 Enoxaparin Sodium [Lovenox Inj 40 mg/0.4 ml Disp.syrin] 40 mg SUBCUT DAILY disp.syrin 02/02/18 Glucagon,Human Recombinant [Glucagen Inj 1 mg Vial] 1 mg SUBCUT PRN PRN vial Heparin Sodium,Porcine [Heparin Flush 10 Unit/ml 5 ml Disp.syrg] 30 unit IV .AFTER EACH USE PRN disp.syrin 02/02/18 Heparin Sodium,Porcine [Heparin Flush 10 Unit/ml 5 ml Disp.syrg] 30 unit IV Q8 disp.syrin 02/02/18 Norepinephrine Bitartrate [Levophed Inj/Pf 4 mg/4 ml Sdv] 4 mg IV CONTINUOUS PRN vial 02/02/18 Normal Saline [Saline Flush 2.5 ml Monoject Prefil Syrin] 2.5 ml IV Q8 disp.syrin 02/02/18 Piperacillin Sodium/Tazobactam [Zosyn Inj 3.375 gm Vial] 3.375 gm IV Q6A vial 02/02/18 Allergies/Adverse Reactions: clopidogrel [From Plavix] Allergy (Verified 12/19/17 15:57) rivaroxaban [From Xarelto] Allergy (Verified 12/19/17 15:57) Review of Systems ROS unobtainable: Due to endotracheal tube Physical Exam Vital Signs: Temp Pulse Resp BP Pulse Ox 98.8 F 105 H 18 94/54 L 100 02/02/18 06:00 02/02/18 04:00 02/02/18 06:00 02/02/18 05:35 02/02/18 05:34 Intake & Output 02/01/18 02/02/18 02/03/18 06:59 06:59 06:59 Intake Total 1481 Output Total 4310 Balance -2829 Weight 89.7 kg General appearance: PRESENT: no acute distress, disheveled, obese, well- developed. ABSENT: cooperative Head exam: PRESENT: atraumatic, normocephalic Eye exam: PRESENT: conjunctiva pale. ABSENT: EOMI, nystagmus, periorbital swelling, scleral icterus Mouth exam: PRESENT: dry mucosa, neck supple, tongue midline, other Neck exam: ABSENT: carotid bruit, JVD, lymphadenopathy, thyromegaly, tracheal deviation, tracheostomy Respiratory exam: PRESENT: decreased breath sounds, prolonged expiratory phas, rales, rhonchi, symmetrical, unlabored, wheezes. ABSENT: retraction, stridor Cardiovascular exam: PRESENT: irregular rhythm Pulses: PRESENT: normal radial pulses GI/Abdominal exam: PRESENT: diminished bowel sounds, soft Extremities exam: ABSENT: clubbing, joint swelling Musculoskeletal exam: ABSENT: deformity, dislocation Neurological exam: ABSENT: alert, awake, oriented to person Skin exam: PRESENT: dry, pallor Results Laboratory Results: 02/02/18 05:25 02/02/18 05:25 02/01/18 02/01/18 02/01/18 17:37 18:50 19:28 WBC RBC Hgb Hct MCV MCH MCHC RDW Plt Count Seg Neutrophils % Lymphocytes % Monocytes % Eosinophils % Basophils % Absolute Neutrophils Absolute Lymphocytes Absolute Monocytes Absolute Eosinophils Absolute Basophils Carbonic Acid Cancelled Cancelled HCO3/H2CO3 Ratio Cancelled Cancelled ABG pH Cancelled Cancelled ABG pCO2 Cancelled Cancelled ABG pO2 Cancelled Cancelled ABG HCO3 Cancelled Cancelled ABG O2 Saturation Cancelled Cancelled ABG Base Excess Cancelled Cancelled VBG pH 7.40 VBG pCO2 43.1 VBG HCO3 26.2 VBG Base Excess 1.2 FiO2 Cancelled Cancelled Sodium Potassium Chloride Carbon Dioxide Anion Gap BUN Creatinine Est GFR ( Amer) Est GFR (Non-Af Amer) Glucose Lactic Acid Calcium Magnesium Total Bilirubin AST ALT Alkaline Phosphatase Total Protein Albumin Triglycerides 02/01/18 02/01/18 02/02/18 21:35 23:25 05:25 WBC RBC Hgb Hct MCV MCH MCHC RDW Plt Count Seg Neutrophils % Lymphocytes % Monocytes % Eosinophils % Basophils % Absolute Neutrophils Absolute Lymphocytes Absolute Monocytes Absolute Eosinophils Absolute Basophils Carbonic Acid 1.01 L 0.91 L HCO3/H2CO3 Ratio 21:1 25:1 ABG pH 7.44 7.50 H ABG pCO2 33.5 L 30.3 L ABG pO2 430.2 H 100.4 H ABG HCO3 22.1 23.2 ABG O2 Saturation 99.9 H 98.1 H ABG Base Excess -1.5 0.7 VBG pH VBG pCO2 VBG HCO3 VBG Base Excess FiO2 100 30% Sodium Potassium Chloride Carbon Dioxide Anion Gap BUN Creatinine Est GFR ( Amer) Est GFR (Non-Af Amer) Glucose Lactic Acid 1.1 Calcium Magnesium Total Bilirubin AST ALT Alkaline Phosphatase Total Protein Albumin Triglycerides 02/02/18 02/02/18 05:25 05:25 WBC 10.6 H RBC 4.17 Hgb 10.7 L Hct 34.0 L MCV 82 MCH 25.6 L MCHC 31.4 L RDW 16.9 H Plt Count 306 Seg Neutrophils % 78.9 H Lymphocytes % 7.6 L Monocytes % 11.5 Eosinophils % 1.6 Basophils % 0.4 Absolute Neutrophils 8.3 H Absolute Lymphocytes 0.8 Absolute Monocytes 1.2 Absolute Eosinophils 0.2 Absolute Basophils 0.0 Carbonic Acid HCO3/H2CO3 Ratio ABG pH ABG pCO2 ABG pO2 ABG HCO3 ABG O2 Saturation ABG Base Excess VBG pH VBG pCO2 VBG HCO3 VBG Base Excess FiO2 Sodium 132.1 L Potassium 3.6 D Chloride 102 Carbon Dioxide 25 Anion Gap 5 BUN 8 Creatinine 0.55 Est GFR ( Amer) > 60 Est GFR (Non-Af Amer) > 60 Glucose 116 H Lactic Acid Calcium 7.8 L Magnesium 1.9 Total Bilirubin 0.9 AST 24 ALT 43 Alkaline Phosphatase 163 H Total Protein 4.7 L Albumin 2.4 L Triglycerides 78 02/01/18 02/01/18 02/02/18 23:25 23:25 05:25 Creatine Kinase 77 CK-MB (CK-2) 1.42 1.11 Troponin I 0.020 0.015 02/02/18 05:25 Creatine Kinase 73 CK-MB (CK-2) Troponin I Impressions: Chest/Abdomen CTA 02/01/18 10:06 IMPRESSION: No CT angio evidence of acute pulmonary emboli. Moderate bilateral pleural effusions are present. Multifocal airspace disease edema versus pneumonia. Old sternotomy for CABG and mitral valve replacement. Chest X-Ray 02/02/18 06:00 IMPRESSION: 1. Interval increase in bibasilar opacities likely related to pleural effusions with likely underlying atelectasis or consolidation. 2. Persistent left upper lung airspace opacity concerning for pneumonia. Assessment & Plan - Diagnosis (1) Acute respiratory failure, unspecified whether with hypoxia or hypercapnia Qualifiers: Respiratory failure complication: hypoxia Qualified Code(s): J96.01 - Acute respiratory failure with hypoxia Is this a current diagnosis for this admission?: Yes Plan: CVP equals 20 purulent sputum in ET tube (2) Atrial fibrillation Qualifiers: Atrial fibrillation type: chronic Qualified Code(s): I48.2 - Chronic atrial fibrillation Is this a current diagnosis for this admission?: Yes Plan: Not well controlled rapid ventricular response (3) CHF (congestive heart failure) Qualifiers: Heart failure chronicity: unspecified Is this a current diagnosis for this admission?: Yes Plan: CVP of 20 (4) Pneumonia Qualifiers: Pneumonia type: due to unspecified organism Laterality: left Lung location: upper lobe of lung Qualified Code(s): J18.1 - Lobar pneumonia, unspecified organism Is this a current diagnosis for this admission?: Yes Plan: Etiology uncertain purulent sputum no leukocytosis or left shift (5) Septic shock Is this a current diagnosis for this admission?: Yes Plan: Requiring vasopressor agents - Time Total Critical Time (Minutes): 75
--- NOTE | 2018-02-02 14:36 | Operative Report ---
Operative Report DATE OF SURGERY: 02/01/18 Operative Report: L femoral loretta Left femoral area prepped and draped patient on mechanical ventilation with poor circulation unable to adequately show blood or major blood gases.Patient left groin was prepped and draped and anesthetized with 1% lidocaine and using ultrasound guidance several passes were made to cannulate her left femoral artery this was not successful. The patient did have distal pulses although her feet were somewhat cold as had been prior to the procedure. Nail blanching on her left lower extremity was unchanged PREOPERATIVE DIAGNOSIS: Septic shock pneumonia congestive heart failure POSTOPERATIVE DIAGNOSIS: Same OPERATION: Left femoral A-line insertion SURGEON: ZEE ALVARENGA ANESTHESIA: GA TISSUE REMOVED OR ALTERED: none COMPLICATIONS: none ESTIMATED BLOOD LOSS: 3cc
--- NOTE | 2018-02-02 14:39 | Operative Report ---
Operative Report DATE OF SURGERY: 02/01/18 Operative Report: R femoral a line:Patient's right inguinal area was prepped and draped in a sterile fashion and was anesthetized with subcutaneous 1% lidocaine without epinephrine done under ultrasound guidance her right femoral artery was identified and cannulated with a micropuncture cast catheter excellent waveforms and good blood return patient tolerated well:Distal pulse and nail blanching remained unchanged PREOPERATIVE DIAGNOSIS: Septic shock, congestive heart failure, pneumonia, POSTOPERATIVE DIAGNOSIS: Same OPERATION: Right femoral artery catheterization ANESTHESIA: GA TISSUE REMOVED OR ALTERED: Not applicable COMPLICATIONS: None ESTIMATED BLOOD LOSS: 0cc
--- NOTE | 2018-02-02 14:44 | PDOC PROGRESS REPORT ---
Subjective Progress Note for:: 02/02/18 Subjective:: Intubated and sedated Reason For Visit: PNEUMONIA Physical Exam Vital Signs: Temp Pulse Resp BP Pulse Ox 98.8 F 105 H 18 94/54 L 100 02/02/18 06:00 02/02/18 04:00 02/02/18 06:00 02/02/18 05:35 02/02/18 05:34 Intake & Output 02/01/18 02/02/18 02/03/18 06:59 06:59 06:59 Intake Total 1481 Output Total 4310 Balance -2829 Weight 89.7 kg General appearance: PRESENT: no acute distress, disheveled, obese, well- developed. ABSENT: cooperative Head exam: PRESENT: atraumatic, normocephalic Eye exam: PRESENT: conjunctiva pale. ABSENT: EOMI, nystagmus, periorbital swelling, scleral icterus Mouth exam: PRESENT: dry mucosa, neck supple, tongue midline, other - ET tube in place Neck exam: ABSENT: carotid bruit, JVD, lymphadenopathy, thyromegaly, tracheal deviation, tracheostomy Respiratory exam: PRESENT: decreased breath sounds, prolonged expiratory phas, rales, rhonchi, symmetrical, unlabored, wheezes. ABSENT: retraction, stridor, tachypnea Cardiovascular exam: PRESENT: irregular rhythm Pulses: PRESENT: normal radial pulses GI/Abdominal exam: PRESENT: diminished bowel sounds, soft Extremities exam: ABSENT: clubbing Musculoskeletal exam: ABSENT: deformity, dislocation Neurological exam: ABSENT: alert, awake, oriented to person Skin exam: PRESENT: dry, warm Results Laboratory Results: 02/02/18 05:25 02/02/18 05:25 02/01/18 02/01/18 02/01/18 17:37 18:50 19:28 WBC RBC Hgb Hct MCV MCH MCHC RDW Plt Count Seg Neutrophils % Lymphocytes % Monocytes % Eosinophils % Basophils % Absolute Neutrophils Absolute Lymphocytes Absolute Monocytes Absolute Eosinophils Absolute Basophils Carbonic Acid Cancelled Cancelled HCO3/H2CO3 Ratio Cancelled Cancelled ABG pH Cancelled Cancelled ABG pCO2 Cancelled Cancelled ABG pO2 Cancelled Cancelled ABG HCO3 Cancelled Cancelled ABG O2 Saturation Cancelled Cancelled ABG Base Excess Cancelled Cancelled VBG pH 7.40 VBG pCO2 43.1 VBG HCO3 26.2 VBG Base Excess 1.2 FiO2 Cancelled Cancelled Sodium Potassium Chloride Carbon Dioxide Anion Gap BUN Creatinine Est GFR ( Amer) Est GFR (Non-Af Amer) Glucose Lactic Acid Calcium Magnesium Total Bilirubin AST ALT Alkaline Phosphatase Total Protein Albumin Triglycerides 02/01/18 02/01/18 02/02/18 21:35 23:25 05:25 WBC RBC Hgb Hct MCV MCH MCHC RDW Plt Count Seg Neutrophils % Lymphocytes % Monocytes % Eosinophils % Basophils % Absolute Neutrophils Absolute Lymphocytes Absolute Monocytes Absolute Eosinophils Absolute Basophils Carbonic Acid 1.01 L 0.91 L HCO3/H2CO3 Ratio 21:1 25:1 ABG pH 7.44 7.50 H ABG pCO2 33.5 L 30.3 L ABG pO2 430.2 H 100.4 H ABG HCO3 22.1 23.2 ABG O2 Saturation 99.9 H 98.1 H ABG Base Excess -1.5 0.7 VBG pH VBG pCO2 VBG HCO3 VBG Base Excess FiO2 100 30% Sodium Potassium Chloride Carbon Dioxide Anion Gap BUN Creatinine Est GFR ( Amer) Est GFR (Non-Af Amer) Glucose Lactic Acid 1.1 Calcium Magnesium Total Bilirubin AST ALT Alkaline Phosphatase Total Protein Albumin Triglycerides 02/02/18 02/02/18 05:25 05:25 WBC 10.6 H RBC 4.17 Hgb 10.7 L Hct 34.0 L MCV 82 MCH 25.6 L MCHC 31.4 L RDW 16.9 H Plt Count 306 Seg Neutrophils % 78.9 H Lymphocytes % 7.6 L Monocytes % 11.5 Eosinophils % 1.6 Basophils % 0.4 Absolute Neutrophils 8.3 H Absolute Lymphocytes 0.8 Absolute Monocytes 1.2 Absolute Eosinophils 0.2 Absolute Basophils 0.0 Carbonic Acid HCO3/H2CO3 Ratio ABG pH ABG pCO2 ABG pO2 ABG HCO3 ABG O2 Saturation ABG Base Excess VBG pH VBG pCO2 VBG HCO3 VBG Base Excess FiO2 Sodium 132.1 L Potassium 3.6 D Chloride 102 Carbon Dioxide 25 Anion Gap 5 BUN 8 Creatinine 0.55 Est GFR ( Amer) > 60 Est GFR (Non-Af Amer) > 60 Glucose 116 H Lactic Acid Calcium 7.8 L Magnesium 1.9 Total Bilirubin 0.9 AST 24 ALT 43 Alkaline Phosphatase 163 H Total Protein 4.7 L Albumin 2.4 L Triglycerides 78 02/01/18 02/01/18 02/02/18 23:25 23:25 05:25 Creatine Kinase 77 CK-MB (CK-2) 1.42 1.11 Troponin I 0.020 0.015 02/02/18 05:25 Creatine Kinase 73 CK-MB (CK-2) Troponin I Impressions: Chest/Abdomen CTA 02/01/18 10:06 IMPRESSION: No CT angio evidence of acute pulmonary emboli. Moderate bilateral pleural effusions are present. Multifocal airspace disease edema versus pneumonia. Old sternotomy for CABG and mitral valve replacement. Chest X-Ray 02/02/18 06:00 IMPRESSION: 1. Interval increase in bibasilar opacities likely related to pleural effusions with likely underlying atelectasis or consolidation. 2. Persistent left upper lung airspace opacity concerning for pneumonia. Assessment & Plan - Diagnosis (1) Atrial fibrillation Qualifiers: Atrial fibrillation type: chronic Qualified Code(s): I48.2 - Chronic atrial fibrillation Is this a current diagnosis for this admission?: Yes Plan: Not well controlled rapid ventricular response (2) CHF (congestive heart failure) Qualifiers: Heart failure chronicity: unspecified Is this a current diagnosis for this admission?: Yes Plan: CVP of 20 (3) Pneumonia Qualifiers: Pneumonia type: due to unspecified organism Laterality: bilateral Lung location: unspecified part of lung Qualified Code(s): J18.9 - Pneumonia, unspecified organism Is this a current diagnosis for this admission?: Yes Plan: Radiographically worse PaO2/FiO2 ratio equals 333.33 (4) Septic shock Is this a current diagnosis for this admission?: Yes Plan: Requiring vasopressor agents - Time Total Critical Time (Minutes): 50
[2018-02-02] MEDS ORDERED: DIGOXIN INJ 0.5 MG/2 ML AMPULE IV SCH (18:00)
--- NOTE | 2018-02-02 19:00 | XCELERA REPORT ---
[address] [address] Transthoracic Echocardiogram Report Name: JM PUGA Age: 63 yrs Gender: Female : 1955 Patient Status: Inpatient Patient Location: ICU^2^A Study Date: 02/02/2018 10:27 AM Height: 64 in Weight: 200 lb BSA: 2.0 m2 Procedure: A complete two-dimensional transthoracic echocardiogram was performed (2D, M-mode, spectral and color flow Doppler). The study was technically difficult with many images being suboptimal in quality. Reason For Study: heart failure Ordering Physician: ZEE ALVARENGA Performed By: Ivana Ramos Interpretation Summary The study was technically difficult with many images being suboptimal in quality. Severe Prosthetic Mitral Valve Stenosis. The left ventricular ejection fraction is normal. There is borderline concentric left ventricular hypertrophy. The left ventricle is grossly normal size. LV diastolic function could not be adequately assessed due to significant valve regurgitation and/or stenosis. Regional wall motion abnormalities cannot be excluded due to limited visualization. The right ventricle is moderately dilated. The right ventricular systolic function is moderately reduced. The right atrium is mildly dilated. The left atrium is moderately dilated. Gradients are abnormal for this prosthetic mitral valve suggesting severe stenosis There is no aortic valve stenosis There is a mild amount of aortic regurgitation There is a moderate to severe amount of tricuspid regurgitation There is servere pulmonary hypertension by echo Best estimated right ventricular systolic pressure is elevated at >60mmHg. The inferior vena cava appeared normal and decreased < 50% with respiration (RAP 10-15 mmHg) There is no pericardial effusion. Moderate size right pleural effusion. Moderate size left pleural effusion. MMode/2D Measurements & Calculations RVDd: 3.9 cm LVIDd: 4.2 cm FS: 13.4 % Ao root diam: IVSd: 1.1 cm LVIDs: 3.6 cm EDV(Teich): 2.9 cm LVPWd: 1.1 cm 77.2 ml Ao root area: ESV(Teich): 54.7 ml 6.6 cm2 EF(Teich): LA dimension: 29.1 % 5.4 cm LVOT diam: 1.9 cm LA A2Cs: LA A4Cs: LA length: 6.3 cm LVOT area: 2.8 cm2 36.9 cm2 30.5 cm2 LA Vol Index (BP): LA Volume: 150.9 ml 77.1 ml/m2 Doppler Measurements & Calculations MV E max indy: MV V2 max: Ao V2 max: AI max indy: 282.6 cm/sec 385.9 cm/sec 147.3 cm/sec 267.1 cm/sec MV max PG: Ao max PG: AI max P.5 mmHg 59.6 mmHg 8.7 mmHg AI dec slope: MV V2 mean: Ao V2 mean: 160.0 cm/sec2 279.6 cm/sec 105.2 cm/sec AI P1/2t: 488.9 msec MV mean PG: Ao mean P.5 mmHg 5.0 mmHg MV V2 VTI: Ao V2 VTI: 20.3 cm 144.7 cm LUZ(I,D): 2.1 cm2 MVA(VTI): 0.30 cm2 LUZ(V,D): 2.5 cm2 LV V1 max PG: SV(LVOT): 42.7 ml PA V2 max: TR max indy: 6.8 mmHg 80.9 cm/sec 393.6 cm/sec LV V1 mean PG: PA max PG: TR max P.0 mmHg 3.0 mmHg 2.6 mmHg LV V1 max: 130.3 cm/sec LV V1 mean: 78.8 cm/sec LV V1 VTI: 15.4 cm Left Ventricle The left ventricle is grossly normal size. There is borderline concentric left ventricular hypertrophy. The left ventricular ejection fraction is normal. LV diastolic function could not be adequately assessed due to significant valve regurgitation and/or stenosis. Regional wall motion abnormalities cannot be excluded due to limited visualization. Right Ventricle The right ventricle is moderately dilated. The right ventricular systolic function is moderately reduced. Atria The right atrium is mildly dilated. The left atrium is moderately dilated. Interarterial septum not well visualized and not well dopplered. Cannot comment on ASD/PFO presence. Mitral Valve Gradients are abnormal for this prosthetic mitral valve suggesting severe stenosis. Aortic Valve The aortic valve is not well visualized secondary to technical limitations. There is no aortic valve stenosis. There is a mild amount of aortic regurgitation. Tricuspid Valve The tricuspid valve is not well visualized secondary to technical limitations. There is no tricuspid stenosis. There is a moderate to severe amount of tricuspid regurgitation. There is servere pulmonary hypertension by echo. Best estimated right ventricular systolic pressure is elevated at >60mmHg. Pulmonic Valve The pulmonic valve is not well visualized. Great Vessels The aortic root is not well visualized but is probably normal size. The inferior vena cava appeared normal and decreased < 50% with respiration (RAP 10-15 mmHg). Effusions There is no pericardial effusion. Moderate size right pleural effusion. Moderate size left pleural effusion. : ZEE ALVARENGA > Dane Arriola
--- NOTE | 2018-02-02 19:56 | PDOC CONSULTATION ---
Consultation Consult Date: 02/02/18 Attending physician:: ELDON JOSEPH Consult reason:: Hypotension History of Present Illness Admission Date/PCP: 02/01/18 10:29 DONOVAN RAPP MD Patient complains of: Patient is intubated and sedated. History of Present Illness: JM PUGA is a 63 year old female chronic atrial fibrillation, heart failure , hypothyroidism to the ED with shortness of breath All information is obtained from the chart as patient is currently intubated and sedated it appears she presented to the emergency room initially was felt to have pneumonia subsequently it was felt that she had pneumonia or and/or ARDS and was switched from BiPAP and intubated and ventilated invasively. Patient chart reviewed. Patient seen at the request of hospitalist. Patient was noted to be hypertensive. Currently on Levophed drip. Patient noted to be needing quite a bit of oxygenation and ventilation. Currently intubated. Chest x-ray and CT scan suggest patient has pulmonary edema and CHF with bilateral pleural effusion. Patient also seems to have a mechanical heart valve. A stat 2D echo was ordered. No further history available. Past Medical History Cardiac Medical History: Reports: Atrial Fibrillation, Congestive Heart Failure , Coronary Artery Disease, Hyperlipidema Pulmonary Medical History: Reports: Chronic Obstructive Pulmonary Disease (COPD) Musculoskeltal Medical History: Reports: Arthritis - osteo Psychiatric Medical History: Denies: Depression Past Surgical History Past Surgical History: Reports: Hysterectomy, Orthopedic Surgery - back, Other - Mitral mechanical/prosthetic bio valve replacement Social [facility] Information [facility] Records Smoking Status: Unknown if Ever Smoked Frequency of Alcohol Use: None Hx Recreational Drug Use: No Drugs: None Hx Prescription Drug Abuse: No - Advance Directive Resuscitation Status: Full Code Family History Family History: Reviewed & Not Pertinent Parental Family History Reviewed: No Children Family History Reviewed: No Sibling(s) Family History Reviewed.: No - No family members available. Medication/Allergy Home Medications: Dextrose [Glutose 40% Gel 15 gm Tube] 15 gm PO PRN PRN tube 02/02/18 Dextrose [Glutose 40% Gel 15 gm Tube] 30 gm PO PRN PRN tube 02/02/18 Enoxaparin Sodium [Lovenox Inj 40 mg/0.4 ml Disp.syrin] 40 mg SUBCUT DAILY disp.syrin 02/02/18 Glucagon,Human Recombinant [Glucagen Inj 1 mg Vial] 1 mg SUBCUT PRN PRN vial Heparin Sodium,Porcine [Heparin Flush 10 Unit/ml 5 ml Disp.syrg] 30 unit IV .AFTER EACH USE PRN disp.syrin 02/02/18 Heparin Sodium,Porcine [Heparin Flush 10 Unit/ml 5 ml Disp.syrg] 30 unit IV Q8 disp.syrin 02/02/18 Norepinephrine Bitartrate [Levophed Inj/Pf 4 mg/4 ml Sdv] 4 mg IV CONTINUOUS PRN vial 02/02/18 Normal Saline [Saline Flush 2.5 ml Monoject Prefil Syrin] 2.5 ml IV Q8 disp.syrin 02/02/18 Piperacillin Sodium/Tazobactam [Zosyn Inj 3.375 gm Vial] 3.375 gm IV Q6A vial 02/02/18 Allergies/Adverse Reactions: clopidogrel [From Plavix] Allergy (Verified 12/19/17 15:57) rivaroxaban [From Xarelto] Allergy (Verified 12/19/17 15:57) Review of Systems ROS unobtainable: Due to endotracheal tube Review of Systems: Could not be obtained due to patient being intubated and sedated. No family members available. Physical Exam Vital Signs: Temp Pulse Resp BP Pulse Ox 98.8 F 106 H 18 84/63 L 100 02/02/18 06:00 02/02/18 08:00 02/02/18 11:00 02/02/18 07:35 02/02/18 11:00 Intake & Output 02/01/18 02/02/18 02/03/18 06:59 06:59 06:59 Intake Total 1481 508 Output Total 4310 120 Balance -2829 388 Weight 89.7 kg Exam: GENERAL: well-nourished and in no acute distress. Patient is intubated and sedated. Orientation cannot be checked HEAD: Atraumatic, normocephalic. EYES: Pupils equal round and reactive to light, extraocular movements could not be checked, sclera anicteric, conjunctiva are normal. ENT: TMs normal, nares patent, oropharynx clear without exudates. Moist mucous membranes. No oral ulcerations or bleeding gums noted NECK: supple without lymphadenopathy or JVD. Trachea is central. No cervical or axillary lymphadenopathy noted. Carotids are 2+ LUNGS: Bilateral basal crackles. Scattered wheezing noted. Dullness noted both bases CHEST: Palpation of the chest wall shows no significant chest wall tenderness or abnormalities. 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 ABDOMEN: Soft, no significant tenderness appreciated, normoactive bowel sounds. No guarding, no rebound. No rigidity noted . No masses appreciated. EXTREMITIES: Pedal pulses are 1-2+, no calf tenderness noted, 1+ pedal edema noted. No clubbing or cyanosis. NEUROLOGICAL: The patient cannot participate in the neurological exam but no facial asymmetry noted. Extremities slightly hypotonic PSYCH: This cannot be evaluated. Patient cannot participate. SKIN: No significant ecchymosis, rash, or signs of pruritus noted. MUSCULOSKELETAL EXAM: No significant joint swelling noted. Patient cannot participate in musculoskeletal exam Results Laboratory Results: 02/02/18 05:25 02/02/18 05:25 02/01/18 02/01/18 02/01/18 17:37 18:50 19:28 WBC RBC Hgb Hct MCV MCH MCHC RDW Plt Count Seg Neutrophils % Lymphocytes % Monocytes % Eosinophils % Basophils % Absolute Neutrophils Absolute Lymphocytes Absolute Monocytes Absolute Eosinophils Absolute Basophils Carbonic Acid Cancelled Cancelled HCO3/H2CO3 Ratio Cancelled Cancelled ABG pH Cancelled Cancelled ABG pCO2 Cancelled Cancelled ABG pO2 Cancelled Cancelled ABG HCO3 Cancelled Cancelled ABG O2 Saturation Cancelled Cancelled ABG Base Excess Cancelled Cancelled VBG pH 7.40 VBG pCO2 43.1 VBG HCO3 26.2 VBG Base Excess 1.2 FiO2 Cancelled Cancelled Sodium Potassium Chloride Carbon Dioxide Anion Gap BUN Creatinine Est GFR ( Amer) Est GFR (Non-Af Amer) Glucose Lactic Acid Calcium Magnesium Total Bilirubin AST ALT Alkaline Phosphatase Total Protein Albumin Triglycerides TSH 02/01/18 02/01/18 02/02/18 21:35 23:25 05:25 WBC RBC Hgb Hct MCV MCH MCHC RDW Plt Count Seg Neutrophils % Lymphocytes % Monocytes % Eosinophils % Basophils % Absolute Neutrophils Absolute Lymphocytes Absolute Monocytes Absolute Eosinophils Absolute Basophils Carbonic Acid 1.01 L 0.91 L HCO3/H2CO3 Ratio 21:1 25:1 ABG pH 7.44 7.50 H ABG pCO2 33.5 L 30.3 L ABG pO2 430.2 H 100.4 H ABG HCO3 22.1 23.2 ABG O2 Saturation 99.9 H 98.1 H ABG Base Excess -1.5 0.7 VBG pH VBG pCO2 VBG HCO3 VBG Base Excess FiO2 100 30% Sodium Potassium Chloride Carbon Dioxide Anion Gap BUN Creatinine Est GFR ( Amer) Est GFR (Non-Af Amer) Glucose Lactic Acid 1.1 Calcium Magnesium Total Bilirubin AST ALT Alkaline Phosphatase Total Protein Albumin Triglycerides TSH 02/02/18 02/02/18 02/02/18 05:25 05:25 05:25 WBC 10.6 H RBC 4.17 Hgb 10.7 L Hct 34.0 L MCV 82 MCH 25.6 L MCHC 31.4 L RDW 16.9 H Plt Count 306 Seg Neutrophils % 78.9 H Lymphocytes % 7.6 L Monocytes % 11.5 Eosinophils % 1.6 Basophils % 0.4 Absolute Neutrophils 8.3 H Absolute Lymphocytes 0.8 Absolute Monocytes 1.2 Absolute Eosinophils 0.2 Absolute Basophils 0.0 Carbonic Acid HCO3/H2CO3 Ratio ABG pH ABG pCO2 ABG pO2 ABG HCO3 ABG O2 Saturation ABG Base Excess VBG pH VBG pCO2 VBG HCO3 VBG Base Excess FiO2 Sodium 132.1 L Potassium 3.6 D Chloride 102 Carbon Dioxide 25 Anion Gap 5 BUN 8 Creatinine 0.55 Est GFR ( Amer) > 60 Est GFR (Non-Af Amer) > 60 Glucose 116 H Lactic Acid Calcium 7.8 L Magnesium 1.9 Total Bilirubin 0.9 AST 24 ALT 43 Alkaline Phosphatase 163 H Total Protein 4.7 L Albumin 2.4 L Triglycerides 78 TSH 7.21 H 02/01/18 02/01/18 02/02/18 23:25 23:25 05:25 Creatine Kinase 77 CK-MB (CK-2) 1.42 1.11 Troponin I 0.020 0.015 02/02/18 02/02/18 02/02/18 05:25 11:00 11:00 Creatine Kinase 73 77 CK-MB (CK-2) 0.98 Troponin I < 0.012 EKG Comments: Atrial fibrillation, nonspecific IVCD RBBB type Impressions: Chest/Abdomen CTA 02/01/18 10:06 IMPRESSION: No CT angio evidence of acute pulmonary emboli. Moderate bilateral pleural effusions are present. Multifocal airspace disease edema versus pneumonia. Old sternotomy for CABG and mitral valve replacement. Chest X-Ray 02/02/18 06:00 IMPRESSION: 1. Interval increase in bibasilar opacities likely related to pleural effusions with likely underlying atelectasis or consolidation. 2. Persistent left upper lung airspace opacity concerning for pneumonia. Assessment & Plan - Diagnosis (1) Acute respiratory failure, unspecified whether with hypoxia or hypercapnia Qualifiers: Respiratory failure complication: hypoxia Qualified Code(s): J96.01 - Acute respiratory failure with hypoxia Is this a current diagnosis for this admission?: Yes (2) Atrial fibrillation Qualifiers: Atrial fibrillation type: chronic Qualified Code(s): I48.2 - Chronic atrial fibrillation Is this a current diagnosis for this admission?: Yes (3) CHF (congestive heart failure) Qualifiers: Heart failure chronicity: unspecified Is this a current diagnosis for this admission?: Yes (4) Septic shock Is this a current diagnosis for this admission?: Yes (5) Pneumonia Qualifiers: Pneumonia type: due to unspecified organism Laterality: bilateral Lung location: unspecified part of lung Qualified Code(s): J18.9 - Pneumonia, unspecified organism Is this a current diagnosis for this admission?: Yes - Notes Notes: Patient noted to be in acute respiratory failure secondary to CHF and possibly bilateral aspiration pneumonia. Patient also has atrial fibrillation with rapid ventricular response. Patient's CT scan shows that patient has a prosthetic valve in the mitral position. It is difficult to tell whether it is a mechanical prosthetic or bioprosthetic. Patient also noted to be hypotensive needing pressure support. Exact etiology of hypotension not clear but could well be septic shock/cardiogenic shock. At this point to help manage this patient better have ordered a 2D echocardiogram. 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 Patient also has ongoing severe medical problem and needs tertiary care. This was related to the hospitalist who kindly arranged transfer to [facility]. The [facility] was called and informed of abnormal echocardiogram. - Time Time Spent: 30 to 50 Minutes - More than 50% of the time spent coordinating care , discussing management plans with involved caregivers. Management plans discussed with involved personnels. Medical decision making was of high complexity, patient's has multiple comorbidities. Medications reviewed and adjusted accordingly: Yes
--- NOTE | 2018-02-02 21:51 | EKG REPORT ---
SEVERITY:- ABNORMAL ECG - A FIB RVR RIGHT BUNDLE BRANCH BLOCK INFERIOR INFARCT, AGE INDETERMINATE : Confirmed by: Dane Arriola 02-Feb-2018 21:50:44
[2018-02-04] MEDS ORDERED: DIGOXIN INJ 0.5 MG/2 ML AMPULE IV SCH (10:00)
== END 2018-02-02 12:15 | disposition short-term general hospital (02) | DRG 871 ==
LOC: ER 05:43 → EH 10:29 → ICU 16:35
PROVIDERS: ADMIT Emergency Medicine; ATTEND Emergency Medicine
PROC: 5A1935Z Respiratory Ventilation, Less than 24 Consecutive Hours (ICD-10-PCS; principal; 2018-02-01)
PROC: 0BH17EZ Insertion of Endotracheal Airway into Trachea, Via Natural or Artificial Opening (ICD-10-PCS; 2018-02-01)
PROC: 06HM33Z Insertion of Infusion Device into Right Femoral Vein, Percutaneous Approach (ICD-10-PCS; 2018-02-01)
PROC: B54BZZA Ultrasonography of Right Lower Extremity Veins, Guidance (ICD-10-PCS; 2018-02-01)
PROC: 02HV33Z Insertion of Infusion Device into Superior Vena Cava, Percutaneous Approach (ICD-10-PCS; 2018-02-01)
PROC: B548ZZA Ultrasonography of Superior Vena Cava, Guidance (ICD-10-PCS; 2018-02-01)
DX: A41.9 Sepsis, unspecified organism (principal); J96.00 Acute respiratory failure, unspecified whether with hypoxia or hypercapnia; R65.21 Severe sepsis with septic shock; J18.9 Pneumonia, unspecified organism; I50.9 Heart failure, unspecified; E87.1 Hypo-osmolality and hyponatremia; I48.2 Chronic atrial fibrillation; Z95.2 Presence of prosthetic heart valve; I25.10 Atherosclerotic heart disease of native coronary artery without angina pectoris; E78.00 Pure hypercholesterolemia, unspecified; M19.90 Unspecified osteoarthritis, unspecified site; I87.2 Venous insufficiency (chronic) (peripheral); E66.9 Obesity, unspecified; E03.9 Hypothyroidism, unspecified; E78.5 Hyperlipidemia, unspecified; Z90.710 Acquired absence of both cervix and uterus; Z88.6 Allergy status to analgesic agent; Z79.01 Long term (current) use of anticoagulants; Z68.33 Body mass index [BMI] 33.0-33.9, adult
CPT/HCPCS: 36415; 51702; 71045; 71275; 80053; 82550; 82553; 82803; 83605; 83735; 83880; 84443; 84478; 84484; 85025; 85610; 85730; 87040; 87070; 87086; 87205; 93005; 93010; 93306; 94002; 94003; 94660; 96361; 96365; 96367; 96375; 99291; C1751; J0330; J1160; J1642; J1650; J1940; J1956; J2543; J2704; J3010; J3370; J3480; J3490; J7030; J7040; J7060; S0028

== ENCOUNTER 2018-02-26 11:24 | Inpatient (IN) | payer MEDICARE, MEDICAID ==
--- NOTE | 2018-02-26 12:47 | RADIOLOGY REPORT (SQ) ---
EXAM DESCRIPTION: CHEST SINGLE VIEW COMPLETED DATE/TIME: 02/26/2018 12:34 pm REASON FOR STUDY: resp distress COMPARISON: 02/02/2018. NUMBER OF VIEWS: One view. TECHNIQUE: Single frontal radiographic view of the chest acquired. LIMITATIONS: None. FINDINGS: LUNGS AND PLEURA: No opacities, masses or pneumothorax. No pleural effusion. MEDIASTINUM AND HILAR STRUCTURES: No masses or contour abnormality. HEART AND VASCULATURE: Cardiac enlargement. Vascular congestion. BONES: No acute findings. HARDWARE: Sternotomy wires and prosthetic valve. OTHER: No other significant finding. IMPRESSION: CARDIAC ENLARGEMENT. VASCULAR CONGESTION. TECHNICAL DOCUMENTATION: JOB ID: [id number] [employer]- All Rights Reserved Reading location - IP/workstation name: [email or web address]
[2018-02-26 14:04] LABS: ABSOLUTE LYMPHOCYTES (AUTO) 0.5 10^3/uL (0.5-4.7); ABSOLUTE MONOCYTES (AUTO) 0.9 10^3/uL (0.1-1.4); ABSOLUTE NEUT (AUTO) 5.7 10^3/uL (1.7-8.2); ALANINE AMINOTRANSFERASE 92 U/L (9-52); ALBUMIN 3.3 g/dL (3.5-5.0); ALKALINE PHOSPHATASE 215 U/L (38-126); ANION GAP 13 (5-19); ASPARTATE AMINO TRANSFERASE 99 U/L (14-36); BASOPHILS % (AUTO) 0.1 % (0-2); BILIRUBIN,DIRECT 0.6 mg/dL (0.0-0.4); BILIRUBIN,TOTAL 1.3 mg/dL (0.2-1.3); BLOOD UREA NITROGEN 18 mg/dL (7-20); CALCIUM 8.9 mg/dL (8.4-10.2); CARBON DIOXIDE 30 mmol/L (22-30); CHLORIDE 93 mmol/L (98-107); CREATINE KINASE 23 U/L (30-135); GLUCOSE 110 mg/dL (75-110); LYMPHOCYTES % (AUTO) 7.1 % (13-45); MEAN CORPUSCULAR HEMOGLOBIN 23.7 pg (27.0-33.4); MONOCYTES % (AUTO) 12.4 % (3-13); PLATELET COUNT 192 10^3/uL (150-450); POTASSIUM 3.2 mmol/L (3.6-5.0); RED CELL DISTRIBUTION WIDTH 19.4 % (11.5-14.0); SEGMENTED NEUTROPHILS % (AUTO) 80.4 % (42-78); SODIUM 135.5 mmol/L (137-145); TOTAL CELLS COUNTED % (AUTO) 100 %; TOTAL PROTEIN 5.8 g/dL (6.3-8.2); WHITE BLOOD COUNT 7.1 10^3/uL (4.0-10.5)
[2018-02-26 14:05] LABS: CREATINE KINASE MB 0.78 ng/mL (<4.55); TROPONIN I 0.027 ng/mL
[2018-02-26 14:06] LABS: MEAN CORPUSCULAR VOLUME 76 fl (80-97)
[2018-02-26] MEDS ORDERED: FUROSEMIDE INJ/PF 40 MG/4 ML SDV IV ONE (14:32)
--- NOTE | 2018-02-26 14:43 | ER Document Report ---
ED General - General Chief Complaint: Shortness Of Breath Stated Complaint: DIFFICULTY BREATHING Time Seen by Provider: 02/26/18 11:39 Mode of Arrival: Medic Information source: Patient, [employer], [facility] Records Notes: 63-year-old female history CHF COPD presents with complaints of difficulty breathing. Patient notes symptoms have been ongoing now for 1 day. Patient was recently admitted at [facility] for respiratory distress, patient was intubated and transferred to [place]. Patient was then discharged on Monday to care facility was doing well for 2 days but now symptoms have worsened. Patient is not on oxygen TRAVEL OUTSIDE OF THE [place] IN LAST 30 DAYS: No - HPI Onset: This morning Onset/Duration: Worse Quality of pain: No pain Severity: Moderate Pain Level: Denies Associated symptoms: Nonproductive cough, Shortness of breath Exacerbated by: Denies Relieved by: Denies Similar symptoms previously: Yes Recently seen / treated by doctor: Yes - Related Data Allergies/Adverse Reactions: clopidogrel [From Plavix] Allergy (Verified 12/19/17 15:57) rivaroxaban [From Xarelto] Allergy (Verified 12/19/17 15:57) Past Medical History - Social History Smoking Status: Former Smoker Cigarette use (# per day): No Chew tobacco use (# tins/day): No Smoking Education Provided: No Family History: Reviewed & Not Pertinent Patient has suicidal ideation: No Patient has homicidal ideation: No - Past Medical History Cardiac Medical History: Reports: Hx Atrial Fibrillation, Hx Congestive Heart Failure, Hx Coronary Artery Disease, Hx Hypercholesterolemia Pulmonary Medical History: Reports: Hx COPD Renal/ Medical History: Denies: Hx Peritoneal Dialysis Musculoskeltal Medical History: Reports Hx Arthritis - osteo Psychiatric Medical History: Denies: Hx Depression Past Surgical History: Reports: Hx Cardiac Surgery - aortic valve replacement, Hx Hysterectomy, Hx Open Heart Surgery - mitral valve replacement, Hx Orthopedic Surgery - back, Other - Mitral mechanical/prosthetic bio valve replacement Review of Systems - Review of Systems Notes: REVIEW OF SYSTEMS: CONSTITUTIONAL : Denies fever, chills, or sweats. Denies recent illness. EENT: Denies eye, ear, throat, or mouth pain or symptoms. Denies nasal or sinus congestion or discharge. Denies throat, tongue, or mouth swelling or difficulty swallowing. CARDIOVASCULAR: Denies chest pain. Denies palpitations or racing or irregular heart beat. Denies ankle edema. RESPIRATORY: Admits to shortness of breath difficulty breathing GASTROINTESTINAL: Denies abdominal pain or distention. Denies nausea, vomiting , or diarrhea. Denies blood in vomitus, stools, or per rectum. Denies black, tarry stools. Denies constipation. GENITOURINARY: Denies difficulty urinating, painful urination, burning, frequency, blood in urine, or discharge. FEMALE GENITOURINARY: Denies vaginal bleeding, heavy or abnormal periods, irregular periods. Denies vaginal discharge or odor. MUSCULOSKELETAL: Denies back or neck pain or stiffness. Denies joint pain or swelling. SKIN: Denies rash, lesions or sores. HEMATOLOGIC : Denies easy bruising or bleeding. LYMPHATIC: Denies swollen, enlarged glands. NEUROLOGICAL: Denies confusion or altered mental status. Denies passing out or loss of consciousness. Denies dizziness or lightheadedness. Denies headache. Denies weakness or paralysis or loss of use of either side. Denies problems with gait or speech. Denies sensory loss, numbness, or tingling. Denies seizures. PSYCHIATRIC: Denies anxiety or stress. Denies depression, suicidal ideation, or homicidal ideation. ALL OTHER SYSTEMS REVIEWED AND NEGATIVE. PHYSICAL EXAMINATION: GENERAL: Ill-appearing female no acute distress satting 94% on room air HEAD: Atraumatic, normocephalic. EYES: Pupils equal round and reactive to light, extraocular movements intact, conjunctiva are normal. ENT: Nares patent, oropharynx clear without exudates. Moist mucous membranes. NECK: Normal range of motion, supple without lymphadenopathy LUNGS: Crackles at the base of bilateral HEART: Regular rate and rhythm without murmurs ABDOMEN: Soft, nontender, nondistended abdomen. No guarding, no rebound. No masses appreciated. Female : deferred Musculoskeletal: +3 pitting edema bilateral lower extremities NEUROLOGICAL: Cranial nerves grossly intact. Normal speech, normal gait. Normal sensory, motor exams PSYCH: Normal mood, normal affect. SKIN: Warm, Dry, normal turgor, no rashes or lesions noted. Dictation was performed using [employer] voice recognition software Physical Exam - Vital signs Vitals: Temp Resp BP Pulse Ox 97.7 F 23 H 120/101 H 98 02/26/18 11:29 02/26/18 11:29 02/26/18 11:29 02/26/18 11:29 Course - Re-evaluation Re-evalutation: 02/26/18 16:24 This is an overall well-appearing 63-year-old female who presents with complaints of shortness of breath. Patient is not in any respiratory distress at this time however given her recent history I do believe CHF exacerbation is the main concern. Patient will be given Lasix and admitted to the hospitalist service for further evaluation and care - Vital Signs Vital signs: Temp Pulse Resp BP Pulse Ox 97.7 F 21 H 111/94 H 94 02/26/18 11:29 02/26/18 16:01 02/26/18 16:01 02/26/18 15:01 - Laboratory Result Diagrams: 02/26/18 13:02 02/26/18 13:02 Laboratory results interpreted by me: 02/26/18 02/26/18 02/26/18 13:02 13:02 13:02 Hgb 9.0 L Hct 29.0 L MCV 76 L D MCH 23.7 L MCHC 31.0 L RDW 19.4 H Seg Neutrophils % 80.4 H Lymphocytes % 7.1 L PT Sodium 135.5 L Potassium 3.2 L Chloride 93 L Direct Bilirubin 0.6 H AST 99 H ALT 92 H Alkaline Phosphatase 215 H Creatine Kinase 23 L NT-Pro-B Natriuret Pep 79744 H Total Protein 5.8 L Albumin 3.3 L 02/26/18 14:12 Hgb Hct MCV MCH MCHC RDW Seg Neutrophils % Lymphocytes % PT 32.6 H Sodium Potassium Chloride Direct Bilirubin AST ALT Alkaline Phosphatase Creatine Kinase NT-Pro-B Natriuret Pep Total Protein Albumin - Diagnostic Test Radiology reviewed: Image reviewed - Chest x-ray 2 view notes vascular congestion, Reports reviewed Discharge - Discharge Clinical Impression: CHF (congestive heart failure) Qualifiers: Heart failure type: unspecified Heart failure chronicity: acute on chronic Qualified Code(s): I50.9 - Heart failure, unspecified Pulmonary edema Qualifiers: Chronicity: acute Qualified Code(s): J81.0 - Acute pulmonary edema Dyspnea Qualifiers: Dyspnea type: unspecified Qualified Code(s): R06.00 - Dyspnea, unspecified Condition: Fair Disposition: ADMITTED INPATIENT Admitting Provider: Hospitalist Unit Admitted: [facility]
--- NOTE | 2018-02-26 15:03 | EKG REPORT ---
SEVERITY:- ABNORMAL ECG - ATRIAL FIBRILLATION RIGHT BUNDLE BRANCH BLOCK : Confirmed by: Dane Arriola 26-Feb-2018 15:02:36
[2018-02-26] MEDS ORDERED: POTASSIUM CHLORIDE 10 MEQ TABLET.SA PO ONE (15:09)
[2018-02-26 15:29] LABS: APPEARANCE,URINE SLIGHTLY-CLOUDY; BILIRUBIN,URINE NEGATIVE (NEGATIVE); COLOR,URINE YELLOW; GLUCOSE, URINE NEGATIVE (NEGATIVE); KETONES,URINE NEGATIVE (NEGATIVE); LEUKOCYTE ESTERASE,URINE NEGATIVE (NEGATIVE); NITRITE,URINE NEGATIVE (NEGATIVE); PROTEIN,URINE 30 mg/dL (NEGATIVE); URINE SPECIFIC GRAVITY 1.016; UROBILINOGEN,URINE NEGATIVE mg/dL (<2.0)
[2018-02-26 15:49] LABS: INTERNATIONAL RATION (INR) 3.01; PROTHROMBIN TIME 32.6 SEC (11.4-15.4)
[2018-02-26] MEDS ORDERED: METOPROLOL SUCCINATE 25 MG TAB.SR.24H PO ONE (16:07)
[2018-02-26] MEDS ORDERED: LEVALBUTEROL HCL NEB 0.63 MG/3 ML AMPUL NEB PRN (16:16)
[2018-02-26] MEDS ORDERED: PROMETHAZINE HCL 25 MG TABLET PO PRN (16:25)
[2018-02-26] MEDS ORDERED: LORAZEPAM 0.5 MG TABLET PO PRN (16:33)
[2018-02-26] MEDS ORDERED: POLYETHYLENE GLYCOL 3350 POWDER 17 GM/1 PACKET PO PRN (16:33)
--- NOTE | 2018-02-26 16:41 | PDOC H&P ---
History of Present Illness Admission Date/PCP: 02/26/18 14:48 DONOVAN RAPP MD History of Present Illness: JM PUGA is a 63 year old female with Chronic atrial fibrillation Hypothyroidism Recent pneumonia and ARDS requiring intubation She was recently admitted to this hospital on February 01 with atrial fibrillation with RVR and was found to be in cardiogenic shock echocardiogram showed was found to have severe mitral stenosis and she was transferred to [facility]. 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 She was evaluated by CT surgery and was anticoagulated with heparin and Coumadin. INR was reportedly 2.6 at discharge. He recommended anticoagulation and repeat SCOTT or CTA to reevaluate the mitral valve. Should patient need a valve replacement due to possible mismatch, she would need dental clearance and a right and left heart cath. Contrast O was held at discharge due to rising creatinine. She was discharged to [facility] on February 23. On the night of February 25 she became short of breath and presented to this emergency room today with some shortness of breath. BNP is significantly elevated and chest x-ray shows pulmonary edema. She was given 1 dose of 40 mg IV Lasix in the emergency room and referred for admission. Outpatient medications according to [facility]'s documentation are as follows Lasix 20 mg daily Lexapro 20 mg daily Lopressor 12.5 mg daily Neurontin 300 mg 3 times a day Synthroid 25 mcg daily Lidocaine patch to low back Coumadin 3 mg daily at 4 PM Amiodarone 200 mg daily Aricept 10 mg daily Ambien 10 mg daily Zocor 20 mg daily MiraLAX daily as needed Flexeril 10 mg every 12 hours as needed for muscle spasms Ativan 0.5 mg daily as needed for anxiety Percocet 5/325 mg every 4 hours as needed for pain Satting 97% on 2 L. Denies chest pain or palpitations. She says that around midnight last night she noticed that she was more short of breath. Denies pedal edema orthopnea or paroxysmal nocturnal dyspnea. The patient denies any fevers cough expectoration or chills. She requests to be a full code. Her healthcare power of disability attorney is her mother Alexandra Dang. Phone # [phone]. She was supposed to be on Lopressor 75 mg BID per [facility] discharge summary but SNF records show 12.5 mg once a day. Her HR is in the 120s- this is the likely reason for her pulmonary edema. Patient refuses to go back to [facility], she is agreeable to being transferred to [facility] should she require it. I called the transfer center there and am waiting to hear from their [facility] rn neonatal to determine whether she will require urgent transfer. Her [facility] is Dr. Jason Purcell in [place]. Past Medical History Cardiac Medical History: Reports: Atrial Fibrillation, Congestive Heart Failure , Coronary Artery Disease, Hyperlipidema Pulmonary Medical History: Reports: Chronic Obstructive Pulmonary Disease (COPD) Musculoskeltal Medical History: Reports: Arthritis - osteo Psychiatric Medical History: Reports: Depression Past Surgical History Past Surgical History: Reports: Hysterectomy, Orthopedic Surgery - back, Valve Replacement, Other - Mitral mechanical/prosthetic bio valve replacement Social History Smoking Status: Never Smoker Frequency of Alcohol Use: None Hx Recreational Drug Use: No Drugs: None Hx Prescription Drug Abuse: No Family History Family History: Other Parental Family History Reviewed: Yes - Mother- aortic aneurysm, father of alcoholism Children Family History Reviewed: Yes Sibling(s) Family History Reviewed.: Yes Medication/Allergy Home Medications: Dextrose [Glutose 40% Gel 15 gm Tube] 15 gm PO PRN PRN tube 02/02/18 Dextrose [Glutose 40% Gel 15 gm Tube] 30 gm PO PRN PRN tube 02/02/18 Enoxaparin Sodium [Lovenox Inj 40 mg/0.4 ml Disp.syrin] 40 mg SUBCUT DAILY disp.syrin 02/02/18 Glucagon,Human Recombinant [Glucagen Inj 1 mg Vial] 1 mg SUBCUT PRN PRN vial Heparin Sodium,Porcine [Heparin Flush 10 Unit/ml 5 ml Disp.syrg] 30 unit IV .AFTER EACH USE PRN disp.syrin 02/02/18 Heparin Sodium,Porcine [Heparin Flush 10 Unit/ml 5 ml Disp.syrg] 30 unit IV Q8 disp.syrin 02/02/18 Norepinephrine Bitartrate [Levophed Inj/Pf 4 mg/4 ml Sdv] 4 mg IV CONTINUOUS PRN vial 02/02/18 Normal Saline [Saline Flush 2.5 ml Monoject Prefil Syrin] 2.5 ml IV Q8 disp.syrin 02/02/18 Piperacillin Sodium/Tazobactam [Zosyn Inj 3.375 gm Vial] 3.375 gm IV Q6A vial 02/02/18 Allergies/Adverse Reactions: clopidogrel [From Plavix] Allergy (Verified 12/19/17 15:57) rivaroxaban [From Xarelto] Allergy (Verified 12/19/17 15:57) Review of Systems Constitutional: ABSENT: fever(s), night sweats Ears: ABSENT: hearing changes Nose, Mouth, and Throat: ABSENT: sore throat Cardiovascular: ABSENT: chest pain, palpitations Respiratory: PRESENT: dyspnea Gastrointestinal: ABSENT: abdominal pain, diarrhea, heartburn Genitourinary: ABSENT: dysuria Integumentary: ABSENT: pruritus, rash Neurological: ABSENT: focal weakness Psychiatric: PRESENT: depression. ABSENT: hallucinations Endocrine: ABSENT: heat intolerance Hematologic/Lymphatic: ABSENT: easy bleeding Physical Exam Vital Signs: Temp Pulse Resp BP Pulse Ox 97.7 F 20 120/101 H 98 02/26/18 11:29 02/26/18 12:00 02/26/18 11:29 02/26/18 11:39 General appearance: PRESENT: no acute distress Head exam: PRESENT: normocephalic Eye exam: PRESENT: conjunctiva pink, EOMI, PERRLA. ABSENT: scleral icterus Ear exam: PRESENT: normal external ear exam Mouth exam: PRESENT: moist Neck exam: PRESENT: JVD. ABSENT: tracheal deviation Respiratory exam: PRESENT: rhonchi, symmetrical, unlabored. ABSENT: accessory muscle use, crackles Cardiovascular exam: PRESENT: irregular rhythm, tachycardia GI/Abdominal exam: PRESENT: normal bowel sounds, soft. ABSENT: tenderness Rectal exam: PRESENT: deferred Extremities exam: ABSENT: calf tenderness, pedal edema Neurological exam: PRESENT: alert, awake, oriented to person, oriented to place , oriented to time, oriented to situation Psychiatric exam: PRESENT: depressed Skin exam: ABSENT: rash Results Impressions: Chest X-Ray 02/26/18 11:39 IMPRESSION: CARDIAC ENLARGEMENT. VASCULAR CONGESTION. Assessment & Plan - Diagnosis (1) Acute diastolic (congestive) heart failure Is this a current diagnosis for this admission?: Yes Plan: Lasix IV, monitor intake and output and renal function. (2) Atrial fibrillation Qualifiers: Atrial fibrillation type: chronic Qualified Code(s): I48.2 - Chronic atrial fibrillation Is this a current diagnosis for this admission?: Yes Plan: Continue Metoprolol, Amiodarone and Warfarin (3) Hypothyroid Qualifiers: Hypothyroidism type: acquired Qualified Code(s): E03.9 - Hypothyroidism, unspecified Is this a current diagnosis for this admission?: Yes Plan: Continue Synthroid, check TSH (4) Lower back pain Is this a current diagnosis for this admission?: Yes Plan: Gabapentin, Lidocaine patch and Flexeril prn. (5) Mitral valve stenosis determined by imaging Is this a current diagnosis for this admission?: Yes Plan: Awaiting transfer to tertiary care center where imaging can be performed to follow up on this. I called [facility] and am waiting to hear back (6) Depression Is this a current diagnosis for this admission?: Yes Plan: Lexapro (7) Chronic anticoagulation Is this a current diagnosis for this admission?: Yes Plan: INR is 3.0, Continue Coumadin, monitor INR Goal 2.5-3.5 (8) Dementia Is this a current diagnosis for this admission?: Yes Plan: Continue Aricept (9) Full code status Is this a current diagnosis for this admission?: Yes - Time Time Spent: Greater than 70 Minutes - Inpatient Certification Medical Necessity: Need Close Monitoring Due to Risk of Patient Decompensation, Need For Continuous Telemetry Monitoring, Risk of Complication if Not Cared For in Hospital
[2018-02-26] MEDS ORDERED: METOPROLOL TARTRATE 50 MG TABLET PO ONE (17:00)
[2018-02-26] MEDS: FUROSEMIDE INJ/PF 40 MG/4 ML SDV IV SCH (18:35)
[2018-02-26] MEDS: LIDOCAINE 5% (700 MG) TRANSDERMAL ADH..PATCH TP SCH (18:51)
--- NOTE | 2018-02-26 22:31 | XCELERA REPORT ---
[address] [address] Transthoracic Echocardiogram Report Name: JM PUGA Age: 63 yrs Gender: Female : 1955 Patient Status: Inpatient Patient Location: [place] [address]^A Study Date: 02/26/2018 04:23 PM Height: 64 in Weight: 197 lb BSA: 1.9 m2 Procedure: A complete two-dimensional transthoracic echocardiogram was performed (2D, M-mode, spectral and color flow Doppler). The study was technically difficult with many images being suboptimal in quality. Reason For Study: Recent mitral valve thrombosis Ordering Physician: SHIV JACOB Performed By: Emily Garcia Interpretation Summary There is severe mitral stenosis in Prosthetic valve. Gradients are abnormal for this prosthetic mitral valve suggesting severe stenosis. Peak gradient 35-40 mmHg, mean gradient 20-25 mmHg There is a trace amount of mitral regurgitation There is a severe amount of tricuspid regurgitation There is servere pulmonary hypertension by echo The Ejection Fraction estimate is 45-50% Paradoxical septal motion is consistent with right ventricular volume overload The right ventricle is moderate to severely dilated. The right ventricle appears to be hypertrophied The right ventricular systolic function is mildly reduced. There is no aortic valve stenosis There is a trace to mild amount of aortic regurgitation The inferior vena cava appeared normal and decreased < 50% with respiration (RAP 10-15 mmHg) Minimal pericardial effusion. MMode/2D Measurements & Calculations RVDd: 2.8 cm LVIDd: 4.5 cm FS: 18.2 % Ao root diam: 2.3 cm IVSd: 0.90 cm LVIDs: 3.7 cm EDV(Teich): 91.6 ml LVPWd: 1.00 cmESV(Teich): 56.9 ml Ao root area: 4.0 cm2 EF(Teich): 37.9 % LA dimension: 4.4 cm LVOT diam: 2.0 cm LVOT area: 3.2 cm2 Doppler Measurements & Calculations MV E max indy: MV V2 max: Ao V2 max: AI max indy: 272.4 cm/sec 334.6 cm/sec 120.2 cm/sec 262.3 cm/sec MV max PG: Ao max PG: AI max P.6 mmHg 45.0 mmHg 5.8 mmHg AI dec slope: MV V2 mean: Ao V2 mean: 153.5 cm/sec2 224.6 cm/sec 81.8 cm/sec AI P1/2t: 500.6 msec MV mean PG: Ao mean P.8 mmHg 3.1 mmHg MV V2 VTI: 73.9 cmAo V2 VTI: MVA(VTI): 0.51 cm214.7 cm LUZ(I,D): 2.6 cm2 LUZ(V,D): 2.5 cm2 LV V1 max PG: SV(LVOT): 37.8 ml PA V2 max: TR max indy: 3.6 mmHg 66.1 cm/sec 415.4 cm/sec LV V1 mean PG: PA max PG: TR max P.0 mmHg 1.8 mmHg 1.7 mmHg LV V1 max: 94.5 cm/sec LV V1 mean: 60.9 cm/sec LV V1 VTI: 11.8 cm Left Ventricle The left ventricle is grossly normal size. There is normal left ventricular wall thickness. Left ventricular systolic function is mildly reduced. The Ejection Fraction estimate is 45-50%. LV diastolic function could not be adequately assessed due to significant valve regurgitation and/or stenosis. Paradoxical septal motion is consistent with right ventricular volume overload. Right Ventricle The right ventricle is moderate to severely dilated. The right ventricle appears to be hypertrophied. The right ventricular systolic function is mildly reduced. Atria The right atrium is mild to moderately dilated. The left atrium is severely dilated. Interarterial septum not well visualized and not well dopplered. Cannot comment on ASD/PFO presence. Mitral Valve There is severe mitral stenosis. There is a trace amount of mitral regurgitation. Gradients are abnormal for this prosthetic mitral valve suggesting severe stenosis. Aortic Valve The aortic valve is not well visualized secondary to technical limitations. The aortic valve opens well. There is no aortic valve stenosis. There is a trace to mild amount of aortic regurgitation. Tricuspid Valve The tricuspid valve is not well visualized, but is grossly normal. There is no tricuspid stenosis. There is a severe amount of tricuspid regurgitation. There is servere pulmonary hypertension by echo. Right ventricular systolic pressure is estimated to be elevated at >60mmHg. Pulmonic Valve The pulmonic valve is not well visualized. Great Vessels The aortic root is not well visualized. The inferior vena cava appeared normal and decreased < 50% with respiration (RAP 10-15 mmHg). Effusions Minimal pericardial effusion. : SHIV JACOB > Dane Arriola
[2018-02-26] MEDS: WARFARIN SODIUM 3 MG TABLET PO SCH (22:33)
[2018-02-26] MEDS: SIMVASTATIN 10 MG TABLET PO SCH (22:33)
[2018-02-26] MEDS: METOPROLOL TARTRATE 50 MG TABLET PO SCH (22:34)
[2018-02-26] MEDS: ZOLPIDEM TARTRATE 5 MG TABLET PO SCH (22:35)
[2018-02-27 05:28] LABS: HEMATOCRIT 29.4 % (36.0-47.0); MEAN CORPUSCULAR HEMOGLOBIN 23.1 pg (27.0-33.4); MEAN CORPUSCULAR HGB CONC 30.6 g/dL (32.0-36.0); MEAN CORPUSCULAR VOLUME 76 fl (80-97); PLATELET COUNT 208 10^3/uL (150-450); RED BLOOD COUNT 3.89 10^6/uL (3.72-5.28); RED CELL DISTRIBUTION WIDTH 18.4 % (11.5-14.0); WHITE BLOOD COUNT 7.5 10^3/uL (4.0-10.5)
[2018-02-27 05:41] LABS: ALANINE AMINOTRANSFERASE 89 U/L (9-52); ALBUMIN 3.2 g/dL (3.5-5.0); ALKALINE PHOSPHATASE 207 U/L (38-126); ANION GAP 12 (5-19); ASPARTATE AMINO TRANSFERASE 97 U/L (14-36); BILIRUBIN,DIRECT 0.7 mg/dL (0.0-0.4); BILIRUBIN,TOTAL 1.4 mg/dL (0.2-1.3); BLOOD UREA NITROGEN 19 mg/dL (7-20); CALCIUM 8.9 mg/dL (8.4-10.2); CARBON DIOXIDE 30 mmol/L (22-30); CHLORIDE 96 mmol/L (98-107); GLUCOSE 92 mg/dL (75-110); PHOSPHORUS 2.4 mg/dL (2.5-4.5); SODIUM 138.4 mmol/L (137-145); TOTAL PROTEIN 5.7 g/dL (6.3-8.2)
[2018-02-27 05:43] LABS: INTERNATIONAL RATION (INR) 3.01; PROTHROMBIN TIME 32.6 SEC (11.4-15.4)
[2018-02-27] MEDS: LEVOTHYROXINE SODIUM 0.025 MG TABLET PO SCH (05:57)
[2018-02-27] MEDS: FUROSEMIDE INJ/PF 40 MG/4 ML SDV IV SCH ×2 (05:57→18:09)
[2018-02-27 05:58] LABS: POTASSIUM 4.2 mmol/L (3.6-5.0)
[2018-02-27 06:15] LABS: ABSOLUTE LYMPHOCYTES# (MANUAL) 1.7 10^3/uL (0.5-4.7); ABSOLUTE MONOCYTES # (MANUAL) 0.6 10^3/uL (0.1-1.4); ABSOLUTE NEUTROPHILS# (MANUAL) 5.1 10^3/uL (1.7-8.2); BAND NEUTROPHILS % (MANUAL) 1 % (3-5); BASOPHILS % (MANUAL) 1 % (0-2); EOSINOPHILS % (MANUAL) 1 % (0-6); LYMPHOCYTES % (MANUAL) 22 % (13-45); MONOCYTES % (MANUAL) 8 % (3-13); NUCLEATED RED BLOOD CELLS 2 /100 WBC (0); PLATELET COMMENT ADEQUATE; SEGMENTED NEUTROPHILS % (MAN) 67 % (42-78); TOTAL CELLS COUNTED 100
[2018-02-27 06:17] LABS: ANISOCYTOSIS 1+; HYPOCHROMASIA 2+; OVALOCYTES SLIGHT; POIKILOCYTOSIS SLIGHT; POLYCHROMASIA SLIGHT
[2018-02-27 06:18] LABS: TARGET CELLS SLIGHT
--- NOTE | 2018-02-27 09:19 | EKG REPORT ---
SEVERITY:- ABNORMAL ECG - ATRIAL FIBRILLATION RIGHT BUNDLE BRANCH BLOCK : Confirmed by: Dane Arriola 27-Feb-2018 09:18:43
[2018-02-27] MEDS ORDERED: METOPROLOL TARTRATE 50 MG TABLET PO SCH (10:00)
[2018-02-27] MEDS ORDERED: METOPROLOL SUCCINATE 25 MG TAB.SR.24H PO SCH (10:00)
[2018-02-27] MEDS: METOPROLOL TARTRATE 50 MG TABLET PO SCH ×2 (10:58→23:53)
[2018-02-27] MEDS: AMIODARONE HCL 200 MG TABLET PO SCH (10:58)
[2018-02-27] MEDS: DOCUSATE SODIUM 100 MG CAPSULE PO SCH (10:59)
--- NOTE | 2018-02-27 11:24 | PDOC CONSULTATION ---
Consultation Consult Date: 02/27/18 Attending physician:: SHIV JACOB Consult reason:: Congestive heart failure History of Present Illness Admission Date/PCP: 02/26/18 14:48 DONOVAN RAPP MD Patient complains of: Shortness of breath History of Present Illness: JM PUGA is a 63 year old female. She was recently admitted to this hospital on February 01 with atrial fibrillation with RVR and was found to be in cardiogenic shock echocardiogram showed was found to have severe mitral stenosis and she was transferred to [facility]. 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 She was evaluated by CT surgery and was anticoagulated with heparin and Coumadin. INR was reportedly 2.6 at discharge. He recommended anticoagulation and repeat SCOTT or CTA to reevaluate the mitral valve. Should patient need a valve replacement due to possible mismatch, she would need dental clearance and a right and left heart cath. Contrast O was held at discharge due to rising creatinine. She was discharged to [facility] nursing facility on February 23. On the night of February 25 she became short of breath and presented to this emergency room today with some shortness of breath. She was supposed to be on Lopressor 75 mg BID per [facility] discharge summary but SNF records show 12.5 mg once a day. Her HR is in the 120s- this is the likely reason for her pulmonary edema. Patient refuses to go back to [facility], she is agreeable to being transferred to [facility] should she require it. I called the transfer center there and am waiting to hear from their Restaurant Shift Leader instructional developer to determine whether she will require urgent transfer. Her Restaurant Shift Leader is Dr. Jason Purcell in [place]. This history obtained by the hospitalist was reviewed. Patient claims that she had a bioprosthetic heart valve surgery to open heart surgery placed I believe in 2013. Subsequently in 2015 she had a transcatheter mitral valve replaced. Patient claims that prior procedures did include heart catheterization which showed no blockages and she never had any stents or bypass surgery except for the valve replacement surgery. Past Medical History Cardiac Medical History: Reports: Atrial Fibrillation, Congestive Heart Failure , Hyperlipidema Pulmonary Medical History: Reports: Chronic Obstructive Pulmonary Disease (COPD) Musculoskeltal Medical History: Reports: Arthritis - osteo Psychiatric Medical History: Reports: Depression Past Surgical History Past Surgical History: Reports: Hysterectomy, Orthopedic Surgery - back, Valve Replacement, Other - Transcatheter Sapian mitral valve replacement, prior to that bioprosthetic Social History Information Source: Patient Smoking Status: Former Smoker Number of Years Smokin Last Time Smoked: November 28 Frequency of Alcohol Use: None Hx Recreational Drug Use: No Drugs: None Hx Prescription Drug Abuse: No - Advance Directive Surrogate healthcare decision maker:: Patient's mother Alexandra Family History Family History: Hypertension Parental Family History Reviewed: Yes Children Family History Reviewed: Yes Sibling(s) Family History Reviewed.: Yes Medication/Allergy Home Medications: Amiodarone HCl [Cordarone 200 mg Tablet] 200 mg PO QHS 02/26/18 Cyclobenzaprine HCl [Flexeril 10 mg Tablet] 10 mg PO Q12HP PRN 02/26/18 Donepezil HCl [Aricept 5 mg Tablet] 10 mg PO QHS 02/26/18 Escitalopram Oxalate [Lexapro 10 mg Tablet] 20 mg PO DAILY 02/26/18 Furosemide [Lasix 20 mg Tablet] 20 mg PO QAM 02/26/18 Gabapentin [Neurontin 300 mg Capsule] 300 mg PO Q8 02/26/18 Levalbuterol HCl [Xopenex Neb 1.25 mg/3 ml Ampul] 1.25 mg NEB RTQ6 02/26/18 Levothyroxine Sodium [Synthroid] 25 mcg PO Q6AM 02/26/18 Lidocaine [Lidoderm 5% (700 mg) Transdermal Patch] 1 patch TP DAILY MDD LOWER BACK 02/26/18 Lorazepam [Ativan 0.5 mg Tablet] 0.5 mg PO DAILYP PRN 02/26/18 Metoprolol Tartrate [Lopressor 25 mg Tablet] 12.5 mg PO DAILY 02/26/18 Oxycodone HCl/Acetaminophen [Percocet 5-325 mg Tablet] 1 tab PO Q4HP PRN Polyethylene Glycol 3350 [Miralax Powder 17 gm/Packet] 17 gm PO DAILYP PRN 02/26 Simvastatin [Zocor 20 mg Tablet] 20 mg PO QHS 02/26/18 Warfarin Sodium [Coumadin 3 mg Tablet] 3 mg PO DAILY@1600 02/26/18 Zolpidem Tartrate [Ambien 5 mg Tablet] 10 mg PO QHS 02/26/18 Allergies/Adverse Reactions: clopidogrel [From Plavix] Allergy (Verified 12/19/17 15:57) rivaroxaban [From Xarelto] Allergy (Verified 12/19/17 15:57) Review of Systems Review of Systems: Please see history of present illness and past medical history as wall. Constitutional: No fever or chills reported. Head : No recent chronic headaches, recent head injury. Eyes: No recent eye pain, diplopia, redness, discharge, acute visual changes. Ears: No recent chronic ear pain, acute hearing loss, ear discharge. Oral cavity: No recent ulcerations, bleeding, oral cavity discomfort. Neck: No recent acute neck pain reported. Hematologic: No recent easy bruising or bleeding or hematologic malignancy reported. Lymphatic: No recent lymphatic malignancy, chronic lymphadenopathy reported yet Cardiovascular system review: See history of present illness. Respiratory system review: No recent chronic cough, hemoptysis, blood clots in the lungs reported. Significant shortness of breath on exertion Gastrointestinal system review: Negative for any recent acute or chronic abdominal pain, hematemesis, melena, recent change in bowel habits. Genitourinary system review: No recent acute or chronic hematuria, flank pain, UTI etc. reported. Skin system review: Negative for any recent abnormal bruising, no rash, no pruritus reported. Neurologic: No prior history of strokes, mini strokes, seizure disorder. Psychologic: No history of major psychosis or major depression reported. Musculoskeletal: Minor aches and pains reported. No acute joint swelling reported. Endocrine: No recent polyuria, polydipsia, recent heat or cold intolerance. Physical Exam Vital Signs: Temp Pulse Resp BP Pulse Ox 97.9 F 88 16 111/69 93 02/27/18 07:50 02/27/18 07:50 02/27/18 07:50 02/27/18 07:50 02/27/18 07:50 Intake & Output 02/26/18 02/27/18 02/28/18 06:59 06:59 06:59 Intake Total 56 Output Total 1575 Balance -1519 Weight 71.6 kg Exam: GENERAL: well-nourished and in no acute distress. Alert and oriented x3 HEAD: Atraumatic, normocephalic. EYES: Pupils equal round and reactive to light, extraocular movements intact, sclera anicteric, conjunctiva are normal. ENT: TMs normal, nares patent, oropharynx clear without exudates. Moist mucous membranes. No oral ulcerations or bleeding gums noted NECK: supple without lymphadenopathy. Trachea is central. No cervical or axillary lymphadenopathy noted. Carotids are 2+, JVD 10 cm LUNGS: Respiration seems nonlabored, no significant accessory muscle action noted. Bibasilar fine crackles are noted. No wheezes rales or rhonchi noted. No significant dullness noted on percussion. CHEST: Palpation of the chest wall shows no significant chest wall tenderness. No other significant abnormalities noted. HEART: [place] LIQUOR TESTER, No PSH, 1/6 ZULEMA aortic area, 1/6 virk systolic murmur mitral area, no rubs, no gallops. Mid diastolic rumble, S3 versus opening snap noted ABDOMEN: Soft, no significant tenderness appreciated, normoactive bowel sounds. No guarding, no rebound. No rigidity noted . No masses appreciated. EXTREMITIES: Pedal pulses are 1-2+, no calf tenderness noted. No clubbing or cyanosis. 1+ pedal edema noted NEUROLOGICAL: Focused neurological exam showed no significant neurologic deficit. Normal speech, no focal weakness appreciated. PSYCH: Normal mood, normal affect. Judgment and insight within normal limits. SKIN: No significant ecchymosis, skin is noted to be warm. MUSCULOSKELETAL EXAM: No significant acute joint swelling noted. Results Laboratory Results: 02/27/18 04:19 02/27/18 04:19 02/26/18 02/27/18 02/27/18 14:50 04:19 04:19 WBC 7.5 RBC 3.89 Hgb 9.0 L Hct 29.4 L MCV 76 L MCH 23.1 L MCHC 30.6 L RDW 18.4 H Plt Count 208 Seg Neutrophils % Not Reportable Lymphocytes % Not Reportable Monocytes % Not Reportable Eosinophils % Not Reportable Basophils % Not Reportable Absolute Neutrophils Not Reportable Absolute Lymphocytes Not Reportable Absolute Monocytes Not Reportable Absolute Eosinophils Not Reportable Absolute Basophils Not Reportable Sodium 138.4 Potassium 4.2 D Chloride 96 L Carbon Dioxide 30 Anion Gap 12 BUN 19 Creatinine 0.85 Est GFR ( Amer) > 60 Est GFR (Non-Af Amer) > 60 Glucose 92 Calcium 8.9 Phosphorus 2.4 L Magnesium 2.0 Total Bilirubin 1.4 H AST 97 H ALT 89 H Alkaline Phosphatase 207 H Total Protein 5.7 L Albumin 3.2 L TSH Urine Color YELLOW Urine Appearance SLIGHTLY-CLOUDY Urine pH 5.0 Ur Specific [place] 1.016 Urine Protein 30 H Urine Glucose (UA) NEGATIVE Urine Ketones NEGATIVE Urine Blood NEGATIVE Urine Nitrite NEGATIVE Ur Leukocyte Esterase NEGATIVE Urine WBC (Auto) 12 Urine RBC (Auto) 1 02/27/18 04:19 WBC RBC Hgb Hct MCV MCH MCHC RDW Plt Count Seg Neutrophils % Lymphocytes % Monocytes % Eosinophils % Basophils % Absolute Neutrophils Absolute Lymphocytes Absolute Monocytes Absolute Eosinophils Absolute Basophils Sodium Potassium Chloride Carbon Dioxide Anion Gap BUN Creatinine Est GFR ( Amer) Est GFR (Non-Af Amer) Glucose Calcium Phosphorus Magnesium Total Bilirubin AST ALT Alkaline Phosphatase Total Protein Albumin TSH 10.40 H Urine Color Urine Appearance Urine pH Ur Specific [place] Urine Protein Urine Glucose (UA) Urine Ketones Urine Blood Urine Nitrite Ur Leukocyte Esterase Urine WBC (Auto) Urine RBC (Auto) 02/27/18 04:19 NT-Pro-B Natriuret Pep 90091 H EKG Comments: EKG shows atrial fibrillation with rapid ventricular response and right bundle branch block pattern Impressions: Chest X-Ray 02/26/18 11:39 IMPRESSION: CARDIAC ENLARGEMENT. VASCULAR CONGESTION. Assessment & Plan - Diagnosis (1) Valvular heart disease Is this a current diagnosis for this admission?: Yes (2) Stenosis of prosthetic mitral valve Is this a current diagnosis for this admission?: Yes (3) Tricuspid regurgitation Qualifiers: Cardiac valve disease etiology: etiology unspecified Qualified Code(s): I07.1 - Rheumatic tricuspid insufficiency Is this a current diagnosis for this admission?: Yes (4) Pulmonary hypertension Is this a current diagnosis for this admission?: Yes (5) CHF (congestive heart failure) Qualifiers: Heart failure type: diastolic Heart failure chronicity: acute on chronic Qualified Code(s): I50.33 - Acute on chronic diastolic (congestive) heart failure Is this a current diagnosis for this admission?: Yes (6) Atrial fibrillation Qualifiers: Atrial fibrillation type: chronic Qualified Code(s): I48.2 - Chronic atrial fibrillation Is this a current diagnosis for this admission?: Yes (7) Chronic anticoagulation Is this a current diagnosis for this admission?: Yes - Notes Notes: 2D echo results were reviewed. These were discussed with the hospitalist and patient. 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 Patient has significant valvular heart disease. 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 Patient has history of 2 mitral valve related interventions. At this point best option would be hard to be evaluated by cardiothoracic surgeon/honing machine set up operator to find out about other therapeutic option. For this regard consider transfer to tertiary care. In the meantime continue with chronic anticoagulation, diuretic therapy, rate controlled for atrial fibrillation. Severe tricuspid regurgitation: Most likely secondary to chronic mitral stenosis. Patient could benefit from transcatheter valve placement/tightening of tricuspid valve ring but again this determination would need to be made at tertiary care center. Pulmonary hypertension: Again this is secondary to severe mitral stenosis. Atrial fibrillation: Chronic recommend rate control and chronic anticoagulation by Coumadin. 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 INR goal should be kept a little bit on the high side in my opinion between 2.5-3.5 in view of prosthetic valve thrombosis. Chronic anticoagulation: As addressed above. Congestive heart failure: Agree with IV diuretic therapy. Overall prognosis is guarded and probably on the poor side unless mechanical problems are corrected. - Time Time Spent: 50 to 70 Minutes - CODE STATUS was discussed, patient remains full code. Surrogate decision-maker patient's mother. Multiple medical problems were addressed. More than 50% of the time spent coordinating care, discussing management plans with involved caregivers. Management plans discussed with involved personnels. Medical decision making was of moderate to high complexity , patient's has multiple comorbidities. Medications reviewed and adjusted accordingly: Yes
--- NOTE | 2018-02-27 12:53 | PDOC PROGRESS REPORT ---
Subjective Progress Note for:: 02/27/18 Subjective:: She feels better today. Shortness of breath has improved. Reason For Visit: CHF EXACERBATION Physical Exam Vital Signs: Temp Pulse Resp BP Pulse Ox 97.9 F 88 16 111/69 93 02/27/18 07:50 02/27/18 07:50 02/27/18 07:50 02/27/18 07:50 02/27/18 07:50 Intake & Output 02/26/18 02/27/18 02/28/18 06:59 06:59 06:59 Intake Total 56 Output Total 1575 Balance -1519 Weight 71.6 kg General appearance: PRESENT: no acute distress Mouth exam: PRESENT: moist Teeth exam: PRESENT: poor dentation Neck exam: ABSENT: tracheal deviation Respiratory exam: PRESENT: clear to auscultation [place], symmetrical, unlabored Cardiovascular exam: PRESENT: RRR GI/Abdominal exam: PRESENT: normal bowel sounds, soft. ABSENT: tenderness Rectal exam: PRESENT: deferred Extremities exam: ABSENT: pedal edema Neurological exam: PRESENT: alert, awake, oriented to person, oriented to place Psychiatric exam: PRESENT: normal mood Results Laboratory Results: 02/27/18 04:19 02/27/18 04:19 02/26/18 02/27/18 02/27/18 14:50 04:19 04:19 WBC 7.5 RBC 3.89 Hgb 9.0 L Hct 29.4 L MCV 76 L MCH 23.1 L MCHC 30.6 L RDW 18.4 H Plt Count 208 Seg Neutrophils % Not Reportable Lymphocytes % Not Reportable Monocytes % Not Reportable Eosinophils % Not Reportable Basophils % Not Reportable Absolute Neutrophils Not Reportable Absolute Lymphocytes Not Reportable Absolute Monocytes Not Reportable Absolute Eosinophils Not Reportable Absolute Basophils Not Reportable Sodium 138.4 Potassium 4.2 D Chloride 96 L Carbon Dioxide 30 Anion Gap 12 BUN 19 Creatinine 0.85 Est GFR ( Amer) > 60 Est GFR (Non-Af Amer) > 60 Glucose 92 Calcium 8.9 Phosphorus 2.4 L Magnesium 2.0 Total Bilirubin 1.4 H AST 97 H ALT 89 H Alkaline Phosphatase 207 H Total Protein 5.7 L Albumin 3.2 L TSH Urine Color YELLOW Urine Appearance SLIGHTLY-CLOUDY Urine pH 5.0 Ur Specific [place] 1.016 Urine Protein 30 H Urine Glucose (UA) NEGATIVE Urine Ketones NEGATIVE Urine Blood NEGATIVE Urine Nitrite NEGATIVE Ur Leukocyte Esterase NEGATIVE Urine WBC (Auto) 12 Urine RBC (Auto) 1 02/27/18 04:19 WBC RBC Hgb Hct MCV MCH MCHC RDW Plt Count Seg Neutrophils % Lymphocytes % Monocytes % Eosinophils % Basophils % Absolute Neutrophils Absolute Lymphocytes Absolute Monocytes Absolute Eosinophils Absolute Basophils Sodium Potassium Chloride Carbon Dioxide Anion Gap BUN Creatinine Est GFR ( Amer) Est GFR (Non-Af Amer) Glucose Calcium Phosphorus Magnesium Total Bilirubin AST ALT Alkaline Phosphatase Total Protein Albumin TSH 10.40 H Urine Color Urine Appearance Urine pH Ur Specific [place] Urine Protein Urine Glucose (UA) Urine Ketones Urine Blood Urine Nitrite Ur Leukocyte Esterase Urine WBC (Auto) Urine RBC (Auto) 02/27/18 04:19 NT-Pro-B Natriuret Pep 51769 H Impressions: Chest X-Ray 02/26/18 11:39 IMPRESSION: CARDIAC ENLARGEMENT. VASCULAR CONGESTION. Assessment & Plan - Diagnosis (1) Acute diastolic (congestive) heart failure Is this a current diagnosis for this admission?: Yes Plan: Lasix IV, monitor intake and output and renal function. (2) Atrial fibrillation Qualifiers: Atrial fibrillation type: chronic Qualified Code(s): I48.2 - Chronic atrial fibrillation Is this a current diagnosis for this admission?: Yes Plan: Continue Metoprolol, Amiodarone and Warfarin (3) Hypothyroid Qualifiers: Hypothyroidism type: acquired Qualified Code(s): E03.9 - Hypothyroidism, unspecified Is this a current diagnosis for this admission?: Yes Plan: Continue Synthroid, check TSH (4) Lower back pain Is this a current diagnosis for this admission?: Yes Plan: Gabapentin, Lidocaine patch and Flexeril prn. (5) Mitral valve stenosis determined by imaging Is this a current diagnosis for this admission?: Yes Plan: Echocardiogram done today shows severe mitral stenosis. The plan is to treat her for her heart failure and have her follow-up with her gasateria attendant next week. Continue on Coumadin. INR is therapeutic. (6) Depression Is this a current diagnosis for this admission?: Yes Plan: Lexapro (7) Chronic anticoagulation Is this a current diagnosis for this admission?: Yes Plan: INR is 3.0, Continue Coumadin, monitor INR Goal 2.5-3.5 (8) Dementia Is this a current diagnosis for this admission?: Yes Plan: Continue Aricept (9) Full code status Is this a current diagnosis for this admission?: Yes - Time Time Spent with patient: 35 or more minutes
[2018-02-27] MEDS: SPIRONOLACTONE 25 MG TABLET PO SCH (13:51)
[2018-02-27] MEDS: LIDOCAINE 5% (700 MG) TRANSDERMAL ADH..PATCH TP SCH (18:09)
[2018-02-27] MEDS: ZOLPIDEM TARTRATE 5 MG TABLET PO SCH (23:53)
[2018-02-27] MEDS: WARFARIN SODIUM 3 MG TABLET PO SCH (23:53)
[2018-02-27] MEDS: SIMVASTATIN 10 MG TABLET PO SCH (23:54)
[2018-02-28 04:59] LABS: ABSOLUTE EOSINOPHILS # (AUTO) 0.1 10^3/uL (0.0-0.6); ABSOLUTE LYMPHOCYTES (AUTO) 1.3 10^3/uL (0.5-4.7); ABSOLUTE MONOCYTES (AUTO) 1.1 10^3/uL (0.1-1.4); ABSOLUTE NEUT (AUTO) 5.6 10^3/uL (1.7-8.2); BASOPHILS % (AUTO) 0.2 % (0-2); EOSINOPHILS % (AUTO) 1.3 % (0-6); HEMATOCRIT 29.3 % (36.0-47.0); LYMPHOCYTES % (AUTO) 15.7 % (13-45); MEAN CORPUSCULAR HGB CONC 30.6 g/dL (32.0-36.0); MEAN CORPUSCULAR VOLUME 75 fl (80-97); MONOCYTES % (AUTO) 13.2 % (3-13); PLATELET COUNT 195 10^3/uL (150-450); RED BLOOD COUNT 3.91 10^6/uL (3.72-5.28); RED CELL DISTRIBUTION WIDTH 18.7 % (11.5-14.0); SEGMENTED NEUTROPHILS % (AUTO) 69.6 % (42-78); TOTAL CELLS COUNTED % (AUTO) 100 %; WHITE BLOOD COUNT 8.1 10^3/uL (4.0-10.5)
[2018-02-28 05:03] LABS: INTERNATIONAL RATION (INR) 2.47; PROTHROMBIN TIME 27.9 SEC (11.4-15.4)
[2018-02-28 05:14] LABS: ANION GAP 10 (5-19); BLOOD UREA NITROGEN 20 mg/dL (7-20); CALCIUM 8.5 mg/dL (8.4-10.2); CARBON DIOXIDE 31 mmol/L (22-30); CHLORIDE 94 mmol/L (98-107); GLUCOSE 84 mg/dL (75-110); PHOSPHORUS 2.4 mg/dL (2.5-4.5); POTASSIUM 3.3 mmol/L (3.6-5.0); SODIUM 134.9 mmol/L (137-145)
[2018-02-28] MEDS: FUROSEMIDE INJ/PF 40 MG/4 ML SDV IV SCH ×2 (05:27→17:19)
[2018-02-28] MEDS: LEVOTHYROXINE SODIUM 0.025 MG TABLET PO SCH (05:27)
[2018-02-28] MEDS ORDERED: POTASSIUM CHLORIDE 10 MEQ TABLET.SA PO ONE (08:00)
[2018-02-28] MEDS: AMIODARONE HCL 200 MG TABLET PO SCH (10:13)
[2018-02-28] MEDS: DOCUSATE SODIUM 100 MG CAPSULE PO SCH (10:13)
[2018-02-28] MEDS: METOPROLOL TARTRATE 50 MG TABLET PO SCH ×2 (10:13→22:49)
[2018-02-28] MEDS: SPIRONOLACTONE 25 MG TABLET PO SCH (11:42)
--- NOTE | 2018-02-28 14:05 | PDOC PROGRESS REPORT ---
Subjective Progress Note for:: 02/28/18 Subjective:: 63 yr old female with diastolic CHF and severe MS. is diuresing well. OK to remove Kaufman Out of bed PT Increase Synthroid dose, TSH is 10. Reason For Visit: CHF EXACERBATION Physical Exam Vital Signs: Temp Pulse Resp BP Pulse Ox 97.6 F 77 16 98/55 L 97 02/28/18 11:55 02/28/18 13:34 02/28/18 13:34 02/28/18 11:55 02/28/18 13:34 Intake & Output 02/27/18 02/28/18 03/01/18 06:59 06:59 06:59 Intake Total 56 505 100 Output Total 1575 7115 1650 Balance -1519 -2220 -1550 Weight 71.6 kg 67.2 kg General appearance: PRESENT: no acute distress Head exam: PRESENT: normocephalic Eye exam: ABSENT: scleral icterus Mouth exam: PRESENT: moist Teeth exam: PRESENT: poor dentation Neck exam: PRESENT: JVD Respiratory exam: PRESENT: rhonchi, symmetrical, unlabored Cardiovascular exam: PRESENT: diastolic murmur, irregular rhythm GI/Abdominal exam: PRESENT: normal bowel sounds, soft. ABSENT: tenderness Rectal exam: PRESENT: deferred Extremities exam: ABSENT: calf tenderness, pedal edema Neurological exam: PRESENT: alert, awake, oriented to person, oriented to place , oriented to time, oriented to situation Psychiatric exam: PRESENT: appropriate affect Skin exam: ABSENT: petechiae Results Laboratory Results: 02/28/18 04:34 02/28/18 04:34 02/28/18 02/28/18 02/28/18 04:34 04:34 04:34 WBC 8.1 RBC 3.91 Hgb 9.0 L Hct 29.3 L MCV 75 L MCH 23.0 L MCHC 30.6 L RDW 18.7 H Plt Count 195 Seg Neutrophils % 69.6 Lymphocytes % 15.7 Monocytes % 13.2 H Eosinophils % 1.3 Basophils % 0.2 Absolute Neutrophils 5.6 Absolute Lymphocytes 1.3 Absolute Monocytes 1.1 Absolute Eosinophils 0.1 Absolute Basophils 0.0 Sodium 134.9 L Potassium 3.3 L Chloride 94 L Carbon Dioxide 31 H Anion Gap 10 BUN 20 Creatinine 0.86 Est GFR ( Amer) > 60 Est GFR (Non-Af Amer) > 60 Glucose 84 Calcium 8.5 Phosphorus 2.4 L Magnesium 2.0 TSH 10.90 H 02/27/18 02/28/18 04:19 04:34 NT-Pro-B Natriuret Pep 85933 H 09162 H Impressions: Chest X-Ray 02/26/18 11:39 IMPRESSION: CARDIAC ENLARGEMENT. VASCULAR CONGESTION. Assessment & Plan - Diagnosis (1) Acute diastolic (congestive) heart failure Is this a current diagnosis for this admission?: Yes Plan: Lasix IV, monitor intake and output and renal function. (2) Atrial fibrillation Qualifiers: Atrial fibrillation type: chronic Qualified Code(s): I48.2 - Chronic atrial fibrillation Is this a current diagnosis for this admission?: Yes Plan: Continue Metoprolol, Amiodarone and Warfarin (3) Hypothyroid Qualifiers: Hypothyroidism type: acquired Qualified Code(s): E03.9 - Hypothyroidism, unspecified Is this a current diagnosis for this admission?: Yes Plan: Increase Synthroid dose, TSH is 10 (4) Lower back pain Is this a current diagnosis for this admission?: Yes Plan: Gabapentin, Lidocaine patch and Flexeril prn. (5) Mitral valve stenosis determined by imaging Is this a current diagnosis for this admission?: Yes Plan: Echocardiogram done today shows severe mitral stenosis. The plan is to treat her for her heart failure and have her follow-up with her geotechnical operating engineer next week. Continue on Coumadin. INR is therapeutic. (6) Depression Is this a current diagnosis for this admission?: Yes Plan: Lexapro (7) Chronic anticoagulation Is this a current diagnosis for this admission?: Yes Plan: INR is 3.0, Continue Coumadin, monitor INR Goal 2.5-3.5 (8) Dementia Is this a current diagnosis for this admission?: Yes Plan: Continue Aricept (9) Full code status Is this a current diagnosis for this admission?: Yes - Time Time Spent with patient: 35 or more minutes
[2018-02-28] MEDS: LIDOCAINE 5% (700 MG) TRANSDERMAL ADH..PATCH TP SCH (17:19)
--- NOTE | 2018-02-28 20:01 | PDOC PROGRESS REPORT ---
Subjective Progress Note for:: 02/28/18 Subjective:: Patient seems to be doing better with gradual improvement. Pt is denying any chest arm or neck discomfort. Patient still has shortness of breath but is noted to be able to lay flat in bed. Patient denying any PND, orthopnea. Patient denied any sustained palpitations, dizziness, syncope, near syncope. Patient denying any fever chills. Patient denying any other significant discomfort. Patient is maintaining atrial fibrillation, heart rate better controlled. Review of systems: Rest review of systems negative. Medications: Medications have been reviewed. Reason For Visit: CHF EXACERBATION Physical Exam Vital Signs: Temp Pulse Resp BP Pulse Ox 98.4 F 74 14 83/52 L 100 02/28/18 16:05 02/28/18 16:05 02/28/18 16:05 02/28/18 16:05 02/28/18 16:05 Intake & Output 02/27/18 02/28/18 03/01/18 06:59 06:59 06:59 Intake Total 56 505 381 Output Total 1575 2725 1850 Balance -1519 -2220 -1469 Weight 71.6 kg 67.2 kg Exam: GENERAL: well-nourished and in no acute distress. Alert and oriented x3 HEAD: Atraumatic, normocephalic. EYES: Pupils equal round and reactive to light, extraocular movements intact, sclera anicteric, conjunctiva are normal. ENT: TMs normal, nares patent, oropharynx clear without exudates. Moist mucous membranes. No oral ulcerations or bleeding gums noted NECK: supple without lymphadenopathy. Trachea is central. No cervical or axillary lymphadenopathy noted. Carotids are 2+, JVD WNL LUNGS: Respiration seems nonlabored, no significant accessory muscle action noted. Bibasilar fine crackles noted at the extreme base. No wheezes rales or rhonchi noted. No significant dullness noted on percussion. CHEST: Palpation of the chest wall shows no significant chest wall tenderness. No other significant abnormalities noted. 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 Opening snap, which is quite delayed and a mid diastolic rumble noted. ABDOMEN: Soft, no significant tenderness appreciated, normoactive bowel sounds. No guarding, no rebound. No rigidity noted . No masses appreciated. EXTREMITIES: Pedal pulses are 1-2+, no calf tenderness noted. No clubbing or cyanosis. 1+ pedal edema noted NEUROLOGICAL: Focused neurological exam showed no significant neurologic deficit. Normal speech, no focal weakness appreciated. PSYCH: Normal mood, normal affect. Judgment and insight within normal limits. SKIN: No significant ecchymosis, skin is noted to be warm. MUSCULOSKELETAL EXAM: No significant acute joint swelling noted. Results Laboratory Results: 02/28/18 04:34 02/28/18 04:34 02/28/18 02/28/18 02/28/18 04:34 04:34 04:34 WBC 8.1 RBC 3.91 Hgb 9.0 L Hct 29.3 L MCV 75 L MCH 23.0 L MCHC 30.6 L RDW 18.7 H Plt Count 195 Seg Neutrophils % 69.6 Lymphocytes % 15.7 Monocytes % 13.2 H Eosinophils % 1.3 Basophils % 0.2 Absolute Neutrophils 5.6 Absolute Lymphocytes 1.3 Absolute Monocytes 1.1 Absolute Eosinophils 0.1 Absolute Basophils 0.0 Sodium 134.9 L Potassium 3.3 L Chloride 94 L Carbon Dioxide 31 H Anion Gap 10 BUN 20 Creatinine 0.86 Est GFR ( Amer) > 60 Est GFR (Non-Af Amer) > 60 Glucose 84 Calcium 8.5 Phosphorus 2.4 L Magnesium 2.0 TSH 10.90 H 02/27/18 02/28/18 04:19 04:34 NT-Pro-B Natriuret Pep 39317 H 29501 H Impressions: Chest X-Ray 02/26/18 11:39 IMPRESSION: CARDIAC ENLARGEMENT. VASCULAR CONGESTION. Assessment & Plan - Diagnosis (1) Valvular heart disease Is this a current diagnosis for this admission?: Yes (2) Stenosis of prosthetic mitral valve Is this a current diagnosis for this admission?: Yes (3) Tricuspid regurgitation Qualifiers: Cardiac valve disease etiology: etiology unspecified Qualified Code(s): I07.1 - Rheumatic tricuspid insufficiency Is this a current diagnosis for this admission?: Yes (4) Pulmonary hypertension Is this a current diagnosis for this admission?: Yes (5) CHF (congestive heart failure) Qualifiers: Heart failure type: diastolic Heart failure chronicity: acute on chronic Qualified Code(s): I50.33 - Acute on chronic diastolic (congestive) heart failure Is this a current diagnosis for this admission?: Yes (6) Atrial fibrillation Qualifiers: Atrial fibrillation type: chronic Qualified Code(s): I48.2 - Chronic atrial fibrillation Is this a current diagnosis for this admission?: Yes (7) Chronic anticoagulation Is this a current diagnosis for this admission?: Yes - Notes Notes: Patient has shown some improvement. Heart rate is better controlled. After review of records, I feel that patient could be stabilized and medical therapy optimized for patient to be evaluated by cardiothoracic surgeon as an outpatient. It seems patient would be not a optimal candidate any repeat interventions on the valve but the surgeon would be the best person to evaluate for that. A transesophageal echocardiogram would definitely be needed along with possible cardiac CTA. At this point agree with rate control, diuretics, chronic anticoagulation with keeping INR goal little bit higher at 2.5-3.5 range. 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 Patient has significant valvular heart disease. 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 Patient has history of 2 mitral valve related interventions. At this point best option would be hard to be evaluated by cardiothoracic surgeon/zookeeper to find out about other therapeutic option. Severe tricuspid regurgitation: Most likely secondary to chronic mitral stenosis. Patient could benefit from transcatheter valve placement/tightening of tricuspid valve ring but again this determination would need to be made at tertiary care center. Pulmonary hypertension: Again this is secondary to severe mitral stenosis. Atrial fibrillation: Chronic recommend rate control and chronic anticoagulation by Coumadin. 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 INR goal should be kept a little bit on the high side in my opinion between 2.5-3.5 in view of prosthetic valve thrombosis. Chronic anticoagulation: As addressed above. Congestive heart failure: Agree with IV diuretic therapy. Overall prognosis is guarded and probably on the poor side unless mechanical problems are corrected. - Time Time with patient: Greater than 35 minutes - CODE STATUS was discussed, patient remains full code. Surrogate decision-maker unchanged. Multiple medical problems were addressed. More than 50% of the time spent coordinating care, discussing management plans with involved caregivers. Management plans discussed with involved personnels. Medical decision making was of moderate to high complexity, patient's has multiple comorbidities. Medications reviewed and adjusted accordingly: Yes
[2018-02-28] MEDS: SIMVASTATIN 10 MG TABLET PO SCH (22:48)
[2018-02-28] MEDS: ZOLPIDEM TARTRATE 5 MG TABLET PO SCH (22:49)
[2018-02-28] MEDS: WARFARIN SODIUM 3 MG TABLET PO SCH (22:49)
[2018-03-01 05:09] LABS: INTERNATIONAL RATION (INR) 2.48
[2018-03-01 05:25] LABS: ABSOLUTE EOSINOPHILS # (AUTO) 0.1 10^3/uL (0.0-0.6); ABSOLUTE LYMPHOCYTES (AUTO) 1.1 10^3/uL (0.5-4.7); ABSOLUTE NEUT (AUTO) 6.1 10^3/uL (1.7-8.2); BASOPHILS % (AUTO) 0.4 % (0-2); EOSINOPHILS % (AUTO) 0.9 % (0-6); HEMATOCRIT 29.6 % (36.0-47.0); LYMPHOCYTES % (AUTO) 12.7 % (13-45); MEAN CORPUSCULAR HEMOGLOBIN 22.9 pg (27.0-33.4); MEAN CORPUSCULAR HGB CONC 30.4 g/dL (32.0-36.0); MEAN CORPUSCULAR VOLUME 76 fl (80-97); MONOCYTES % (AUTO) 12.6 % (3-13); PLATELET COUNT 226 10^3/uL (150-450); RED BLOOD COUNT 3.92 10^6/uL (3.72-5.28); RED CELL DISTRIBUTION WIDTH 18.6 % (11.5-14.0); SEGMENTED NEUTROPHILS % (AUTO) 73.4 % (42-78); TOTAL CELLS COUNTED % (AUTO) 100 %; WHITE BLOOD COUNT 8.3 10^3/uL (4.0-10.5)
[2018-03-01 05:29] LABS: ANION GAP 8 (5-19); BLOOD UREA NITROGEN 19 mg/dL (7-20); CALCIUM 8.6 mg/dL (8.4-10.2); CARBON DIOXIDE 35 mmol/L (22-30); CHLORIDE 94 mmol/L (98-107); GLUCOSE 115 mg/dL (75-110); PHOSPHORUS 2.2 mg/dL (2.5-4.5); POTASSIUM 3.4 mmol/L (3.6-5.0); SODIUM 137.3 mmol/L (137-145)
[2018-03-01] MEDS: LEVOTHYROXINE SODIUM 0.025 MG TABLET PO SCH (05:35)
[2018-03-01] MEDS: FUROSEMIDE INJ/PF 40 MG/4 ML SDV IV SCH (05:36)
[2018-03-01] MEDS: METOPROLOL TARTRATE 50 MG TABLET PO SCH ×2 (11:21→22:35)
[2018-03-01] MEDS: AMIODARONE HCL 200 MG TABLET PO SCH (11:22)
[2018-03-01] MEDS: DOCUSATE SODIUM 100 MG CAPSULE PO SCH (11:22)
[2018-03-01] MEDS: SPIRONOLACTONE 25 MG TABLET PO SCH (11:23)
[2018-03-01] MEDS: FUROSEMIDE 40 MG TABLET PO SCH ×2 (11:23→18:16)
--- NOTE | 2018-03-01 15:12 | PDOC PROGRESS REPORT ---
Subjective Progress Note for:: 03/01/18 Subjective:: 63 yr old female with diastolic CHF and severe MS. who presented with CHF exacerbation. She has diuresed well- lasix switched to PO. She is very weak unable to get out of bed per PT eval. Jamal need rehab at discharge. Was admitted to [facility] but does not want to return there. Discharge planning is reviewing other options. Dyspnea improved. No other complaints. Reason For Visit: CHF EXACERBATION Physical Exam Vital Signs: Temp Pulse Resp BP Pulse Ox 98.7 F 63 16 92/63 L 97 03/01/18 12:15 03/01/18 12:15 03/01/18 12:15 03/01/18 12:15 03/01/18 12:15 Intake & Output 02/28/18 03/01/18 03/02/18 06:59 06:59 06:59 Intake Total 505 511 250 Output Total 2725 1850 Balance -2220 -1339 250 Weight 67.2 kg 61.9 kg General appearance: PRESENT: no acute distress Head exam: PRESENT: normocephalic Eye exam: ABSENT: PERRLA Ear exam: PRESENT: normal external ear exam Mouth exam: PRESENT: moist Teeth exam: PRESENT: poor dentation Neck exam: ABSENT: tracheal deviation Respiratory exam: PRESENT: rhonchi, symmetrical Cardiovascular exam: PRESENT: diastolic murmur, RRR GI/Abdominal exam: PRESENT: normal bowel sounds, soft. ABSENT: tenderness Rectal exam: PRESENT: deferred Extremities exam: ABSENT: calf tenderness Neurological exam: PRESENT: alert, awake, oriented to person, oriented to place , oriented to time, oriented to situation Psychiatric exam: PRESENT: appropriate affect Skin exam: ABSENT: petechiae, rash Results Laboratory Results: 03/01/18 04:13 03/01/18 04:13 03/01/18 03/01/18 04:13 04:13 WBC 8.3 RBC 3.92 Hgb 9.0 L Hct 29.6 L MCV 76 L MCH 22.9 L MCHC 30.4 L RDW 18.6 H Plt Count 226 Seg Neutrophils % 73.4 Lymphocytes % 12.7 L Monocytes % 12.6 Eosinophils % 0.9 Basophils % 0.4 Absolute Neutrophils 6.1 Absolute Lymphocytes 1.1 Absolute Monocytes 1.0 Absolute Eosinophils 0.1 Absolute Basophils 0.0 Sodium 137.3 Potassium 3.4 L Chloride 94 L Carbon Dioxide 35 H Anion Gap 8 BUN 19 Creatinine 0.80 Est GFR ( Amer) > 60 Est GFR (Non-Af Amer) > 60 Glucose 115 H Calcium 8.6 Phosphorus 2.2 L Magnesium 1.9 02/27/1818 03/01/18 04:19 04:34 04:13 NT-Pro-B Natriuret Pep 26095 H 99479 H 8750 H Impressions: Chest X-Ray 02/26/18 11:39 IMPRESSION: CARDIAC ENLARGEMENT. VASCULAR CONGESTION. Assessment & Plan - Diagnosis (1) Acute diastolic (congestive) heart failure Is this a current diagnosis for this admission?: Yes Plan: Lasix and Aldactone, monitor intake and output and renal function. (2) Atrial fibrillation Qualifiers: Atrial fibrillation type: chronic Qualified Code(s): I48.2 - Chronic atrial fibrillation Is this a current diagnosis for this admission?: Yes Plan: Continue Metoprolol, Amiodarone and Warfarin (3) Hypothyroid Qualifiers: Hypothyroidism type: acquired Qualified Code(s): E03.9 - Hypothyroidism, unspecified Is this a current diagnosis for this admission?: Yes Plan: Increased Synthroid dose, due to TSH of 10 (4) Lower back pain Is this a current diagnosis for this admission?: Yes Plan: Gabapentin, Lidocaine patch and Flexeril prn. (5) Mitral valve stenosis determined by imaging Is this a current diagnosis for this admission?: Yes Plan: Echocardiogram shows severe mitral stenosis. Continue management for heart failure and have her follow-up with her commodities trader next week. Lasix and Spirinolactone. Continue on Coumadin. INR is therapeutic. (6) Depression Is this a current diagnosis for this admission?: Yes Plan: Lexapro (7) Chronic anticoagulation Is this a current diagnosis for this admission?: Yes Plan: Continue Coumadin, monitor INR Goal 2.5-3.5 (8) Dementia Is this a current diagnosis for this admission?: Yes Plan: Continue Aricept (9) Full code status Is this a current diagnosis for this admission?: Yes
[2018-03-01] MEDS: LIDOCAINE 5% (700 MG) TRANSDERMAL ADH..PATCH TP SCH (18:17)
[2018-03-01] MEDS: SIMVASTATIN 10 MG TABLET PO SCH (22:35)
[2018-03-01] MEDS: ZOLPIDEM TARTRATE 5 MG TABLET PO SCH (22:35)
[2018-03-01] MEDS: WARFARIN SODIUM 3 MG TABLET PO SCH (22:35)
[2018-03-02 05:39] LABS: INTERNATIONAL RATION (INR) 2.72; PROTHROMBIN TIME 30.2 SEC (11.4-15.4)
[2018-03-02] MEDS: LEVOTHYROXINE SODIUM 0.025 MG TABLET PO SCH (06:16)
[2018-03-02] MEDS ORDERED: FUROSEMIDE 20 MG TABLET PO SCH (10:00)
--- NOTE | 2018-03-02 10:20 | EKG REPORT ---
SEVERITY:- ABNORMAL ECG - ATRIAL FIBRILLATION RIGHT BUNDLE BRANCH BLOCK : Confirmed by: Dane Arriola 02-Mar-2018 10:20:21
[2018-03-02] MEDS: AMIODARONE HCL 200 MG TABLET PO SCH (10:45)
[2018-03-02] MEDS: METOPROLOL TARTRATE 25 MG TABLET PO SCH ×2 (10:45→22:10)
[2018-03-02] MEDS: FUROSEMIDE 20 MG TABLET PO SCH (10:46)
[2018-03-02] MEDS: DOCUSATE SODIUM 100 MG CAPSULE PO SCH (10:46)
--- NOTE | 2018-03-02 11:35 | PDOC PROGRESS REPORT ---
Subjective Progress Note for:: 03/01/18 Subjective:: Patient seems to be doing better with gradual improvement. Pt is denying any chest arm or neck discomfort. Patient still has shortness of breath but is noted to be able to lay flat in bed. Patient denying any PND, orthopnea. Patient denied any sustained palpitations, dizziness, syncope, near syncope. Patient denying any fever chills. Patient denying any other significant discomfort. Patient is maintaining atrial fibrillation, heart rate better controlled. Review of systems: Rest review of systems negative. Medications: Medications have been reviewed. Reason For Visit: CHF EXACERBATION Physical Exam Vital Signs: Temp Pulse Resp BP Pulse Ox 97.8 F 88 18 88/53 L 100 03/01/18 15:48 03/01/18 15:48 03/01/18 15:48 03/01/18 15:48 03/01/18 15:48 Intake & Output 02/28/18 03/01/18 03/02/18 06:59 06:59 06:59 Intake Total 505 511 480 Output Total 2725 1850 Balance -2220 -1339 480 Weight 67.2 kg 61.9 kg Exam: GENERAL: well-nourished and in no acute distress. Alert and oriented [id number] HEAD: Atraumatic, normocephalic. EYES: Pupils equal round and reactive to light, extraocular movements intact, sclera anicteric, conjunctiva are normal. ENT: TMs normal, nares patent, oropharynx clear without exudates. Moist mucous membranes. No oral ulcerations or bleeding gums noted NECK: supple without lymphadenopathy. Trachea is central. No cervical or axillary lymphadenopathy noted. Carotids are 2+, JVD WNL LUNGS: Respiration seems nonlabored, no significant accessory muscle action noted. Breath sounds clear to auscultation bilaterally and equal noted. No wheezes rales or rhonchi noted. No significant dullness noted on percussion. CHEST: Palpation of the chest wall shows no significant chest wall tenderness. 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 Opening snap and mid diastolic rumble noted. ABDOMEN: Soft, no significant tenderness appreciated, normoactive bowel sounds. No guarding, no rebound. No rigidity noted . No masses appreciated. EXTREMITIES: Pedal pulses are 1-2+, no calf tenderness noted. No clubbing or cyanosis. Trace to 1+ pedal edema noted NEUROLOGICAL: Focused neurological exam showed no significant neurologic deficit. Normal speech, no focal weakness appreciated. PSYCH: Normal mood, normal affect. Judgment and insight within normal limits. SKIN: No significant ecchymosis, skin is noted to be warm. MUSCULOSKELETAL EXAM: No significant acute joint swelling noted. Results Laboratory Results: 03/01/18 04:13 03/01/18 04:13 03/01/18 03/01/18 04:13 04:13 WBC 8.3 RBC 3.92 Hgb 9.0 L Hct 29.6 L MCV 76 L MCH 22.9 L MCHC 30.4 L RDW 18.6 H Plt Count 226 Seg Neutrophils % 73.4 Lymphocytes % 12.7 L Monocytes % 12.6 Eosinophils % 0.9 Basophils % 0.4 Absolute Neutrophils 6.1 Absolute Lymphocytes 1.1 Absolute Monocytes 1.0 Absolute Eosinophils 0.1 Absolute Basophils 0.0 Sodium 137.3 Potassium 3.4 L Chloride 94 L Carbon Dioxide 35 H Anion Gap 8 BUN 19 Creatinine 0.80 Est GFR ( Amer) > 60 Est GFR (Non-Af Amer) > 60 Glucose 115 H Calcium 8.6 Phosphorus 2.2 L Magnesium 1.9 02/27/18 02/28/18 03/01/18 04:19 04:34 04:13 NT-Pro-B Natriuret Pep 36246 H 15951 H 8750 H Impressions: Chest X-Ray 02/26/18 11:39 IMPRESSION: CARDIAC ENLARGEMENT. VASCULAR CONGESTION. Assessment & Plan - Diagnosis (1) Valvular heart disease Is this a current diagnosis for this admission?: Yes (2) Stenosis of prosthetic mitral valve Is this a current diagnosis for this admission?: Yes (3) Tricuspid regurgitation Qualifiers: Cardiac valve disease etiology: etiology unspecified Qualified Code(s): I07.1 - Rheumatic tricuspid insufficiency Is this a current diagnosis for this admission?: Yes (4) Pulmonary hypertension Is this a current diagnosis for this admission?: Yes (5) CHF (congestive heart failure) Qualifiers: Heart failure type: diastolic Heart failure chronicity: acute on chronic Qualified Code(s): I50.33 - Acute on chronic diastolic (congestive) heart failure Is this a current diagnosis for this admission?: Yes (6) Atrial fibrillation Qualifiers: Atrial fibrillation type: chronic Qualified Code(s): I48.2 - Chronic atrial fibrillation Is this a current diagnosis for this admission?: Yes (7) Chronic anticoagulation Is this a current diagnosis for this admission?: Yes - Notes Notes: Patient has shown slow gradual improvement. Heart rate is better controlled. Patient however is quite debilitated. After review of records, I feel that patient could be stabilized and medical therapy optimized for patient to be evaluated by cardiothoracic surgeon as an outpatient. It seems patient would be not a optimal candidate any repeat interventions on the valve but the surgeon would be the best person to evaluate for that. A transesophageal echocardiogram would definitely be needed along with possible cardiac CTA. At this point agree with rate control, diuretics, chronic anticoagulation with keeping INR goal little bit higher at 2.5-3.5 range. 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 Patient has significant valvular heart disease. 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 Patient has history of 2 mitral valve related interventions. At this point best option would be hard to be evaluated by cardiothoracic surgeon/sound printer to find out about other therapeutic option. Severe tricuspid regurgitation: Most likely secondary to chronic mitral stenosis. Patient could benefit from transcatheter valve placement/tightening of tricuspid valve ring but again this determination would need to be made at tertiary care center. Pulmonary hypertension: Again this is secondary to severe mitral stenosis. Atrial fibrillation: Chronic recommend rate control and chronic anticoagulation by Coumadin. 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 INR goal should be kept a little bit on the high side in my opinion between 2.5-3.5 in view of prosthetic valve thrombosis. Chronic anticoagulation: As addressed above. Congestive heart failure: Agree with IV diuretic therapy. Overall prognosis is guarded and probably on the poor side unless mechanical problems are corrected. - Time Time with patient: 15-25 minutes - CODE STATUS was discussed, patient remains full code. Surrogate decision-maker unchanged. Multiple medical problems were addressed. More than 50% of the time spent coordinating care, discussing management plans with involved caregivers. Management plans discussed with involved personnels. Medical decision making was of moderate to high complexity , patient's has multiple comorbidities. Medications reviewed and adjusted accordingly: Yes
[2018-03-02] MEDS: OXYCODONE-ACETAMINOPHEN 5-325 MG TABLET PO PRN ×2 (15:13→19:01)
--- NOTE | 2018-03-02 15:55 | PDOC PROGRESS REPORT ---
Subjective Progress Note for:: 03/02/18 Subjective:: I seen patient resting in bed. He is awake and alert. Complains of some chest pain. Reason For Visit: CHF EXACERBATION Physical Exam Vital Signs: Temp Pulse Resp BP Pulse Ox 97.9 F 103 H 16 116/78 99 03/02/18 11:05 03/02/18 11:05 03/02/18 11:05 03/02/18 11:05 03/02/18 11:40 Intake & Output 03/01/18 03/02/18 03/03/18 06:59 06:59 06:59 Intake Total 511 483 Output Total 1850 Balance -1339 483 Weight 61.9 kg 62.2 kg General appearance: PRESENT: no acute distress, well-developed, well-nourished Head exam: PRESENT: atraumatic, normocephalic Eye exam: PRESENT: conjunctiva pink, EOMI, PERRLA. ABSENT: scleral icterus Ear exam: PRESENT: normal external ear exam Mouth exam: PRESENT: moist, tongue midline Neck exam: ABSENT: carotid bruit, JVD, lymphadenopathy, thyromegaly Respiratory exam: PRESENT: clear to auscultation [place]. ABSENT: rales, rhonchi, wheezes Cardiovascular exam: PRESENT: diastolic murmur - Grade 3/6 rumbling diastolic murmur best heard at the apex., RRR. ABSENT: rubs, systolic murmur Pulses: PRESENT: normal dorsalis pedis pul Vascular exam: PRESENT: normal capillary refill GI/Abdominal exam: PRESENT: normal bowel sounds, soft. ABSENT: distended, guarding, mass, organolmegaly, rebound, tenderness Rectal exam: PRESENT: deferred Extremities exam: PRESENT: full ROM. ABSENT: calf tenderness, clubbing, pedal edema Neurological exam: PRESENT: alert, awake, oriented to person, oriented to place , oriented to time, oriented to situation, CN II-XII grossly intact. ABSENT: motor sensory deficit Psychiatric exam: PRESENT: appropriate affect, normal mood. ABSENT: homicidal ideation, suicidal ideation Skin exam: PRESENT: dry, intact, warm. ABSENT: cyanosis, rash Results Laboratory Results: 03/01/18 04:13 03/01/18 04:13 02/27/18 02/28/18 03/01/18 04:19 04:34 04:13 NT-Pro-B Natriuret Pep 22221 H 54420 H 8750 H Impressions: Chest X-Ray 02/26/18 11:39 IMPRESSION: CARDIAC ENLARGEMENT. VASCULAR CONGESTION. Assessment & Plan - Diagnosis (1) Hypothyroidism Is this a current diagnosis for this admission?: Yes Plan: Continue Synthroid (2) Atrial fibrillation Is this a current diagnosis for this admission?: Yes Plan: Rate controlled continue anticoagulation with Coumadin (3) Acute diastolic (congestive) heart failure Is this a current diagnosis for this admission?: Yes Plan: I decreased the dose of her Lasix to 20 mg p.o. daily. (4) Stenosis of prosthetic mitral valve Is this a current diagnosis for this admission?: Yes Plan: Patient has history of twice mitral prosthetic valve replacement.
[2018-03-02] MEDS: LIDOCAINE 5% (700 MG) TRANSDERMAL ADH..PATCH TP SCH (19:00)
--- NOTE | 2018-03-02 19:42 | PDOC PROGRESS REPORT ---
Subjective Progress Note for:: 03/02/18 Subjective:: Patient seems to be doing better with gradual improvement. Patient denies any new symptoms. Pt is denying any chest arm or neck discomfort. Patient still has shortness of breath but is noted to be able to lay flat in bed. Patient denying any PND, orthopnea. Patient denied any sustained palpitations, dizziness, syncope, near syncope. Patient denying any fever chills. Patient denying any other significant discomfort. Patient is maintaining atrial fibrillation, heart rate better controlled. Review of systems: Rest review of systems negative. Medications: Medications have been reviewed. Reason For Visit: CHF EXACERBATION Physical Exam Vital Signs: Temp Pulse Resp BP Pulse Ox 98.7 F 99 18 95/75 L 99 03/02/18 07:18 03/02/18 07:18 03/02/18 07:18 03/02/18 07:18 03/02/18 11:40 Intake & Output 03/01/18 03/02/18 03/03/18 06:59 06:59 06:59 Intake Total 511 483 Output Total 1850 Balance -1339 483 Weight 61.9 kg 62.2 kg Exam: GENERAL: well-nourished and in no acute distress. Alert and oriented x3 HEAD: Atraumatic, normocephalic. EYES: Pupils equal round and reactive to light, extraocular movements intact, sclera anicteric, conjunctiva are normal. ENT: TMs normal, nares patent, oropharynx clear without exudates. Moist mucous membranes. No oral ulcerations or bleeding gums noted NECK: supple without lymphadenopathy. Trachea is central. No cervical or axillary lymphadenopathy noted. Carotids are 2+, JVD WNL LUNGS: Respiration seems nonlabored, no significant accessory muscle action noted. Few bibasilar fine crackles are noted. No wheezes rales or rhonchi noted. No significant dullness noted on percussion. CHEST: Palpation of the chest wall shows no significant chest wall tenderness. 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 Opening snap with mid diastolic rumble noted ABDOMEN: Soft, no significant tenderness appreciated, normoactive bowel sounds. No guarding, no rebound. No rigidity noted . No masses appreciated. EXTREMITIES: Pedal pulses are 1-2+, no calf tenderness noted. No clubbing or cyanosis. 1+ pedal edema noted NEUROLOGICAL: Focused neurological exam showed no significant neurologic deficit. Normal speech, no focal weakness appreciated. PSYCH: Normal mood, normal affect. Judgment and insight within normal limits. SKIN: No significant ecchymosis, skin is noted to be warm. MUSCULOSKELETAL EXAM: No significant acute joint swelling noted. Results Laboratory Results: 03/01/18 04:13 03/01/18 04:13 02/27/18 02/28/18 03/01/18 04:19 04:34 04:13 NT-Pro-B Natriuret Pep 46467 H 85160 H 8750 H EKG Comments: Atrial fibrillation with mildly rapid ventricular response and right bundle branch block pattern Impressions: Chest X-Ray 02/26/18 11:39 IMPRESSION: CARDIAC ENLARGEMENT. VASCULAR CONGESTION. Assessment & Plan - Diagnosis (1) Valvular heart disease Is this a current diagnosis for this admission?: Yes (2) Stenosis of prosthetic mitral valve Is this a current diagnosis for this admission?: Yes (3) Tricuspid regurgitation Qualifiers: Cardiac valve disease etiology: etiology unspecified Qualified Code(s): I07.1 - Rheumatic tricuspid insufficiency Is this a current diagnosis for this admission?: Yes (4) Pulmonary hypertension Is this a current diagnosis for this admission?: Yes (5) CHF (congestive heart failure) Qualifiers: Heart failure type: diastolic Heart failure chronicity: acute on chronic Qualified Code(s): I50.33 - Acute on chronic diastolic (congestive) heart failure Is this a current diagnosis for this admission?: Yes (6) Atrial fibrillation Qualifiers: Atrial fibrillation type: chronic Qualified Code(s): I48.2 - Chronic atrial fibrillation Is this a current diagnosis for this admission?: Yes (7) Chronic anticoagulation Is this a current diagnosis for this admission?: Yes - Notes Notes: Patient showing gradual improvement. Recommend continue with rate control, diuretics, chronic anticoagulation with keeping INR goal little bit higher at 2.5-3.5 range. 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 Patient has significant valvular heart disease. 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 Patient has history of 2 mitral valve related interventions. At this point best option would be hard to be evaluated by cardiothoracic surgeon/metallurgical inspector to find out about other therapeutic option. Severe tricuspid regurgitation: Most likely secondary to chronic mitral stenosis. Patient could benefit from transcatheter valve placement/tightening of tricuspid valve ring but again this determination would need to be made at tertiary care center. Pulmonary hypertension: Again this is secondary to severe mitral stenosis. Atrial fibrillation: Chronic recommend rate control and chronic anticoagulation by Coumadin. 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 INR goal should be kept a little bit on the high side in my opinion between 2.5-3.5 in view of prosthetic valve thrombosis. Chronic anticoagulation: As addressed above. Congestive heart failure: Agree with IV diuretic therapy. Overall prognosis is guarded and probably on the poor side unless mechanical problems are corrected. - Time Time with patient: 15-25 minutes - CODE STATUS was discussed, patient remains full code. Surrogate decision-maker unchanged. Multiple medical problems were addressed. More than 50% of the time spent coordinating care, discussing management plans with involved caregivers. Management plans discussed with involved personnels. Medical decision making was of moderate to high complexity , patient's has multiple comorbidities. Medications reviewed and adjusted accordingly: Yes
[2018-03-02] MEDS: ZOLPIDEM TARTRATE 5 MG TABLET PO SCH (22:14)
[2018-03-02] MEDS: WARFARIN SODIUM 3 MG TABLET PO SCH (22:14)
[2018-03-02] MEDS: SIMVASTATIN 10 MG TABLET PO SCH (22:14)
[2018-03-02 22:23] LABS: APPEARANCE,URINE SLIGHTLY-CLOUDY; BILIRUBIN,URINE NEGATIVE (NEGATIVE); COLOR,URINE AMBER; GLUCOSE, URINE NEGATIVE (NEGATIVE); KETONES,URINE NEGATIVE (NEGATIVE); LEUKOCYTE ESTERASE,URINE MODERATE (NEGATIVE); NITRITE,URINE NEGATIVE (NEGATIVE); PROTEIN,URINE 30 mg/dL (NEGATIVE); URINE SPECIFIC GRAVITY 1.017
[2018-03-03 05:44] LABS: PROTHROMBIN TIME 28.2 SEC (11.4-15.4)
[2018-03-03] MEDS: LEVOTHYROXINE SODIUM 0.025 MG TABLET PO SCH (06:42)
[2018-03-03] MEDS: FUROSEMIDE 20 MG TABLET PO SCH (10:41)
[2018-03-03] MEDS: METOPROLOL TARTRATE 25 MG TABLET PO SCH ×2 (10:41→22:37)
[2018-03-03] MEDS: AMIODARONE HCL 200 MG TABLET PO SCH (10:41)
[2018-03-03] MEDS: DOCUSATE SODIUM 100 MG CAPSULE PO SCH (10:42)
--- NOTE | 2018-03-03 12:37 | PDOC PROGRESS REPORT ---
Subjective Progress Note for:: 03/03/18 Subjective:: The patient is clinically stable and she is ready for discharge. This morning I am about to discharge her but found that she is not able to stand up by herself or walk. She lives with her mom who is elderly and has mobility problem of her own. For this reason hold the discharge and I will discuss with director of corporate sponsorships. Reason For Visit: CHF EXACERBATION Physical Exam Vital Signs: Temp Pulse Resp BP Pulse Ox 98.4 F 100 18 118/50 L 100 03/03/18 08:00 03/03/18 08:00 03/03/18 08:00 03/03/18 08:00 03/03/18 08:00 Intake & Output 03/02/18 03/03/18 03/04/18 06:59 06:59 06:59 Intake Total 483 741 Output Total 125 Balance 483 616 Weight 62.2 kg 63.8 kg Results Laboratory Results: 03/01/18 04:13 03/01/18 04:13 03/02/18 21:45 Urine Color EDEN Urine Appearance SLIGHTLY-CLOUDY Urine pH 6.0 Ur Specific [place] 1.017 Urine Protein 30 H Urine Glucose (UA) NEGATIVE Urine Ketones NEGATIVE Urine Blood NEGATIVE Urine Nitrite NEGATIVE Ur Leukocyte Esterase MODERATE H Urine WBC (Auto) >182 Urine RBC (Auto) 4 02/27/18 02/28/18 03/01/18 04:19 04:34 04:13 NT-Pro-B Natriuret Pep 34341 H 96875 H 8750 H Impressions: Chest X-Ray 02/26/18 11:39 IMPRESSION: CARDIAC ENLARGEMENT. VASCULAR CONGESTION. Assessment & Plan - Diagnosis (1) Hypothyroidism Is this a current diagnosis for this admission?: Yes Plan: Continue Synthroid (2) Atrial fibrillation Is this a current diagnosis for this admission?: Yes Plan: Rate controlled continue anticoagulation with Coumadin (3) Acute diastolic (congestive) heart failure Is this a current diagnosis for this admission?: Yes Plan: Patient is not short of breath. She did not have any chest pain. (4) Stenosis of prosthetic mitral valve Is this a current diagnosis for this admission?: Yes Plan: Patient has history of twice mitral prosthetic valve replacement. She needs follow-up with her primary test clerk.
--- NOTE | 2018-03-03 12:58 | PDOC PROGRESS REPORT ---
Subjective Progress Note for:: 03/03/18 Subjective:: Patient resting comfortably in bed. Patient denies any new symptoms. Pt is denying any chest arm or neck discomfort. Patient still has shortness of breath but is noted to be able to lay flat in bed. Patient denying any PND, orthopnea. Patient denied any sustained palpitations, dizziness, syncope, near syncope. Patient denying any fever chills. Patient denying any other significant discomfort. Patient is maintaining atrial fibrillation, heart rate better controlled. Heart rate still somewhat intermittently elevated. Review of systems: Rest review of systems negative. Medications: Medications have been reviewed. Reason For Visit: CHF EXACERBATION Physical Exam Vital Signs: Temp Pulse Resp BP Pulse Ox 98.4 F 100 18 118/50 L 100 03/03/18 08:00 03/03/18 08:00 03/03/18 08:00 03/03/18 08:00 03/03/18 08:00 Intake & Output 03/02/18 03/03/18 03/04/18 06:59 06:59 06:59 Intake Total 483 741 Output Total 125 Balance 483 616 Weight 62.2 kg 63.8 kg Exam: GENERAL: well-nourished and in no acute distress. Alert and oriented x3 HEAD: Atraumatic, normocephalic. EYES: Pupils equal round and reactive to light, extraocular movements intact, sclera anicteric, conjunctiva are normal. ENT: TMs normal, nares patent, oropharynx clear without exudates. Moist mucous membranes. No oral ulcerations or bleeding gums noted NECK: supple without lymphadenopathy. Trachea is central. No cervical or axillary lymphadenopathy noted. Carotids are 2+, JVD WNL LUNGS: Respiration seems nonlabored, no significant accessory muscle action noted. Breath sounds clear to auscultation bilaterally and equal noted. No wheezes rales or rhonchi noted. No significant dullness noted on percussion. CHEST: Palpation of the chest wall shows no significant chest wall tenderness. 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 Opening snap and mid diastolic rumble noted. ABDOMEN: Soft, no significant tenderness appreciated, normoactive bowel sounds. No guarding, no rebound. No rigidity noted . No masses appreciated. EXTREMITIES: Pedal pulses are 1-2+, no calf tenderness noted. No clubbing or cyanosis. negative pedal edema noted NEUROLOGICAL: Focused neurological exam showed no significant neurologic deficit. Normal speech, no focal weakness appreciated. PSYCH: Normal mood, normal affect. Judgment and insight within normal limits. SKIN: No significant ecchymosis, skin is noted to be warm. MUSCULOSKELETAL EXAM: No significant acute joint swelling noted. Results Laboratory Results: 03/01/18 04:13 03/01/18 04:13 03/02/18 21:45 Urine Color EDEN Urine Appearance SLIGHTLY-CLOUDY Urine pH 6.0 Ur Specific [place] 1.017 Urine Protein 30 H Urine Glucose (UA) NEGATIVE Urine Ketones NEGATIVE Urine Blood NEGATIVE Urine Nitrite NEGATIVE Ur Leukocyte Esterase MODERATE H Urine WBC (Auto) >182 Urine RBC (Auto) 4 02/27/18 02/28/18 03/01/18 04:19 04:34 04:13 NT-Pro-B Natriuret Pep 17492 H 23885 H 8750 H EKG Comments: Atrial fibrillation with right bundle branch block pattern. Impressions: Chest X-Ray 02/26/18 11:39 IMPRESSION: CARDIAC ENLARGEMENT. VASCULAR CONGESTION. Assessment & Plan - Diagnosis (1) Valvular heart disease Is this a current diagnosis for this admission?: Yes (2) Stenosis of prosthetic mitral valve Is this a current diagnosis for this admission?: Yes (3) Tricuspid regurgitation Qualifiers: Cardiac valve disease etiology: etiology unspecified Qualified Code(s): I07.1 - Rheumatic tricuspid insufficiency Is this a current diagnosis for this admission?: Yes (4) Pulmonary hypertension Is this a current diagnosis for this admission?: Yes (5) CHF (congestive heart failure) Qualifiers: Heart failure type: diastolic Heart failure chronicity: acute on chronic Qualified Code(s): I50.33 - Acute on chronic diastolic (congestive) heart failure Is this a current diagnosis for this admission?: Yes (6) Atrial fibrillation Qualifiers: Atrial fibrillation type: chronic Qualified Code(s): I48.2 - Chronic atrial fibrillation Is this a current diagnosis for this admission?: Yes (7) Chronic anticoagulation Is this a current diagnosis for this admission?: Yes - Notes Notes: Patient showing gradual improvement. Recommend continue with rate control, diuretics, chronic anticoagulation with keeping INR goal little bit higher at 2.5-3.5 range. This is because patient had recent valve thrombosis. Dr. Nicholas is patient's primary care collections attorney. Patient encouraged to make a early follow-up appointment with him. 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 Patient has significant valvular heart disease. 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 Patient has history of 2 mitral valve related interventions. At this point best option would be hard to be evaluated by cardiothoracic surgeon/trust accounts supervisor to find out about other therapeutic option. Severe tricuspid regurgitation: Most likely secondary to chronic mitral stenosis. Patient could benefit from transcatheter valve placement/tightening of tricuspid valve ring but again this determination would need to be made at tertiary care center. Pulmonary hypertension: Again this is secondary to severe mitral stenosis. Atrial fibrillation: Chronic recommend rate control and chronic anticoagulation by Coumadin. 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 INR goal should be kept a little bit on the high side in my opinion between 2.5-3.5 in view of prosthetic valve thrombosis. Chronic anticoagulation: As addressed above. Congestive heart failure: Will switch to p.o. diuretics. Overall prognosis is guarded and probably on the poor side unless mechanical problems are corrected. - Time Time with patient: 15-25 minutes - Patient's mother is the surrogate decision- maker. More than 50% of the time spent coordinating care, discussing management plans with involved caregivers. Management plans discussed with involved personnels. Medical decision making was of moderate to high complexity , patient's has multiple comorbidities. Medications reviewed and adjusted accordingly: Yes - CODE STATUS was discussed, patient remains full code.
[2018-03-03] MEDS: WARFARIN SODIUM 3 MG TABLET PO SCH (22:33)
[2018-03-03] MEDS: SIMVASTATIN 10 MG TABLET PO SCH (22:33)
[2018-03-03] MEDS: ZOLPIDEM TARTRATE 5 MG TABLET PO SCH (22:34)
[2018-03-03] MEDS: LIDOCAINE 5% (700 MG) TRANSDERMAL ADH..PATCH TP SCH (22:37)
[2018-03-04 05:59] LABS: INTERNATIONAL RATION (INR) 3.24; PROTHROMBIN TIME 34.6 SEC (11.4-15.4)
[2018-03-04 06:14] LABS: ANION GAP 9 (5-19); BLOOD UREA NITROGEN 14 mg/dL (7-20); CALCIUM 9.1 mg/dL (8.4-10.2); CARBON DIOXIDE 35 mmol/L (22-30); CHLORIDE 91 mmol/L (98-107); GLUCOSE 89 mg/dL (75-110); SODIUM 134.9 mmol/L (137-145)
[2018-03-04] MEDS ORDERED: POTASSIUM CHLORIDE 20 MEQ/15 ML UDCUP ONE (06:35)
[2018-03-04] MEDS: LEVOTHYROXINE SODIUM 0.025 MG TABLET PO SCH (06:37)
[2018-03-04] MEDS ORDERED: POTASSIUM CHLORIDE 20 MEQ/15 ML UDCUP PO ONE (06:45)
[2018-03-04] MEDS: AMIODARONE HCL 200 MG TABLET PO SCH (10:05)
[2018-03-04] MEDS: METOPROLOL TARTRATE 25 MG TABLET PO SCH (10:05)
[2018-03-04] MEDS: FUROSEMIDE 20 MG TABLET PO SCH (10:05)
[2018-03-04] MEDS: DOCUSATE SODIUM 100 MG CAPSULE PO SCH (10:06)
--- NOTE | 2018-03-04 11:17 | PDOC PROGRESS REPORT ---
Subjective Progress Note for:: 03/04/18 Subjective:: Patient was noted to be hypotensive last night which led to holding of metoprolol. This morning blood pressure is better and she got the metoprolol. Patient heart rate has been noted to be somewhat high. Have placed patient on metoprolol succinate 50 mg in the morning and 25 mg in the evening. This may result in more a smoother action. Have also placed patient on Midodrin at 2.5 mg p.o. daily. Reduced Lasix to 20 mg every other day and started patient on spironolactone 25 mg p.o. daily since patient has history of CHF and may have possible liver congestion. Patient resting comfortably lying in bed. Patient denies any new symptoms. Pt is denying any chest arm or neck discomfort. Patient still has shortness of breath but is noted to be able to lay flat in bed. Patient denying any PND, orthopnea. Patient denied any sustained palpitations, dizziness, syncope, near syncope. Patient denying any fever chills. Patient denying any other significant discomfort. Patient is maintaining atrial fibrillation, heart rate better controlled. Heart rate still somewhat intermittently elevated. Review of systems: Rest review of systems negative. Medications: Medications have been reviewed. Reason For Visit: CHF EXACERBATION Physical Exam Vital Signs: Temp Pulse Resp BP Pulse Ox 98.7 F 109 H 16 113/53 L 100 03/04/18 07:09 03/04/18 07:09 03/04/18 07:09 03/04/18 07:09 03/04/18 07:09 Intake & Output 03/03/18 03/04/18 03/05/18 06:59 06:59 06:59 Intake Total 741 1098 Output Total 125 300 Balance 616 798 Weight 63.8 kg 62.8 kg Exam: GENERAL: well-nourished and in no acute distress. Alert and oriented x3 HEAD: Atraumatic, normocephalic. EYES: Pupils equal round and reactive to light, extraocular movements intact, sclera anicteric, conjunctiva are normal. ENT: TMs normal, nares patent, oropharynx clear without exudates. Moist mucous membranes. No oral ulcerations or bleeding gums noted NECK: supple without lymphadenopathy. Trachea is central. No cervical or axillary lymphadenopathy noted. Carotids are 2+, JVD WNL LUNGS: Respiration seems nonlabored, no significant accessory muscle action noted. Breath sounds clear to auscultation bilaterally and equal noted. No wheezes rales or rhonchi noted. No significant dullness noted on percussion. CHEST: Palpation of the chest wall shows no significant chest wall tenderness. 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 Positive opening snap with mid diastolic rumble. ABDOMEN: Soft, no significant tenderness appreciated, normoactive bowel sounds. No guarding, no rebound. No rigidity noted . No masses appreciated. EXTREMITIES: Pedal pulses are 1-2+, no calf tenderness noted. No clubbing or cyanosis. Trace pedal edema noted NEUROLOGICAL: Focused neurological exam showed no significant neurologic deficit. Normal speech, no focal weakness appreciated. PSYCH: Normal mood, normal affect. Judgment and insight within normal limits. SKIN: No significant ecchymosis, skin is noted to be warm. MUSCULOSKELETAL EXAM: No significant acute joint swelling noted. Patient is not very mobile. Results Laboratory Results: 03/01/18 04:13 03/04/18 04:44 03/04/18 04:44 Sodium 134.9 L Potassium 3.0 L* Chloride 91 L Carbon Dioxide 35 H Anion Gap 9 BUN 14 Creatinine 0.64 Est GFR ( Amer) > 60 Est GFR (Non-Af Amer) > 60 Glucose 89 Calcium 9.1 02/27/18 02/28/18 03/01/18 04:19 04:34 04:13 NT-Pro-B Natriuret Pep 34406 H 33411 H 8750 H Impressions: Chest X-Ray 02/26/18 11:39 IMPRESSION: CARDIAC ENLARGEMENT. VASCULAR CONGESTION. Assessment & Plan - Diagnosis (1) Valvular heart disease Is this a current diagnosis for this admission?: Yes (2) Stenosis of prosthetic mitral valve Is this a current diagnosis for this admission?: Yes (3) Tricuspid regurgitation Qualifiers: Cardiac valve disease etiology: etiology unspecified Qualified Code(s): I07.1 - Rheumatic tricuspid insufficiency Is this a current diagnosis for this admission?: Yes (4) Pulmonary hypertension Is this a current diagnosis for this admission?: Yes (5) CHF (congestive heart failure) Qualifiers: Heart failure type: diastolic Heart failure chronicity: acute on chronic Qualified Code(s): I50.33 - Acute on chronic diastolic (congestive) heart failure Is this a current diagnosis for this admission?: Yes (6) Atrial fibrillation Qualifiers: Atrial fibrillation type: chronic Qualified Code(s): I48.2 - Chronic atrial fibrillation Is this a current diagnosis for this admission?: Yes (7) Chronic anticoagulation Is this a current diagnosis for this admission?: Yes - Notes Notes: Patient was noted to be hypotensive last night which led to holding of metoprolol. This morning blood pressure is better and she got the metoprolol. Patient heart rate has been noted to be somewhat high. Have placed patient on metoprolol succinate 50 mg in the morning and 25 mg in the evening. This may result in more a smoother action. Have also placed patient on Midodrin at 2.5 mg p.o. daily. Reduced Lasix to 20 mg every other day and started patient on spironolactone 25 mg p.o. daily since patient has history of CHF and may have possible liver congestion. 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 Patient has significant valvular heart disease. 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 Patient has history of 2 mitral valve related interventions. At this point best option would be hard to be evaluated by cardiothoracic surgeon/manager concrete to find out about other therapeutic option. Severe tricuspid regurgitation: Most likely secondary to chronic mitral stenosis. Patient could benefit from transcatheter valve placement/tightening of tricuspid valve ring but again this determination would need to be made at tertiary care center. Pulmonary hypertension: Again this is secondary to severe mitral stenosis. Atrial fibrillation: Chronic recommend rate control and chronic anticoagulation by Coumadin. 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 INR goal should be kept a little bit on the high side in my opinion between 2.5-3.5 in view of prosthetic valve thrombosis. Chronic anticoagulation: As addressed above. Congestive heart failure: Will switch to p.o. diuretics. Patient currently on Lasix, reduce to 20 mg p.o. every other day and started spironolactone. Monitor potassium. Overall prognosis is guarded and probably on the poor side unless mechanical problems are corrected. - Time Time with patient: Greater than 35 minutes - CODE STATUS was discussed, patient remains full code. Surrogate decision-maker unchanged. Multiple medical problems were addressed. More than 50% of the time spent coordinating care, discussing management plans with involved caregivers. Management plans discussed with involved personnels. Medical decision making was of moderate to high complexity, patient's has multiple comorbidities. Medications reviewed and adjusted accordingly: Yes
[2018-03-04] MEDS ORDERED: SPIRONOLACTONE 25 MG TABLET PO ONE (12:00)
--- NOTE | 2018-03-04 12:27 | PDOC PROGRESS REPORT ---
Subjective Progress Note for:: 03/04/18 Subjective:: Ms. Gomez is 63 years old female patient admitted 6 days ago with chief complaint of difficulty of breathing. Of note She was recently admitted to this hospital on February 01 with atrial fibrillation with RVR and was found to be in cardiogenic shock echocardiogram showed was found to have severe mitral stenosis and she was transferred to [facility]. At [facility] patient had echocardiogram which revealed mitral valve stenosis and thrombosis. Patient seen by cardiothoracic surgeon who started her on anticoagulation. He offered mitral valve replacement surgery but patient declined. Notes patient had to previous mitral valve surgery. Currently her INR is therapeutic at 3.24. Patient is awaiting placement to custodial facility. Reason For Visit: CHF EXACERBATION Physical Exam Vital Signs: Temp Pulse Resp BP Pulse Ox 98.7 F 109 H 16 113/53 L 100 03/04/18 07:09 03/04/18 07:09 03/04/18 07:09 03/04/18 07:09 03/04/18 07:09 Intake & Output 03/03/18 03/04/18 03/05/18 06:59 06:59 06:59 Intake Total 741 1098 Output Total 125 300 Balance 616 798 Weight 63.8 kg 62.8 kg General appearance: PRESENT: no acute distress, well-developed, well-nourished Eye exam: PRESENT: conjunctiva pink, EOMI, PERRLA. ABSENT: scleral icterus Respiratory exam: PRESENT: clear to auscultation [place]. ABSENT: rales, rhonchi, wheezes Cardiovascular exam: PRESENT: diastolic murmur - 2/6 diastolic rumbling murmur GI/Abdominal exam: PRESENT: normal bowel sounds, soft. ABSENT: distended, guarding, mass, organolmegaly, rebound, tenderness Neurological exam: PRESENT: alert, awake, oriented to time, oriented to situation Results Laboratory Results: 03/01/18 04:13 03/04/18 04:44 03/04/18 04:44 Sodium 134.9 L Potassium 3.0 L* Chloride 91 L Carbon Dioxide 35 H Anion Gap 9 BUN 14 Creatinine 0.64 Est GFR ( Amer) > 60 Est GFR (Non-Af Amer) > 60 Glucose 89 Calcium 9.1 02/27/18 02/28/18 03/01/18 04:19 04:34 04:13 NT-Pro-B Natriuret Pep 03451 H 38011 H 8750 H Impressions: Chest X-Ray 02/26/18 11:39 IMPRESSION: CARDIAC ENLARGEMENT. VASCULAR CONGESTION. Assessment & Plan - Diagnosis (1) Hypothyroidism Is this a current diagnosis for this admission?: Yes Plan: Continue Synthroid (2) Atrial fibrillation Is this a current diagnosis for this admission?: Yes Plan: Rate controlled continue anticoagulation with Coumadin (3) Acute diastolic (congestive) heart failure Is this a current diagnosis for this admission?: Yes Plan: Patient is not short of breath. She did not have any chest pain. (4) Stenosis of prosthetic mitral valve Is this a current diagnosis for this admission?: Yes Plan: Patient has history of twice mitral prosthetic valve replacement. She needs follow-up with her primary manager of application development.
[2018-03-04] MEDS: LIDOCAINE 5% (700 MG) TRANSDERMAL ADH..PATCH TP SCH (15:00)
[2018-03-04] MEDS ORDERED: GABAPENTIN 300 MG CAPSULE PO ONE (15:30)
[2018-03-04] MEDS ORDERED: OXYCODONE-ACETAMINOPHEN 5-325 MG TABLET PO PRN (17:13)
[2018-03-04] MEDS ORDERED: LORAZEPAM 0.5 MG TABLET PO PRN (17:14)
[2018-03-04] MEDS: MIDODRINE HCL 5 MG TABLET PO SCH (18:08)
[2018-03-04] MEDS: ZOLPIDEM TARTRATE 5 MG TABLET PO SCH (21:59)
[2018-03-04] MEDS: SIMVASTATIN 10 MG TABLET PO SCH (22:00)
[2018-03-04] MEDS ORDERED: METOPROLOL SUCCINATE 25 MG TAB.SR.24H PO SCH (22:00)
[2018-03-04] MEDS ORDERED: METOPROLOL TARTRATE 25 MG TABLET PO SCH (22:00)
[2018-03-04] MEDS: WARFARIN SODIUM 3 MG TABLET PO SCH (22:00)
[2018-03-05] MEDS ORDERED: METOPROLOL TARTRATE 50 MG TABLET ONE (03:35)
[2018-03-05] MEDS ORDERED: METOPROLOL TARTRATE 25 MG TABLET PO ONE (03:45)
[2018-03-05] MEDS: LEVOTHYROXINE SODIUM 0.025 MG TABLET PO SCH (06:38)
[2018-03-05] MEDS: GABAPENTIN 300 MG CAPSULE PO SCH ×2 (06:39→17:37)
[2018-03-05] MEDS ORDERED: METOPROLOL SUCCINATE 50 MG TAB.SR.24H PO SCH (10:00)
[2018-03-05] MEDS: AMIODARONE HCL 200 MG TABLET PO SCH (10:11)
[2018-03-05] MEDS: MIDODRINE HCL 5 MG TABLET PO SCH ×2 (10:12→17:38)
[2018-03-05] MEDS: DOCUSATE SODIUM 100 MG CAPSULE PO SCH (10:12)
[2018-03-05] MEDS: METOPROLOL TARTRATE 25 MG TABLET PO SCH ×2 (10:12→17:38)
[2018-03-05] MEDS: SPIRONOLACTONE 25 MG TABLET PO SCH (10:13)
[2018-03-05] MEDS: POTASSIUM CHLORIDE 20 MEQ/15 ML UDCUP PO SCH (10:13)
--- NOTE | 2018-03-05 10:16 | PDOC PROGRESS REPORT ---
Subjective Progress Note for:: 03/05/18 Subjective:: Patient was switched to metoprolol succinate with total dose of 75 mg a day. 50 mg in the morning and 20 5 in the evening. This has led to better heart rate control. Patient resting comfortably lying in bed. Patient denies any new symptoms. Pt is denying any chest arm or neck discomfort. Patient still has shortness of breath but is noted to be able to lay flat in bed. Patient denying any PND, orthopnea. Patient denied any sustained palpitations, dizziness, syncope, near syncope. Patient denying any fever chills. Patient denying any other significant discomfort. Patient is maintaining atrial fibrillation, heart rate better controlled. Review of systems: Rest review of systems negative. Medications: Medications have been reviewed. Reason For Visit: CHF EXACERBATION Physical Exam Vital Signs: Temp Pulse Resp BP Pulse Ox 98.4 F 104 H 18 107/73 100 03/05/18 07:28 03/05/18 07:28 03/05/18 07:28 03/05/18 07:28 03/05/18 07:28 Intake & Output 03/04/18 03/05/18 03/06/18 06:59 06:59 06:59 Intake Total 1098 1208 Output Total 300 200 Balance 798 1008 Weight 62.8 kg 65.9 kg Exam: GENERAL: well-nourished and in no acute distress. Alert and oriented x3 HEAD: Atraumatic, normocephalic. EYES: Pupils equal round and reactive to light, extraocular movements intact, sclera anicteric, conjunctiva are normal. ENT: TMs normal, nares patent, oropharynx clear without exudates. Moist mucous membranes. No oral ulcerations or bleeding gums noted NECK: supple without lymphadenopathy. Trachea is central. No cervical or axillary lymphadenopathy noted. Carotids are 2+, JVD WNL LUNGS: Respiration seems nonlabored, no significant accessory muscle action noted. Breath sounds clear to auscultation bilaterally and equal noted. No wheezes rales or rhonchi noted. No significant dullness noted on percussion. CHEST: Palpation of the chest wall shows no significant chest wall tenderness. 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 Positive for opening snap and mid diastolic rumble. ABDOMEN: Soft, no significant tenderness appreciated, normoactive bowel sounds. No guarding, no rebound. No rigidity noted . No masses appreciated. EXTREMITIES: Pedal pulses are 1-2+, no calf tenderness noted. No clubbing or cyanosis. negative pedal edema noted NEUROLOGICAL: Focused neurological exam showed no significant neurologic deficit. Normal speech, no focal weakness appreciated. PSYCH: Normal mood, normal affect. Judgment and insight within normal limits. SKIN: No significant ecchymosis, skin is noted to be warm. MUSCULOSKELETAL EXAM: No significant acute joint swelling noted. Patient has generalized weakness. Results Laboratory Results: 03/01/18 04:13 03/04/18 04:44 02/27/18 02/28/18 03/01/18 04:19 04:34 04:13 NT-Pro-B Natriuret Pep 53715 H 32771 H 8750 H Impressions: Chest X-Ray 02/26/18 11:39 IMPRESSION: CARDIAC ENLARGEMENT. VASCULAR CONGESTION. Assessment & Plan - Diagnosis (1) Valvular heart disease Is this a current diagnosis for this admission?: Yes (2) Stenosis of prosthetic mitral valve Is this a current diagnosis for this admission?: Yes (3) Tricuspid regurgitation Qualifiers: Cardiac valve disease etiology: etiology unspecified Qualified Code(s): I07.1 - Rheumatic tricuspid insufficiency Is this a current diagnosis for this admission?: Yes (4) Pulmonary hypertension Is this a current diagnosis for this admission?: Yes (5) CHF (congestive heart failure) Qualifiers: Heart failure type: diastolic Heart failure chronicity: acute on chronic Qualified Code(s): I50.33 - Acute on chronic diastolic (congestive) heart failure Is this a current diagnosis for this admission?: Yes (6) Atrial fibrillation Qualifiers: Atrial fibrillation type: chronic Qualified Code(s): I48.2 - Chronic atrial fibrillation Is this a current diagnosis for this admission?: Yes (7) Chronic anticoagulation Is this a current diagnosis for this admission?: Yes - Notes Notes: Discharge over the weekend was withheld because patient could not stand and walk. Patient has history of bilateral hip problems. She is also quite debilitated. Medication changes were performed. Metoprolol succinate was increased to a total dose of 75 mg per day. Patient was switched from metoprolol tartrate. Also we reduced the dose of Lasix to every other day and added spironolactone. Monitor renal functions and potassium level. Patient will benefit from physical therapy. 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 Patient has significant valvular heart disease. 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 Patient has history of 2 mitral valve related interventions. At this point best option would be hard to be evaluated by cardiothoracic surgeon/jack spinner to find out about other therapeutic option. Severe tricuspid regurgitation: Most likely secondary to chronic mitral stenosis. Patient could benefit from transcatheter valve placement/tightening of tricuspid valve ring but again this determination would need to be made at tertiary care center. Pulmonary hypertension: Again this is secondary to severe mitral stenosis. Atrial fibrillation: Chronic recommend rate control and chronic anticoagulation by Coumadin. 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 INR goal should be kept a little bit on the high side in my opinion between 2.5-3.5 in view of prosthetic valve thrombosis. For rate control, patient placed on metoprolol succinate 50 mg in the morning and 25 mg in the evening. Chronic anticoagulation: As addressed above. Congestive heart failure: Will switch to p.o. diuretics. Patient currently on Lasix, reduce to 20 mg p.o. every other day and started spironolactone. Monitor potassium. Overall prognosis is guarded and probably on the poor side unless mechanical problems are corrected. - Time Time with patient: 15-25 minutes - CODE STATUS was discussed, patient remains full code. Surrogate decision-maker unchanged. Multiple medical problems were addressed. More than 50% of the time spent coordinating care, discussing management plans with involved caregivers. Management plans discussed with involved personnels. Medical decision making was of moderate to high complexity , patient's has multiple comorbidities. Medications reviewed and adjusted accordingly: Yes
[2018-03-05] MEDS: LIDOCAINE 5% (700 MG) TRANSDERMAL ADH..PATCH TP SCH (17:38)
[2018-03-05] MEDS: ZOLPIDEM TARTRATE 5 MG TABLET PO SCH (22:01)
[2018-03-05] MEDS: WARFARIN SODIUM 3 MG TABLET PO SCH (22:02)
[2018-03-05] MEDS: SIMVASTATIN 10 MG TABLET PO SCH (22:02)
[2018-03-05] MEDS ORDERED: LEVOTHYROXINE SODIUM 0.075 MG TABLET PO ONE (23:00)
--- NOTE | 2018-03-05 23:39 | PDOC PROGRESS REPORT ---
Subjective Progress Note for:: 03/05/18 Subjective:: Patient relates that feels weak.Her legs cannot hold her body. She still not ready to go to rehab. Review of systems All organ systems evaluated and negative except as in subjective All significant diagnostics and laboratories had been reviewed Reason For Visit: CHF EXACERBATION Physical Exam Vital Signs: Temp Pulse Resp BP Pulse Ox 97.8 F 112 H 18 103/58 L 90 L 03/05/18 11:13 03/05/18 11:13 03/05/18 11:13 03/05/18 11:13 03/05/18 11:13 Intake & Output 03/04/18 03/05/18 03/06/18 06:59 06:59 06:59 Intake Total 1098 1208 200 Output Total 300 200 Balance 798 1008 200 Weight 62.8 kg 65.9 kg General appearance: PRESENT: no acute distress, cooperative, well-developed, well-nourished Head exam: PRESENT: atraumatic, normocephalic Eye exam: PRESENT: conjunctiva pale, EOMI, PERRLA Mouth exam: PRESENT: moist Neck exam: PRESENT: full ROM. ABSENT: JVD, lymphadenopathy, thyromegaly Respiratory exam: PRESENT: clear to auscultation [place], decreased breath sounds Cardiovascular exam: PRESENT: diastolic murmur, irregular rhythm, systolic murmur Vascular exam: PRESENT: normal capillary refill GI/Abdominal exam: PRESENT: normal bowel sounds, soft. ABSENT: tenderness Extremities exam: ABSENT: pedal edema Musculoskeletal exam: ABSENT: ambulatory Neurological exam: PRESENT: alert, awake, oriented to person, oriented to place , oriented to time, oriented to situation, CN II-XII grossly intact Psychiatric exam: PRESENT: appropriate affect, normal mood Skin exam: PRESENT: pallor Results Laboratory Results: 03/01/18 04:13 03/04/18 04:44 02/27/18 02/28/18 03/01/18 04:19 04:34 04:13 NT-Pro-B Natriuret Pep 08114 H 24035 H 8750 H Impressions: Chest X-Ray 02/26/18 11:39 IMPRESSION: CARDIAC ENLARGEMENT. VASCULAR CONGESTION. Assessment & Plan - Diagnosis (1) Anemia Qualifiers: Anemia type: iron deficiency Iron deficiency anemia type: unspecified iron deficiency Qualified Code(s): D50.9 - Iron deficiency anemia, unspecified Is this a current diagnosis for this admission?: Yes Plan: Order anemia panel. Start iron supplementation (2) Hypokalemia Is this a current diagnosis for this admission?: Yes Plan: Replace po and trend (3) Chronic anticoagulation Is this a current diagnosis for this admission?: Yes Plan: Order PT/INR in AM. Warfarin dose may need adjustment (4) Atrial fibrillation Qualifiers: Atrial fibrillation type: chronic Qualified Code(s): I48.2 - Chronic atrial fibrillation Is this a current diagnosis for this admission?: Yes Plan: Stable (5) Hypothyroidism Qualifiers: Hypothyroidism type: acquired Qualified Code(s): E03.9 - Hypothyroidism, unspecified Is this a current diagnosis for this admission?: Yes Plan: Increase levothyroxine dose (6) Stenosis of prosthetic mitral valve Is this a current diagnosis for this admission?: Yes Plan: Will need follow up as outpatient (7) Acute respiratory failure, unspecified whether with hypoxia or hypercapnia Qualifiers: Respiratory failure complication: hypoxia Qualified Code(s): J96.01 - Acute respiratory failure with hypoxia Is this a current diagnosis for this admission?: Yes Plan: Resolved (8) Acute on chronic diastolic CHF (congestive heart failure) Is this a current diagnosis for this admission?: Yes Plan: Acute resolved. Continue present treatment (9) Weakness Is this a current diagnosis for this admission?: Yes Plan: Multifactorial. Will need rehab - Time Time Spent with patient: 15-24 minutes Medications reviewed and adjusted accordingly: Yes Anticipated discharge: Acute Rehab Within: within 48 hours - Inpatient Certification Based on my medical assessment, after consideration of the patient's comorbidities, presenting symptoms, or acuity I expect that the services needed warrant INPATIENT care.: Yes I certify that my determination is in accordance with my understanding of Medicare's requirements for reasonable and necessary INPATIENT services [42 CFR 412.3e].: Yes Medical Necessity: Significant Comorbidiites Make Outpatient Treatment Too Risky , Need Close Monitoring Due to Risk of Patient Decompensation
[2018-03-06 05:12] LABS: ABSOLUTE BASOPHILS # (AUTO) 0.1 10^3/uL (0.0-0.2); ABSOLUTE LYMPHOCYTES (AUTO) 1.7 10^3/uL (0.5-4.7); ABSOLUTE MONOCYTES (AUTO) 0.8 10^3/uL (0.1-1.4); ABSOLUTE NEUT (AUTO) 4.1 10^3/uL (1.7-8.2); ABSOLUTE RETICS # 0.081 10^6/uL (0.028-0.122); BASOPHILS % (AUTO) 0.8 % (0-2); EOSINOPHILS % (AUTO) 0.6 % (0-6); HEMATOCRIT 29.4 % (36.0-47.0); INTERNATIONAL RATION (INR) 3.77; LYMPHOCYTES % (AUTO) 25.8 % (13-45); MEAN CORPUSCULAR HEMOGLOBIN 22.9 pg (27.0-33.4); MEAN CORPUSCULAR HGB CONC 30.7 g/dL (32.0-36.0); MEAN CORPUSCULAR VOLUME 75 fl (80-97); MONOCYTES % (AUTO) 11.9 % (3-13); PLATELET COUNT 328 10^3/uL (150-450); PROTHROMBIN TIME 38.9 SEC (11.4-15.4); RED BLOOD COUNT 3.94 10^6/uL (3.72-5.28); RETICULOCYTE COUNT (AUTO) 2.05 % (0.66-2.85); SEGMENTED NEUTROPHILS % (AUTO) 60.9 % (42-78); TOTAL CELLS COUNTED % (AUTO) 100 %; WHITE BLOOD COUNT 6.7 10^3/uL (4.0-10.5)
[2018-03-06 05:33] LABS: ALANINE AMINOTRANSFERASE 40 U/L (9-52); ALBUMIN 3.2 g/dL (3.5-5.0); ALKALINE PHOSPHATASE 175 U/L (38-126); ANION GAP 10 (5-19); ASPARTATE AMINO TRANSFERASE 41 U/L (14-36); BILIRUBIN,DIRECT 0.5 mg/dL (0.0-0.4); BILIRUBIN,TOTAL 0.8 mg/dL (0.2-1.3); BLOOD UREA NITROGEN 15 mg/dL (7-20); CALCIUM 9.1 mg/dL (8.4-10.2); CARBON DIOXIDE 32 mmol/L (22-30); CHLORIDE 91 mmol/L (98-107); GLUCOSE 107 mg/dL (75-110); IRON(TIBC) 16.7 ug/dL (37-170); SODIUM 132.7 mmol/L (137-145); TOTAL PROTEIN 5.8 g/dL (6.3-8.2)
[2018-03-06] MEDS: GABAPENTIN 300 MG CAPSULE PO SCH ×2 (05:41→16:36)
[2018-03-06] MEDS: LEVOTHYROXINE SODIUM 0.075 MG TABLET PO SCH (05:41)
[2018-03-06 06:40] LABS: FOLATE 4.99 ng/mL (>2.76)
[2018-03-06 06:59] LABS: APPEARANCE,URINE CLOUDY; BILIRUBIN,URINE NEGATIVE (NEGATIVE); COLOR,URINE AMBER; GLUCOSE, URINE NEGATIVE (NEGATIVE); KETONES,URINE NEGATIVE (NEGATIVE); LEUKOCYTE ESTERASE,URINE MODERATE (NEGATIVE); NITRITE,URINE POSITIVE (NEGATIVE); PROTEIN,URINE 100 mg/dL (NEGATIVE); URINE SPECIFIC GRAVITY 1.017
[2018-03-06] MEDS: FERROUS SULFATE 325 MG TABLET PO SCH ×2 (09:53→16:36)
[2018-03-06] MEDS: MIDODRINE HCL 5 MG TABLET PO SCH ×3 (09:54→16:36)
[2018-03-06] MEDS: DOCUSATE SODIUM 100 MG CAPSULE PO SCH (09:54)
[2018-03-06] MEDS: AMIODARONE HCL 200 MG TABLET PO SCH (09:54)
[2018-03-06] MEDS: SPIRONOLACTONE 25 MG TABLET PO SCH (09:54)
[2018-03-06] MEDS: POTASSIUM CHLORIDE 20 MEQ/15 ML UDCUP PO SCH (09:56)
[2018-03-06] MEDS ORDERED: METOPROLOL SUCCINATE 25 MG TAB.SR.24H PO SCH (10:00)
[2018-03-06] MEDS ORDERED: FUROSEMIDE 20 MG TABLET PO SCH (10:00)
[2018-03-06] MEDS: LIDOCAINE 5% (700 MG) TRANSDERMAL ADH..PATCH TP SCH (16:36)
--- NOTE | 2018-03-06 17:59 | RADIOLOGY REPORT (SQ) ---
EXAM DESCRIPTION: MRI LUMBAR SPINE WITHOUT COMPLETED DATE/TIME: 03/06/2018 5:46 pm REASON FOR STUDY: bilateral lower extremeties weakness/unable to wal COMPARISON: 01/08/2018. TECHNIQUE: Sagittal and Axial imaging includes T1, T2, STIR and gradient echo sequences. Coronal T2/ HASTE imaging. LIMITATIONS: None. FINDINGS: VISUALIZED UPPER ABDOMEN: Limited evaluation. No acute or suspicious findings suggested. SEGMENTATION: No transitional anatomy. The lowest well-developed disc space is labeled L5-S1. ALIGNMENT: Anatomic. VERTEBRAE: Intact. BONE MARROW: Normal. No marrow replacement or reactive changes. DISC SIGNAL: Normal. No significant abnormal signal or loss of height. POSTERIOR ELEMENTS: Generally intact. No pars defect evident. HARDWARE: None in the spine. CORD AND CONUS: Normal in size and signal intensity. Conus at the appropriate level. SOFT TISSUES: No aortic aneurysm seen. No bulky retroperitoneal adenopathy or mass. No paraspinal mas s or fluid. L1-L2: No significant spinal stenosis or exit foraminal stenosis. L2-L3: No significant spinal stenosis or exit foraminal stenosis. L3-L4: No significant spinal stenosis or exit foraminal stenosis. L4-L5: No significant spinal stenosis or exit foraminal stenosis. L5-S1: No significant spinal stenosis or exit foraminal stenosis. LOWER THORACIC: Incompletely imaged. No stenosis seen. SACRUM: Stable sacral insufficiency fracture. Low signal in the right and left sacral ala secondary to sacroplasty cement. OTHER: No other significant findings. IMPRESSION: 1. STABLE SACRAL INSUFFICIENCY FRACTURE WITH CHANGES OF SACROPLASTY. 2. UNREMARKABLE MRI LUMBAR SPINE. NO ACUTE FINDINGS. NO STENOSIS OR IMPINGEMENT. TECHNICAL DOCUMENTATION: JOB ID: [id number]- All Rights Reserved Reading location - IP/workstation name: [email or web address]
--- NOTE | 2018-03-06 18:02 | PDOC PROGRESS REPORT ---
Subjective Progress Note for:: 03/06/18 Subjective:: Patient relates that she is not able to walk. Patient appeared to be somewhat somnolent and confused required verbal stimulation Review of systems All organ systems evaluated and negative except as in subjective All significant diagnostics and laboratories had been reviewed Reason For Visit: CHF EXACERBATION Physical Exam Vital Signs: Temp Pulse Resp BP Pulse Ox 97.5 F 97 14 96/60 L 95 03/06/18 04:17 03/06/18 04:17 03/06/18 04:17 03/06/18 04:17 03/06/18 04:17 Intake & Output 03/05/18 03/06/18 03/07/18 06:59 06:59 06:59 Intake Total 1208 847 Output Total 200 100 Balance 1008 747 Weight 65.9 kg 62.8 kg General appearance: PRESENT: no acute distress, cooperative, well-developed, well-nourished Head exam: PRESENT: atraumatic, normocephalic Eye exam: PRESENT: conjunctiva pink, EOMI, PERRLA Ear exam: PRESENT: normal external ear exam Mouth exam: PRESENT: moist Neck exam: PRESENT: full ROM, JVD. ABSENT: lymphadenopathy, tenderness Cardiovascular exam: PRESENT: diastolic murmur, irregular rhythm, systolic murmur Vascular exam: PRESENT: normal capillary refill GI/Abdominal exam: PRESENT: normal bowel sounds, soft. ABSENT: tenderness Extremities exam: PRESENT: full ROM. ABSENT: joint swelling, pedal edema Musculoskeletal exam: PRESENT: ambulatory Neurological exam: PRESENT: alert, awake, oriented to person, oriented to place , oriented to time, oriented to situation, CN II-XII grossly intact. ABSENT: motor sensory deficit Psychiatric exam: PRESENT: depressed Skin exam: PRESENT: normal color Results Laboratory Results: 03/06/18 04:44 03/06/18 04:44 03/05/18 03/06/18 03/06/18 11:50 04:44 04:44 WBC 6.7 RBC 3.94 Hgb 9.0 L Hct 29.4 L MCV 75 L MCH 22.9 L MCHC 30.7 L RDW 19.0 H Plt Count 328 Seg Neutrophils % 60.9 Lymphocytes % 25.8 Monocytes % 11.9 Eosinophils % 0.6 Basophils % 0.8 Absolute Neutrophils 4.1 Absolute Lymphocytes 1.7 Absolute Monocytes 0.8 Absolute Eosinophils 0.0 Absolute Basophils 0.1 Retic Count (auto) 2.05 Absolute Retic 0.081 Sodium 132.7 L Potassium 4.0 Chloride 91 L Carbon Dioxide 32 H Anion Gap 10 BUN 15 Creatinine 0.72 Est GFR ( Amer) > 60 Est GFR (Non-Af Amer) > 60 Glucose 107 Calcium 9.1 Magnesium 1.8 Iron 16.7 L TIBC 395 % Saturation 4 Ferritin 31.10 Total Bilirubin 0.8 AST 41 H ALT 40 Alkaline Phosphatase 175 H Total Protein 5.8 L Albumin 3.2 L Vitamin B12 433.0 Folate 4.99 Urine Color Urine Appearance Urine pH Ur Specific [place] Urine Protein Urine Glucose (UA) Urine Ketones Urine Blood Urine Nitrite Ur Leukocyte Esterase Urine WBC (Auto) Urine RBC (Auto) Stool Occult Blood NEGATIVE 03/06/18 06:30 WBC RBC Hgb Hct MCV MCH MCHC RDW Plt Count Seg Neutrophils % Lymphocytes % Monocytes % Eosinophils % Basophils % Absolute Neutrophils Absolute Lymphocytes Absolute Monocytes Absolute Eosinophils Absolute Basophils Retic Count (auto) Absolute Retic Sodium Potassium Chloride Carbon Dioxide Anion Gap BUN Creatinine Est GFR ( Amer) Est GFR (Non-Af Amer) Glucose Calcium Magnesium Iron TIBC % Saturation Ferritin Total Bilirubin AST ALT Alkaline Phosphatase Total Protein Albumin Vitamin B12 Folate Urine Color [place] Urine Appearance CLOUDY Urine pH 6.0 Ur Specific [place] 1.017 Urine Protein 100 H Urine Glucose (UA) NEGATIVE Urine Ketones NEGATIVE Urine Blood SMALL H Urine Nitrite POSITIVE H Ur Leukocyte Esterase MODERATE H Urine WBC (Auto) 133 Urine RBC (Auto) 8 Stool Occult Blood 02/27/18 02/28/18 03/01/18 04:19 04:34 04:13 NT-Pro-B Natriuret Pep 16935 H 21724 H 8750 H Impressions: Chest X-Ray 02/26/18 11:39 IMPRESSION: CARDIAC ENLARGEMENT. VASCULAR CONGESTION. Assessment & Plan - Diagnosis (1) Anemia Qualifiers: Anemia type: iron deficiency Iron deficiency anemia type: unspecified iron deficiency Qualified Code(s): D50.9 - Iron deficiency anemia, unspecified Is this a current diagnosis for this admission?: Yes Plan: Findings consistent with iron deficiency anemia as expected. Continue oxygen supplementation (2) Hypokalemia Is this a current diagnosis for this admission?: Yes Plan: Replace po and trend (3) Chronic anticoagulation Is this a current diagnosis for this admission?: Yes Plan: Hold warfarin today and repeat PT/INR in AM (4) Atrial fibrillation Qualifiers: Atrial fibrillation type: chronic Qualified Code(s): I48.2 - Chronic atrial fibrillation Is this a current diagnosis for this admission?: Yes Plan: Stable (5) Hypothyroidism Qualifiers: Hypothyroidism type: acquired Qualified Code(s): E03.9 - Hypothyroidism, unspecified Is this a current diagnosis for this admission?: Yes Plan: Continue levothyroxine dose as adjusted on 03/05 (6) Stenosis of prosthetic mitral valve Is this a current diagnosis for this admission?: Yes Plan: Will need follow up as outpatient (7) Acute respiratory failure, unspecified whether with hypoxia or hypercapnia Qualifiers: Respiratory failure complication: hypoxia Qualified Code(s): J96.01 - Acute respiratory failure with hypoxia Is this a current diagnosis for this admission?: Yes Plan: Resolved (8) Acute on chronic diastolic CHF (congestive heart failure) Is this a current diagnosis for this admission?: Yes Plan: Acute resolved. Continue present treatment (9) Weakness Is this a current diagnosis for this admission?: Yes Plan: Multifactorial. Will need rehab. Order MRI of lumbar spine to rule out any spinal problems - Time Time Spent with patient: 15-24 minutes Medications reviewed and adjusted accordingly: Yes Anticipated discharge: Acute Rehab Within: within 24 hours - Inpatient Certification Based on my medical assessment, after consideration of the patient's comorbidities, presenting symptoms, or acuity I expect that the services needed warrant INPATIENT care.: Yes I certify that my determination is in accordance with my understanding of Medicare's requirements for reasonable and necessary INPATIENT services [42 CFR 412.3e].: Yes Medical Necessity: Need Close Monitoring Due to Risk of Patient Decompensation
--- NOTE | 2018-03-06 20:26 | PDOC PROGRESS REPORT ---
Subjective Progress Note for:: 03/06/18 Subjective:: Patient was switched to metoprolol succinate with total dose of 75 mg a day. 50 mg in the morning and 20 5 in the evening. This has led to better heart rate control. However subsequently it seems the dose was reduced to 12.5 mg p.o. twice daily. Today I have increased metoprolol succinate to 25 mg p.o. twice daily. Patient otherwise doing reasonably well. She just quite debilitated and not very physically active. Patient resting comfortably lying in bed. Patient denies any new symptoms. Pt is denying any chest arm or neck discomfort. Patient still has shortness of breath but is noted to be able to lay flat in bed. Patient denying any PND, orthopnea. Patient denied any sustained palpitations, dizziness, syncope, near syncope. Patient denying any fever chills. Patient denying any other significant discomfort. Patient is maintaining atrial fibrillation, heart rate was noted to be high. Review of systems: Rest review of systems negative. Medications: Medications have been reviewed. Reason For Visit: CHF EXACERBATION Physical Exam Vital Signs: Temp Pulse Resp BP Pulse Ox 98.9 F 110 H 15 113/46 L 96 03/06/18 07:45 03/06/18 07:45 03/06/18 07:45 03/06/18 07:45 03/06/18 07:45 Intake & Output 03/05/18 03/06/18 03/07/18 06:59 06:59 06:59 Intake Total 1208 847 Output Total 200 100 Balance 1008 747 Weight 65.9 kg 62.8 kg Results Laboratory Results: 03/06/18 04:44 03/06/18 04:44 03/05/18 03/06/18 03/06/18 11:50 04:44 04:44 WBC 6.7 RBC 3.94 Hgb 9.0 L Hct 29.4 L MCV 75 L MCH 22.9 L MCHC 30.7 L RDW 19.0 H Plt Count 328 Seg Neutrophils % 60.9 Lymphocytes % 25.8 Monocytes % 11.9 Eosinophils % 0.6 Basophils % 0.8 Absolute Neutrophils 4.1 Absolute Lymphocytes 1.7 Absolute Monocytes 0.8 Absolute Eosinophils 0.0 Absolute Basophils 0.1 Retic Count (auto) 2.05 Absolute Retic 0.081 Sodium 132.7 L Potassium 4.0 Chloride 91 L Carbon Dioxide 32 H Anion Gap 10 BUN 15 Creatinine 0.72 Est GFR ( Amer) > 60 Est GFR (Non-Af Amer) > 60 Glucose 107 Calcium 9.1 Magnesium 1.8 Iron 16.7 L TIBC 395 % Saturation 4 Ferritin 31.10 Total Bilirubin 0.8 AST 41 H ALT 40 Alkaline Phosphatase 175 H Total Protein 5.8 L Albumin 3.2 L Vitamin B12 433.0 Folate 4.99 Urine Color Urine Appearance Urine pH Ur Specific [place] Urine Protein Urine Glucose (UA) Urine Ketones Urine Blood Urine Nitrite Ur Leukocyte Esterase Urine WBC (Auto) Urine RBC (Auto) Stool Occult Blood NEGATIVE 03/06/18 06:30 WBC RBC Hgb Hct MCV MCH MCHC RDW Plt Count Seg Neutrophils % Lymphocytes % Monocytes % Eosinophils % Basophils % Absolute Neutrophils Absolute Lymphocytes Absolute Monocytes Absolute Eosinophils Absolute Basophils Retic Count (auto) Absolute Retic Sodium Potassium Chloride Carbon Dioxide Anion Gap BUN Creatinine Est GFR ( Amer) Est GFR (Non-Af Amer) Glucose Calcium Magnesium Iron TIBC % Saturation Ferritin Total Bilirubin AST ALT Alkaline Phosphatase Total Protein Albumin Vitamin B12 Folate Urine Color EDEN Urine Appearance CLOUDY Urine pH 6.0 Ur Specific [place] 1.017 Urine Protein 100 H Urine Glucose (UA) NEGATIVE Urine Ketones NEGATIVE Urine Blood SMALL H Urine Nitrite POSITIVE H Ur Leukocyte Esterase MODERATE H Urine WBC (Auto) 133 Urine RBC (Auto) 8 Stool Occult Blood 02/27/18 02/28/18 03/01/18 04:19 04:34 04:13 NT-Pro-B Natriuret Pep 70335 H 93593 H 8750 H Impressions: Chest X-Ray 02/26/18 11:39 IMPRESSION: CARDIAC ENLARGEMENT. VASCULAR CONGESTION. Assessment & Plan - Diagnosis (1) Valvular heart disease Is this a current diagnosis for this admission?: Yes (2) Stenosis of prosthetic mitral valve Is this a current diagnosis for this admission?: Yes (3) Tricuspid regurgitation Qualifiers: Cardiac valve disease etiology: etiology unspecified Qualified Code(s): I07.1 - Rheumatic tricuspid insufficiency Is this a current diagnosis for this admission?: Yes (4) Pulmonary hypertension Is this a current diagnosis for this admission?: Yes (5) CHF (congestive heart failure) Qualifiers: Heart failure type: diastolic Heart failure chronicity: acute on chronic Qualified Code(s): I50.33 - Acute on chronic diastolic (congestive) heart failure Is this a current diagnosis for this admission?: Yes (6) Atrial fibrillation Qualifiers: Atrial fibrillation type: chronic Qualified Code(s): I48.2 - Chronic atrial fibrillation Is this a current diagnosis for this admission?: Yes (7) Chronic anticoagulation Is this a current diagnosis for this admission?: Yes - Notes Notes: Atrial fibrillation with rapid ventricular response: Heart rate still elevated. It seems beta-nehemiah dose is low. Have increased metoprolol succinate to 25 mg p.o. twice daily. Can be increased further if needed. It seems patient received lower dose of beta-nehemiah by mistake. PT with INR slightly above therapeutic range. 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 Patient has significant valvular heart disease. 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 Patient has history of 2 mitral valve related interventions. At this point best option would be hard to be evaluated by cardiothoracic surgeon/beader to find out about other therapeutic option. Severe tricuspid regurgitation: Most likely secondary to chronic mitral stenosis. Patient could benefit from transcatheter valve placement/tightening of tricuspid valve ring but again this determination would need to be made at tertiary care center. Pulmonary hypertension: Again this is secondary to severe mitral stenosis. Atrial fibrillation: Chronic recommend rate control and chronic anticoagulation by Coumadin. 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 INR goal should be kept a little bit on the high side in my opinion between 2.5-3.5 in view of prosthetic valve thrombosis. For rate control, patient placed on metoprolol succinate 50 mg in the morning and 25 mg in the evening. Chronic anticoagulation: As addressed above. Congestive heart failure: Will switch to p.o. diuretics. Patient currently on Lasix, reduce to 20 mg p.o. every other day and started spironolactone. Monitor potassium. Overall prognosis is guarded and probably on the poor side unless mechanical problems are corrected. - Time Time with patient: 15-25 minutes - CODE STATUS was discussed, patient remains full code. Surrogate decision-maker unchanged. Multiple medical problems were addressed. More than 50% of the time spent coordinating care, discussing management plans with involved caregivers. Management plans discussed with involved personnels. Medical decision making was of moderate to high complexity , patient's has multiple comorbidities. Medications reviewed and adjusted accordingly: Yes
[2018-03-06] MEDS: ZOLPIDEM TARTRATE 5 MG TABLET PO SCH (21:54)
[2018-03-06] MEDS: METOPROLOL SUCCINATE 25 MG TAB.SR.24H PO SCH (21:54)
[2018-03-06] MEDS: SIMVASTATIN 10 MG TABLET PO SCH (21:54)
[2018-03-07 05:17] LABS: INTERNATIONAL RATION (INR) 2.91; PROTHROMBIN TIME 31.7 SEC (11.4-15.4)
[2018-03-07] MEDS: LEVOTHYROXINE SODIUM 0.075 MG TABLET PO SCH (06:45)
[2018-03-07] MEDS: GABAPENTIN 300 MG CAPSULE PO SCH (06:46)
[2018-03-07] MEDS: METOPROLOL SUCCINATE 25 MG TAB.SR.24H PO SCH (10:46)
[2018-03-07] MEDS: SPIRONOLACTONE 25 MG TABLET PO SCH (10:46)
[2018-03-07] MEDS: AMIODARONE HCL 200 MG TABLET PO SCH (10:46)
[2018-03-07] MEDS: MIDODRINE HCL 5 MG TABLET PO SCH ×2 (10:46→13:51)
[2018-03-07] MEDS: DOCUSATE SODIUM 100 MG CAPSULE PO SCH (10:47)
[2018-03-07] MEDS: POTASSIUM CHLORIDE 20 MEQ/15 ML UDCUP PO SCH (10:47)
[2018-03-07] MEDS: FERROUS SULFATE 325 MG TABLET PO SCH (10:47)
[2018-03-07 12:20] LABS: APPEARANCE,URINE CLOUDY; BILIRUBIN,URINE NEGATIVE (NEGATIVE); COLOR,URINE AMBER; GLUCOSE, URINE NEGATIVE (NEGATIVE); KETONES,URINE NEGATIVE (NEGATIVE); LEUKOCYTE ESTERASE,URINE LARGE (NEGATIVE); NITRITE,URINE NEGATIVE (NEGATIVE); PROTEIN,URINE 30 mg/dL (NEGATIVE); URINE SPECIFIC GRAVITY 1.019
--- NOTE | 2018-03-07 12:45 | PDOC TRANSFER SUMMARY ---
General - Admit/Disc Date/PCP Admission Date/Primary Care Provider: 02/26/18 14:48 DONOVAN RAPP MD Discharge Date: 03/07/18 - Discharge Diagnosis (1) Acute on chronic diastolic CHF (congestive heart failure) Is this a current diagnosis for this admission?: Yes (2) Acute respiratory failure, unspecified whether with hypoxia or hypercapnia Is this a current diagnosis for this admission?: Yes (3) Anemia Is this a current diagnosis for this admission?: Yes (4) Hypokalemia Is this a current diagnosis for this admission?: Yes (5) Chronic anticoagulation Is this a current diagnosis for this admission?: Yes (6) Atrial fibrillation Is this a current diagnosis for this admission?: Yes (7) Hypothyroidism Is this a current diagnosis for this admission?: Yes (8) Stenosis of prosthetic mitral valve Is this a current diagnosis for this admission?: Yes (9) Weakness Is this a current diagnosis for this admission?: Yes - Additional Information Discharge Diet: Cardiac Discharge Activity: Activity As Tolerated, Balance Activity w/Rest, Weigh Daily Prescriptions: Warfarin Sodium [Coumadin 3 mg Tablet] 3 mg PO QHS #30 tablet Home Medications: Amiodarone HCl [Cordarone 200 mg Tablet] 200 mg PO QHS 02/26/18 Cyclobenzaprine HCl [Flexeril 10 mg Tablet] 10 mg PO Q12HP PRN 02/26/18 Donepezil HCl [Aricept 5 mg Tablet] 10 mg PO QHS 02/26/18 Escitalopram Oxalate [Lexapro 10 mg Tablet] 20 mg PO DAILY 02/26/18 Furosemide [Lasix 20 mg Tablet] 20 mg PO QAM 02/26/18 Gabapentin [Neurontin 300 mg Capsule] 300 mg PO Q8 02/26/18 Levalbuterol HCl [Xopenex Neb 1.25 mg/3 ml Ampul] 1.25 mg NEB RTQ6 02/26/18 Levothyroxine Sodium [Synthroid] 25 mcg PO Q6AM 02/26/18 Lidocaine [Lidoderm 5% (700 mg) Transdermal Patch] 1 patch TP DAILY MDD LOWER BACK 02/26/18 Lorazepam [Ativan 0.5 mg Tablet] 0.5 mg PO DAILYP PRN 02/26/18 Metoprolol Tartrate [Lopressor 25 mg Tablet] 12.5 mg PO DAILY 02/26/18 Oxycodone HCl/Acetaminophen [Percocet 5-325 mg Tablet] 1 tab PO Q4HP PRN Polyethylene Glycol 3350 [Miralax Powder 17 gm/Packet] 17 gm PO DAILYP PRN 02/26 Simvastatin [Zocor 20 mg Tablet] 20 mg PO QHS 02/26/18 Warfarin Sodium [Coumadin 3 mg Tablet] 3 mg PO DAILY@1600 02/26/18 Zolpidem Tartrate [Ambien 5 mg Tablet] 10 mg PO QHS 02/26/18 Warfarin Sodium [Coumadin 3 mg Tablet] 3 mg PO QHS #30 tablet 03/03/18 History of Present Illness Admission Date/PCP: 02/26/18 14:48 DONOVAN RAPP MD History of Present Illness: JM PUGA is a 63 year old female with a history CHF COPD presented with complaints of difficulty breathing for one day. Patient was recently admitted at [facility] for respiratory distress, patient was intubated and transferred to [facility]. [facility] on February 23 and presented to our ED on February 25 with aforementioned complaints with findings consistent with congestive heart failure. Hospital Course Hospital Course: Patient was admitted under the hospitalist service with an impression on acute on chronic diastolic congestive heart failure. She responded to IV diuresis. A limiting factor was low blood pressure. We added Midodrine to help stabilize blood pressure. Anemia panel was obtained and showed microcytic anemia. Patient was placed on iron supplementation. Patient kept complaining that her legs could not hold her body. We ordered an MRI of the lumbar spine which was essentially negative. She has been reminded to participate on physical therapy otherwise she will become bedbound. Is my understanding that patient refused to go to [facility] and requested for her to be placed at another facility. Arrangements were made by case management in this regard. Patient suffers from mitral valve stenosis and will need to follow-up with her regular special order jeweler, Dr Jason Purcell. She is on warfarin and INR is to be checked at least on a weekly basis. Therapeutic range will be 3.5. Levothyroxine level was also adjusted and recommend to check TSH within 6 weeks following discharge. All electrolyte abnormalities have been corrected at the time of discharge. Recommend to follow-up BMP on a weekly basis to check for hypokalemia. At the time of discharge patient has significant mobility issues and we hope that by her transitioning to rehab to participate in physical therapy, she may return back to normal. Since patient had achieved maximum benefit of hospitalization stay prompted to discharge Physical Exam Vital Signs: Temp Pulse Resp BP Pulse Ox 98.3 F 113 H 18 90/54 L 96 03/07/18 08:12 03/07/18 08:12 03/07/18 08:12 03/07/18 08:19 03/07/18 08:12 Intake & Output 03/06/18 03/07/18 03/08/18 06:59 06:59 06:59 Intake Total 847 408 Output Total 100 0 Balance 747 408 Weight 62.8 kg 64.4 kg General appearance: PRESENT: no acute distress, cooperative, well-developed, well-nourished Head exam: PRESENT: atraumatic, normocephalic Eye exam: PRESENT: conjunctiva pink, EOMI, PERRLA Ear exam: PRESENT: normal external ear exam Mouth exam: PRESENT: moist Neck exam: PRESENT: full ROM. ABSENT: JVD, lymphadenopathy, tenderness Respiratory exam: PRESENT: other - Adequate movement of air with soft basilar crackles Cardiovascular exam: PRESENT: irregular rhythm, systolic murmur Vascular exam: PRESENT: normal capillary refill GI/Abdominal exam: PRESENT: normal bowel sounds, soft. ABSENT: tenderness Extremities exam: PRESENT: full ROM. ABSENT: pedal edema Musculoskeletal exam: ABSENT: ambulatory Neurological exam: PRESENT: alert, awake, oriented to person, oriented to place , oriented to time, oriented to situation, other - Bilateral leg weakness. ABSENT: CN II-XII grossly intact Psychiatric exam: PRESENT: depressed Skin exam: PRESENT: pallor Results Laboratory Results: 03/06/18 04:44 03/06/18 04:44 03/06/18 04:44 Transferrin 301 02/27/18 02/28/18 03/01/18 04:19 04:34 04:13 NT-Pro-B Natriuret Pep 85903 H 92366 H 8750 H Impressions: Chest X-Ray 02/26/18 11:39 IMPRESSION: CARDIAC ENLARGEMENT. VASCULAR CONGESTION. Lumbar Spine MRI 03/06/18 00:00 IMPRESSION: 1. STABLE SACRAL INSUFFICIENCY FRACTURE WITH CHANGES OF SACROPLASTY. 2. UNREMARKABLE MRI LUMBAR SPINE. NO ACUTE FINDINGS. NO STENOSIS OR IMPINGEMENT. Transfer Plan - Disposition Transfer Plan: Transfer to rehab facility - Time Spent with Patient Time spent with patient: Greater than 30 Minutes Qualifiers - * PATEINT BEING DISCHARGED WITH ANY OF THE FOLLOWING DIAGNOSIS?: Heart Failure HF Pt being discharged on ACEI for LVEF less than 40%?: Yes Reason(s) for not prescribing ACEI:: Tx not tolerated HF Pt being discharged on ARBS for LVEF less than 40%?: No Reason(s) for not prescribing ARBS:: Tx not tolerated HF Pt with Afib discharged with Warfarin?: Yes HF Pt discharged on evidence-based Beta Yimi:: No Reason(s) for not prescribing evidence-based Beta Yimi:: Tx not tolerated
[2018-03-07 14:18] VITALS: BP 112/56
--- NOTE | 2018-03-07 20:04 | PDOC PROGRESS REPORT ---
Subjective Progress Note for:: 03/07/18 Subjective:: Patient heart rate is better controlled but still intermittently high. Pt is denying any chest arm or neck discomfort. Patient still has shortness of breath but is noted to be able to lay flat in bed. Patient denying any PND, orthopnea. Patient denied any sustained palpitations, dizziness, syncope, near syncope. Patient denying any fever chills. Patient denying any other significant discomfort. Patient is maintaining atrial fibrillation, no other significant cardiac dysrhythmia noted. Patient just quite debilitated. Review of systems: Rest review of systems negative. Medications: Medications have been reviewed. Reason For Visit: CHF EXACERBATION Physical Exam Vital Signs: Temp Pulse Resp BP Pulse Ox 98.1 F 118 H 18 112/56 L 100 03/07/18 12:57 03/07/18 14:00 03/07/18 12:57 03/07/18 12:57 03/07/18 12:57 Intake & Output 03/06/18 03/07/18 03/08/18 06:59 06:59 06:59 Intake Total 847 408 0 Output Total 100 0 300 Balance 747 408 -300 Weight 62.8 kg 64.4 kg Exam: GENERAL: well-nourished and in no acute distress. Alert and oriented x3 HEAD: Atraumatic, normocephalic. EYES: Pupils equal round and reactive to light, extraocular movements intact, sclera anicteric, conjunctiva are normal. ENT: TMs normal, nares patent, oropharynx clear without exudates. Moist mucous membranes. No oral ulcerations or bleeding gums noted NECK: supple without lymphadenopathy. Trachea is central. No cervical or axillary lymphadenopathy noted. Carotids are 2+, JVD WNL LUNGS: Respiration seems nonlabored, no significant accessory muscle action noted. Breath sounds clear to auscultation bilaterally and equal noted. No wheezes rales or rhonchi noted. No significant dullness noted on percussion. CHEST: Palpation of the chest wall shows no significant chest wall tenderness. HEART: [place] HAND I BLOCKER, No PSH, 1/6 ZULEMA aortic area, 1/6 virk systolic murmur mitral area, no rubs, no gallops. Positive opening snap and mid diastolic rumble noted. ABDOMEN: Soft, no significant tenderness appreciated, normoactive bowel sounds. No guarding, no rebound. No rigidity noted . No masses appreciated. EXTREMITIES: Pedal pulses are 1-2+, no calf tenderness noted. No clubbing or cyanosis. negative pedal edema noted NEUROLOGICAL: Focused neurological exam showed no significant neurologic deficit. Normal speech, no focal weakness appreciated. PSYCH: Normal mood, normal affect. Judgment and insight within normal limits. SKIN: No significant ecchymosis, skin is noted to be warm. MUSCULOSKELETAL EXAM: No significant acute joint swelling noted. Generalized weakness noted. Patient seems mostly bedbound but claims that able to sit up by the side of the bed. Results Laboratory Results: 03/06/18 04:44 03/06/18 04:44 03/06/18 03/07/18 04:44 10:30 Transferrin 301 Urine Color EDEN Urine Appearance CLOUDY Urine pH 5.0 Ur Specific [place] 1.019 Urine Protein 30 H Urine Glucose (UA) NEGATIVE Urine Ketones NEGATIVE Urine Blood NEGATIVE Urine Nitrite NEGATIVE Ur Leukocyte Esterase LARGE H Urine WBC (Auto) >182 Urine RBC (Auto) 6 02/27/18 02/28/18 03/01/18 04:19 04:34 04:13 NT-Pro-B Natriuret Pep 36234 H 63003 H 8750 H EKG Comments: Telemetry strips shows atrial fibrillation with somewhat rapid but reasonably well controlled heart rate response. Impressions: Chest X-Ray 02/26/18 11:39 IMPRESSION: CARDIAC ENLARGEMENT. VASCULAR CONGESTION. Lumbar Spine MRI 03/06/18 00:00 IMPRESSION: 1. STABLE SACRAL INSUFFICIENCY FRACTURE WITH CHANGES OF SACROPLASTY. 2. UNREMARKABLE MRI LUMBAR SPINE. NO ACUTE FINDINGS. NO STENOSIS OR IMPINGEMENT. Assessment & Plan - Diagnosis (1) Valvular heart disease Is this a current diagnosis for this admission?: Yes (2) Stenosis of prosthetic mitral valve Is this a current diagnosis for this admission?: Yes (3) Tricuspid regurgitation Qualifiers: Cardiac valve disease etiology: etiology unspecified Qualified Code(s): I07.1 - Rheumatic tricuspid insufficiency Is this a current diagnosis for this admission?: Yes (4) Pulmonary hypertension Is this a current diagnosis for this admission?: Yes (5) CHF (congestive heart failure) Qualifiers: Heart failure type: diastolic Heart failure chronicity: acute on chronic Qualified Code(s): I50.33 - Acute on chronic diastolic (congestive) heart failure Is this a current diagnosis for this admission?: Yes (6) Atrial fibrillation Qualifiers: Atrial fibrillation type: chronic Qualified Code(s): I48.2 - Chronic atrial fibrillation Is this a current diagnosis for this admission?: Yes (7) Chronic anticoagulation Is this a current diagnosis for this admission?: Yes - Notes Notes: Atrial fibrillation with rapid ventricular response: Heart rate controlled improved on increased dose of metoprolol succinate to 25 mg p.o. twice daily. Can be increased further if needed. INR should be kept little higher in this patient in view of history of past thrombosis. 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 Patient has significant valvular heart disease. 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 Patient has history of 2 mitral valve related interventions. At this point best option would be hard to be evaluated by cardiothoracic surgeon/sample checker to find out about other therapeutic option. Patient does have a private garbage collection supervisor who is aware of the situation. Severe tricuspid regurgitation: Most likely secondary to chronic mitral stenosis. Patient could benefit from transcatheter valve placement/tightening of tricuspid valve ring but again this determination would need to be made at tertiary care center. Pulmonary hypertension: Again this is secondary to severe mitral stenosis. Atrial fibrillation: Chronic recommend rate control and chronic anticoagulation by Coumadin. 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 INR goal should be kept a little bit on the high side in my opinion between 2.5-3.5 in view of prosthetic valve thrombosis. For rate control patient is on metoprolol succinate. Chronic anticoagulation: As addressed above. Congestive heart failure: Patient currently on Lasix, reduce to 20 mg p.o. every other day and started spironolactone. Monitor potassium. Overall prognosis is guarded and probably on the poor side unless mechanical problems are corrected. Patient her regimen has been stable. Patient has been relatively asymptomatic for last several days. We will therefore sign off. Patient awaiting [facility]. - Time Time with patient: Greater than 35 minutes - CODE STATUS was discussed, patient remains full code. Surrogate decision-maker unchanged. Multiple medical problems were addressed. More than 50% of the time spent coordinating care, discussing management plans with involved caregivers. Management plans discussed with involved personnels. Medical decision making was of moderate to high complexity, patient's has multiple comorbidities. Medications reviewed and adjusted accordingly: Yes
== END 2018-03-07 16:03 | DRG 314 ==
LOC: ER 11:24 → EH 14:48 → 3N 21:48
PROVIDERS: ADMIT Internal Medicine; ATTEND Internal Medicine
DX: T82.857A Stenosis of other cardiac prosthetic devices, implants and grafts, initial encounter (principal); I50.33 Acute on chronic diastolic (congestive) heart failure; J96.01 Acute respiratory failure with hypoxia; E87.1 Hypo-osmolality and hyponatremia; I27.20 Pulmonary hypertension, unspecified; I07.1 Rheumatic tricuspid insufficiency; I05.0 Rheumatic mitral stenosis; E87.6 Hypokalemia; J44.9 Chronic obstructive pulmonary disease, unspecified; I25.10 Atherosclerotic heart disease of native coronary artery without angina pectoris; D50.9 Iron deficiency anemia, unspecified; E03.9 Hypothyroidism, unspecified; I48.2 Chronic atrial fibrillation; F03.90 Unspecified dementia, unspecified severity, without behavioral disturbance, psychotic disturbance, mood disturbance, and anxiety; M54.5 Low back pain; Z87.891 Personal history of nicotine dependence; Z95.2 Presence of prosthetic heart valve; Z79.01 Long term (current) use of anticoagulants; Z79.899 Other long term (current) drug therapy
CPT/HCPCS: 36415; 71045; 72148; 80048; 80053; 80076; 81001; 82272; 82550; 82553; 82607; 82728; 82746; 83540; 83550; 83735; 83880; 84100; 84443; 84466; 84484; 85025; 85045; 85610; 87040; 93005; 93010; 93306; 99285; G8978-GP; G8979-GP; J1940; J3490; J7614

== ENCOUNTER 2018-03-10 12:30 | Emergency (ER) | payer MEDICARE, MEDICAID ==
[2018-03-10] MEDS ORDERED: METHYLPREDNISOLONE INJ 125 MG/2 ML SDV IV ONE (12:47)
--- NOTE | 2018-03-10 12:53 | ER Document Report ---
ED General - General Chief Complaint: Blood Pressure Problem Stated Complaint: ALTERED MENTAL STATUS Time Seen by Provider: 03/10/18 12:47 Notes: Patient is a 63-year-old female with past medical history as recorded including COPD, CHF, chronic atrial fibrillation, mitral valve occlusion on anticoagulation, who presents from the nursing care facility with EMS secondary to some shortness of breath the patient started this morning. She denies any and all chest pain. She denies any leg swelling. She denies any fevers, belly pain, runny nose, congestion, with minimally increased cough. She did vomit 3 today. She has had a recent complicated past medical history. Patient was admitted supposedly in January for respiratory distress requiring intubation and transfer to [facility]. She was then discharged from this hospital and taken to the [facility] on February 23 presenting again to our emergency department February 25 for shortness of breath and symptoms of congestive heart failure. Patient was admitted to the hospitalist service with the impression of acute on chronic diastolic heart failure. She did respond to diuresis. She did have a relatively low blood pressure. She did have microcytic anemia and was placed on iron supplementation. She had some chronic back pain with an unremarkable MRI of the lumbar spine. Patient did not want to go to the [facility]. She was therefore sent to [facility] instead. Patient suffers from mitral valve stenosis and she is followed by her riverboat master in [place], Dr. Jason Purcell. Previous admission on February 01 the patient was found to be in atrial fibrillation with rapid ventricular response as well as cardiogenic shock. She had an echo showing severe mitral stenosis which prompted the transfer divided [facility]. Echo done on February 02 showed a normal ejection fracture. Bioprosthetic mitral valve stenosis was present. Patient had a transesophageal echo performed showing mitral valve thrombosis with cardiothoracic surgery consultation. Patient was anticoagulated with heparin and Coumadin. TRAVEL OUTSIDE OF THE [place] IN LAST 30 DAYS: No - HPI Onset: Other - See above Onset/Duration: Gradual Quality of pain: No pain Severity: Severe Pain Level: Denies Associated symptoms: Other - See above Exacerbated by: Denies Relieved by: Denies Similar symptoms previously: Yes Recently seen / treated by doctor: Yes - Related Data Allergies/Adverse Reactions: clopidogrel [From Plavix] Allergy (Verified 12/19/17 15:57) rivaroxaban [From Xarelto] Allergy (Verified 12/19/17 15:57) Past Medical History - General Information source: Patient - Social History Smoking Status: Never Smoker Cigarette use (# per day): No Chew tobacco use (# tins/day): No Smoking Education Provided: No Frequency of alcohol use: None Drug Abuse: None Family History: Hypertension Patient has suicidal ideation: No Patient has homicidal ideation: No - Past Medical History Cardiac Medical History: Reports: Hx Atrial Fibrillation, Hx Congestive Heart Failure, Hx Coronary Artery Disease, Hx Hypercholesterolemia Pulmonary Medical History: Reports: Hx COPD Renal/ Medical History: Denies: Hx Peritoneal Dialysis Musculoskeltal Medical History: Reports Hx Arthritis - osteo Psychiatric Medical History: Reports: Hx Depression Past Surgical History: Reports: Hx Cardiac Surgery - aortic valve replacement, Hx Hysterectomy, Hx Open Heart Surgery - mitral valve replacement, Hx Orthopedic Surgery - back, Hx Valve Replacement, Other - Transcatheter Sapian mitral valve replacement, prior to that bioprosthetic Review of Systems - Review of Systems Constitutional: denies: Fever EENT: denies: Eye discharge, Nose discharge Cardiovascular: denies: Chest pain, Palpitations Respiratory: Short of breath. denies: Cough, Hurts to breathe, Hemoptysis, Wheezing Gastrointestinal: Vomiting Genitourinary: denies: Dysuria Musculoskeletal: denies: Leg swelling Skin: Other - no hives. denies: Rash Neurological/Psychological: Other - no slurred speech -: Yes All other systems reviewed and negative Physical Exam - Vital signs Vitals: Resp BP Pulse Ox 32 H 156/126 H 76 L 03/10/18 12:34 03/10/18 12:34 03/10/18 12:34 Notes: Reviewed vital signs and nursing note as charted by RN. CONSTITUTIONAL: Alert. Patient has obvious tachypnea but is speaking in complete sentences HEAD: Normocephalic; atraumatic EYES: PERRL; Conjunctivae clear, sclerae non-icteric ENT: Normal nose; no rhinorrhea; moist mucous membranes; pharynx without lesions noted NECK: Supple without meningismus; non-tender CARD: Tachycardic and regular. No obvious appreciable murmurs, no clicks, no rubs, no gallops; symmetric distal pulses RESP: Patient has tachypnea. Minimal retractions. Patient has minimal rales to bilateral lower lung melendrez with no obvious wheezing or rhonchi present ABD/GI: Normal bowel sounds; non-distended; soft, non-tender BACK: The back appears normal and is non-tender to palpation EXT: Normal ROM in all joints; non-tender to palpation, no edema present bilateral lower extremities SKIN: Normal color for age and race; warm; no acute lesions noted NEURO: CN II through XII are intact. Moves all extremities equally; Motor and sensory function intact Course - Re-evaluation Re-evalutation: 03/10/18 12:56 Patient was brought rapidly into the trauma room 1. Blood, EKG, portable x-ray of the chest, and respiratory was stat paged. Blood pressure was 150/110 with a heart rate of 135. Patient is speaking in sentences but does have some obvious tachypnea. Stat portable x-ray of the chest shows what appears to be some cardiomegaly with some increased lung markings with no obvious pneumothorax or pneumonia is present. Mitral valve hardware appears to be in place. Given the above history and physical with blood pressure as recorded, I will place the patient on BiPAP and obtain a stat ABG. EKG shows what appears to be atrial fibrillation with a right bundle branch block. Previous EKG also shows atrial fibrillation with a right bundle branch block. 03/10/18 13:11 Patient is on BiPAP. Heart rate is now 113. Blood pressure is 90/52. Patient states that she does feel improved on the BiPAP. Repeat EKG is essentially unchanged. Patient's extremities are very cold so it is difficult to tell if the patient's oxygenation on the pulse oximetry is accurate. Patient is speaking to us stating that she feels better but the pulse oxygenation is hovering around 50-55. We are attempting to obtain an ABG. I am hesitant to perform a femoral stick given that the patient is on Coumadin. 03/10/18 13:15 Xray of the chest shows bilateral pleural effusions with increased lung vascular markings and cardiomegaly. 03/10/18 13:51 Patient's pH is 7.15. PCO2 was actually less than 40 at 35. HCO3 is 12. Glucose is 61. Patient has had no fevers. No obvious pneumonia on x-ray of the chest. Blood cultures and lactic acid have been sent. I will order a catheterized urine analysis. I am unsure whether there is a possible infection source with the patient's heart failure so severe that she is having some perfusion troubles. 03/10/18 14:15 Patient's oxygen saturation is much improved in the low 90s. We will repeat the ABG. We have consulted the riverboat master Dr. Arriola. He has come to bedside. He has reviewed the patient's laboratory values and EKG as well as the x-ray of the chest. He has recommended giving 150 mg of amiodarone over 30 minutes. He would also like a 0.5 mg dose of digoxin. He does not believe we are equipped to deal with this patient's chronic medical problems with her acute exacerbation of what appears to be heart failure. He agrees with me that he believes pulmonary embolism to be less likely. He believes the acidosis is secondary to poor perfusion from the heart failure. We will hold on pressors at this time. I will consider vasopressin if required. I have called the category manager service at [facility]. 03/10/18 14:42 Lactic acid as recorded. Patient states she does feel much better. Heart rate is now 110. Blood pressure is 111/83. Oxygen saturation on BiPAP is 92%. This is all much improved from presentation. Repeat ABG is pending. 03/10/18 15:12 Patient has been accepted at [facility]. I was able to speak to a Dr. Williams Chapa. He was recommending intubating the patient and placing the patient on pressor therapy. I have tried to express to him on the phone that after medical management and after cardiology consultation with BiPAP , amiodarone and digoxin, that the patient's vital signs were much improved as well the patient's mentation. With a HR of 105 with a BP currently of 110/80, I am note sure if pressor therapy and/or intubation is appropriate at this very moment. I am also concerned that I believe that this is most likely a mitral valve problem causing the heart failure troubles. I have ordered a repeat blood gas and will reassess. 03/10/18 15:27 I was able to speak with the consulting riverboat master at [facility], Dr. Yasmani Bagley who was very helpful. I have gone over the full history and physical examination and he has gone over the past medical records recently at the outside hospitals. [facility]. He states given the patient had a recent ejection fraction of 45% with a bad mitral valve, he believes that the patient's etiology is most likely mechanical in nature. He is unsure whether pressures would be helpful. And he definitely does not want to increase the patient's heart rate. He has asked me to add a half an amp of bicarbonate as well as the smallest phenylephine drip. We will place a central line. I will reassess the need for intubation prior to transport. 03/10/18 16:40 Airflight is here. Oxygen saturation is 97%. Heart rate is 100. Blood pressure is 100/72. They do not believe they would like to intubate at this time. I believe that this is a reasonable option. Patient is on the phenylephrine drip at this time. - Vital Signs Vital signs: Temp Pulse Resp BP Pulse Ox 26 H 70/19 L 92 03/10/18 15:46 03/10/18 15:46 03/10/18 15:34 - Laboratory Result Diagrams: 03/10/18 14:10 03/10/18 12:39 Laboratory results interpreted by me: 03/10/18 03/10/18 03/10/18 12:39 12:39 12:39 Hgb Hct MCH MCHC RDW Seg Neutrophils % Lymphocytes % Absolute Neutrophils PT 26.7 H ABG pH ABG pO2 ABG HCO3 ABG Total CO2 ABG O2 Saturation Sodium 135.9 L Chloride 93 L Carbon Dioxide 14 L Anion Gap 29 H BUN 21 H Est GFR (Non-Af Amer) 55 L Glucose 61 L Lactic Acid NT-Pro-B Natriuret Pep 00511 H Urine Protein Urine Urobilinogen 03/10/18 03/10/18 03/10/18 12:39 13:20 14:10 Hgb 9.5 L Hct 34.0 L MCH 22.7 L MCHC 27.9 L RDW 19.9 H Seg Neutrophils % 84.3 H Lymphocytes % 8.2 L Absolute Neutrophils 8.4 H PT ABG pH 7.15 L* ABG pO2 48.7 L ABG HCO3 12.2 L ABG Total CO2 13.3 L ABG O2 Saturation 73.4 L Sodium Chloride Carbon Dioxide Anion Gap BUN Est GFR (Non-Af Amer) Glucose Lactic Acid 16.1 H NT-Pro-B Natriuret Pep Urine Protein Urine Urobilinogen 03/10/18 15:30 Hgb Hct MCH MCHC RDW Seg Neutrophils % Lymphocytes % Absolute Neutrophils PT ABG pH ABG pO2 ABG HCO3 ABG Total CO2 ABG O2 Saturation Sodium Chloride Carbon Dioxide Anion Gap BUN Est GFR (Non-Af Amer) Glucose Lactic Acid NT-Pro-B Natriuret Pep Urine Protein 30 H Urine Urobilinogen 4.0 H Critical Care Note - Critical Care Note Total time excluding time spent on procedures (mins): 150 Discharge - Discharge Clinical Impression: Acidosis Acute congestive heart failure Qualifiers: Heart failure type: unspecified Qualified Code(s): I50.9 - Heart failure, unspecified Condition: Serious Disposition: CRITICAL ACCESS [facility]OSPITAL Referrals: DONOVAN RAPP MD [Primary Care Provider] - Follow up as needed
[2018-03-10] MEDS ORDERED: IPRATROPIUM/ALBUTEROL 0.5-2.5 MG/3 ML AMPUL NEB SCH (13:00)
--- NOTE | 2018-03-10 13:01 | RADIOLOGY REPORT (SQ) ---
EXAM DESCRIPTION: CHEST SINGLE VIEW COMPLETED DATE/TIME: 03/10/2018 12:50 pm REASON FOR STUDY: tr1; sob COMPARISON: CT angio chest 02/01/2018 Chest films 01/08/2018, 02/01/2018, 02/02/2018, 02/26/2018 EXAM PARAMETERS: NUMBER OF VIEWS: One view. TECHNIQUE: Single frontal radiographic view of the chest acquired. RADIATION DOSE: NA LIMITATIONS: None. FINDINGS: LUNGS AND PLEURA: Hazy opacity over the right and left chest likely due to a combination o f breast attenuation and small pleural effusions. Pulmonary vascular prominence. Bibasilar consolidation is present likely atelectasis. No pneumothorax MEDIASTINUM AND HILAR STRUCTURES: No masses. Contour normal. HEART AND VASCULAR STRUCTURES: Moderate cardiomegaly, old sternotomy. Mitral valve replacement BONES: No acute findings. HARDWARE: None in the chest. OTHER: No other significant finding. IMPRESSION: Bilateral pleural effusions. Pulmonary vascular congestion. Bibasilar airspace disease likely atelectasis TECHNICAL DOCUMENTATION: JOB ID: [id number] - [employer]- All Rights Reserved Reading location - IP/workstation name: [email or web address]
[2018-03-10 13:02] LABS: INTERNATIONAL RATION (INR) 2.33; PROTHROMBIN TIME 26.7 SEC (11.4-15.4)
[2018-03-10 13:17] LABS: BLOOD UREA NITROGEN 21 mg/dL (7-20); CALCIUM 9.2 mg/dL (8.4-10.2); GLUCOSE 61 mg/dL (75-110); POTASSIUM 4.7 mmol/L (3.6-5.0)
[2018-03-10 13:22] LABS: CARBON DIOXIDE 14 mmol/L (22-30); CHLORIDE 93 mmol/L (98-107); SODIUM 135.9 mmol/L (137-145)
[2018-03-10 13:24] LABS: ANION GAP 29 (5-19)
[2018-03-10 13:34] LABS: TROPONIN I 0.034 ng/mL
[2018-03-10 13:43] LABS: ARTERIAL BLOOD BASE EXCESS -15.5 mmol/L; ARTERIAL BLOOD H2CO3 1.07 mmol/L (1.05-1.35); ARTERIAL BLOOD HCO3 12.2 mmol/L (20-26); ARTERIAL BLOOD O2 SATURATION 73.4 % (94-98); ARTERIAL BLOOD PCO2 35.5 mmHg (35-45); ARTERIAL BLOOD PO2 48.7 mmHg (80-100); ARTERIAL BLOOD TOTAL CO2 13.3 mmol/L (21-25)
[2018-03-10 13:44] LABS: ARTERIAL BLOOD FIO2 100%
[2018-03-10 13:45] LABS: ARTERIAL BLOOD PH 7.15 (7.35-7.45)
[2018-03-10] MEDS ORDERED: VANCOMYCIN HCL INJ 1000 MG VIAL IV ONE (13:50)
[2018-03-10] MEDS ORDERED: PIPERACILLIN/TAZOBACTAM 3.375 GM VIAL IV ONE (13:50)
[2018-03-10] MEDS ORDERED: AMIODARONE HCL 150 MG in DEXTROSE 5%-WATER 100 ML IV ONE (14:02)
[2018-03-10] MEDS ORDERED: DIGOXIN INJ 0.5 MG/2 ML AMPULE IV ONE (14:04)
--- NOTE | 2018-03-10 14:11 | EKG REPORT ---
SEVERITY:- ABNORMAL ECG - SINUS TACHYCARDIA FIRST DEGREE AV BLOCK LEFT ATRIAL ABNORMALITY RIGHT BUNDLE BRANCH BLOCK : Confirmed by: Marito Kolb MD 10-Mar-2018 14:11:16
--- NOTE | 2018-03-10 14:13 | EKG REPORT ---
SEVERITY:- ABNORMAL ECG - ATRIAL FIBRILLATION WITH RVR RIGHT BUNDLE BRANCH BLOCK : Confirmed by: Marito Kolb MD 10-Mar-2018 14:12:00
[2018-03-10 14:34] LABS: ABSOLUTE LYMPHOCYTES (AUTO) 0.8 10^3/uL (0.5-4.7); ABSOLUTE MONOCYTES (AUTO) 0.7 10^3/uL (0.1-1.4); ABSOLUTE NEUT (AUTO) 8.4 10^3/uL (1.7-8.2); BASOPHILS % (AUTO) 0.3 % (0-2); HEMOGLOBIN 9.5 g/dL (12.0-15.5); LYMPHOCYTES % (AUTO) 8.2 % (13-45); MEAN CORPUSCULAR HEMOGLOBIN 22.7 pg (27.0-33.4); MEAN CORPUSCULAR HGB CONC 27.9 g/dL (32.0-36.0); MONOCYTES % (AUTO) 7.2 % (3-13); PLATELET COUNT 346 10^3/uL (150-450); RED BLOOD COUNT 4.18 10^6/uL (3.72-5.28); RED CELL DISTRIBUTION WIDTH 19.9 % (11.5-14.0); SEGMENTED NEUTROPHILS % (AUTO) 84.3 % (42-78); TOTAL CELLS COUNTED % (AUTO) 100 %
[2018-03-10 14:53] LABS: MEAN CORPUSCULAR VOLUME 81 fl (80-97)
[2018-03-10] MEDS ORDERED: DEXTROSE 5%-WATER 250 ML with PHENYLEPHRINE HCL 40 MG IV PRN ×2 (15:33)
[2018-03-10] MEDS ORDERED: SODIUM BICARBONATE 8.4% INJ 50 MEQ/50 ML DISP.SYRIN IV ONE (15:34)
[2018-03-10] MEDS ORDERED: PHENYLEPHRINE HCL INJ/PF 10 MG/1 ML SDV ONE (15:53)
[2018-03-10 15:54] LABS: APPEARANCE,URINE SLIGHTLY-CLOUDY; BILIRUBIN,URINE NEGATIVE (NEGATIVE); COLOR,URINE AMBER; GLUCOSE, URINE NEGATIVE (NEGATIVE); KETONES,URINE NEGATIVE (NEGATIVE); LEUKOCYTE ESTERASE,URINE NEGATIVE (NEGATIVE); NITRITE,URINE NEGATIVE (NEGATIVE); PROTEIN,URINE 30 mg/dL (NEGATIVE); URINE SPECIFIC GRAVITY 1.019
--- NOTE | 2018-03-10 16:09 | PDOC CONSULTATION ---
Consultation Consult Date: 03/10/18 Attending physician:: SEVERO RODRÍGUEZ Consult reason:: Hypotension, hypoxemia, atrial fibrillation with rapid ventricular response History of Present Illness Admission Date/PCP: DONOVAN RAPP MD Patient complains of: Altered mental status. History of Present Illness: JM PUGA is a 63 year old female with past medical history as recorded including COPD, CHF, chronic atrial fibrillation, mitral valve occlusion on anticoagulation, who presents from the nursing care facility with EMS secondary to some shortness of breath the patient started this morning. She denies any and all chest pain. She denies any leg swelling. She denies any fevers, belly pain, runny nose, congestion, with minimally increased cough. She did vomit 3 today. She has had a recent complicated past medical history. Patient was admitted supposedly in January for respiratory distress requiring intubation and transfer to [facility]. She was then discharged from this hospital and taken to the [facility] on February 23 presenting again to our emergency department February 25 for shortness of breath and symptoms of congestive heart failure. Patient was admitted to the hospitalist service with the impression of acute on chronic diastolic heart failure. She did respond to diuresis. She did have a relatively low blood pressure. She did have microcytic anemia and was placed on iron supplementation. She had some chronic back pain with an unremarkable MRI of the lumbar spine. Patient did not want to go to the [facility] [place]. She was therefore sent to [facility] instead. Patient suffers from mitral valve stenosis and she is followed by her marketing and public relations manager in [place], Dr. Jason Purcell. Previous admission on February 01 the patient was found to be in atrial fibrillation with rapid ventricular response as well as cardiogenic shock. She had an echo showing severe mitral stenosis which prompted the transfer divided [facility]. Echo done on February 02 showed a normal ejection fracture. Bioprosthetic mitral valve stenosis was present. Patient had a transesophageal echo performed showing mitral valve thrombosis with cardiothoracic surgery consultation. Patient was anticoagulated with heparin and Coumadin. This history obtained by the hospitalist was reviewed and confirmed. Patient has had 2 recent admission to [facility]. She was just discharged on the of this month. Patient is noted to be quite debilitated and is not able to ambulate much because of bilateral hip problem. In addition patient has significant stenosis in a prosthetic mitral valve which was placed percutaneously. Recent 2D echocardiogram shows severe mitral stenosis along with severe tricuspid regurgitation and significant pulmonary hypertension. It seems most of her problem results from significant mitral stenosis. In addition she has atrial fibrillation with somewhat difficult to control heart rate. This is because patient also has chronically low blood pressure which has prevented us from going up on rate control agents. Patient also has been on digoxin and amiodarone. She was discharged on small dose of beta-nehemiah, metoprolol succinate 25 mg p.o. twice daily. She was also noted to be placed on Midodrin during her last hospitalization. Past Medical History Cardiac Medical History: Reports: Atrial Fibrillation, Congestive Heart Failure , Coronary Artery Disease, Hyperlipidema Pulmonary Medical History: Reports: Chronic Obstructive Pulmonary Disease (COPD) Musculoskeltal Medical History: Reports: Arthritis - osteo Psychiatric Medical History: Reports: Depression Past Surgical History Past Surgical History: Reports: Hysterectomy, Orthopedic Surgery - back, Valve Replacement, Other - Transcatheter Sapian mitral valve replacement, prior to that bioprosthetic Social History Information Source: Relative Smoking Status: Never Smoker Frequency of Alcohol Use: None Hx Recreational Drug Use: No Drugs: None Hx Prescription Drug Abuse: No - Advance Directive Resuscitation Status: Full Code Surrogate healthcare decision maker:: Patient's mother is the surrogate decision-maker Family History Family History: Hypertension Parental Family History Reviewed: Yes Children Family History Reviewed: Yes Sibling(s) Family History Reviewed.: Yes Medication/Allergy Home Medications: Amiodarone HCl [Cordarone 200 mg Tablet] 200 mg PO QHS 02/26/18 Cyclobenzaprine HCl [Flexeril 10 mg Tablet] 10 mg PO Q12HP PRN 02/26/18 Donepezil HCl [Aricept 5 mg Tablet] 10 mg PO QHS 02/26/18 Escitalopram Oxalate [Lexapro 10 mg Tablet] 20 mg PO DAILY 02/26/18 Furosemide [Lasix 20 mg Tablet] 20 mg PO QAM 02/26/18 Gabapentin [Neurontin 300 mg Capsule] 300 mg PO Q8 02/26/18 Levalbuterol HCl [Xopenex Neb 1.25 mg/3 ml Ampul] 1.25 mg NEB RTQ6 02/26/18 Levothyroxine Sodium [Synthroid] 25 mcg PO Q6AM 02/26/18 Lidocaine [Lidoderm 5% (700 mg) Transdermal Patch] 1 patch TP DAILY MDD LOWER BACK 02/26/18 Lorazepam [Ativan 0.5 mg Tablet] 0.5 mg PO DAILYP PRN 02/26/18 Metoprolol Tartrate [Lopressor 25 mg Tablet] 12.5 mg PO DAILY 02/26/18 Oxycodone HCl/Acetaminophen [Percocet 5-325 mg Tablet] 1 tab PO Q4HP PRN Polyethylene Glycol 3350 [Miralax Powder 17 gm/Packet] 17 gm PO DAILYP PRN 02/26 Simvastatin [Zocor 20 mg Tablet] 20 mg PO QHS 02/26/18 Warfarin Sodium [Coumadin 3 mg Tablet] 3 mg PO DAILY@1600 02/26/18 Zolpidem Tartrate [Ambien 5 mg Tablet] 10 mg PO QHS 02/26/18 Warfarin Sodium [Coumadin 3 mg Tablet] 3 mg PO QHS #30 tablet 03/03/18 Allergies/Adverse Reactions: clopidogrel [From Plavix] Allergy (Verified 12/19/17 15:57) rivaroxaban [From Xarelto] Allergy (Verified 12/19/17 15:57) Review of Systems Review of Systems: Please see history of present illness and past medical history as wall. Constitutional: No fever or chills reported. Marked fatigue and tiredness reported. Head : No recent chronic headaches, recent head injury. Eyes: No recent eye pain, diplopia, redness, discharge, acute visual changes. Ears: No recent chronic ear pain, acute hearing loss, ear discharge. Oral cavity: No recent ulcerations, bleeding, oral cavity discomfort. Neck: No recent acute neck pain reported. Hematologic: No recent easy bruising or bleeding. Lymphatic: No recent lymph node enlargement reported. Cardiovascular system review: See history of present illness. Please see past medical history and HPI. Respiratory system review: No hemoptysis or blood clots in the lungs reported. Severe shortness of breath on exertion Gastrointestinal system review: Negative for any recent acute hematemesis, melena. Genitourinary system review: No recent acute or chronic hematuria, flank pain, UTI etc. reported. Skin system review: Negative for any recent abnormal bruising, no rash, no pruritus reported. Neurologic: No prior history of strokes, mini strokes, seizure disorder. Psychologic: No history of major psychosis or major depression reported. History of depression present. Musculoskeletal: Minor aches and pains reported. No acute joint swelling reported. Patient generally debilitated and basically not able to ambulate because of bilateral hip problem. Endocrine: No recent polyuria, polydipsia, recent heat or cold intolerance. Physical Exam Vital Signs: Temp Pulse Resp BP Pulse Ox 26 H 70/19 L 92 03/10/18 15:46 03/10/18 15:46 03/10/18 15:34 Intake & Output 03/09/18 03/10/18 03/11/18 06:59 06:59 06:59 Weight 74.5 kg Exam: GENERAL: well-nourished and in no acute distress. Alert and oriented x3 HEAD: Atraumatic, normocephalic. EYES: Pupils equal round and reactive to light, extraocular movements intact, sclera anicteric, conjunctiva are normal. ENT: TMs normal, nares patent, oropharynx clear without exudates. Moist mucous membranes. No oral ulcerations or bleeding gums noted NECK: supple without lymphadenopathy. Trachea is central. No cervical or axillary lymphadenopathy noted. Carotids are 2+, JVD 10-12 cm LUNGS: Respiration seems mildly labored, no significant accessory muscle action noted. Bibasilar fine crackles noted. No wheezes rales or rhonchi noted. Bilateral basal significant dullness noted on percussion. CHEST: Palpation of the chest wall shows no significant chest wall tenderness. HEART: [place] GASFITTER, No PSH, 1/6 ZULEMA aortic area, 1/6 virk systolic murmur mitral area, no rubs, no gallops. ABDOMEN: Soft, no significant tenderness appreciated, normoactive bowel sounds. No guarding, no rebound. No rigidity noted . No masses appreciated. EXTREMITIES: Pedal pulses are 1-2+, no calf tenderness noted. No clubbing or cyanosis. 1+ pedal edema noted NEUROLOGICAL: Focused neurological exam showed no significant neurologic deficit. Normal speech, no focal weakness appreciated. PSYCH: Normal mood, normal affect. Judgment and insight within normal limits. SKIN: No significant ecchymosis, skin is noted to be warm. MUSCULOSKELETAL EXAM: No significant acute joint swelling noted. Generalized weakness noted. No focal weakness appreciated. Results Laboratory Results: 03/10/18 14:10 03/10/18 12:39 03/10/18 03/10/18 03/10/18 12:39 12:39 12:39 WBC Cancelled RBC Cancelled Hgb Cancelled Hct Cancelled MCV Cancelled MCH Cancelled MCHC Cancelled RDW Cancelled Plt Count Cancelled Seg Neutrophils % Cancelled Lymphocytes % Cancelled Monocytes % Cancelled Eosinophils % Cancelled Basophils % Cancelled Absolute Neutrophils Cancelled Absolute Lymphocytes Cancelled Absolute Monocytes Cancelled Absolute Eosinophils Cancelled Absolute Basophils Cancelled Carbonic Acid HCO3/H2CO3 Ratio ABG pH ABG pCO2 ABG pO2 ABG HCO3 ABG O2 Saturation ABG Base Excess FiO2 Sodium 135.9 L Potassium 4.7 Chloride 93 L Carbon Dioxide 14 L Anion Gap 29 H BUN 21 H Creatinine 1.02 Est GFR ( Amer) > 60 Est GFR (Non-Af Amer) 55 L Glucose 61 L Lactic Acid 16.1 H Calcium 9.2 03/10/18 03/10/18 13:20 14:10 WBC 10.0 RBC 4.18 Hgb 9.5 L Hct 34.0 L MCV 81 D MCH 22.7 L MCHC 27.9 L RDW 19.9 H Plt Count 346 Seg Neutrophils % 84.3 H Lymphocytes % 8.2 L Monocytes % 7.2 Eosinophils % 0.0 Basophils % 0.3 Absolute Neutrophils 8.4 H Absolute Lymphocytes 0.8 Absolute Monocytes 0.7 Absolute Eosinophils 0.0 Absolute Basophils 0.0 Carbonic Acid 1.07 HCO3/H2CO3 Ratio 11:1 ABG pH 7.15 L* ABG pCO2 35.5 ABG pO2 48.7 L ABG HCO3 12.2 L ABG O2 Saturation 73.4 L ABG Base Excess -15.5 FiO2 100% Sodium Potassium Chloride Carbon Dioxide Anion Gap BUN Creatinine Est GFR ( Amer) Est GFR (Non-Af Amer) Glucose Lactic Acid Calcium 03/10/18 12:39 Troponin I 0.034 NT-Pro-B Natriuret Pep 69380 H EKG Comments: Atrial fibrillation with rapid ventricular response and right bundle branch block pattern Impressions: Chest X-Ray 03/10/18 12:47 IMPRESSION: Bilateral pleural effusions. Pulmonary vascular congestion. Bibasilar airspace disease likely atelectasis Assessment & Plan - Diagnosis (1) Acute congestive heart failure Qualifiers: Heart failure type: unspecified Qualified Code(s): I50.9 - Heart failure, unspecified Is this a current diagnosis for this admission?: Yes (2) Atrial fibrillation with rapid ventricular response Is this a current diagnosis for this admission?: Yes (3) Hypotension Qualifiers: Hypotension type: unspecified hypotension type Qualified Code(s): I95.9 - Hypotension, unspecified Is this a current diagnosis for this admission?: Yes (4) Acidosis Is this a current diagnosis for this admission?: Yes (5) Acute respiratory failure, unspecified whether with hypoxia or hypercapnia Qualifiers: Respiratory failure complication: unspecified whether with hypoxia or hypercapnia Qualified Code(s): J96.00 - Acute respiratory failure, unspecified whether with hypoxia or hypercapnia Is this a current diagnosis for this admission?: Yes (6) Stenosis of prosthetic mitral valve Is this a current diagnosis for this admission?: Yes (7) Tricuspid regurgitation Qualifiers: Cardiac valve disease etiology: etiology unspecified Qualified Code(s): I07.1 - Rheumatic tricuspid insufficiency Is this a current diagnosis for this admission?: Yes - Notes Notes: Patient presents acutely ill with presentation with severe shortness of breath, related to acute CHF on top of chronic CHF. Patient also seems to have hypotension, which I believe is cardiogenic. Patient also noted to have atrial fibrillation with RVR. Patient has significant valvular heart disease. Patient had has numerous hospitalization related to CHF. Feel that patient cannot be taken care of in this institution but would need stabilization prior to transfer. At this point, verbal order given for the nurse to give patient digoxin 0.5 mg IV, start on amiodarone bolus but due to hypotension, lowered the rate to about 150 mg to be given over half an hour and repeat if needed. Patient has history of blood clots in the heart therefore not a good candidate for cardioversion. This may ultimately be needed if patient crashes. Have advised ER physician, if vasopressors are needed for blood pressure, then use vasopressin or very low-dose Gen-Synephrine. Levophed and then dopamine in that order of preference. Because of patient markedly debilitated state, mechanical heart issues, her prognosis is guarded and felt to be on the poor side unless mechanical problems are corrected. Patient has a private marketing and public relations manager at [place]. ER physician is try to arrange for expeditious transfer as patient really need tertiary care support. I have been in discussion and consultation with Dr. Severo Alvarez about management of this case. Patient was seen and examined in the emergency room. - Time Time Spent with patient: CODE STATUS was discussed, patient remains full code. Surrogate decision-maker unchanged. Multiple medical problems were addressed. More than 50% of the time spent coordinating care, discussing management plans with involved caregivers. Management plans discussed with involved personnels. Medical decision making was of high complexity, patient's has multiple comorbidities. Time Spent: 30 to 50 Minutes Medications reviewed and adjusted accordingly: Yes Disposition: Transfer to tertiary care
--- NOTE | 2018-03-10 16:22 | Operative Report ---
Nonrecallable Operative Report DATE OF SURGERY: 03/10/18 PREOPERATIVE DIAGNOSIS: Critical illness, hypotension POSTOPERATIVE DIAGNOSIS: Same OPERATION: 1. Ultrasound-guided central venous puncture. 2. Right internal jugular vein central line placement. SURGEON: RACHAEL JEAN ANESTHESIA: Local TISSUE REMOVED OR ALTERED: None COMPLICATIONS: None apparent ESTIMATED BLOOD LOSS: Minimal PROCEDURE: After informed consent was obtained, the patient was laid in the Trendelenburg position. The patient's right neck and chest were prepped and draped in a normal, sterile fashion. The ultrasound was used to identify the right internal jugular vein. It was compressible with normal flow. The vein was then accessed using the supplied vascular access needle, under direct ultrasonic guidance. Dark venous, nonpulsatile blood was returned in the syringe. The wire was inserted into the lumen of the vein easily. The wire was confirmed to be within the lumen of the vein using the ultrasound. Once this was confirmed, the catheter was slid over the wire using a modified Seldinger technique. The wire was removed. The catheter was aspirated and flushed. Again, dark venous nonpulsatile blood was returned. The catheter flushed easily 3. The catheter was sutured to the neck, and a dressing was then fashioned. Patient tolerated the procedure well. Chest x-ray showed the catheter in good position. All sponge, instrument, and needle counts were correct 2. Condition: Critical
--- NOTE | 2018-03-10 16:31 | RADIOLOGY REPORT (SQ) ---
EXAM DESCRIPTION: CHEST SINGLE VIEW COMPLETED DATE/TIME: 03/10/2018 4:18 pm REASON FOR STUDY: CENTRAL LINE PLACEMENT COMPARISON: Earlier the same day. NUMBER OF VIEWS: One view. TECHNIQUE: Single frontal radiographic image of the chest acquired. LIMITATIONS: None. FINDINGS: LUNGS AND PLEURA: No significant change. No pneumothorax. MEDIASTINUM AND HEART: Stable heart size and mediastinal structures. SUPPORT DEVICES: Placement of right IJ central line with tip overlying SVC. BONY STRUCTURES: No acute findings. HARDWARE: CABG. Prosthetic heart valve. OTHER: No other significant finding. IMPRESSION: Good position of central line. No pneumothorax. Reading location - IP/workstation name: [email or web address]
[2018-03-10 18:42] VITALS: BP 100/77
== END 2018-03-10 16:30 | disposition short-term general hospital (02) ==
LOC: ER 12:30
DX: I50.9 Heart failure, unspecified (principal); E87.2 Acidosis; J44.9 Chronic obstructive pulmonary disease, unspecified; I34.8 Other nonrheumatic mitral valve disorders; I48.2 Chronic atrial fibrillation; Z79.01 Long term (current) use of anticoagulants; J90 Pleural effusion, not elsewhere classified; R06.02 Shortness of breath; R11.10 Vomiting, unspecified; R00.0 Tachycardia, unspecified; D50.9 Iron deficiency anemia, unspecified; I95.9 Hypotension, unspecified; Z79.899 Other long term (current) drug therapy; I25.10 Atherosclerotic heart disease of native coronary artery without angina pectoris; Z88.8 Allergy status to other drugs, medicaments and biological substances; Z95.2 Presence of prosthetic heart valve; I45.10 Unspecified right bundle-branch block
CPT/HCPCS: 36556; 93005; 94640 ×2; 99291; 99292; 96375; 96365; 96367; 36415; 87040; 87086; 82803; 85025; 85610; 87077; 87088; 80048; 81001; 84484; 87186; 83605; 83880; 71045; 93010; 36600; 94660; C1751; J1160; J2930; J2370; J3490; J7060; J3370; J0282; A9270; J2543; J7620